=== PATIENT | female | born 1945 | race Caucasian/White ===

== ENCOUNTER 2022-05-01 11:44 | Inpatient (IN) | payer MEDICAID, SELFPAY ==
--- NOTE | 2022-05-01 13:32 | LTC.ADM ---
, HR , RR TC Admission Note: o Admit from:[facility] o Mode of transport: On transportation o Accompanied by: by Daughter o Transferred via: wheelchair o Admitting dx: Chronic Right heart Failure o Mentation: Alert and oriented x3 o Vital Signs: BP 112/55, Temp 97.5, RR 18, HR 73, O2 sat 91 at Room Air. o Lung sounds:/, Clear bilateral through out the field o Overall condition: stable, o Pain:No complain of pain o Mood/Behavior: Pleasant and cooperative o Wound care: None o Assistance level with ADL?s: Requires assist of 1 with transfer, toileting and all ADLs. o Mobility: Res able to walk with wheelchair. o Eating: Set up only.
[2022-05-01 13:57] VITALS: BP 112/55; PULSE 73; RESP 18; TEMP 36.4; O2SAT 91
[2022-05-01 14:36] LABS: SARS PCR* Negative SARS-CoV-2 (Negative)
[2022-05-01] MEDS: INSULIN LISPRO 100 UNIT/ML VIAL 24 UNIT SUBCUT (17:44)
[2022-05-01] MEDS: NYSTATIN CREAM 30 GM 1 APPLIC TOPICAL (17:47)
--- NOTE | 2022-05-01 18:29 | PC.NURSE ---
Admission F/u : Resident is comfortable and resting in her room. She took a short nap till 1730. Family went back home and came back with her belonging and clothes. BS was 159 at 1730 and insulin was given. Vitals as follows: T 97.5, P 79 R 20 B/P 143/70 O2 95. Resident ate 100% of her supper. Resident is able to walk to the bathroom with 1 assist. She is also incontinent at times of urine. Family left for home at 1900 hours and will be back tomorrow.
[2022-05-01 18:41] VITALS: TEMP 36.4; O2SAT 95
--- NOTE | 2022-05-01 18:45 | PC.NURSE ---
Skin Assessment: Resident fitzgerald not have any wound or skin tear, however resident does have yeast infection on her abdomen folder whereby nystatin cream is being applied.
[2022-05-01] MEDS: METOPROLOL TARTRATE 25 MG TABLET PO (20:48)
[2022-05-01] MEDS: risperiDONE 0.5 MG TABLET 1 MG PO (20:49)
[2022-05-01] MEDS: GABAPENTIN 300 MG CAPSULE PO (20:49)
[2022-05-01] MEDS: CETIRIZINE HCL 10 MG TABLET PO (20:57)
[2022-05-01 23:00] VITALS: TEMP 35.6; O2SAT 99
--- NOTE | 2022-05-02 05:38 | PC.NURSE ---
New Admission note Resident night went well, she did not complain about pain or discomfort ; vitals are fine , she got her mantoux.
[2022-05-02] MEDS: ASPIRIN 81 MG TAB.CHEW PO (08:28)
[2022-05-02] MEDS: FAMOTIDINE 10 MG TABLET PO (08:29)
[2022-05-02] MEDS: ISOSORBIDE MONONITRATE ER 30 MG TAB PO (08:32)
[2022-05-02] MEDS: SITAGLIPTIN PHOSPHATE 100 MG TABLET 50 MG PO (08:33)
[2022-05-02] MEDS: METOPROLOL TARTRATE 25 MG TABLET PO ×2 (08:35→17:32)
[2022-05-02] MEDS: NYSTATIN CREAM 30 GM 1 APPLIC TOPICAL ×2 (08:35→17:35)
[2022-05-02] MEDS: LOSARTAN POTASSIUM 50 MG TABLET PO (08:35)
[2022-05-02] MEDS: GABAPENTIN 300 MG CAPSULE PO ×2 (08:35→17:35)
[2022-05-02] MEDS: risperiDONE 0.5 MG TABLET PO (08:40)
[2022-05-02] MEDS: SENNOSIDES/DOCUSATE TABLET 1 TAB PO (08:41)
[2022-05-02] MEDS: INSULIN LISPRO 100 UNIT/ML VIAL 22 UNIT SUBCUT ×2 (08:54→12:22)
[2022-05-02] MEDS: CETIRIZINE HCL 10 MG TABLET PO (08:55)
[2022-05-02] MEDS: SERTRALINE 100 MG TABLET 125 MG PO (08:55)
--- NOTE | 2022-05-02 12:15 | PC.NURSE ---
RESEARCH MANAGEMENT ASSOCIATE Visit: Resident seen by RESEARCH MANAGEMENT ASSOCIATE. Orders/meds reviewed with changes. Order: Change Zyrtec 10mg BID to daily & Risperidone 0.5 mg to 0.25mg daily, D/C Imodium 2mg TID PRN.
--- NOTE | 2022-05-02 12:44 | PC.NURSE ---
Order: Change blood sugar checks to BID by CONTROL PANEL ASSEMBLER.
[2022-05-02 12:53] VITALS: TEMP 36.9; O2SAT 96
--- NOTE | 2022-05-02 15:00 | PC.NURSE ---
Antipsychotic side effects: Increased monitoring set up for dry mouth, blurred vision, tachycardia, urinary retention, constipation, confusion, delirium, hallucinations, flushing, and increased blood pressure. Non-pharmacological interventions put in place Indication of use: hallucinations Dose: Risperidone 0.5mg in AM. 1 mg at bedtime Duration: next 30 days before re-evaluation due to new admit Adequate monitoring for efficacy and adverse consequences has been set up in [facility] and interventions AIMS done upon initiation, discontinuation and quarterly as indicated GDR to be done in two separate quarter unless clinically contraindicated Pharmacy to review monthly ETL DEVELOPER updated on review for decrease at this time.
[2022-05-02] MEDS: INSULIN LISPRO 100 UNIT/ML VIAL 24 UNIT SUBCUT (17:36)
[2022-05-02] MEDS: risperiDONE 0.5 MG TABLET 1 MG PO (19:16)
[2022-05-02 21:04] VITALS: TEMP 37.2; O2SAT 87
[2022-05-02 23:00] VITALS: TEMP 36.6; O2SAT 93
--- NOTE | 2022-05-03 06:35 | PC.NURSE ---
WEEKLY CHARTING - WEEK 3?(Toileting & Skin): Vital signs, summary of admission skin assessment, and Admission/Baseline care plan, reviewed. No changes made to care plans at this time. Resident is incontinent of bowel/bladder. Requires total assist of two to perform toileting task such as bailey-care. Resident wears extra large, heavy absorbency, Quilted Adult Briefs. Skin: Based on findings from admission head-to-toe skin assessment summary, no skin integrity concerns noted. Has order for Nystatin powder.
[2022-05-03] MEDS: TRIAMCINOLONE ACETONIDE CREAM 0.1 % 1 APPLIC TOPICAL (08:10)
[2022-05-03] MEDS: ASPIRIN 81 MG TAB.CHEW PO (08:14)
[2022-05-03] MEDS: LOSARTAN POTASSIUM 50 MG TABLET PO (08:16)
[2022-05-03] MEDS: GABAPENTIN 300 MG CAPSULE PO ×2 (08:17→16:26)
[2022-05-03] MEDS: NYSTATIN CREAM 30 GM 1 APPLIC TOPICAL ×2 (08:17→16:27)
[2022-05-03] MEDS: METOPROLOL TARTRATE 25 MG TABLET PO ×2 (08:17→16:27)
[2022-05-03] MEDS: SENNOSIDES/DOCUSATE TABLET 1 TAB PO (08:18)
[2022-05-03] MEDS: SERTRALINE 100 MG TABLET 125 MG PO (08:18)
[2022-05-03] MEDS: CETIRIZINE HCL 10 MG TABLET PO (08:19)
[2022-05-03] MEDS: SITAGLIPTIN PHOSPHATE 100 MG TABLET 50 MG PO (08:32)
[2022-05-03] MEDS: ISOSORBIDE MONONITRATE ER 30 MG TAB PO (08:32)
[2022-05-03] MEDS: FAMOTIDINE 10 MG TABLET PO (08:34)
[2022-05-03] MEDS: risperiDONE 0.5 MG TABLET 0.25 MG PO (08:39)
[2022-05-03] MEDS: INSULIN LISPRO 100 UNIT/ML VIAL 22 UNIT SUBCUT ×2 (08:50→12:09)
[2022-05-03 09:11] LABS: SARS PCR* Negative SARS-CoV-2 (Negative)
--- NOTE | 2022-05-03 10:22 | PC.NURSE ---
Side rail Assessment/Providers Orders/Informed Consent: Completed side rail utilization assessment, RBVO left bed rails up to always promote independence/positioning. Requested by resident. DX: Obesity per Tyra Dukes NP. Bed rail informed consent form signed and filed. FDA side rail pamphlet given to resident at this time. Intervention in place/Care Plan and Care Sheets updated.
[2022-05-03 11:02] VITALS: TEMP 36.4; O2SAT 95
[2022-05-03 11:24] VITALS: TEMP 36.4; O2SAT 96
--- NOTE | 2022-05-03 12:00 | PC.NURSE ---
IDT: Staff has noted that resident was having weakness during the evening and morning with transfers. Advised to use the EZtstand when noted weakness. Therapy updated at IDT and they will do a recommendation visit.
[2022-05-03 14:37] VITALS: BP 138/60; BP 151/66; PULSE 65
[2022-05-03 15:00] VITALS: TEMP 36.6; O2SAT 97
[2022-05-03] MEDS: INSULIN LISPRO 100 UNIT/ML VIAL 24 UNIT SUBCUT (17:49)
--- NOTE | 2022-05-03 18:14 | PC.NURSE ---
GDR Risperidone done 0.5 mg to 0.25mg in the am pdo.
[2022-05-03] MEDS: ATORVASTATIN CALCIUM 40 MG TABLET PO (20:34)
[2022-05-03] MEDS: risperiDONE 0.5 MG TABLET 1 MG PO (21:04)
[2022-05-03 23:37] VITALS: TEMP 36.4; O2SAT 96
[2022-05-04] MEDS: SITAGLIPTIN PHOSPHATE 100 MG TABLET 50 MG PO (08:14)
[2022-05-04] MEDS: ASPIRIN 81 MG TAB.CHEW PO (08:15)
[2022-05-04] MEDS: LOSARTAN POTASSIUM 50 MG TABLET PO (08:17)
[2022-05-04] MEDS: GABAPENTIN 300 MG CAPSULE PO ×2 (08:17→15:59)
[2022-05-04] MEDS: METOPROLOL TARTRATE 25 MG TABLET PO ×2 (08:17→15:59)
[2022-05-04] MEDS: CETIRIZINE HCL 10 MG TABLET PO (08:18)
[2022-05-04] MEDS: NYSTATIN CREAM 30 GM 1 APPLIC TOPICAL ×2 (08:18→19:22)
[2022-05-04] MEDS: SERTRALINE 100 MG TABLET 125 MG PO (08:18)
[2022-05-04] MEDS: risperiDONE 0.5 MG TABLET 0.25 MG PO (08:18)
[2022-05-04] MEDS: FAMOTIDINE 10 MG TABLET PO (08:18)
[2022-05-04] MEDS: SENNOSIDES/DOCUSATE TABLET 1 TAB PO (08:18)
[2022-05-04] MEDS: INSULIN LISPRO 100 UNIT/ML VIAL 22 UNIT SUBCUT ×2 (08:28→11:50)
[2022-05-04] MEDS: ISOSORBIDE MONONITRATE ER 30 MG TAB PO (08:28)
[2022-05-04 10:26] VITALS: TEMP 36.6; O2SAT 95
[2022-05-04 13:33] VITALS: BP 128/73
[2022-05-04] MEDS: INSULIN LISPRO 100 UNIT/ML VIAL 24 UNIT SUBCUT (17:30)
[2022-05-04] MEDS: risperiDONE 0.5 MG TABLET 1 MG PO (19:21)
[2022-05-04] MEDS: ATORVASTATIN CALCIUM 40 MG TABLET PO (19:22)
[2022-05-04 21:04] VITALS: TEMP 36.6; O2SAT 95
[2022-05-04 23:00] VITALS: TEMP 35.8; O2SAT 99
--- NOTE | 2022-05-05 08:15 | PC.NURSE ---
Admit Covid Day 5 swab test done and sent to lab.
[2022-05-05] MEDS: ASPIRIN 81 MG TAB.CHEW PO (08:18)
[2022-05-05] MEDS: LOSARTAN POTASSIUM 50 MG TABLET PO (08:20)
[2022-05-05] MEDS: ISOSORBIDE MONONITRATE ER 30 MG TAB PO (08:20)
[2022-05-05] MEDS: SITAGLIPTIN PHOSPHATE 100 MG TABLET 50 MG PO (08:20)
[2022-05-05] MEDS: METOPROLOL TARTRATE 25 MG TABLET PO ×2 (08:21→15:58)
[2022-05-05] MEDS: SENNOSIDES/DOCUSATE TABLET 1 TAB PO (08:21)
[2022-05-05] MEDS: FAMOTIDINE 10 MG TABLET PO (08:21)
[2022-05-05] MEDS: GABAPENTIN 300 MG CAPSULE PO ×2 (08:21→15:58)
[2022-05-05] MEDS: risperiDONE 0.5 MG TABLET 0.25 MG PO (08:21)
[2022-05-05] MEDS: SERTRALINE 100 MG TABLET 125 MG PO (08:26)
[2022-05-05] MEDS: CETIRIZINE HCL 10 MG TABLET PO (08:26)
[2022-05-05] MEDS: INSULIN LISPRO 100 UNIT/ML VIAL 22 UNIT SUBCUT ×2 (08:50→12:23)
[2022-05-05 09:12] LABS: SARS PCR* Negative SARS-CoV-2 (Negative)
[2022-05-05 10:08] VITALS: BP 143/70; TEMP 36.5; O2SAT 98
[2022-05-05 10:33] VITALS: BP 143/70; BP 144/81; BP 147/62
[2022-05-05 13:44] VITALS: TEMP 36.5; O2SAT 98
[2022-05-05] MEDS: INSULIN LISPRO 100 UNIT/ML VIAL 24 UNIT SUBCUT (17:15)
[2022-05-05 18:27] VITALS: TEMP 36.7; O2SAT 94
[2022-05-05] MEDS: risperiDONE 0.5 MG TABLET 1 MG PO (20:02)
[2022-05-05] MEDS: NYSTATIN CREAM 30 GM 1 APPLIC TOPICAL (20:03)
[2022-05-05] MEDS: ATORVASTATIN CALCIUM 40 MG TABLET PO (20:03)
[2022-05-06 01:02] VITALS: TEMP 37; O2SAT 96
[2022-05-06 07:00] VITALS: TEMP 36.8; O2SAT 93
[2022-05-06] MEDS: ASPIRIN 81 MG TAB.CHEW PO (08:48)
[2022-05-06] MEDS: NYSTATIN CREAM 30 GM 1 APPLIC TOPICAL ×2 (08:50→20:18)
[2022-05-06] MEDS: METOPROLOL TARTRATE 25 MG TABLET PO ×2 (08:50→16:25)
[2022-05-06] MEDS: SITAGLIPTIN PHOSPHATE 100 MG TABLET 50 MG PO (08:50)
[2022-05-06] MEDS: SERTRALINE 100 MG TABLET 125 MG PO (08:50)
[2022-05-06] MEDS: CETIRIZINE HCL 10 MG TABLET PO (08:50)
[2022-05-06] MEDS: risperiDONE 0.5 MG TABLET 0.25 MG PO (08:50)
[2022-05-06] MEDS: LOSARTAN POTASSIUM 50 MG TABLET PO (08:50)
[2022-05-06] MEDS: ISOSORBIDE MONONITRATE ER 30 MG TAB PO (08:50)
[2022-05-06] MEDS: FAMOTIDINE 10 MG TABLET PO (08:50)
[2022-05-06] MEDS: SENNOSIDES/DOCUSATE TABLET 1 TAB PO (08:50)
[2022-05-06] MEDS: GABAPENTIN 300 MG CAPSULE PO ×2 (08:50→16:25)
[2022-05-06] MEDS: INSULIN LISPRO 100 UNIT/ML VIAL 22 UNIT SUBCUT ×2 (08:59→12:24)
[2022-05-06 10:00] VITALS: BP 125/77; TEMP 36.8; O2SAT 93
[2022-05-06] MEDS: INSULIN LISPRO 100 UNIT/ML VIAL 24 UNIT SUBCUT (17:09)
[2022-05-06 18:20] VITALS: TEMP 37; O2SAT 94
[2022-05-06] MEDS: ATORVASTATIN CALCIUM 40 MG TABLET PO (20:17)
[2022-05-06] MEDS: risperiDONE 0.5 MG TABLET 1 MG PO (20:44)
[2022-05-07 00:08] VITALS: TEMP 36.2; O2SAT 96
[2022-05-07 07:00] VITALS: TEMP 36.7; O2SAT 98
[2022-05-07] MEDS: ASPIRIN 81 MG TAB.CHEW PO (08:45)
[2022-05-07] MEDS: GABAPENTIN 300 MG CAPSULE PO ×2 (08:46→16:23)
[2022-05-07] MEDS: METOPROLOL TARTRATE 25 MG TABLET PO ×2 (08:46→16:23)
[2022-05-07] MEDS: LOSARTAN POTASSIUM 50 MG TABLET PO (08:46)
[2022-05-07] MEDS: ISOSORBIDE MONONITRATE ER 30 MG TAB PO (08:46)
[2022-05-07] MEDS: NYSTATIN CREAM 30 GM 1 APPLIC TOPICAL ×2 (08:46→20:14)
[2022-05-07] MEDS: risperiDONE 0.5 MG TABLET 0.25 MG PO (08:46)
[2022-05-07] MEDS: SITAGLIPTIN PHOSPHATE 100 MG TABLET 50 MG PO (08:46)
[2022-05-07] MEDS: FAMOTIDINE 10 MG TABLET PO (08:46)
[2022-05-07] MEDS: SENNOSIDES/DOCUSATE TABLET 1 TAB PO (08:47)
[2022-05-07] MEDS: SERTRALINE 100 MG TABLET 125 MG PO (08:47)
[2022-05-07] MEDS: CETIRIZINE HCL 10 MG TABLET PO (08:47)
[2022-05-07] MEDS: INSULIN LISPRO 100 UNIT/ML VIAL 22 UNIT SUBCUT ×2 (09:13→12:41)
[2022-05-07] MEDS: INSULIN LISPRO 100 UNIT/ML VIAL 24 UNIT SUBCUT (18:58)
[2022-05-07] MEDS: ATORVASTATIN CALCIUM 40 MG TABLET PO (20:12)
[2022-05-07] MEDS: risperiDONE 0.5 MG TABLET 1 MG PO (20:14)
[2022-05-07 21:19] VITALS: TEMP 36.4; O2SAT 97
[2022-05-07 23:00] VITALS: TEMP 36.4; O2SAT 100
[2022-05-08] MEDS: SITAGLIPTIN PHOSPHATE 100 MG TABLET 50 MG PO (08:24)
[2022-05-08] MEDS: ASPIRIN 81 MG TAB.CHEW PO (08:24)
[2022-05-08] MEDS: ISOSORBIDE MONONITRATE ER 30 MG TAB PO (08:24)
[2022-05-08] MEDS: LOSARTAN POTASSIUM 50 MG TABLET PO (08:24)
[2022-05-08] MEDS: METOPROLOL TARTRATE 25 MG TABLET PO ×2 (08:24→16:34)
[2022-05-08] MEDS: risperiDONE 0.5 MG TABLET 0.25 MG PO (08:25)
[2022-05-08] MEDS: SENNOSIDES/DOCUSATE TABLET 1 TAB PO (08:25)
[2022-05-08] MEDS: GABAPENTIN 300 MG CAPSULE PO ×2 (08:25→16:34)
[2022-05-08] MEDS: FAMOTIDINE 10 MG TABLET PO (08:25)
[2022-05-08] MEDS: CETIRIZINE HCL 10 MG TABLET PO (08:25)
[2022-05-08] MEDS: SERTRALINE 100 MG TABLET 125 MG PO (08:25)
[2022-05-08] MEDS: INSULIN LISPRO 100 UNIT/ML VIAL 22 UNIT SUBCUT ×2 (08:52→12:16)
[2022-05-08] MEDS: NYSTATIN CREAM 30 GM 1 APPLIC TOPICAL ×2 (08:53→20:50)
[2022-05-08 10:43] VITALS: TEMP 36.8; O2SAT 95
[2022-05-08 10:44] VITALS: TEMP 36.8; O2SAT 95
[2022-05-08 11:05] VITALS: BP 135/70
[2022-05-08 11:16] VITALS: BMI 41.8
--- NOTE | 2022-05-08 12:16 | PC.NURSE ---
Covid Outbreak Test: Resident provided consent for Covid Outbreak testing. Resident is currently asymptomatic. Resident/family will be notified if positive.
--- NOTE | 2022-05-08 12:55 | PC.NURSE ---
EZEKIEL assessment: was completed using staff interpreter via iPad.
[2022-05-08 12:58] LABS: SARS PCR* Negative SARS-CoV-2 (Negative)
--- NOTE | 2022-05-08 13:00 | PC.NURSE ---
Addendum entered by Carmen Campos RN 05/08/22 20:43: Resident also utilizes supplemental oxygen at NOC. 2L via NCANN. Original Note: SOB assessment: When asked about shortness of breath during the EZEKIEL assessment, resident states that she experiences SOB when lying flat. This nurse put HOB down, resident was only able to tolerate for less than 1 minute and began to cough. The onset was gradual, resident improved when HOB was elevated. Resident does have KEEGAN, obesity, edema, and unspecified disease of the pharynx per hospital documentation which are likely to contribute to positional SOB and affect residents respiratory status. Resident currently takes lasix and antihistamine which could affect respiratory function. SOB is not accompanied by any other symptoms. Resident states that she wants the head of the bed up at all times.
[2022-05-08 15:00] VITALS: TEMP 36.8; O2SAT 95
[2022-05-08] MEDS: INSULIN LISPRO 100 UNIT/ML VIAL 24 UNIT SUBCUT (17:36)
--- NOTE | 2022-05-08 17:48 | REH.OT ---
OT: Received request to address w/c positioning with patient. Patient jorge was up in w/c for group exercises and noted feet dangling and unable to reach floor during exercises. Obtained footrests for pt to trial. Pt is unable to propel self in current w/c due to her short stature. She would benefit from 20w x 16d chapincito height manual w/c to allow her to use LEs to assist UEs in propelling self. OT trialed 2 w/c with pt and unable to locate recommended size and adjustments made to current 20x18 manual w/c to lower seat height by 1 and add lumbar support. EDDIE indicates that patient had her own w/c at prior SNF and it did not get delivered to the [facility]. Spoke with PRADEEP who is in contact with facility. OT will continue to address w/c positioning needs to aid independence and safety with ADLs and mobility. Pt to have footrests in place on manual w/c to avoid injury to LEs when transporting patient.
[2022-05-08] MEDS: ATORVASTATIN CALCIUM 40 MG TABLET PO (19:49)
--- NOTE | 2022-05-08 22:36 | PC.NURSE ---
Med Status: There was no PM Risperidone available to be administered. It has been re-ordered.
[2022-05-08 23:00] VITALS: TEMP 36.4; O2SAT 98
[2022-05-09 07:00] VITALS: TEMP 36.6; O2SAT 94
[2022-05-09] MEDS: SITAGLIPTIN PHOSPHATE 100 MG TABLET 50 MG PO (08:09)
[2022-05-09] MEDS: GABAPENTIN 300 MG CAPSULE PO ×2 (08:09→16:15)
[2022-05-09] MEDS: METOPROLOL TARTRATE 25 MG TABLET PO ×2 (08:09→16:15)
[2022-05-09] MEDS: ASPIRIN 81 MG TAB.CHEW PO (08:09)
[2022-05-09] MEDS: LOSARTAN POTASSIUM 50 MG TABLET PO (08:09)
[2022-05-09] MEDS: SERTRALINE 100 MG TABLET 125 MG PO (08:10)
[2022-05-09] MEDS: risperiDONE 0.5 MG TABLET 0.25 MG PO (08:10)
[2022-05-09] MEDS: NYSTATIN CREAM 30 GM 1 APPLIC TOPICAL (08:10)
[2022-05-09] MEDS: CETIRIZINE HCL 10 MG TABLET PO (08:10)
[2022-05-09] MEDS: FAMOTIDINE 10 MG TABLET PO (08:10)
[2022-05-09] MEDS: SENNOSIDES/DOCUSATE TABLET 1 TAB PO (08:10)
[2022-05-09] MEDS: ISOSORBIDE MONONITRATE ER 30 MG TAB PO (08:36)
[2022-05-09] MEDS: INSULIN LISPRO 100 UNIT/ML VIAL 22 UNIT SUBCUT ×2 (08:56→11:57)
[2022-05-09 10:13] VITALS: BP 132/71
[2022-05-09 10:14] VITALS: TEMP 36.6; O2SAT 94
--- NOTE | 2022-05-09 11:26 | PC.NURSE ---
Order: Change Nystatin Cream BID to BID PRN, D/C Torsemide daily PRN, Change BP & daily weight monitoring to 3x/week, okay to leave Anjana in room by Ernst WHITMAN.
[2022-05-09] MEDS: INSULIN LISPRO 100 UNIT/ML VIAL 24 UNIT SUBCUT (17:08)
[2022-05-09 18:32] VITALS: TEMP 36.5; O2SAT 94
[2022-05-09] MEDS: ATORVASTATIN CALCIUM 40 MG TABLET PO (20:13)
[2022-05-09] MEDS: risperiDONE 0.5 MG TABLET 1 MG PO (20:17)
[2022-05-09 23:00] VITALS: TEMP 36.4; O2SAT 97
[2022-05-10 07:00] VITALS: BP 151/78; PULSE 61; RESP 16; TEMP 36.4; O2SAT 94; BMI 42.5
--- NOTE | 2022-05-10 07:22 | PC.NURSE ---
Week #4: Baseline care plan reviewed, no changes made. Nothing added to temporary care plan. Resident is Citizen Of [place] speaking and need an freelance interpreter/translator. And has a communication board. Can understand Cymro more than she can talk. Hears normal tones. Wears glasses for visual impairment. Oriented x 3 with some forgetfulness. Vital signs, no concerns. Nurse administers all medications. Mood/Behavior: Nothing documented since admission. Is on Zoloft 125mg daily, Risperidone 0.25mg QAM, 1mg @ HS. No adverse effects noted. Mood stable.
[2022-05-10] MEDS: ASPIRIN 81 MG TAB.CHEW PO (08:02)
[2022-05-10] MEDS: ISOSORBIDE MONONITRATE ER 30 MG TAB PO (08:03)
[2022-05-10] MEDS: SITAGLIPTIN PHOSPHATE 100 MG TABLET 50 MG PO (08:03)
[2022-05-10] MEDS: LOSARTAN POTASSIUM 50 MG TABLET PO (08:03)
[2022-05-10] MEDS: SENNOSIDES/DOCUSATE TABLET 1 TAB PO (08:04)
[2022-05-10] MEDS: FAMOTIDINE 10 MG TABLET PO (08:04)
[2022-05-10] MEDS: CETIRIZINE HCL 10 MG TABLET PO (08:04)
[2022-05-10] MEDS: METOPROLOL TARTRATE 25 MG TABLET PO ×2 (08:04→16:11)
[2022-05-10] MEDS: GABAPENTIN 300 MG CAPSULE PO ×2 (08:04→16:12)
[2022-05-10] MEDS: SERTRALINE 100 MG TABLET 125 MG PO (08:04)
[2022-05-10] MEDS: risperiDONE 0.5 MG TABLET 0.25 MG PO (08:04)
[2022-05-10] MEDS: INSULIN LISPRO 100 UNIT/ML VIAL 22 UNIT SUBCUT ×2 (08:48→12:21)
[2022-05-10 10:10] VITALS: TEMP 36.4; O2SAT 94
[2022-05-10 15:00] VITALS: TEMP 36.5; O2SAT 96
[2022-05-10] MEDS: INSULIN LISPRO 100 UNIT/ML VIAL 24 UNIT SUBCUT (17:41)
[2022-05-10] MEDS: risperiDONE 0.5 MG TABLET 1 MG PO (19:28)
[2022-05-10] MEDS: ATORVASTATIN CALCIUM 40 MG TABLET PO (19:28)
[2022-05-10 23:00] VITALS: TEMP 36.4; O2SAT 97
--- NOTE | 2022-05-11 01:00 | PC.NURSE ---
WEEKLY CHARTING - WEEK 4: Vital signs reviewed - no concerns. Baseline/admission and temporary care plan reviewed - no change. No behavioral concerns. Sleeps well through the night. Receives sertraline 125mg daily and risperidone 0.25mg Q AM and 1mg at HS with no noted adverse effects. Glass Washer needed as resident speaks Iraqi. Is able to understand [place] Ca[place] Islander, but speaks little. No noted hearing impairment. Wears glasses. A&O x4 with some forgetfulness. All medications administered by licensed nurse.
[2022-05-11] MEDS: ASPIRIN 81 MG TAB.CHEW PO (08:15)
[2022-05-11] MEDS: LOSARTAN POTASSIUM 50 MG TABLET PO (08:15)
[2022-05-11] MEDS: ISOSORBIDE MONONITRATE ER 30 MG TAB PO (08:15)
[2022-05-11] MEDS: SITAGLIPTIN PHOSPHATE 100 MG TABLET 50 MG PO (08:15)
[2022-05-11] MEDS: FAMOTIDINE 10 MG TABLET PO (08:16)
[2022-05-11] MEDS: METOPROLOL TARTRATE 25 MG TABLET PO ×2 (08:16→16:00)
[2022-05-11] MEDS: risperiDONE 0.5 MG TABLET 0.25 MG PO (08:16)
[2022-05-11] MEDS: SERTRALINE 100 MG TABLET 125 MG PO (08:16)
[2022-05-11] MEDS: CETIRIZINE HCL 10 MG TABLET PO (08:16)
[2022-05-11] MEDS: GABAPENTIN 300 MG CAPSULE PO ×2 (08:16→16:00)
[2022-05-11] MEDS: SENNOSIDES/DOCUSATE TABLET 1 TAB PO (08:16)
[2022-05-11] MEDS: INSULIN LISPRO 100 UNIT/ML VIAL 22 UNIT SUBCUT ×2 (08:50→12:49)
[2022-05-11 10:21] VITALS: TEMP 36.6; O2SAT 97
[2022-05-11] MEDS: INSULIN LISPRO 100 UNIT/ML VIAL 24 UNIT SUBCUT (17:17)
[2022-05-11] MEDS: ATORVASTATIN CALCIUM 40 MG TABLET PO (19:47)
[2022-05-11] MEDS: risperiDONE 0.5 MG TABLET 1 MG PO (19:47)
[2022-05-11 21:48] VITALS: TEMP 36.8; O2SAT 94
[2022-05-11 23:00] VITALS: TEMP 36.8; O2SAT 99
[2022-05-12 07:00] VITALS: BP 105/60; TEMP 36.5; O2SAT 92
[2022-05-12] MEDS: ASPIRIN 81 MG TAB.CHEW PO (08:26)
[2022-05-12] MEDS: ISOSORBIDE MONONITRATE ER 30 MG TAB PO (08:27)
[2022-05-12] MEDS: SITAGLIPTIN PHOSPHATE 100 MG TABLET 50 MG PO (08:27)
[2022-05-12] MEDS: LOSARTAN POTASSIUM 50 MG TABLET PO (08:28)
[2022-05-12] MEDS: METOPROLOL TARTRATE 25 MG TABLET PO ×2 (08:28→17:12)
[2022-05-12] MEDS: GABAPENTIN 300 MG CAPSULE PO ×2 (08:28→17:12)
[2022-05-12] MEDS: FAMOTIDINE 10 MG TABLET PO (08:29)
[2022-05-12] MEDS: risperiDONE 0.5 MG TABLET 0.25 MG PO (08:29)
[2022-05-12] MEDS: SENNOSIDES/DOCUSATE TABLET 1 TAB PO (08:30)
[2022-05-12] MEDS: CETIRIZINE HCL 10 MG TABLET PO (08:31)
[2022-05-12] MEDS: SERTRALINE 100 MG TABLET 125 MG PO (08:31)
[2022-05-12] MEDS: INSULIN LISPRO 100 UNIT/ML VIAL 22 UNIT SUBCUT ×2 (08:53→12:22)
--- NOTE | 2022-05-12 10:56 | PC.NURSE ---
Status: Resident reported to nephew she is not feeling well tired with sore throat, runny nose cough and phlegmy.
--- NOTE | 2022-05-12 11:40 | PC.NURSE ---
Covid, Inf A&B swab test done and sent to lab.
[2022-05-12 12:03] LABS: PCR FLU A Negative PCR FLU A (Negative); PCR FLU B Negative PCR FLU B (Negative)
[2022-05-12 12:35] LABS: SARS PCR* Negative SARS-CoV-2 (Negative)
--- NOTE | 2022-05-12 12:53 | PC.NURSE ---
Covid, Influenza results negative. Resident notified.
[2022-05-12] MEDS: INSULIN LISPRO 100 UNIT/ML VIAL 24 UNIT SUBCUT (17:24)
[2022-05-12] MEDS: ATORVASTATIN CALCIUM 40 MG TABLET PO (20:12)
[2022-05-12] MEDS: risperiDONE 0.5 MG TABLET 1 MG PO (20:12)
[2022-05-12 21:15] VITALS: TEMP 36.5; O2SAT 92
[2022-05-12 23:00] VITALS: TEMP 36.4; O2SAT 97
[2022-05-13] MEDS: ASPIRIN 81 MG TAB.CHEW PO (08:03)
[2022-05-13] MEDS: LOSARTAN POTASSIUM 50 MG TABLET PO (08:04)
[2022-05-13] MEDS: ISOSORBIDE MONONITRATE ER 30 MG TAB PO (08:04)
[2022-05-13] MEDS: SITAGLIPTIN PHOSPHATE 100 MG TABLET 50 MG PO (08:04)
[2022-05-13] MEDS: FAMOTIDINE 10 MG TABLET PO (08:05)
[2022-05-13] MEDS: GABAPENTIN 300 MG CAPSULE PO ×2 (08:05→17:05)
[2022-05-13] MEDS: risperiDONE 0.5 MG TABLET 0.25 MG PO (08:05)
[2022-05-13] MEDS: METOPROLOL TARTRATE 25 MG TABLET PO ×2 (08:05→17:04)
[2022-05-13] MEDS: SENNOSIDES/DOCUSATE TABLET 1 TAB PO (08:06)
[2022-05-13] MEDS: CETIRIZINE HCL 10 MG TABLET PO (08:07)
[2022-05-13] MEDS: SERTRALINE 100 MG TABLET 125 MG PO (08:07)
[2022-05-13] MEDS: INSULIN LISPRO 100 UNIT/ML VIAL 22 UNIT SUBCUT ×2 (09:21→12:11)
[2022-05-13 11:09] VITALS: TEMP 36.4; O2SAT 95
[2022-05-13] MEDS: ACETAMINOPHEN 500 MG TABLET 1000 MG PO (13:34)
--- NOTE | 2022-05-13 13:35 | PC.NURSE ---
Pain management: Resident c/o pain on her both knees and informed that Voltaren cream is not very effective. She was given PRN Tylenol at 1330. Left a note to N/P for pain management.
[2022-05-13 16:42] VITALS: TEMP 36.7; O2SAT 97
[2022-05-13] MEDS: INSULIN LISPRO 100 UNIT/ML VIAL 24 UNIT SUBCUT (17:21)
[2022-05-13] MEDS: risperiDONE 0.5 MG TABLET 1 MG PO (19:54)
[2022-05-13] MEDS: ATORVASTATIN CALCIUM 40 MG TABLET PO (19:54)
[2022-05-13 23:00] VITALS: TEMP 36.2; O2SAT 98
[2022-05-14] MEDS: ASPIRIN 81 MG TAB.CHEW PO (08:03)
[2022-05-14] MEDS: SITAGLIPTIN PHOSPHATE 100 MG TABLET 50 MG PO (08:05)
[2022-05-14] MEDS: LOSARTAN POTASSIUM 50 MG TABLET PO (08:05)
[2022-05-14] MEDS: ISOSORBIDE MONONITRATE ER 30 MG TAB PO (08:05)
[2022-05-14] MEDS: METOPROLOL TARTRATE 25 MG TABLET PO ×2 (08:06→16:57)
[2022-05-14] MEDS: risperiDONE 0.5 MG TABLET 0.25 MG PO (08:06)
[2022-05-14] MEDS: GABAPENTIN 300 MG CAPSULE PO ×2 (08:06→16:57)
[2022-05-14] MEDS: FAMOTIDINE 10 MG TABLET PO (08:06)
[2022-05-14] MEDS: SERTRALINE 100 MG TABLET 125 MG PO (08:07)
[2022-05-14] MEDS: SENNOSIDES/DOCUSATE TABLET 1 TAB PO (08:07)
[2022-05-14] MEDS: CETIRIZINE HCL 10 MG TABLET PO (08:07)
[2022-05-14] MEDS: INSULIN LISPRO 100 UNIT/ML VIAL 22 UNIT SUBCUT ×2 (08:28→12:38)
[2022-05-14 09:46] VITALS: TEMP 36.4; O2SAT 96
[2022-05-14 16:27] VITALS: TEMP 36.7; O2SAT 96
[2022-05-14] MEDS: INSULIN LISPRO 100 UNIT/ML VIAL 24 UNIT SUBCUT (17:36)
[2022-05-14] MEDS: ATORVASTATIN CALCIUM 40 MG TABLET PO (20:06)
[2022-05-14] MEDS: risperiDONE 0.5 MG TABLET 1 MG PO (20:08)
[2022-05-14 21:32] VITALS: TEMP 36.6; O2SAT 95
[2022-05-15 07:00] VITALS: BP 124/68; TEMP 36.3; O2SAT 100
[2022-05-15] MEDS: ASPIRIN 81 MG TAB.CHEW PO (08:21)
[2022-05-15] MEDS: ISOSORBIDE MONONITRATE ER 30 MG TAB PO (08:22)
[2022-05-15] MEDS: SITAGLIPTIN PHOSPHATE 100 MG TABLET 50 MG PO (08:22)
[2022-05-15] MEDS: GABAPENTIN 300 MG CAPSULE PO ×2 (08:23→16:47)
[2022-05-15] MEDS: LOSARTAN POTASSIUM 50 MG TABLET PO (08:23)
[2022-05-15] MEDS: METOPROLOL TARTRATE 25 MG TABLET PO ×2 (08:23→16:46)
[2022-05-15] MEDS: risperiDONE 0.5 MG TABLET 0.25 MG PO (08:24)
[2022-05-15] MEDS: SENNOSIDES/DOCUSATE TABLET 1 TAB PO (08:24)
[2022-05-15] MEDS: FAMOTIDINE 10 MG TABLET PO (08:24)
[2022-05-15] MEDS: CETIRIZINE HCL 10 MG TABLET PO (08:25)
[2022-05-15] MEDS: SERTRALINE 100 MG TABLET 125 MG PO (08:25)
[2022-05-15] MEDS: INSULIN LISPRO 100 UNIT/ML VIAL 22 UNIT SUBCUT ×2 (08:55→12:06)
[2022-05-15 11:14] LABS: SARS PCR* Negative SARS-CoV-2 (Negative)
[2022-05-15 15:00] VITALS: TEMP 36.3; O2SAT 100
[2022-05-15] MEDS: INSULIN LISPRO 100 UNIT/ML VIAL 24 UNIT SUBCUT ×2 (17:39→17:40)
--- NOTE | 2022-05-15 19:40 | PC.NURSE ---
COVID OUTBREAK TESTING Resident gave verbal consent for outbreak COVID testing. Resident is currently asymptomatic.? Resident/family will be notified only if resident is positive.
[2022-05-15] MEDS: risperiDONE 0.5 MG TABLET 1 MG PO (20:00)
[2022-05-15] MEDS: ATORVASTATIN CALCIUM 40 MG TABLET PO (20:00)
[2022-05-15 23:00] VITALS: TEMP 36.3; O2SAT 95
[2022-05-16 07:00] VITALS: TEMP 36.5; O2SAT 94
[2022-05-16] MEDS: ASPIRIN 81 MG TAB.CHEW PO (08:47)
[2022-05-16] MEDS: ISOSORBIDE MONONITRATE ER 30 MG TAB PO (08:48)
[2022-05-16] MEDS: SITAGLIPTIN PHOSPHATE 100 MG TABLET 50 MG PO (08:49)
[2022-05-16] MEDS: LOSARTAN POTASSIUM 50 MG TABLET PO (08:49)
[2022-05-16] MEDS: METOPROLOL TARTRATE 25 MG TABLET PO ×2 (08:49→16:14)
[2022-05-16] MEDS: GABAPENTIN 300 MG CAPSULE PO ×2 (08:50→16:14)
[2022-05-16] MEDS: risperiDONE 0.5 MG TABLET 0.25 MG PO (08:50)
[2022-05-16] MEDS: SENNOSIDES/DOCUSATE TABLET 1 TAB PO (08:50)
[2022-05-16] MEDS: FAMOTIDINE 10 MG TABLET PO (08:50)
[2022-05-16] MEDS: SERTRALINE 100 MG TABLET 125 MG PO (08:51)
[2022-05-16] MEDS: CETIRIZINE HCL 10 MG TABLET PO (08:51)
[2022-05-16] MEDS: INSULIN LISPRO 100 UNIT/ML VIAL 22 UNIT SUBCUT ×2 (08:55→12:14)
--- NOTE | 2022-05-16 13:00 | PC.NURSE ---
CARE CONFERENCE: All members of the IDT team present, including in person quarter doper. Resident present, both daughters on the phone. Nursing reviewed current care needs; resident is 1 assist with most ADLs. Resident voices that she would like to walk more with nursing staff during the day--will update staff. Resident has updated POLST in place since admission, no changes at this time. Discussed why resident is not using her CPAP machine at [facility], resident prefers to use wall O2 with NCANN because the mask hurts my face. She requests to have an eye and dental exam in the near future, SW is aware and will work on scheduling this as well as transportation. Family states they are working on obtaining her old wheelchair from her previous facility and will update when able. Nursing has no further concerns at this time and family/resident is very happy with the care she is receiving. Activities reviewed current participation in and out of room--resident enjoys going to exercise and doing crosswords in her room. Is getting a perm next week. SW reviewed mood assessment, no concerns. Weight has been stable since admission and resident is eating well, no concerns. Uses no restraints. Daughters are involved in decision making as needed. Is not able to self-administer meds, administered by nurse. No falls since admission. Resident is considered a vulnerable adult due to her need for assistance with ADLs.
--- NOTE | 2022-05-16 15:18 | PC.SOCIAL ---
Resident's initial care conference was held today with a director educational radio, her two niece's Pallavi and Francisca via phone, and all members of the team. Resident has adjusted well to placement here after her move from another SNF. Resident would like to see a dentist and eye Dr. in the future. Staff will work on trying to get resident in with her insurance limits. Family would like a medical transport when this is arranged. Resident is getting a perm next week per her request. Resident's mood remains stable. The [facility] came from lost her wheelchair and family is working on getting a replacement. Family is supportive and calls or visits often.
[2022-05-16] MEDS: ACETAMINOPHEN 500 MG TABLET 1000 MG PO (16:16)
[2022-05-16] MEDS: INSULIN LISPRO 100 UNIT/ML VIAL 24 UNIT SUBCUT (17:00)
--- NOTE | 2022-05-16 18:45 | PC.NURSE ---
Medication: Went to check on MAY for suppertime insulin and it was not available to check out. It shows that the last time it was given was yesterday at 1740 but was guevara and unable to record the insulin given this evening.
[2022-05-16] MEDS: ATORVASTATIN CALCIUM 40 MG TABLET PO (20:41)
[2022-05-16] MEDS: risperiDONE 0.5 MG TABLET 1 MG PO (21:08)
[2022-05-16 21:29] VITALS: TEMP 36.7; O2SAT 95
[2022-05-16 23:00] VITALS: TEMP 36.3; O2SAT 100
--- NOTE | 2022-05-17 00:59 | PC.NURSE ---
Weekly Charting Week 1: Resident vitals within normal, Some BP reading is high, Continues checking BP Mon, Wed, Fri at 7Am as per order. Reviewed temporary and comprehensive care plan. No added or changes made. PAIN: Res sometimes complain of bilateral knee pain during transfer. Pain relieved with scheduled Acetaminophen 1000mg BID and Diclofenac sodium gel 1% BID. ADLs: Resident requires extensive assist of 1 with dressing, transferring, toileting and bathing. Okay to use easy stand PRN. Limited assist of 1 with grooming, oral hygiene. Res is able to feed herself after setting up only.
[2022-05-17 07:00] VITALS: BP 124/73; PULSE 58; RESP 17; TEMP 36.6; O2SAT 94; BMI 42.9
[2022-05-17] MEDS: ASPIRIN 81 MG TAB.CHEW PO (08:33)
[2022-05-17] MEDS: ACETAMINOPHEN 500 MG TABLET 1000 MG PO ×2 (08:33→16:16)
[2022-05-17] MEDS: ISOSORBIDE MONONITRATE ER 30 MG TAB PO (08:34)
[2022-05-17] MEDS: SITAGLIPTIN PHOSPHATE 100 MG TABLET 50 MG PO (08:35)
[2022-05-17] MEDS: LOSARTAN POTASSIUM 50 MG TABLET PO (08:36)
[2022-05-17] MEDS: METOPROLOL TARTRATE 25 MG TABLET PO ×2 (08:37→16:17)
[2022-05-17] MEDS: risperiDONE 0.5 MG TABLET 0.25 MG PO (08:37)
[2022-05-17] MEDS: GABAPENTIN 300 MG CAPSULE PO ×2 (08:37→16:17)
[2022-05-17] MEDS: FAMOTIDINE 10 MG TABLET PO (08:37)
[2022-05-17] MEDS: SENNOSIDES/DOCUSATE TABLET 1 TAB PO (08:38)
[2022-05-17] MEDS: SERTRALINE 100 MG TABLET 125 MG PO (08:38)
[2022-05-17] MEDS: CETIRIZINE HCL 10 MG TABLET PO (08:39)
[2022-05-17] MEDS: INSULIN LISPRO 100 UNIT/ML VIAL 22 UNIT SUBCUT ×2 (08:59→12:20)
--- NOTE | 2022-05-17 10:41 | PC.NURSE ---
Week #1-ADL's: Baseline & temporary care plan reviewed. No changes made and nothing added to temporary care plan. Resident needs one assist with dressing, grooming, and bathing. Is able to participate. Does oral cares after set up. Feed self after set up. Is on diabetic diet, thin liquids. No problems with chewing/swallowing reported. Vital signs reviewed. BP's with some high values. BP's monitored 3x/week and will be evaluated by THERMO PROCESSOR. Pain: Is managed with Tylenol BID, Neurontin 300mg BID, Diclofenac gel to knees BID. Occasionally complain of pain with movement relieved with scheduled Tylenol. Is able to verbalize need for pain.
[2022-05-17 15:00] VITALS: TEMP 36.7; O2SAT 95
[2022-05-17] MEDS: INSULIN LISPRO 100 UNIT/ML VIAL 24 UNIT SUBCUT (17:42)
[2022-05-17] MEDS: ATORVASTATIN CALCIUM 40 MG TABLET PO (21:32)
[2022-05-17] MEDS: risperiDONE 0.5 MG TABLET 1 MG PO (21:35)
[2022-05-17 23:00] VITALS: TEMP 36.7; O2SAT 97
[2022-05-18 07:00] VITALS: TEMP 36.6; O2SAT 95
[2022-05-18] MEDS: ACETAMINOPHEN 500 MG TABLET 1000 MG PO ×2 (07:54→15:46)
[2022-05-18] MEDS: ASPIRIN 81 MG TAB.CHEW PO (07:55)
[2022-05-18] MEDS: SITAGLIPTIN PHOSPHATE 100 MG TABLET 50 MG PO (07:56)
[2022-05-18] MEDS: LOSARTAN POTASSIUM 50 MG TABLET PO (07:56)
[2022-05-18] MEDS: ISOSORBIDE MONONITRATE ER 30 MG TAB PO (07:56)
[2022-05-18] MEDS: METOPROLOL TARTRATE 25 MG TABLET PO ×2 (07:57→15:47)
[2022-05-18] MEDS: risperiDONE 0.5 MG TABLET 0.25 MG PO (07:57)
[2022-05-18] MEDS: FAMOTIDINE 10 MG TABLET PO (07:57)
[2022-05-18] MEDS: GABAPENTIN 300 MG CAPSULE PO ×2 (07:57→15:47)
[2022-05-18] MEDS: SERTRALINE 100 MG TABLET 125 MG PO (07:58)
[2022-05-18] MEDS: SENNOSIDES/DOCUSATE TABLET 1 TAB PO (07:58)
[2022-05-18] MEDS: CETIRIZINE HCL 10 MG TABLET PO (07:59)
[2022-05-18] MEDS: INSULIN LISPRO 100 UNIT/ML VIAL 22 UNIT SUBCUT ×2 (08:07→11:50)
--- NOTE | 2022-05-18 09:27 | PC.NURSE ---
Resident has had no edema noted since admission.
[2022-05-18] MEDS: INSULIN LISPRO 100 UNIT/ML VIAL 24 UNIT SUBCUT (17:45)
[2022-05-18] MEDS: risperiDONE 0.5 MG TABLET 1 MG PO (19:16)
[2022-05-18] MEDS: ATORVASTATIN CALCIUM 40 MG TABLET PO (19:16)
[2022-05-19 07:00] VITALS: BP 98/68
[2022-05-19] MEDS: ASPIRIN 81 MG TAB.CHEW PO (08:17)
[2022-05-19] MEDS: ACETAMINOPHEN 500 MG TABLET 1000 MG PO ×2 (08:17→16:15)
[2022-05-19] MEDS: SITAGLIPTIN PHOSPHATE 100 MG TABLET 50 MG PO (08:18)
[2022-05-19] MEDS: ISOSORBIDE MONONITRATE ER 30 MG TAB PO (08:18)
[2022-05-19] MEDS: METOPROLOL TARTRATE 25 MG TABLET PO ×2 (08:19→16:15)
[2022-05-19] MEDS: LOSARTAN POTASSIUM 50 MG TABLET PO (08:19)
[2022-05-19] MEDS: risperiDONE 0.5 MG TABLET 0.25 MG PO (08:20)
[2022-05-19] MEDS: GABAPENTIN 300 MG CAPSULE PO ×2 (08:20→16:15)
[2022-05-19] MEDS: SENNOSIDES/DOCUSATE TABLET 1 TAB PO (08:20)
[2022-05-19] MEDS: FAMOTIDINE 10 MG TABLET PO (08:20)
[2022-05-19] MEDS: SERTRALINE 100 MG TABLET 125 MG PO (08:21)
[2022-05-19] MEDS: CETIRIZINE HCL 10 MG TABLET PO (08:21)
[2022-05-19] MEDS: INSULIN LISPRO 100 UNIT/ML VIAL 22 UNIT SUBCUT ×2 (08:46→12:10)
[2022-05-19] MEDS: INSULIN LISPRO 100 UNIT/ML VIAL 24 UNIT SUBCUT (17:21)
[2022-05-19] MEDS: risperiDONE 0.5 MG TABLET 1 MG PO (20:32)
[2022-05-19] MEDS: ATORVASTATIN CALCIUM 40 MG TABLET PO (20:32)
[2022-05-20] MEDS: ACETAMINOPHEN 500 MG TABLET 1000 MG PO ×2 (08:14→16:15)
[2022-05-20] MEDS: ISOSORBIDE MONONITRATE ER 30 MG TAB PO (08:15)
[2022-05-20] MEDS: INSULIN LISPRO 100 UNIT/ML VIAL 22 UNIT SUBCUT ×2 (08:15→12:00)
[2022-05-20] MEDS: ASPIRIN 81 MG TAB.CHEW PO (08:15)
[2022-05-20] MEDS: METOPROLOL TARTRATE 25 MG TABLET PO ×2 (08:16→16:16)
[2022-05-20] MEDS: GABAPENTIN 300 MG CAPSULE PO ×2 (08:16→16:16)
[2022-05-20] MEDS: risperiDONE 0.5 MG TABLET 0.25 MG PO (08:16)
[2022-05-20] MEDS: FAMOTIDINE 10 MG TABLET PO (08:16)
[2022-05-20] MEDS: SITAGLIPTIN PHOSPHATE 100 MG TABLET 50 MG PO (08:16)
[2022-05-20] MEDS: LOSARTAN POTASSIUM 50 MG TABLET PO (08:16)
[2022-05-20] MEDS: CETIRIZINE HCL 10 MG TABLET PO (08:17)
[2022-05-20] MEDS: SERTRALINE 100 MG TABLET 125 MG PO (08:17)
[2022-05-20] MEDS: SENNOSIDES/DOCUSATE TABLET 1 TAB PO (08:17)
[2022-05-20 10:25] VITALS: TEMP 36.8; O2SAT 94
[2022-05-20] MEDS: ATORVASTATIN CALCIUM 40 MG TABLET PO (21:13)
[2022-05-20] MEDS: risperiDONE 0.5 MG TABLET 1 MG PO (21:14)
--- NOTE | 2022-05-20 21:50 | PC.NURSE ---
Insulin missed: took Sunil blood sugar at 1630 which was 211. Became busy assisting fellow nurse with a blood sugar issue with another resident and missed the usual time I give her the supper time insulin. Did not realize it was missed until went to do her HS meds. Called the marissa White HYDROELECTRIC PLANT STRUCTURAL ENGINEER and he said to not give the Novolog 24 units and just give the Lantus 80 units. Her blood sugar was 195 after having had supper. No symptoms of missing her insulin.
[2022-05-21 07:00] VITALS: TEMP 36.5; O2SAT 98
[2022-05-21] MEDS: INSULIN LISPRO 100 UNIT/ML VIAL 22 UNIT SUBCUT ×2 (08:00→12:06)
[2022-05-21] MEDS: ACETAMINOPHEN 500 MG TABLET 1000 MG PO ×2 (08:18→16:24)
[2022-05-21] MEDS: ISOSORBIDE MONONITRATE ER 30 MG TAB PO (08:18)
[2022-05-21] MEDS: ASPIRIN 81 MG TAB.CHEW PO (08:18)
[2022-05-21] MEDS: LOSARTAN POTASSIUM 50 MG TABLET PO (08:19)
[2022-05-21] MEDS: SITAGLIPTIN PHOSPHATE 100 MG TABLET 50 MG PO (08:19)
[2022-05-21] MEDS: METOPROLOL TARTRATE 25 MG TABLET PO ×2 (08:19→16:25)
[2022-05-21] MEDS: GABAPENTIN 300 MG CAPSULE PO ×2 (08:20→16:25)
[2022-05-21] MEDS: FAMOTIDINE 10 MG TABLET PO (08:20)
[2022-05-21] MEDS: risperiDONE 0.5 MG TABLET 0.25 MG PO (08:20)
[2022-05-21] MEDS: SENNOSIDES/DOCUSATE TABLET 1 TAB PO (08:21)
[2022-05-21] MEDS: SERTRALINE 100 MG TABLET 125 MG PO (08:21)
[2022-05-21] MEDS: CETIRIZINE HCL 10 MG TABLET PO (08:22)
[2022-05-21] MEDS: INSULIN LISPRO 100 UNIT/ML VIAL 24 UNIT SUBCUT (17:03)
[2022-05-21] MEDS: risperiDONE 0.5 MG TABLET 1 MG PO (20:30)
[2022-05-21] MEDS: ATORVASTATIN CALCIUM 40 MG TABLET PO (20:30)
[2022-05-22 08:00] VITALS: BP 134/83
[2022-05-22] MEDS: ASPIRIN 81 MG TAB.CHEW PO (08:01)
[2022-05-22] MEDS: ISOSORBIDE MONONITRATE ER 30 MG TAB PO (08:01)
[2022-05-22] MEDS: ACETAMINOPHEN 500 MG TABLET 1000 MG PO ×2 (08:01→16:37)
[2022-05-22] MEDS: FAMOTIDINE 10 MG TABLET PO (08:02)
[2022-05-22] MEDS: SITAGLIPTIN PHOSPHATE 100 MG TABLET 50 MG PO (08:02)
[2022-05-22] MEDS: LOSARTAN POTASSIUM 50 MG TABLET PO (08:02)
[2022-05-22] MEDS: SERTRALINE 100 MG TABLET 125 MG PO (08:02)
[2022-05-22] MEDS: risperiDONE 0.5 MG TABLET 0.25 MG PO (08:02)
[2022-05-22] MEDS: GABAPENTIN 300 MG CAPSULE PO ×2 (08:02→16:38)
[2022-05-22] MEDS: SENNOSIDES/DOCUSATE TABLET 1 TAB PO (08:02)
[2022-05-22] MEDS: METOPROLOL TARTRATE 25 MG TABLET PO ×2 (08:02→16:38)
[2022-05-22] MEDS: CETIRIZINE HCL 10 MG TABLET PO (08:03)
[2022-05-22] MEDS: INSULIN LISPRO 100 UNIT/ML VIAL 22 UNIT SUBCUT ×2 (08:48→12:12)
[2022-05-22 08:53] VITALS: TEMP 36.7; O2SAT 96
[2022-05-22] MEDS: INSULIN LISPRO 100 UNIT/ML VIAL 24 UNIT SUBCUT (17:53)
[2022-05-22] MEDS: risperiDONE 0.5 MG TABLET 1 MG PO (20:20)
[2022-05-22] MEDS: ATORVASTATIN CALCIUM 40 MG TABLET PO (20:20)
[2022-05-23] MEDS: ASPIRIN 81 MG TAB.CHEW PO (08:16)
[2022-05-23] MEDS: SITAGLIPTIN PHOSPHATE 100 MG TABLET 50 MG PO (08:16)
[2022-05-23] MEDS: ACETAMINOPHEN 500 MG TABLET 1000 MG PO ×2 (08:16→16:48)
[2022-05-23] MEDS: LOSARTAN POTASSIUM 50 MG TABLET PO (08:16)
[2022-05-23] MEDS: ISOSORBIDE MONONITRATE ER 30 MG TAB PO (08:16)
[2022-05-23] MEDS: risperiDONE 0.5 MG TABLET 0.25 MG PO (08:17)
[2022-05-23] MEDS: CETIRIZINE HCL 10 MG TABLET PO (08:17)
[2022-05-23] MEDS: FAMOTIDINE 10 MG TABLET PO (08:17)
[2022-05-23] MEDS: METOPROLOL TARTRATE 25 MG TABLET PO ×2 (08:17→16:48)
[2022-05-23] MEDS: GABAPENTIN 300 MG CAPSULE PO ×2 (08:17→16:48)
[2022-05-23] MEDS: SERTRALINE 100 MG TABLET 125 MG PO (08:17)
[2022-05-23] MEDS: SENNOSIDES/DOCUSATE TABLET 1 TAB PO (08:17)
[2022-05-23] MEDS: INSULIN LISPRO 100 UNIT/ML VIAL 22 UNIT SUBCUT ×2 (08:57→12:12)
[2022-05-23 09:52] VITALS: TEMP 36.6; O2SAT 96
--- NOTE | 2022-05-23 14:36 | PC.NURSE ---
Email sent to krysten Olivo in regards to w/c and if resolution has been done with [facility] in regards to finding her own wheelchair or reimbursement for the purchase while in their care. Updated therapy department as they are working with her and the ability to self propel in w/c, CC'd to email. DON cc'd in on email as well for reference if facility is to purchase the resident a w/c.
[2022-05-23] MEDS: INSULIN LISPRO 100 UNIT/ML VIAL 24 UNIT SUBCUT (17:29)
[2022-05-23] MEDS: ATORVASTATIN CALCIUM 40 MG TABLET PO (20:56)
[2022-05-23] MEDS: risperiDONE 0.5 MG TABLET 1 MG PO (20:57)
--- NOTE | 2022-05-24 01:42 | PC.NURSE ---
WEEKLY CHARTING - WEEK 2: Vital signs reviewed - no concerns. Admission/baseline care care plan reviewed - no change. Assist of 1 with gait belt for transfers and ambulation with 4WW. Assist of 1-2 for bed mobility. Left 1/[address] as enabler for bed mobility. Staff assist for w/c mobility. High risk for falls, per fall risk assessment. Fall interventions: call light in reach, w/c at bedside, bed in low position with brakes locked.
[2022-05-24 07:00] VITALS: BP 157/83; PULSE 57; RESP 18; TEMP 36.5; O2SAT 98; BMI 42.9
[2022-05-24] MEDS: ACETAMINOPHEN 500 MG TABLET 1000 MG PO ×2 (08:00→16:14)
[2022-05-24] MEDS: ASPIRIN 81 MG TAB.CHEW PO (08:01)
[2022-05-24] MEDS: ISOSORBIDE MONONITRATE ER 30 MG TAB PO (08:02)
[2022-05-24] MEDS: SITAGLIPTIN PHOSPHATE 100 MG TABLET 50 MG PO (08:02)
[2022-05-24] MEDS: LOSARTAN POTASSIUM 50 MG TABLET PO (08:03)
[2022-05-24] MEDS: METOPROLOL TARTRATE 25 MG TABLET PO ×2 (08:03→16:14)
[2022-05-24] MEDS: GABAPENTIN 300 MG CAPSULE PO ×2 (08:03→16:14)
[2022-05-24] MEDS: FAMOTIDINE 10 MG TABLET PO (08:03)
[2022-05-24] MEDS: SENNOSIDES/DOCUSATE TABLET 1 TAB PO ×2 (08:04→12:05)
[2022-05-24] MEDS: risperiDONE 0.5 MG TABLET 0.25 MG PO (08:04)
[2022-05-24] MEDS: SERTRALINE 100 MG TABLET 125 MG PO (08:04)
[2022-05-24] MEDS: CETIRIZINE HCL 10 MG TABLET PO (08:05)
[2022-05-24] MEDS: INSULIN LISPRO 100 UNIT/ML VIAL 22 UNIT SUBCUT ×2 (08:30→11:57)
--- NOTE | 2022-05-24 10:33 | PC.NURSE ---
Weekly Charting- Week 2: Vital signs continue to be stable with highest B/P reading of 157/83 over the last week. Resident continues on medication for HTN. Temporary care plan reviewed with no changes noted. Comprehensive care plan also reviewed with no changes noted. Resident has had no complaints of pain over the last week. She continues on scheduled Tylenol and Voltaren Gel for pain control. No c/o nausea noted over the last week. Resident has had no c/o anxiety or depression. She does prefer to stay in room for meals. Resident requires extensive assist of 1 with bathing, grooming, dressing, oral care, transferring and ambulation. Extensive assist of 1-2 required for bed mobility. Appetite continues to be good as resident takes 75-100% of snacks in between meals most days. No choking difficulty or swallowing issues have been noted or reported. Resident is able to eat independently after setup.
--- NOTE | 2022-05-24 13:50 | PC.PHA1 ---
EXECUTIVE LEGAL SECRETARY PHARMACIST'S MEDICATION REVIEW: MEDICATION MONITORING: Risperidone 1 mg hs, 0.25 mg am for hallucinations sertraline 125 mg po daily IRREGULARITY OR COMMENTS:Patient admitted mid April of 2022, approaching her first month at our facility. Her provider has already started GDR of risperidone and this plan is well outline in the H&P. Patient also taking multiple medications for management of her type 2 DM with diabetic neuropathy. SUGGESTED COURSE OF ACTION TAKEN: In complete agreement with medication changes outlined in patiet's H&P. No recommendations at this time.
--- NOTE | 2022-05-24 15:56 | PC.SPIRITC ---
Karyn talked about her family along with staying connected with her [place] via online pentecostal and reading materials. Karyn is Jehovah Witness, her [place] community in [place] knows she is at the nursing home care center and is a support for her. I provided visit for support and connection.
[2022-05-24] MEDS: INSULIN LISPRO 100 UNIT/ML VIAL 24 UNIT SUBCUT (17:30)
[2022-05-24] MEDS: ATORVASTATIN CALCIUM 40 MG TABLET PO (20:08)
[2022-05-24] MEDS: risperiDONE 0.5 MG TABLET 1 MG PO (20:09)
[2022-05-25 07:00] VITALS: TEMP 36.4; O2SAT 97
[2022-05-25] MEDS: ACETAMINOPHEN 500 MG TABLET 1000 MG PO ×2 (08:26→16:24)
[2022-05-25] MEDS: ASPIRIN 81 MG TAB.CHEW PO (08:27)
[2022-05-25] MEDS: ISOSORBIDE MONONITRATE ER 30 MG TAB PO (08:27)
[2022-05-25] MEDS: FAMOTIDINE 10 MG TABLET PO (08:28)
[2022-05-25] MEDS: METOPROLOL TARTRATE 25 MG TABLET PO ×2 (08:28→16:24)
[2022-05-25] MEDS: GABAPENTIN 300 MG CAPSULE PO ×2 (08:28→16:24)
[2022-05-25] MEDS: SITAGLIPTIN PHOSPHATE 100 MG TABLET 50 MG PO (08:28)
[2022-05-25] MEDS: LOSARTAN POTASSIUM 50 MG TABLET PO (08:28)
[2022-05-25] MEDS: SENNOSIDES/DOCUSATE TABLET 1 TAB PO (08:29)
[2022-05-25] MEDS: risperiDONE 0.5 MG TABLET 0.25 MG PO (08:29)
[2022-05-25] MEDS: CETIRIZINE HCL 10 MG TABLET PO (08:30)
[2022-05-25] MEDS: SERTRALINE 100 MG TABLET 125 MG PO (08:30)
[2022-05-25] MEDS: INSULIN LISPRO 100 UNIT/ML VIAL 22 UNIT SUBCUT ×2 (08:52→11:50)
--- NOTE | 2022-05-25 14:42 | PC.NURSE ---
New Order: Resident reviewed by RADIO JOURNALIST and she discontinued her AM Risperidone 0.25mg and continue HS Risperidone.
--- NOTE | 2022-05-25 16:31 | PC.NURSE ---
Antipsychotropic medication review done with COOK RESTAURANT Tyra zee discontinuation of Risperidone done at this time. Monitor for adverse effects. Will review again in August 2022 or sooner if needed.
[2022-05-25] MEDS: INSULIN LISPRO 100 UNIT/ML VIAL 24 UNIT SUBCUT (19:10)
[2022-05-25] MEDS: risperiDONE 0.5 MG TABLET 1 MG PO (20:50)
[2022-05-25] MEDS: ATORVASTATIN CALCIUM 40 MG TABLET PO (20:50)
[2022-05-25 21:40] VITALS: TEMP 36.2; O2SAT 92
[2022-05-25 23:43] VITALS: TEMP 36.3; O2SAT 99
[2022-05-26 07:00] VITALS: BP 133/74; TEMP 36.2; O2SAT 100
--- NOTE | 2022-05-26 07:52 | PC.NURSE ---
Status: Weights and BP's reviewed by INSPECTOR GENERAL. Continue as ordered 3x/week, weight slowly trending up.
[2022-05-26] MEDS: ACETAMINOPHEN 500 MG TABLET 1000 MG PO ×2 (08:13→16:38)
[2022-05-26] MEDS: ASPIRIN 81 MG TAB.CHEW PO (08:14)
[2022-05-26] MEDS: METOPROLOL TARTRATE 25 MG TABLET PO ×2 (08:15→16:38)
[2022-05-26] MEDS: SITAGLIPTIN PHOSPHATE 100 MG TABLET 50 MG PO (08:15)
[2022-05-26] MEDS: ISOSORBIDE MONONITRATE ER 30 MG TAB PO (08:15)
[2022-05-26] MEDS: LOSARTAN POTASSIUM 50 MG TABLET PO (08:15)
[2022-05-26] MEDS: GABAPENTIN 300 MG CAPSULE PO ×2 (08:16→16:38)
[2022-05-26] MEDS: SENNOSIDES/DOCUSATE TABLET 1 TAB PO (08:16)
[2022-05-26] MEDS: FAMOTIDINE 10 MG TABLET PO (08:16)
[2022-05-26] MEDS: SERTRALINE 100 MG TABLET 125 MG PO (08:17)
[2022-05-26] MEDS: CETIRIZINE HCL 10 MG TABLET PO (08:17)
[2022-05-26] MEDS: INSULIN LISPRO 100 UNIT/ML VIAL 22 UNIT SUBCUT ×2 (08:24→11:59)
--- NOTE | 2022-05-26 12:48 | PC.NURSE ---
Recert Visit: Resident seen by Dr. Akins. Orders reviewed and renewed for 45 days with changes. Order: 06/02/22 check A1C, BMP, Vit B12, Folate, Hgb, arrange diabetic eye exam, D/C HS accu checks, OT eval for possible cognitive impairment, obtain provider visit notes from her stay at [facility], DD/C Wilmer.
[2022-05-26 15:00] VITALS: TEMP 36.5; O2SAT 95
[2022-05-26] MEDS: INSULIN LISPRO 100 UNIT/ML VIAL 24 UNIT SUBCUT (17:38)
[2022-05-26] MEDS: ATORVASTATIN CALCIUM 40 MG TABLET PO (19:50)
[2022-05-26] MEDS: risperiDONE 0.5 MG TABLET 1 MG PO (19:50)
[2022-05-27 00:16] VITALS: TEMP 36.4; O2SAT 94
[2022-05-27] MEDS: ACETAMINOPHEN 500 MG TABLET 1000 MG PO ×2 (08:10→15:38)
[2022-05-27] MEDS: ASPIRIN 81 MG TAB.CHEW PO (08:10)
[2022-05-27] MEDS: ISOSORBIDE MONONITRATE ER 30 MG TAB PO (08:11)
[2022-05-27] MEDS: SITAGLIPTIN PHOSPHATE 100 MG TABLET 50 MG PO (08:11)
[2022-05-27] MEDS: LOSARTAN POTASSIUM 50 MG TABLET PO (08:11)
[2022-05-27] MEDS: SENNOSIDES/DOCUSATE TABLET 1 TAB PO (08:12)
[2022-05-27] MEDS: GABAPENTIN 300 MG CAPSULE PO ×2 (08:12→15:38)
[2022-05-27] MEDS: FAMOTIDINE 10 MG TABLET PO (08:12)
[2022-05-27] MEDS: METOPROLOL TARTRATE 25 MG TABLET PO ×2 (08:12→15:38)
[2022-05-27] MEDS: CETIRIZINE HCL 10 MG TABLET PO (08:14)
[2022-05-27] MEDS: SERTRALINE 100 MG TABLET 125 MG PO (08:14)
[2022-05-27] MEDS: INSULIN LISPRO 100 UNIT/ML VIAL 22 UNIT SUBCUT ×2 (08:47→12:09)
[2022-05-27 09:55] VITALS: TEMP 36.4; O2SAT 97
[2022-05-27 15:00] VITALS: TEMP 36.6; O2SAT 94
[2022-05-27] MEDS: INSULIN LISPRO 100 UNIT/ML VIAL 24 UNIT SUBCUT (17:42)
[2022-05-27] MEDS: ATORVASTATIN CALCIUM 40 MG TABLET PO (20:03)
[2022-05-27] MEDS: risperiDONE 0.5 MG TABLET 1 MG PO (20:17)
[2022-05-27 23:57] VITALS: TEMP 36.4; O2SAT 97
[2022-05-28] MEDS: ACETAMINOPHEN 500 MG TABLET 1000 MG PO ×2 (08:09→15:53)
[2022-05-28] MEDS: ASPIRIN 81 MG TAB.CHEW PO (08:10)
[2022-05-28] MEDS: LOSARTAN POTASSIUM 50 MG TABLET PO (08:11)
[2022-05-28] MEDS: SITAGLIPTIN PHOSPHATE 100 MG TABLET 50 MG PO (08:11)
[2022-05-28] MEDS: ISOSORBIDE MONONITRATE ER 30 MG TAB PO (08:11)
[2022-05-28] MEDS: GABAPENTIN 300 MG CAPSULE PO ×2 (08:12→15:53)
[2022-05-28] MEDS: SENNOSIDES/DOCUSATE TABLET 1 TAB PO (08:12)
[2022-05-28] MEDS: METOPROLOL TARTRATE 25 MG TABLET PO ×2 (08:12→15:53)
[2022-05-28] MEDS: FAMOTIDINE 10 MG TABLET PO (08:12)
[2022-05-28] MEDS: CETIRIZINE HCL 10 MG TABLET PO (08:14)
[2022-05-28] MEDS: SERTRALINE 100 MG TABLET 125 MG PO (08:14)
[2022-05-28] MEDS: INSULIN LISPRO 100 UNIT/ML VIAL 22 UNIT SUBCUT ×2 (08:34→12:04)
[2022-05-28 10:02] VITALS: TEMP 36.2; O2SAT 97
[2022-05-28 15:00] VITALS: TEMP 36.6; O2SAT 96
[2022-05-28] MEDS: ATORVASTATIN CALCIUM 40 MG TABLET PO (19:41)
[2022-05-28] MEDS: INSULIN LISPRO 100 UNIT/ML VIAL 24 UNIT SUBCUT (19:41)
[2022-05-28] MEDS: risperiDONE 0.5 MG TABLET 1 MG PO (19:42)
[2022-05-28 23:46] VITALS: TEMP 36.4; O2SAT 95
[2022-05-29 07:00] VITALS: BP 173/84; TEMP 36.1; O2SAT 97
[2022-05-29] MEDS: ACETAMINOPHEN 500 MG TABLET 1000 MG PO ×2 (08:19→16:37)
[2022-05-29] MEDS: ASPIRIN 81 MG TAB.CHEW PO (08:19)
[2022-05-29] MEDS: ISOSORBIDE MONONITRATE ER 30 MG TAB PO (08:20)
[2022-05-29] MEDS: LOSARTAN POTASSIUM 50 MG TABLET PO (08:20)
[2022-05-29] MEDS: SITAGLIPTIN PHOSPHATE 100 MG TABLET 50 MG PO (08:20)
[2022-05-29] MEDS: METOPROLOL TARTRATE 25 MG TABLET PO ×2 (08:21→16:37)
[2022-05-29] MEDS: SENNOSIDES/DOCUSATE TABLET 1 TAB PO (08:21)
[2022-05-29] MEDS: FAMOTIDINE 10 MG TABLET PO (08:21)
[2022-05-29] MEDS: GABAPENTIN 300 MG CAPSULE PO ×2 (08:21→16:37)
[2022-05-29] MEDS: SERTRALINE 100 MG TABLET 125 MG PO (08:22)
[2022-05-29] MEDS: CETIRIZINE HCL 10 MG TABLET PO (08:22)
[2022-05-29] MEDS: INSULIN LISPRO 100 UNIT/ML VIAL 22 UNIT SUBCUT ×2 (08:31→11:51)
--- NOTE | 2022-05-29 10:00 | PC.NURSE ---
COVID OUTBREAK TESTING Resident gave verbal consent for outbreak COVID testing. Resident is currently asymptomatic.? Resident/family will be notified only if resident is positive.
[2022-05-29 11:17] VITALS: BP 117/72
[2022-05-29 12:31] LABS: SARS PCR* Negative SARS-CoV-2 (Negative)
[2022-05-29 15:00] VITALS: TEMP 36.6; O2SAT 92
[2022-05-29] MEDS: INSULIN LISPRO 100 UNIT/ML VIAL 24 UNIT SUBCUT (17:50)
[2022-05-29] MEDS: ATORVASTATIN CALCIUM 40 MG TABLET PO (19:51)
[2022-05-29] MEDS: risperiDONE 0.5 MG TABLET 1 MG PO (19:51)
[2022-05-29 23:52] VITALS: TEMP 36.6; O2SAT 98
[2022-05-30 07:00] VITALS: TEMP 36.8; O2SAT 97
[2022-05-30] MEDS: ACETAMINOPHEN 500 MG TABLET 1000 MG PO ×2 (08:16→16:42)
[2022-05-30] MEDS: ASPIRIN 81 MG TAB.CHEW PO (08:16)
[2022-05-30] MEDS: LOSARTAN POTASSIUM 50 MG TABLET PO (08:17)
[2022-05-30] MEDS: ISOSORBIDE MONONITRATE ER 30 MG TAB PO (08:17)
[2022-05-30] MEDS: SITAGLIPTIN PHOSPHATE 100 MG TABLET 50 MG PO (08:17)
[2022-05-30] MEDS: METOPROLOL TARTRATE 25 MG TABLET PO ×2 (08:17→16:42)
[2022-05-30] MEDS: SENNOSIDES/DOCUSATE TABLET 1 TAB PO (08:18)
[2022-05-30] MEDS: FAMOTIDINE 10 MG TABLET PO (08:18)
[2022-05-30] MEDS: SERTRALINE 100 MG TABLET 125 MG PO (08:18)
[2022-05-30] MEDS: GABAPENTIN 300 MG CAPSULE PO ×2 (08:18→16:42)
[2022-05-30] MEDS: CETIRIZINE HCL 10 MG TABLET PO (08:19)
[2022-05-30] MEDS: INSULIN LISPRO 100 UNIT/ML VIAL 22 UNIT SUBCUT ×2 (08:30→12:01)
--- NOTE | 2022-05-30 10:28 | PC.NURSE ---
Spoke to [facility] information steam room attendant and she is going to fax over provider visit notes from her stay at [facility]. Fax number given. Will continue to monitor for received fax.
[2022-05-30] MEDS: INSULIN LISPRO 100 UNIT/ML VIAL 24 UNIT SUBCUT (17:36)
[2022-05-30] MEDS: ATORVASTATIN CALCIUM 40 MG TABLET PO (20:16)
[2022-05-30] MEDS: risperiDONE 0.5 MG TABLET 1 MG PO (20:17)
[2022-05-30 22:44] VITALS: TEMP 36.7; O2SAT 95
[2022-05-30 23:00] VITALS: TEMP 36.7; O2SAT 99
--- NOTE | 2022-05-31 01:57 | PC.NURSE ---
WEEKLY CHARTING - WEEK 3: Vital signs reviewed - BP values variable. Monitoring 3x/week per order. Admission care plan reviewed - no change. No documented skin integrity concerns at this time. Barrier cream applied to perineum and coccyx Q shift. Assist of 1 with toileting needs including bailey-cares, pad management, and clothing adjustment. Is continent of bowel and incontinent of bladder. Declined to use toilet during the night. Is checked and changed per resident request.
[2022-05-31 07:00] VITALS: BP 150/77; PULSE 62; RESP 18; TEMP 36.7; O2SAT 94; BMI 43.1
--- NOTE | 2022-05-31 07:37 | PC.NURSE ---
Week #3 - Toileting: Baseline & temporary care plan reviewed. No changes made & nothing added to temporary care plan.Resident is continent of bowel, mostly incontinent of bladder. Needs one assist with toileting. Transfers/ambulates to the toilet wiyh one assist, gait belt, and walker. Is checked by staff and toilet per her request. Pads, bailey cares, clothing managed by staff. Vital signs reviewed, BP varies & is monitored 3x/week. Skin: Is intact. Continues with barrier cream to perineum and coccyx. Skin is checked during cares and on bath day.
[2022-05-31] MEDS: ASPIRIN 81 MG TAB.CHEW PO (08:09)
[2022-05-31] MEDS: ACETAMINOPHEN 500 MG TABLET 1000 MG PO ×2 (08:09→16:36)
[2022-05-31] MEDS: SITAGLIPTIN PHOSPHATE 100 MG TABLET 50 MG PO (08:10)
[2022-05-31] MEDS: LOSARTAN POTASSIUM 50 MG TABLET PO (08:10)
[2022-05-31] MEDS: ISOSORBIDE MONONITRATE ER 30 MG TAB PO (08:10)
[2022-05-31] MEDS: METOPROLOL TARTRATE 25 MG TABLET PO ×3 (08:10→16:49)
[2022-05-31] MEDS: SERTRALINE 100 MG TABLET 125 MG PO (08:11)
[2022-05-31] MEDS: FAMOTIDINE 10 MG TABLET PO (08:11)
[2022-05-31] MEDS: SENNOSIDES/DOCUSATE TABLET 1 TAB PO (08:11)
[2022-05-31] MEDS: GABAPENTIN 300 MG CAPSULE PO ×3 (08:11→16:50)
[2022-05-31] MEDS: CETIRIZINE HCL 10 MG TABLET PO (08:12)
[2022-05-31] MEDS: INSULIN LISPRO 100 UNIT/ML VIAL 22 UNIT SUBCUT ×2 (08:32→11:50)
[2022-05-31 15:00] VITALS: TEMP 36.3; O2SAT 94
[2022-05-31] MEDS: INSULIN LISPRO 100 UNIT/ML VIAL 24 UNIT SUBCUT (17:41)
[2022-05-31] MEDS: ATORVASTATIN CALCIUM 40 MG TABLET PO (19:51)
[2022-05-31] MEDS: risperiDONE 0.5 MG TABLET 1 MG PO (19:51)
[2022-05-31 23:00] VITALS: TEMP 36.8; O2SAT 97
[2022-06-01] MEDS: ASPIRIN 81 MG TAB.CHEW PO (08:48)
[2022-06-01] MEDS: ACETAMINOPHEN 500 MG TABLET 1000 MG PO ×2 (08:48→15:51)
[2022-06-01] MEDS: SITAGLIPTIN PHOSPHATE 100 MG TABLET 50 MG PO (08:51)
[2022-06-01] MEDS: ISOSORBIDE MONONITRATE ER 30 MG TAB PO (08:51)
[2022-06-01] MEDS: METOPROLOL TARTRATE 25 MG TABLET PO ×2 (08:52→15:51)
[2022-06-01] MEDS: GABAPENTIN 300 MG CAPSULE PO ×2 (08:52→15:51)
[2022-06-01] MEDS: LOSARTAN POTASSIUM 50 MG TABLET PO (08:52)
[2022-06-01] MEDS: SENNOSIDES/DOCUSATE TABLET 1 TAB PO (08:52)
[2022-06-01] MEDS: FAMOTIDINE 10 MG TABLET PO (08:52)
[2022-06-01] MEDS: CETIRIZINE HCL 10 MG TABLET PO (08:52)
[2022-06-01] MEDS: SERTRALINE 100 MG TABLET 125 MG PO (08:52)
[2022-06-01] MEDS: INSULIN LISPRO 100 UNIT/ML VIAL 22 UNIT SUBCUT ×2 (08:59→11:00)
[2022-06-01 09:59] VITALS: TEMP 36.4; O2SAT 94
[2022-06-01 15:08] VITALS: TEMP 36.6; O2SAT 96
[2022-06-01] MEDS: INSULIN LISPRO 100 UNIT/ML VIAL 24 UNIT SUBCUT (17:18)
[2022-06-01] MEDS: ATORVASTATIN CALCIUM 40 MG TABLET PO (19:32)
[2022-06-01] MEDS: risperiDONE 0.5 MG TABLET 1 MG PO (19:33)
[2022-06-01 23:00] VITALS: TEMP 36.7; O2SAT 97
[2022-06-02 07:00] VITALS: BP 107/64; TEMP 37; O2SAT 96
[2022-06-02 07:30] LABS: Hemoglobin* 10.9 gm/dL (12.0-16.0)
[2022-06-02 07:43] LABS: Chloride* 107 mmol/L (96-114)
[2022-06-02 07:44] LABS: Potassium* 4.4 mmol/L (3.6-5.1); Sodium* 141 mmol/L (135-149)
[2022-06-02 07:46] LABS: Carbon Dioxide* 31 mmol/L (20-32); Est. Creatinine Clearance* 73.14; Estimated Glomerular Filt Rate 58 ml/min
[2022-06-02 07:47] LABS: Blood Urea Nitrogen* 30 mg/dL (7-30); Calcium* 8.7 mg/dL (8.4-10.6); Glucose* 133 mg/dL (60-115)
[2022-06-02 08:10] LABS: Hemoglobin A1C* 7.08 % (0-5.6)
[2022-06-02 08:36] LABS: Vitamin B12* 455 pg/mL (243-894)
[2022-06-02] MEDS: ASPIRIN 81 MG TAB.CHEW PO (08:48)
[2022-06-02] MEDS: ACETAMINOPHEN 500 MG TABLET 1000 MG PO ×2 (08:48→16:08)
[2022-06-02] MEDS: INSULIN LISPRO 100 UNIT/ML VIAL 22 UNIT SUBCUT ×2 (08:50→12:14)
[2022-06-02] MEDS: ISOSORBIDE MONONITRATE ER 30 MG TAB PO (08:51)
[2022-06-02] MEDS: GABAPENTIN 300 MG CAPSULE PO ×2 (08:51→16:09)
[2022-06-02] MEDS: SENNOSIDES/DOCUSATE TABLET 1 TAB PO (08:51)
[2022-06-02] MEDS: SITAGLIPTIN PHOSPHATE 100 MG TABLET 50 MG PO (08:51)
[2022-06-02] MEDS: LOSARTAN POTASSIUM 50 MG TABLET PO (08:51)
[2022-06-02] MEDS: SERTRALINE 100 MG TABLET 125 MG PO (08:51)
[2022-06-02] MEDS: METOPROLOL TARTRATE 25 MG TABLET PO ×2 (08:51→16:08)
[2022-06-02] MEDS: CETIRIZINE HCL 10 MG TABLET PO (08:52)
[2022-06-02] MEDS: FAMOTIDINE 10 MG TABLET PO (08:52)
--- NOTE | 2022-06-02 12:07 | PC.NURSE ---
Labs: Reviewed by Dr. Akins. Folate, Hemoglobin pending. No new order.
[2022-06-02 17:08] VITALS: TEMP 36.7; O2SAT 99
[2022-06-02] MEDS: INSULIN LISPRO 100 UNIT/ML VIAL 24 UNIT SUBCUT (18:29)
[2022-06-02] MEDS: ATORVASTATIN CALCIUM 40 MG TABLET PO (21:04)
[2022-06-02] MEDS: risperiDONE 0.5 MG TABLET 1 MG PO (21:05)
[2022-06-02 23:00] VITALS: TEMP 36.7; O2SAT 99
[2022-06-03 07:00] VITALS: TEMP 36.6; O2SAT 98
[2022-06-03] MEDS: ISOSORBIDE MONONITRATE ER 30 MG TAB PO (07:57)
[2022-06-03] MEDS: LOSARTAN POTASSIUM 50 MG TABLET PO (07:57)
[2022-06-03] MEDS: ASPIRIN 81 MG TAB.CHEW PO (07:57)
[2022-06-03] MEDS: ACETAMINOPHEN 500 MG TABLET 1000 MG PO ×2 (07:57→15:45)
[2022-06-03] MEDS: SITAGLIPTIN PHOSPHATE 100 MG TABLET 50 MG PO (07:57)
[2022-06-03] MEDS: METOPROLOL TARTRATE 25 MG TABLET PO ×2 (07:58→15:50)
[2022-06-03] MEDS: FAMOTIDINE 10 MG TABLET PO (07:58)
[2022-06-03] MEDS: GABAPENTIN 300 MG CAPSULE PO ×2 (07:58→15:50)
[2022-06-03] MEDS: SERTRALINE 100 MG TABLET 125 MG PO (07:59)
[2022-06-03] MEDS: CETIRIZINE HCL 10 MG TABLET PO (07:59)
[2022-06-03] MEDS: SENNOSIDES/DOCUSATE TABLET 1 TAB PO (07:59)
[2022-06-03] MEDS: INSULIN LISPRO 100 UNIT/ML VIAL 22 UNIT SUBCUT ×2 (08:48→12:15)
[2022-06-03 16:54] VITALS: TEMP 36.6; O2SAT 94
[2022-06-03] MEDS: INSULIN LISPRO 100 UNIT/ML VIAL 24 UNIT SUBCUT (17:14)
[2022-06-03] MEDS: risperiDONE 0.5 MG TABLET 1 MG PO (20:37)
[2022-06-03] MEDS: ATORVASTATIN CALCIUM 40 MG TABLET PO (20:37)
[2022-06-03 23:00] VITALS: TEMP 36.5; O2SAT 97
[2022-06-04 03:03] LABS: Folate, RBC 1011 ng/mL (>=366); Hematocrit (client supplied) 35.2 %
[2022-06-04 07:00] VITALS: TEMP 36.3; O2SAT 95
[2022-06-04] MEDS: SENNOSIDES/DOCUSATE TABLET 1 TAB PO (08:26)
[2022-06-04] MEDS: ISOSORBIDE MONONITRATE ER 30 MG TAB PO (08:26)
[2022-06-04] MEDS: ACETAMINOPHEN 500 MG TABLET 1000 MG PO ×2 (08:26→16:15)
[2022-06-04] MEDS: METOPROLOL TARTRATE 25 MG TABLET PO ×2 (08:26→16:15)
[2022-06-04] MEDS: LOSARTAN POTASSIUM 50 MG TABLET PO (08:26)
[2022-06-04] MEDS: FAMOTIDINE 10 MG TABLET PO (08:26)
[2022-06-04] MEDS: SERTRALINE 100 MG TABLET 125 MG PO (08:26)
[2022-06-04] MEDS: GABAPENTIN 300 MG CAPSULE PO ×2 (08:26→16:15)
[2022-06-04] MEDS: ASPIRIN 81 MG TAB.CHEW PO (08:26)
[2022-06-04] MEDS: SITAGLIPTIN PHOSPHATE 100 MG TABLET 50 MG PO (08:26)
[2022-06-04] MEDS: CETIRIZINE HCL 10 MG TABLET PO (08:27)
[2022-06-04] MEDS: INSULIN LISPRO 100 UNIT/ML VIAL 22 UNIT SUBCUT ×2 (08:53→11:15)
[2022-06-04 10:00] VITALS: BP 111/69; BP 120/70; BP 137/65
[2022-06-04 16:45] VITALS: TEMP 36.6; O2SAT 96
[2022-06-04] MEDS: INSULIN LISPRO 100 UNIT/ML VIAL 24 UNIT SUBCUT (17:27)
[2022-06-04] MEDS: ATORVASTATIN CALCIUM 40 MG TABLET PO (20:02)
[2022-06-04] MEDS: risperiDONE 0.5 MG TABLET 1 MG PO (20:02)
[2022-06-04 23:00] VITALS: TEMP 36.4; O2SAT 98
[2022-06-05 07:00] VITALS: BP 176/80; TEMP 36.6; O2SAT 95
[2022-06-05] MEDS: ACETAMINOPHEN 500 MG TABLET 1000 MG PO ×2 (08:15→16:26)
[2022-06-05] MEDS: ASPIRIN 81 MG TAB.CHEW PO (08:16)
[2022-06-05] MEDS: ISOSORBIDE MONONITRATE ER 30 MG TAB PO (08:16)
[2022-06-05] MEDS: SITAGLIPTIN PHOSPHATE 100 MG TABLET 50 MG PO (08:16)
[2022-06-05] MEDS: LOSARTAN POTASSIUM 50 MG TABLET PO (08:17)
[2022-06-05] MEDS: GABAPENTIN 300 MG CAPSULE PO ×2 (08:17→16:26)
[2022-06-05] MEDS: FAMOTIDINE 10 MG TABLET PO (08:17)
[2022-06-05] MEDS: METOPROLOL TARTRATE 25 MG TABLET PO ×2 (08:17→16:26)
[2022-06-05] MEDS: SENNOSIDES/DOCUSATE TABLET 1 TAB PO (08:18)
[2022-06-05] MEDS: SERTRALINE 100 MG TABLET 125 MG PO (08:18)
[2022-06-05] MEDS: CETIRIZINE HCL 10 MG TABLET PO (08:18)
[2022-06-05] MEDS: INSULIN LISPRO 100 UNIT/ML VIAL 22 UNIT SUBCUT ×2 (08:27→11:51)
--- NOTE | 2022-06-05 11:03 | PC.SOCIAL ---
Resident has an eye appt. at [facility] on Sunday, 06/19 @ 2pm. Called resident's insurance for transportation authorization and they could not find a local provider to transport. Contacted family and resident's nephew will trasport.
[2022-06-05 11:08] VITALS: BP 108/56
--- NOTE | 2022-06-05 11:15 | PC.NURSE ---
Hand Spray Operator left message for JUNIOR SYSTEMS ENGINEER Tyra Dukes regarding resident's weights trending up over the last week. Weight on 05/29/22 noted to be 211 pounds. Today's weight (06/05/22) after breakfast noted to be 217.6 pounds. Resident denies shortness of breath when asked and lung sounds are noted to be clear to all lobes bilaterally upon auscultation with no edema noted. B/P noted to be 176/80 before breakfast though decreased to 108/56 when reassessed after resident took AM medications. P 65, R 18, T 97.8, O2 sat 95% on RA. mental health director updated.
--- NOTE | 2022-06-05 11:52 | PC.NURSE ---
COVID OUTBREAK TESTING Resident gave verbal consent for outbreak COVID testing. Resident is currently asymptomatic.? Resident/family will be notified only if resident is positive.
[2022-06-05 13:36] LABS: SARS PCR* Negative SARS-CoV-2 (Negative)
[2022-06-05 15:00] VITALS: TEMP 36.4; O2SAT 90
[2022-06-05] MEDS: INSULIN LISPRO 100 UNIT/ML VIAL 24 UNIT SUBCUT (17:53)
[2022-06-05] MEDS: risperiDONE 0.5 MG TABLET 1 MG PO (19:23)
[2022-06-05] MEDS: ATORVASTATIN CALCIUM 40 MG TABLET PO (19:23)
[2022-06-05 23:00] VITALS: TEMP 36.4; O2SAT 99
[2022-06-06] MEDS: ISOSORBIDE MONONITRATE ER 30 MG TAB PO (08:12)
[2022-06-06] MEDS: ASPIRIN 81 MG TAB.CHEW PO (08:12)
[2022-06-06] MEDS: SITAGLIPTIN PHOSPHATE 100 MG TABLET 50 MG PO (08:12)
[2022-06-06] MEDS: ACETAMINOPHEN 500 MG TABLET 1000 MG PO ×2 (08:12→16:20)
[2022-06-06] MEDS: INSULIN LISPRO 100 UNIT/ML VIAL 22 UNIT SUBCUT ×2 (08:40→11:51)
[2022-06-06] MEDS: CETIRIZINE HCL 10 MG TABLET PO (08:41)
[2022-06-06] MEDS: GABAPENTIN 300 MG CAPSULE PO ×2 (08:41→16:21)
[2022-06-06] MEDS: FAMOTIDINE 10 MG TABLET PO (08:41)
[2022-06-06] MEDS: LOSARTAN POTASSIUM 50 MG TABLET PO (08:41)
[2022-06-06] MEDS: SENNOSIDES/DOCUSATE TABLET 1 TAB PO (08:41)
[2022-06-06] MEDS: METOPROLOL TARTRATE 25 MG TABLET PO ×2 (08:41→16:21)
[2022-06-06] MEDS: SERTRALINE 100 MG TABLET 125 MG PO (08:41)
[2022-06-06 10:10] VITALS: TEMP 36.6; O2SAT 95
--- NOTE | 2022-06-06 12:48 | PC.NURSE ---
Weights: Reviewed by Ernst WHITMAN. Reweigh before breakfast for accurate weight.
--- NOTE | 2022-06-06 13:37 | PC.NURSE ---
[facility] provider notes were faxed over to facility but only 2 out of 74 pages were received. Left message with health information unit at the [facility] [phone] to be refaxed.
[2022-06-06] MEDS: INSULIN LISPRO 100 UNIT/ML VIAL 24 UNIT SUBCUT (19:13)
[2022-06-06] MEDS: risperiDONE 0.5 MG TABLET 1 MG PO (20:09)
[2022-06-06] MEDS: ATORVASTATIN CALCIUM 40 MG TABLET PO (20:09)
[2022-06-06 21:30] VITALS: TEMP 36.4; O2SAT 94
[2022-06-06 23:00] VITALS: TEMP 36.6; O2SAT 98
--- NOTE | 2022-06-07 01:50 | PC.NURSE ---
WEEKLY CHARTING - WEEK 4: Vital signs reviewed - BP values variable. Continue to monitor 3x/week per order. Admission and temporary care plan reviewed - no change. No documented behaviors since admission. Receives sertraline 125mg daily and risperidone 1mg at HS with no noted adverse effects. AM dose of risperidone 0.25mg was discontinued on 05/25 with no noted behavioral changes. Sales Department Clerk needed as resident speaks Maltese. Understands some Bulgarian, but speaks very little. Hears adequately. Wears glasses. A&O with some forgetfulness. All medications administered by licensed nurse. Health condition stable at this time.
[2022-06-07 07:00] VITALS: BP 128/71; PULSE 63; RESP 17; TEMP 36.4; O2SAT 93; BMI 43.2
--- NOTE | 2022-06-07 07:51 | PC.NURSE ---
Week #4: Baseline and temporary care plan reviewed. No changes made & nothing added to temporary care plan. No changes noted in communication,hearing, vision, or orientation. Resident is English speaking. Needs an personnel technician and has a white board in room for communication. Can understand Malawian more than she talks. Hearing is fine. Wears glasses to correct vision. Alert, oriented x 3 with some forgetfulness. Cognition intact. Health condition stable. BP's is variable noted by RETAIL RECEIVING CLERK. Continues on BP & weight monitoring 3x/week. All medications administered by Nurse. Mood/Behavior: No issues noted. Receives Zoloft 125mg daily, & Risperidone 1mg @ HS with no adverse effects. 3/16 AM Risperidone discontinued with no behavioral changes noted. Staff to continue to monitor for changes and refer to provider as needed.
[2022-06-07] MEDS: ASPIRIN 81 MG TAB.CHEW PO (08:33)
[2022-06-07] MEDS: SITAGLIPTIN PHOSPHATE 100 MG TABLET 50 MG PO (08:33)
[2022-06-07] MEDS: ISOSORBIDE MONONITRATE ER 30 MG TAB PO (08:33)
[2022-06-07] MEDS: ACETAMINOPHEN 500 MG TABLET 1000 MG PO ×2 (08:33→16:23)
[2022-06-07] MEDS: METOPROLOL TARTRATE 25 MG TABLET PO ×2 (08:34→16:23)
[2022-06-07] MEDS: GABAPENTIN 300 MG CAPSULE PO ×2 (08:34→16:23)
[2022-06-07] MEDS: LOSARTAN POTASSIUM 50 MG TABLET PO (08:34)
[2022-06-07] MEDS: FAMOTIDINE 10 MG TABLET PO (08:34)
[2022-06-07] MEDS: CETIRIZINE HCL 10 MG TABLET PO (08:35)
[2022-06-07] MEDS: SENNOSIDES/DOCUSATE TABLET 1 TAB PO (08:35)
[2022-06-07] MEDS: SERTRALINE 100 MG TABLET 125 MG PO (08:42)
[2022-06-07] MEDS: INSULIN LISPRO 100 UNIT/ML VIAL 22 UNIT SUBCUT ×2 (08:45→12:19)
--- NOTE | 2022-06-07 10:14 | PC.NURSE ---
Obtained provider notes from [facility] per Dr. Akins request. Sent to be scanned into chart.
[2022-06-07 15:00] VITALS: TEMP 36.6; O2SAT 96
[2022-06-07] MEDS: INSULIN LISPRO 100 UNIT/ML VIAL 24 UNIT SUBCUT (16:34)
[2022-06-07] MEDS: ATORVASTATIN CALCIUM 40 MG TABLET PO (20:09)
[2022-06-07] MEDS: risperiDONE 0.5 MG TABLET 1 MG PO (20:09)
[2022-06-07 23:00] VITALS: TEMP 36.4; O2SAT 97
[2022-06-08 07:00] VITALS: TEMP 36.6; O2SAT 96
--- NOTE | 2022-06-08 08:39 | PC.SPIRITC ---
Late entry from 06/07/22: I offered a palm branch for Karyn in light of Palm Sunday is coming up. She accepted and expressed gratitude; visit provided for [place] resources and connection.
[2022-06-08] MEDS: ACETAMINOPHEN 500 MG TABLET 1000 MG PO ×2 (08:46→16:12)
[2022-06-08] MEDS: INSULIN LISPRO 100 UNIT/ML VIAL 22 UNIT SUBCUT ×2 (08:46→12:22)
[2022-06-08] MEDS: ASPIRIN 81 MG TAB.CHEW PO (08:46)
[2022-06-08] MEDS: GABAPENTIN 300 MG CAPSULE PO ×2 (08:47→16:12)
[2022-06-08] MEDS: SITAGLIPTIN PHOSPHATE 100 MG TABLET 50 MG PO (08:47)
[2022-06-08] MEDS: LOSARTAN POTASSIUM 50 MG TABLET PO (08:47)
[2022-06-08] MEDS: ISOSORBIDE MONONITRATE ER 30 MG TAB PO (08:47)
[2022-06-08] MEDS: METOPROLOL TARTRATE 25 MG TABLET PO ×2 (08:47→16:12)
[2022-06-08] MEDS: FAMOTIDINE 10 MG TABLET PO (08:48)
[2022-06-08] MEDS: SERTRALINE 100 MG TABLET 125 MG PO (08:48)
[2022-06-08] MEDS: CETIRIZINE HCL 10 MG TABLET PO (08:48)
[2022-06-08] MEDS: SENNOSIDES/DOCUSATE TABLET 1 TAB PO (08:48)
[2022-06-08 16:50] VITALS: TEMP 36.7; O2SAT 91
[2022-06-08] MEDS: INSULIN LISPRO 100 UNIT/ML VIAL 24 UNIT SUBCUT (19:14)
[2022-06-08] MEDS: risperiDONE 0.5 MG TABLET 1 MG PO (20:22)
[2022-06-08] MEDS: ATORVASTATIN CALCIUM 40 MG TABLET PO (20:22)
[2022-06-08 23:00] VITALS: TEMP 36.4; O2SAT 98
[2022-06-09] MEDS: ACETAMINOPHEN 500 MG TABLET 1000 MG PO ×2 (07:52→16:31)
[2022-06-09] MEDS: ASPIRIN 81 MG TAB.CHEW PO (07:52)
[2022-06-09] MEDS: ISOSORBIDE MONONITRATE ER 30 MG TAB PO (07:53)
[2022-06-09] MEDS: SITAGLIPTIN PHOSPHATE 100 MG TABLET 50 MG PO (07:54)
[2022-06-09] MEDS: LOSARTAN POTASSIUM 50 MG TABLET PO (07:54)
[2022-06-09] MEDS: METOPROLOL TARTRATE 25 MG TABLET PO ×2 (07:55→16:31)
[2022-06-09] MEDS: FAMOTIDINE 10 MG TABLET PO (07:55)
[2022-06-09] MEDS: GABAPENTIN 300 MG CAPSULE PO ×2 (07:55→16:32)
[2022-06-09] MEDS: SENNOSIDES/DOCUSATE TABLET 1 TAB PO (07:55)
[2022-06-09] MEDS: SERTRALINE 100 MG TABLET 125 MG PO (08:01)
[2022-06-09] MEDS: CETIRIZINE HCL 10 MG TABLET PO (08:01)
[2022-06-09] MEDS: INSULIN LISPRO 100 UNIT/ML VIAL 22 UNIT SUBCUT ×2 (08:16→11:51)
[2022-06-09 09:50] VITALS: TEMP 36.4; O2SAT 96
[2022-06-09 10:32] VITALS: BP 117/69
[2022-06-09 15:00] VITALS: TEMP 36.9; O2SAT 95
[2022-06-09] MEDS: INSULIN LISPRO 100 UNIT/ML VIAL 24 UNIT SUBCUT (17:25)
[2022-06-09] MEDS: ATORVASTATIN CALCIUM 40 MG TABLET PO (19:16)
[2022-06-09] MEDS: risperiDONE 0.5 MG TABLET 1 MG PO (19:17)
[2022-06-09 23:38] VITALS: TEMP 36.4; O2SAT 99
[2022-06-10] MEDS: ACETAMINOPHEN 500 MG TABLET 1000 MG PO ×2 (08:13→16:03)
[2022-06-10] MEDS: ASPIRIN 81 MG TAB.CHEW PO (08:13)
[2022-06-10] MEDS: ISOSORBIDE MONONITRATE ER 30 MG TAB PO (08:13)
[2022-06-10] MEDS: SITAGLIPTIN PHOSPHATE 100 MG TABLET 50 MG PO (08:14)
[2022-06-10] MEDS: GABAPENTIN 300 MG CAPSULE PO ×2 (08:15→16:03)
[2022-06-10] MEDS: SERTRALINE 100 MG TABLET 125 MG PO (08:15)
[2022-06-10] MEDS: LOSARTAN POTASSIUM 50 MG TABLET PO (08:15)
[2022-06-10] MEDS: FAMOTIDINE 10 MG TABLET PO (08:15)
[2022-06-10] MEDS: SENNOSIDES/DOCUSATE TABLET 1 TAB PO (08:15)
[2022-06-10] MEDS: METOPROLOL TARTRATE 25 MG TABLET PO ×2 (08:15→16:03)
[2022-06-10] MEDS: CETIRIZINE HCL 10 MG TABLET PO (08:16)
[2022-06-10] MEDS: INSULIN LISPRO 100 UNIT/ML VIAL 22 UNIT SUBCUT ×2 (08:22→11:56)
[2022-06-10 10:15] VITALS: TEMP 36.6; O2SAT 94
[2022-06-10 15:00] VITALS: TEMP 36.5; O2SAT 92
[2022-06-10] MEDS: INSULIN LISPRO 100 UNIT/ML VIAL 24 UNIT SUBCUT (17:39)
[2022-06-10] MEDS: ATORVASTATIN CALCIUM 40 MG TABLET PO (20:13)
[2022-06-10] MEDS: risperiDONE 0.5 MG TABLET 1 MG PO (20:14)
[2022-06-10 23:56] VITALS: TEMP 36.4; O2SAT 98
[2022-06-11] MEDS: ASPIRIN 81 MG TAB.CHEW PO (08:14)
[2022-06-11] MEDS: ACETAMINOPHEN 500 MG TABLET 1000 MG PO ×2 (08:14→15:54)
[2022-06-11] MEDS: SITAGLIPTIN PHOSPHATE 100 MG TABLET 50 MG PO (08:15)
[2022-06-11] MEDS: ISOSORBIDE MONONITRATE ER 30 MG TAB PO (08:15)
[2022-06-11] MEDS: INSULIN LISPRO 100 UNIT/ML VIAL 22 UNIT SUBCUT ×2 (08:15→13:41)
[2022-06-11] MEDS: LOSARTAN POTASSIUM 50 MG TABLET PO (08:15)
[2022-06-11] MEDS: GABAPENTIN 300 MG CAPSULE PO ×2 (08:16→15:54)
[2022-06-11] MEDS: METOPROLOL TARTRATE 25 MG TABLET PO ×2 (08:16→15:54)
[2022-06-11] MEDS: FAMOTIDINE 10 MG TABLET PO (08:17)
[2022-06-11] MEDS: SERTRALINE 100 MG TABLET 125 MG PO (08:17)
[2022-06-11] MEDS: CETIRIZINE HCL 10 MG TABLET PO (08:17)
[2022-06-11] MEDS: SENNOSIDES/DOCUSATE TABLET 1 TAB PO (08:17)
[2022-06-11 09:47] VITALS: TEMP 36.6; O2SAT 95
[2022-06-11] MEDS: ACETAMINOPHEN 325 MG TABLET 650 MG PO (11:30)
--- NOTE | 2022-06-11 12:46 | PC.NURSE ---
Resident c/o itchiness on her vagina. It was cleaned and applied some nystatin cream. It was difficult to examine resident in sitting position to see the condition of her vagina.Left message to PM staff to check when the resident in lying on her bed. Noted in the N/P book.
[2022-06-11 15:00] VITALS: TEMP 36.1; O2SAT 96
[2022-06-11] MEDS: INSULIN LISPRO 100 UNIT/ML VIAL 24 UNIT SUBCUT (17:18)
--- NOTE | 2022-06-11 18:40 | PC.NURSE ---
report from am shift states Karyn c/o itching growing . after using bathroom. no reddness, rash, yeast smell or visually seen drainage. pt unable to state if itching nore did i notice her itching on my shift. will pass on to next shift RN
[2022-06-11] MEDS: ATORVASTATIN CALCIUM 40 MG TABLET PO (20:19)
[2022-06-11] MEDS: NYSTATIN CREAM 30 GM 1 APPLIC TOPICAL (20:21)
[2022-06-11] MEDS: risperiDONE 0.5 MG TABLET 1 MG PO (21:23)
--- NOTE | 2022-06-11 21:41 | PC.NURSE ---
family here and very helpful and supportive with communication and cares.
[2022-06-11 23:38] VITALS: TEMP 36.4; O2SAT 97
[2022-06-12 07:00] VITALS: BP 149/65; TEMP 36.2; O2SAT 91
[2022-06-12] MEDS: NYSTATIN CREAM 30 GM 1 APPLIC TOPICAL (07:27)
[2022-06-12] MEDS: ASPIRIN 81 MG TAB.CHEW PO (07:51)
[2022-06-12] MEDS: ACETAMINOPHEN 500 MG TABLET 1000 MG PO ×2 (07:51→15:54)
[2022-06-12] MEDS: ISOSORBIDE MONONITRATE ER 30 MG TAB PO (07:52)
[2022-06-12] MEDS: METOPROLOL TARTRATE 25 MG TABLET PO ×2 (07:53→15:54)
[2022-06-12] MEDS: SITAGLIPTIN PHOSPHATE 100 MG TABLET 50 MG PO (07:53)
[2022-06-12] MEDS: GABAPENTIN 300 MG CAPSULE PO ×2 (07:53→15:54)
[2022-06-12] MEDS: LOSARTAN POTASSIUM 50 MG TABLET PO (07:53)
[2022-06-12] MEDS: CETIRIZINE HCL 10 MG TABLET PO (07:54)
[2022-06-12] MEDS: SERTRALINE 100 MG TABLET 125 MG PO (07:54)
[2022-06-12] MEDS: FAMOTIDINE 10 MG TABLET PO (07:54)
[2022-06-12] MEDS: SENNOSIDES/DOCUSATE TABLET 1 TAB PO (07:54)
[2022-06-12] MEDS: INSULIN LISPRO 100 UNIT/ML VIAL 22 UNIT SUBCUT ×2 (08:49→12:30)
--- NOTE | 2022-06-12 11:05 | PC.NURSE ---
COVID OUTBREAK TESTING Resident and residents family gave verbal consent for outbreak COVID testing. Resident is currently asymptomatic.? Resident/family will be notified only if resident is positive.
[2022-06-12 13:33] LABS: SARS PCR* Negative SARS-CoV-2 (Negative)
--- NOTE | 2022-06-12 14:06 | PC.NURSE ---
Health Status: Resident's weight 's up 6 Lbs this week. Updated MASONRY INSPECTOR and left note for FOAM RUBBER CURER to eveal.
[2022-06-12 15:00] VITALS: TEMP 36.4; O2SAT 92
[2022-06-12] MEDS: INSULIN LISPRO 100 UNIT/ML VIAL 24 UNIT SUBCUT (17:49)
[2022-06-12] MEDS: ATORVASTATIN CALCIUM 40 MG TABLET PO (21:04)
[2022-06-12] MEDS: risperiDONE 0.5 MG TABLET 1 MG PO (21:08)
[2022-06-13 01:15] VITALS: TEMP 36.4; O2SAT 99
[2022-06-13 07:00] VITALS: TEMP 35.9; O2SAT 91
[2022-06-13] MEDS: ACETAMINOPHEN 500 MG TABLET 1000 MG PO ×3 (07:41→20:42)
[2022-06-13] MEDS: ASPIRIN 81 MG TAB.CHEW PO (08:15)
[2022-06-13] MEDS: GABAPENTIN 300 MG CAPSULE PO ×2 (08:16→16:42)
[2022-06-13] MEDS: METOPROLOL TARTRATE 25 MG TABLET PO ×2 (08:16→16:42)
[2022-06-13] MEDS: LOSARTAN POTASSIUM 50 MG TABLET PO (08:16)
[2022-06-13] MEDS: ISOSORBIDE MONONITRATE ER 30 MG TAB PO (08:16)
[2022-06-13] MEDS: SITAGLIPTIN PHOSPHATE 100 MG TABLET 50 MG PO (08:16)
[2022-06-13] MEDS: SENNOSIDES/DOCUSATE TABLET 1 TAB PO (08:17)
[2022-06-13] MEDS: FAMOTIDINE 10 MG TABLET PO (08:17)
[2022-06-13] MEDS: SERTRALINE 100 MG TABLET 125 MG PO (08:17)
[2022-06-13] MEDS: CETIRIZINE HCL 10 MG TABLET PO (08:17)
[2022-06-13] MEDS: INSULIN LISPRO 100 UNIT/ML VIAL 22 UNIT SUBCUT ×2 (08:27→11:53)
--- NOTE | 2022-06-13 10:41 | PC.NURSE ---
Status/Order: Increase knee pain and weight gain noted by MANAGER FILEErnst. Order: Increase Tylenol 1000mg BID to TID, Torsemide 10mg daily.
--- NOTE | 2022-06-13 12:04 | PC.SPIRITC ---
I provided visit with computer specialist to see if Karyn would like to join in on an Easter project today. She did not want to participate in the project, but did want one made if possible. Per Karyn, she is doing well with connecting with her [place] practices, which includes watching meetings online and getting materials to celebrate communion.
--- NOTE | 2022-06-13 13:07 | PC.NURSE ---
EDDIE reports resident ambulated approximately 20 feet in hallway this afternoon with staff assistance. Resident expresses desire to ambulate though is currently limited by bilateral knee pain when walking. PROFESSOR OF BIOSTATISTICS Tyra Dukes was updated regarding resident's c/o bilateral knee pain. Scheduled Tylenol has been increased from 1000 mg BID to TID to provide better pain control. Staff to also to continue with Voltaren Gel to help reduce pain as well.
--- NOTE | 2022-06-13 14:45 | PC.SOCIAL ---
Res. was wanting to see a dentist. There was no opening local that could see resident. [facility] at [phone] had an opening to see res. on 07/18/2022 but when they looked up pt.'s MNET information it said she was just seen by a dentist. Called Ross at the [facility] who looked up resident and she was just seen by [facility] at their facility on 03/14/2022 for her check-up and cleaning. No further needs. Pt. is only eligible 2x a year for a cleaning with her insurance so it is too soon for resident to be seen. Res. would be eligible again in August if she wants to be seen then.
[2022-06-13 17:09] VITALS: TEMP 36.8; O2SAT 91
[2022-06-13] MEDS: INSULIN LISPRO 100 UNIT/ML VIAL 24 UNIT SUBCUT (17:17)
[2022-06-13] MEDS: ATORVASTATIN CALCIUM 40 MG TABLET PO (20:42)
[2022-06-13] MEDS: risperiDONE 0.5 MG TABLET 1 MG PO (20:42)
[2022-06-13 23:00] VITALS: TEMP 36.5; O2SAT 98
--- NOTE | 2022-06-14 02:19 | PC.NURSE ---
WEEKLY CHARTING ? WEEK 1: Vital signs reviewed ? BP values variable. Temporary and baseline care plan reviewed ? no change. Hx of bilateral knee pain. Receives acetaminophen 1000mg TID, gabapentin 300mg BID, and application of diclofenac gel to bilateral knees BID for pain management. Requires assist of 1 with dressing, grooming, and bathing. Completes oral cares independently after set-up. Receives diabetic diet. No documented chewing/swallowing problems. Eats independently after set-up.
[2022-06-14 07:00] VITALS: BP 164/84; PULSE 65; RESP 18; TEMP 36.6; O2SAT 92; BMI 44.6
--- NOTE | 2022-06-14 07:52 | PC.NURSE ---
Week #1-ADL's: Baseline & temporary care plan reviewed. No changes made and nothing added to temporary care plan. Resident needs one assist with dressing, grooming, and bathing. Is able to participate. Does oral cares after set up. Feed self after set up. Is on diabetic diet, thin liquids. No problems with chewing/swallowing reported. Vital signs reviewed. BP's with some high values. BP's monitored 3x/week and will be evaluated by CLOTH WIRE WEAVER. Has weight gain noted by CLOTH WIRE WEAVER. / Torsemide 10 mg daily ordered. Pain: Has chronic knee pain managed with Tylenol 1000mg 4/4 changed from BID to TID, Neurontin 300mg BID, Diclofenac gel to knees BID. Occasionally complain of pain with movement relieved Tylenol PRN.Is able to verbalize need for pain.
[2022-06-14] MEDS: ASPIRIN 81 MG TAB.CHEW PO (08:08)
[2022-06-14] MEDS: ACETAMINOPHEN 500 MG TABLET 1000 MG PO ×3 (08:08→19:32)
[2022-06-14] MEDS: ISOSORBIDE MONONITRATE ER 30 MG TAB PO (08:08)
[2022-06-14] MEDS: SITAGLIPTIN PHOSPHATE 100 MG TABLET 50 MG PO (08:09)
[2022-06-14] MEDS: FAMOTIDINE 10 MG TABLET PO (08:09)
[2022-06-14] MEDS: LOSARTAN POTASSIUM 50 MG TABLET PO (08:09)
[2022-06-14] MEDS: METOPROLOL TARTRATE 25 MG TABLET PO ×2 (08:09→16:24)
[2022-06-14] MEDS: GABAPENTIN 300 MG CAPSULE PO ×2 (08:09→16:24)
[2022-06-14] MEDS: TORSEMIDE 20 MG TABLET 10 MG PO (08:10)
[2022-06-14] MEDS: CETIRIZINE HCL 10 MG TABLET PO (08:10)
[2022-06-14] MEDS: SERTRALINE 100 MG TABLET 125 MG PO (08:10)
[2022-06-14] MEDS: SENNOSIDES/DOCUSATE TABLET 1 TAB PO (08:10)
[2022-06-14] MEDS: INSULIN LISPRO 100 UNIT/ML VIAL 22 UNIT SUBCUT ×2 (08:23→11:53)
[2022-06-14 15:00] VITALS: TEMP 36.7; O2SAT 97
--- NOTE | 2022-06-14 16:07 | PC.SPIRITC ---
I delivered the cross project Karyn voiced an interest in earlier.
[2022-06-14] MEDS: INSULIN LISPRO 100 UNIT/ML VIAL 24 UNIT SUBCUT (17:41)
[2022-06-14] MEDS: ATORVASTATIN CALCIUM 40 MG TABLET PO (19:32)
[2022-06-14] MEDS: risperiDONE 0.5 MG TABLET 1 MG PO (19:35)
[2022-06-14 23:00] VITALS: TEMP 36.4; O2SAT 98
[2022-06-15] MEDS: ACETAMINOPHEN 500 MG TABLET 1000 MG PO ×3 (08:00→20:20)
[2022-06-15] MEDS: ASPIRIN 81 MG TAB.CHEW PO (08:00)
[2022-06-15] MEDS: SITAGLIPTIN PHOSPHATE 100 MG TABLET 50 MG PO (08:02)
[2022-06-15] MEDS: ISOSORBIDE MONONITRATE ER 30 MG TAB PO (08:02)
[2022-06-15] MEDS: LOSARTAN POTASSIUM 50 MG TABLET PO (08:02)
[2022-06-15] MEDS: TORSEMIDE 20 MG TABLET 10 MG PO (08:05)
[2022-06-15] MEDS: GABAPENTIN 300 MG CAPSULE PO ×2 (08:05→16:02)
[2022-06-15] MEDS: FAMOTIDINE 10 MG TABLET PO (08:05)
[2022-06-15] MEDS: CETIRIZINE HCL 10 MG TABLET PO (08:05)
[2022-06-15] MEDS: SENNOSIDES/DOCUSATE TABLET 1 TAB PO (08:05)
[2022-06-15] MEDS: SERTRALINE 100 MG TABLET 125 MG PO (08:05)
[2022-06-15] MEDS: METOPROLOL TARTRATE 25 MG TABLET PO ×2 (08:05→15:57)
[2022-06-15] MEDS: INSULIN LISPRO 100 UNIT/ML VIAL 22 UNIT SUBCUT ×2 (08:21→12:32)
[2022-06-15 09:40] VITALS: TEMP 36.4; O2SAT 95
[2022-06-15 15:10] VITALS: TEMP 36.6; O2SAT 99
[2022-06-15] MEDS: INSULIN LISPRO 100 UNIT/ML VIAL 24 UNIT SUBCUT (17:31)
[2022-06-15] MEDS: ATORVASTATIN CALCIUM 40 MG TABLET PO (20:20)
[2022-06-15] MEDS: risperiDONE 0.5 MG TABLET 1 MG PO (20:20)
[2022-06-15 23:00] VITALS: TEMP 36.5; O2SAT 98
[2022-06-16 07:00] VITALS: BP 120/69; TEMP 36.7; O2SAT 92
[2022-06-16] MEDS: ASPIRIN 81 MG TAB.CHEW PO (08:15)
[2022-06-16] MEDS: ACETAMINOPHEN 500 MG TABLET 1000 MG PO ×3 (08:15→19:04)
[2022-06-16] MEDS: METOPROLOL TARTRATE 25 MG TABLET PO ×2 (08:16→17:04)
[2022-06-16] MEDS: LOSARTAN POTASSIUM 50 MG TABLET PO (08:16)
[2022-06-16] MEDS: ISOSORBIDE MONONITRATE ER 30 MG TAB PO (08:16)
[2022-06-16] MEDS: SITAGLIPTIN PHOSPHATE 100 MG TABLET 50 MG PO (08:16)
[2022-06-16] MEDS: SENNOSIDES/DOCUSATE TABLET 1 TAB PO (08:17)
[2022-06-16] MEDS: FAMOTIDINE 10 MG TABLET PO (08:17)
[2022-06-16] MEDS: SERTRALINE 100 MG TABLET 125 MG PO (08:19)
[2022-06-16] MEDS: CETIRIZINE HCL 10 MG TABLET PO (08:19)
[2022-06-16] MEDS: TORSEMIDE 20 MG TABLET 10 MG PO (08:19)
[2022-06-16] MEDS: INSULIN LISPRO 100 UNIT/ML VIAL 22 UNIT SUBCUT ×2 (08:20→12:20)
[2022-06-16] MEDS: GABAPENTIN 300 MG CAPSULE PO ×2 (08:20→17:04)
[2022-06-16 15:00] VITALS: TEMP 36.2; O2SAT 91
[2022-06-16] MEDS: INSULIN LISPRO 100 UNIT/ML VIAL 24 UNIT SUBCUT (18:00)
[2022-06-16] MEDS: ATORVASTATIN CALCIUM 40 MG TABLET PO (19:05)
[2022-06-16] MEDS: risperiDONE 0.5 MG TABLET 1 MG PO (19:06)
[2022-06-16 23:00] VITALS: TEMP 36.4; O2SAT 98
[2022-06-17 07:00] VITALS: TEMP 36.4; O2SAT 94
[2022-06-17] MEDS: SENNOSIDES/DOCUSATE TABLET 1 TAB PO (07:55)
[2022-06-17] MEDS: ISOSORBIDE MONONITRATE ER 30 MG TAB PO (07:55)
[2022-06-17] MEDS: LOSARTAN POTASSIUM 50 MG TABLET PO (07:55)
[2022-06-17] MEDS: ACETAMINOPHEN 500 MG TABLET 1000 MG PO ×3 (07:55→20:08)
[2022-06-17] MEDS: ASPIRIN 81 MG TAB.CHEW PO (07:55)
[2022-06-17] MEDS: FAMOTIDINE 10 MG TABLET PO (07:55)
[2022-06-17] MEDS: GABAPENTIN 300 MG CAPSULE PO ×2 (07:55→15:37)
[2022-06-17] MEDS: METOPROLOL TARTRATE 25 MG TABLET PO ×2 (07:55→15:36)
[2022-06-17] MEDS: SITAGLIPTIN PHOSPHATE 100 MG TABLET 50 MG PO (07:55)
[2022-06-17] MEDS: SERTRALINE 100 MG TABLET 125 MG PO (07:56)
[2022-06-17] MEDS: TORSEMIDE 20 MG TABLET 10 MG PO (07:56)
[2022-06-17] MEDS: CETIRIZINE HCL 10 MG TABLET PO (07:56)
[2022-06-17] MEDS: INSULIN LISPRO 100 UNIT/ML VIAL 22 UNIT SUBCUT ×2 (08:09→12:11)
[2022-06-17 17:00] VITALS: TEMP 36.7; O2SAT 95
[2022-06-17] MEDS: INSULIN LISPRO 100 UNIT/ML VIAL 24 UNIT SUBCUT (18:07)
[2022-06-17] MEDS: ATORVASTATIN CALCIUM 40 MG TABLET PO (20:08)
[2022-06-17] MEDS: risperiDONE 0.5 MG TABLET 1 MG PO (20:09)
[2022-06-17 23:00] VITALS: TEMP 36.5; O2SAT 93
[2022-06-18 07:00] VITALS: TEMP 36.6; O2SAT 91
[2022-06-18] MEDS: ACETAMINOPHEN 500 MG TABLET 1000 MG PO ×3 (08:14→19:51)
[2022-06-18] MEDS: ASPIRIN 81 MG TAB.CHEW PO (08:14)
[2022-06-18] MEDS: SITAGLIPTIN PHOSPHATE 100 MG TABLET 50 MG PO (08:15)
[2022-06-18] MEDS: ISOSORBIDE MONONITRATE ER 30 MG TAB PO (08:15)
[2022-06-18] MEDS: LOSARTAN POTASSIUM 50 MG TABLET PO (08:15)
[2022-06-18] MEDS: SENNOSIDES/DOCUSATE TABLET 1 TAB PO (08:16)
[2022-06-18] MEDS: TORSEMIDE 20 MG TABLET 10 MG PO (08:16)
[2022-06-18] MEDS: GABAPENTIN 300 MG CAPSULE PO ×2 (08:16→15:35)
[2022-06-18] MEDS: FAMOTIDINE 10 MG TABLET PO (08:16)
[2022-06-18] MEDS: METOPROLOL TARTRATE 25 MG TABLET PO ×2 (08:16→15:35)
[2022-06-18] MEDS: CETIRIZINE HCL 10 MG TABLET PO (08:18)
[2022-06-18] MEDS: SERTRALINE 100 MG TABLET 125 MG PO (08:18)
[2022-06-18] MEDS: INSULIN LISPRO 100 UNIT/ML VIAL 22 UNIT SUBCUT ×2 (08:42→11:50)
[2022-06-18 15:00] VITALS: TEMP 36.7; O2SAT 94
[2022-06-18] MEDS: INSULIN LISPRO 100 UNIT/ML VIAL 24 UNIT SUBCUT (17:25)
[2022-06-18] MEDS: risperiDONE 0.5 MG TABLET 1 MG PO (19:51)
[2022-06-18] MEDS: ATORVASTATIN CALCIUM 40 MG TABLET PO (19:51)
[2022-06-18 23:00] VITALS: TEMP 36.5; O2SAT 97
[2022-06-19 07:00] VITALS: BP 138/69; TEMP 36.3; O2SAT 95
[2022-06-19 08:04] LABS: Chloride* 103 mmol/L (96-114); Potassium* 4.1 mmol/L (3.6-5.1); Sodium* 142 mmol/L (135-149)
[2022-06-19 08:07] LABS: Blood Urea Nitrogen* 33 mg/dL (7-30); Carbon Dioxide* 32 mmol/L (20-32); Creatinine* 1.2 mg/dL (0.5-1.5); Est. Creatinine Clearance* 63.57; Estimated Glomerular Filt Rate 47 ml/min
[2022-06-19 08:08] LABS: Calcium* 9.2 mg/dL (8.4-10.6); Glucose* 199 mg/dL (60-115)
[2022-06-19] MEDS: ASPIRIN 81 MG TAB.CHEW PO (08:18)
[2022-06-19] MEDS: ACETAMINOPHEN 500 MG TABLET 1000 MG PO ×3 (08:18→19:53)
[2022-06-19] MEDS: METOPROLOL TARTRATE 25 MG TABLET PO ×2 (08:19→16:37)
[2022-06-19] MEDS: ISOSORBIDE MONONITRATE ER 30 MG TAB PO (08:19)
[2022-06-19] MEDS: LOSARTAN POTASSIUM 50 MG TABLET PO (08:19)
[2022-06-19] MEDS: SITAGLIPTIN PHOSPHATE 100 MG TABLET 50 MG PO (08:19)
[2022-06-19] MEDS: GABAPENTIN 300 MG CAPSULE PO ×2 (08:20→16:37)
[2022-06-19] MEDS: FAMOTIDINE 10 MG TABLET PO (08:20)
[2022-06-19] MEDS: SENNOSIDES/DOCUSATE TABLET 1 TAB PO (08:20)
[2022-06-19] MEDS: CETIRIZINE HCL 10 MG TABLET PO (08:21)
[2022-06-19] MEDS: SERTRALINE 100 MG TABLET 125 MG PO (08:21)
[2022-06-19] MEDS: TORSEMIDE 20 MG TABLET 10 MG PO (08:21)
[2022-06-19] MEDS: INSULIN LISPRO 100 UNIT/ML VIAL 22 UNIT SUBCUT ×2 (08:46→12:13)
--- NOTE | 2022-06-19 12:27 | PC.NURSE ---
COVID OUTBREAK TESTING Resident gave verbal consent for outbreak COVID testing. Resident is currently asymptomatic.? Resident/family will be notified only if resident is positive.
--- NOTE | 2022-06-19 13:27 | PC.NURSE ---
Resident out with family member at 1320 fo her eye Appt.
[2022-06-19 13:33] LABS: SARS PCR* Negative SARS-CoV-2 (Negative)
[2022-06-19 15:00] VITALS: TEMP 36.4; O2SAT 96
[2022-06-19] MEDS: INSULIN LISPRO 100 UNIT/ML VIAL 24 UNIT SUBCUT (17:34)
--- NOTE | 2022-06-19 18:16 | PC.NURSE ---
Out of Facility: Resident returned from Diabetic Eye Examination at approximately, 1630.
[2022-06-19] MEDS: risperiDONE 0.5 MG TABLET 1 MG PO (19:52)
[2022-06-19] MEDS: ATORVASTATIN CALCIUM 40 MG TABLET PO (19:52)
--- NOTE | 2022-06-19 20:43 | PC.NURSE ---
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
[2022-06-19 23:00] VITALS: TEMP 36.4; O2SAT 97
[2022-06-20 07:00] VITALS: TEMP 36.7; O2SAT 93
[2022-06-20] MEDS: ACETAMINOPHEN 500 MG TABLET 1000 MG PO ×3 (08:01→19:21)
[2022-06-20] MEDS: ASPIRIN 81 MG TAB.CHEW PO (08:01)
[2022-06-20] MEDS: ISOSORBIDE MONONITRATE ER 30 MG TAB PO (08:01)
[2022-06-20] MEDS: FAMOTIDINE 10 MG TABLET PO (08:02)
[2022-06-20] MEDS: METOPROLOL TARTRATE 25 MG TABLET PO ×2 (08:02→15:38)
[2022-06-20] MEDS: LOSARTAN POTASSIUM 50 MG TABLET PO (08:02)
[2022-06-20] MEDS: SITAGLIPTIN PHOSPHATE 100 MG TABLET 50 MG PO (08:02)
[2022-06-20] MEDS: GABAPENTIN 300 MG CAPSULE PO ×2 (08:02→15:39)
[2022-06-20] MEDS: SENNOSIDES/DOCUSATE TABLET 1 TAB PO (08:03)
[2022-06-20] MEDS: TORSEMIDE 20 MG TABLET 10 MG PO (08:03)
[2022-06-20] MEDS: SERTRALINE 100 MG TABLET 125 MG PO (08:03)
[2022-06-20] MEDS: CETIRIZINE HCL 10 MG TABLET PO (08:04)
[2022-06-20] MEDS: INSULIN LISPRO 100 UNIT/ML VIAL 22 UNIT SUBCUT (08:31)
--- NOTE | 2022-06-20 11:06 | PC.NURSE ---
Addendum entered by Radha Tubbs RN 06/20/22 11:27: CORRECTIVE THERAPIST reviewed weights and BP's. Order: Change BP monitoring from 3x/week to weekly (BP's stable), Continue 3x/week weight monitoring. BMP on 07/03. Original Note: Status/Order: CORRECTIVE THERAPIST, Ernst here. BMP results, accu checks reviewed. Increase noon Humalog to 24 units, A1C on 09/04/22.
[2022-06-20] MEDS: INSULIN LISPRO 100 UNIT/ML VIAL 24 UNIT SUBCUT ×2 (11:55→17:19)
[2022-06-20 15:00] VITALS: TEMP 36.6; O2SAT 91
[2022-06-20] MEDS: risperiDONE 0.5 MG TABLET 1 MG PO (19:21)
[2022-06-20] MEDS: ATORVASTATIN CALCIUM 40 MG TABLET PO (19:21)
[2022-06-20 23:00] VITALS: TEMP 36.4; O2SAT 98
--- NOTE | 2022-06-21 03:13 | PC.NURSE ---
WEEKLY CHARTING - WEEK 2: Vital signs reviewed - BP values reviewed by MEDICAL RECORD ASSISTANT today. Return to weekly BP monitoring. Temporary and comprehensive care plan reviewed - no change. Requires assist of 1 with gait belt and 4WW for transfers and ambulation. Extensive 1-2 assist for bed mobility. Left 1/4 side rail per resident request as enabler for bed mobility. Requires extensive assist for w/c mobility. Remains at high risk for falls. Fall interventions: call light in reach, bed in low position with brakes locked, non-slip footwear/gripper socks, keep area free of clutter.
[2022-06-21 07:00] VITALS: TEMP 36.6; O2SAT 93
--- NOTE | 2022-06-21 07:07 | PC.NURSE ---
Weekly Charting, Week 2: Mobility: Comprehensive and temporary care plan reviewed. No changes made, and nothing added to temporary care plan. Resident needs one assist, gait belt and 4ww with transfers and ambulation. Extensive assist of one with wheelchair propulsion. 1-2 assist with bed mobility. (L) 1/4 side rail up to aid with bed positioning. No alarms. Vitals signs BP's reviewed by INVISIBLE BRACES ORTHODONTIST on 06/20 and is back to weekly monitoring. Weights reviewed as well. Continue 3x/week monitoring. Fall: No falls since admission. Is a high fall risk according to assessment done on 05/08. Fall interventions: call light within reach, bed in low position with brakes locked, gripper socks, falling star magnet, keep area free of clutters.
[2022-06-21] MEDS: ACETAMINOPHEN 500 MG TABLET 1000 MG PO ×3 (08:28→20:01)
[2022-06-21] MEDS: ASPIRIN 81 MG TAB.CHEW PO (08:29)
[2022-06-21] MEDS: SITAGLIPTIN PHOSPHATE 100 MG TABLET 50 MG PO (08:29)
[2022-06-21] MEDS: ISOSORBIDE MONONITRATE ER 30 MG TAB PO (08:29)
[2022-06-21] MEDS: LOSARTAN POTASSIUM 50 MG TABLET PO (08:29)
[2022-06-21] MEDS: FAMOTIDINE 10 MG TABLET PO (08:30)
[2022-06-21] MEDS: METOPROLOL TARTRATE 25 MG TABLET PO ×2 (08:30→15:49)
[2022-06-21] MEDS: GABAPENTIN 300 MG CAPSULE PO ×2 (08:30→15:49)
[2022-06-21] MEDS: TORSEMIDE 20 MG TABLET 10 MG PO (08:31)
[2022-06-21] MEDS: SERTRALINE 100 MG TABLET 125 MG PO (08:31)
[2022-06-21] MEDS: SENNOSIDES/DOCUSATE TABLET 1 TAB PO (08:31)
[2022-06-21] MEDS: CETIRIZINE HCL 10 MG TABLET PO (08:32)
[2022-06-21] MEDS: INSULIN LISPRO 100 UNIT/ML VIAL 22 UNIT SUBCUT (08:55)
--- NOTE | 2022-06-21 10:25 | PC.PHA1 ---
SHOPPER MARKETING MANAGER PHARMACIST'S MEDICATION REVIEW: MEDICATION MONITORING:?Risperidone 1 mg hs, for hallucinations sertraline 125 mg po daily IRREGULARITY OR COMMENTS:Patient continues to do well with GDR of risperidone, down to just the hs dose. Insulins continue to be adjusted. Occasional high blood pressures noticed. Renal function labs compared to 06/02/22 and 06/19/22, later showing increase in Creatine, all medications dosed appropriately for current renal function. SUGGESTED COURSE OF ACTION TAKEN:Continue GDR of risperidone.
[2022-06-21] MEDS: INSULIN LISPRO 100 UNIT/ML VIAL 24 UNIT SUBCUT ×2 (12:12→17:12)
[2022-06-21 15:00] VITALS: TEMP 36.6; O2SAT 94
[2022-06-21] MEDS: ATORVASTATIN CALCIUM 40 MG TABLET PO (20:01)
[2022-06-21] MEDS: risperiDONE 0.5 MG TABLET 1 MG PO (20:01)
[2022-06-21 23:00] VITALS: TEMP 36.4; O2SAT 98
[2022-06-22] MEDS: ACETAMINOPHEN 500 MG TABLET 1000 MG PO ×3 (08:18→19:55)
[2022-06-22] MEDS: ASPIRIN 81 MG TAB.CHEW PO (08:18)
[2022-06-22] MEDS: ISOSORBIDE MONONITRATE ER 30 MG TAB PO (08:18)
[2022-06-22] MEDS: GABAPENTIN 300 MG CAPSULE PO ×2 (08:19→15:34)
[2022-06-22] MEDS: FAMOTIDINE 10 MG TABLET PO (08:19)
[2022-06-22] MEDS: TORSEMIDE 20 MG TABLET 10 MG PO (08:19)
[2022-06-22] MEDS: METOPROLOL TARTRATE 25 MG TABLET PO ×2 (08:19→15:34)
[2022-06-22] MEDS: SENNOSIDES/DOCUSATE TABLET 1 TAB PO (08:19)
[2022-06-22] MEDS: SITAGLIPTIN PHOSPHATE 100 MG TABLET 50 MG PO (08:19)
[2022-06-22] MEDS: LOSARTAN POTASSIUM 50 MG TABLET PO (08:19)
[2022-06-22] MEDS: SERTRALINE 100 MG TABLET 125 MG PO (08:20)
[2022-06-22] MEDS: CETIRIZINE HCL 10 MG TABLET PO (08:20)
[2022-06-22] MEDS: INSULIN LISPRO 100 UNIT/ML VIAL 22 UNIT SUBCUT (08:47)
[2022-06-22 10:17] VITALS: TEMP 36.3; O2SAT 95
[2022-06-22] MEDS: INSULIN LISPRO 100 UNIT/ML VIAL 24 UNIT SUBCUT ×2 (11:53→17:23)
[2022-06-22 15:00] VITALS: TEMP 36.6; O2SAT 90
[2022-06-22] MEDS: ATORVASTATIN CALCIUM 40 MG TABLET PO (19:55)
[2022-06-22] MEDS: risperiDONE 0.5 MG TABLET 1 MG PO (19:55)
[2022-06-22 23:00] VITALS: TEMP 36.4; O2SAT 96
[2022-06-23 07:00] VITALS: TEMP 36.6; O2SAT 93
[2022-06-23] MEDS: ACETAMINOPHEN 500 MG TABLET 1000 MG PO ×3 (08:17→20:24)
[2022-06-23] MEDS: ASPIRIN 81 MG TAB.CHEW PO (08:17)
[2022-06-23] MEDS: SITAGLIPTIN PHOSPHATE 100 MG TABLET 50 MG PO (08:19)
[2022-06-23] MEDS: LOSARTAN POTASSIUM 50 MG TABLET PO (08:19)
[2022-06-23] MEDS: ISOSORBIDE MONONITRATE ER 30 MG TAB PO (08:19)
[2022-06-23] MEDS: GABAPENTIN 300 MG CAPSULE PO ×2 (08:20→16:05)
[2022-06-23] MEDS: SENNOSIDES/DOCUSATE TABLET 1 TAB PO (08:20)
[2022-06-23] MEDS: METOPROLOL TARTRATE 25 MG TABLET PO ×2 (08:20→16:05)
[2022-06-23] MEDS: FAMOTIDINE 10 MG TABLET PO (08:20)
[2022-06-23] MEDS: TORSEMIDE 20 MG TABLET 10 MG PO (08:21)
[2022-06-23] MEDS: SERTRALINE 100 MG TABLET 125 MG PO (08:22)
[2022-06-23] MEDS: CETIRIZINE HCL 10 MG TABLET PO (08:22)
[2022-06-23] MEDS: INSULIN LISPRO 100 UNIT/ML VIAL 22 UNIT SUBCUT (08:47)
[2022-06-23] MEDS: INSULIN LISPRO 100 UNIT/ML VIAL 24 UNIT SUBCUT ×2 (12:00→17:15)
[2022-06-23 17:00] VITALS: TEMP 36.6; O2SAT 89
[2022-06-23] MEDS: ATORVASTATIN CALCIUM 40 MG TABLET PO (20:24)
[2022-06-23] MEDS: risperiDONE 0.5 MG TABLET 1 MG PO (20:25)
[2022-06-23 23:57] VITALS: TEMP 36.3; O2SAT 96
[2022-06-24] MEDS: ASPIRIN 81 MG TAB.CHEW PO (08:05)
[2022-06-24] MEDS: ACETAMINOPHEN 500 MG TABLET 1000 MG PO ×3 (08:05→19:31)
[2022-06-24] MEDS: SITAGLIPTIN PHOSPHATE 100 MG TABLET 50 MG PO (08:06)
[2022-06-24] MEDS: ISOSORBIDE MONONITRATE ER 30 MG TAB PO (08:06)
[2022-06-24] MEDS: GABAPENTIN 300 MG CAPSULE PO ×2 (08:07→15:24)
[2022-06-24] MEDS: FAMOTIDINE 10 MG TABLET PO (08:07)
[2022-06-24] MEDS: METOPROLOL TARTRATE 25 MG TABLET PO ×2 (08:07→15:24)
[2022-06-24] MEDS: LOSARTAN POTASSIUM 50 MG TABLET PO (08:07)
[2022-06-24] MEDS: TORSEMIDE 20 MG TABLET 10 MG PO (08:08)
[2022-06-24] MEDS: SERTRALINE 100 MG TABLET 125 MG PO (08:08)
[2022-06-24] MEDS: SENNOSIDES/DOCUSATE TABLET 1 TAB PO (08:08)
[2022-06-24] MEDS: CETIRIZINE HCL 10 MG TABLET PO (08:11)
[2022-06-24] MEDS: INSULIN LISPRO 100 UNIT/ML VIAL 22 UNIT SUBCUT (08:33)
[2022-06-24 11:13] VITALS: TEMP 36.4; O2SAT 93
[2022-06-24] MEDS: INSULIN LISPRO 100 UNIT/ML VIAL 24 UNIT SUBCUT ×2 (12:03→17:12)
[2022-06-24] MEDS: ATORVASTATIN CALCIUM 40 MG TABLET PO (19:31)
[2022-06-24] MEDS: risperiDONE 0.5 MG TABLET 1 MG PO (19:32)
[2022-06-24 23:47] VITALS: TEMP 36.1; O2SAT 99
[2022-06-25] MEDS: ACETAMINOPHEN 500 MG TABLET 1000 MG PO ×3 (08:04→19:22)
[2022-06-25] MEDS: ASPIRIN 81 MG TAB.CHEW PO (08:04)
[2022-06-25] MEDS: FAMOTIDINE 10 MG TABLET PO (08:06)
[2022-06-25] MEDS: GABAPENTIN 300 MG CAPSULE PO ×2 (08:06→15:57)
[2022-06-25] MEDS: ISOSORBIDE MONONITRATE ER 30 MG TAB PO (08:06)
[2022-06-25] MEDS: SITAGLIPTIN PHOSPHATE 100 MG TABLET 50 MG PO (08:06)
[2022-06-25] MEDS: LOSARTAN POTASSIUM 50 MG TABLET PO (08:06)
[2022-06-25] MEDS: METOPROLOL TARTRATE 25 MG TABLET PO ×2 (08:06→15:57)
[2022-06-25] MEDS: SENNOSIDES/DOCUSATE TABLET 1 TAB PO (08:07)
[2022-06-25] MEDS: CETIRIZINE HCL 10 MG TABLET PO (08:07)
[2022-06-25] MEDS: SERTRALINE 100 MG TABLET 125 MG PO (08:07)
[2022-06-25] MEDS: TORSEMIDE 20 MG TABLET 10 MG PO (08:07)
[2022-06-25] MEDS: INSULIN LISPRO 100 UNIT/ML VIAL 22 UNIT SUBCUT (08:32)
[2022-06-25 10:10] VITALS: BP 147/74; PULSE 70; RESP 18; TEMP 36.4; O2SAT 94; BMI 43.7
[2022-06-25] MEDS: INSULIN LISPRO 100 UNIT/ML VIAL 24 UNIT SUBCUT ×2 (11:40→18:01)
[2022-06-25 16:51] VITALS: TEMP 36.6; O2SAT 92
[2022-06-25] MEDS: risperiDONE 0.5 MG TABLET 1 MG PO (19:22)
[2022-06-25] MEDS: ATORVASTATIN CALCIUM 40 MG TABLET PO (19:22)
[2022-06-25 23:45] VITALS: TEMP 36.4; O2SAT 97
[2022-06-26 07:00] VITALS: TEMP 36.4; O2SAT 93
[2022-06-26] MEDS: ASPIRIN 81 MG TAB.CHEW PO (07:54)
[2022-06-26] MEDS: ACETAMINOPHEN 500 MG TABLET 1000 MG PO ×3 (07:54→19:40)
[2022-06-26] MEDS: METOPROLOL TARTRATE 25 MG TABLET PO ×2 (07:55→15:45)
[2022-06-26] MEDS: ISOSORBIDE MONONITRATE ER 30 MG TAB PO (07:55)
[2022-06-26] MEDS: SITAGLIPTIN PHOSPHATE 100 MG TABLET 50 MG PO (07:55)
[2022-06-26] MEDS: LOSARTAN POTASSIUM 50 MG TABLET PO (07:55)
[2022-06-26] MEDS: FAMOTIDINE 10 MG TABLET PO (07:56)
[2022-06-26] MEDS: TORSEMIDE 20 MG TABLET 10 MG PO (07:56)
[2022-06-26] MEDS: GABAPENTIN 300 MG CAPSULE PO ×2 (07:56→15:45)
[2022-06-26] MEDS: SENNOSIDES/DOCUSATE TABLET 1 TAB PO (07:56)
[2022-06-26] MEDS: SERTRALINE 100 MG TABLET 125 MG PO (07:57)
[2022-06-26] MEDS: CETIRIZINE HCL 10 MG TABLET PO (07:57)
[2022-06-26] MEDS: INSULIN LISPRO 100 UNIT/ML VIAL 22 UNIT SUBCUT (08:34)
[2022-06-26] MEDS: INSULIN LISPRO 100 UNIT/ML VIAL 24 UNIT SUBCUT ×2 (12:03→18:32)
[2022-06-26 13:59] LABS: SARS PCR* Negative SARS-CoV-2 (Negative)
[2022-06-26 15:00] VITALS: TEMP 36.6; O2SAT 94
[2022-06-26] MEDS: ATORVASTATIN CALCIUM 40 MG TABLET PO (19:40)
[2022-06-26] MEDS: risperiDONE 0.5 MG TABLET 1 MG PO (19:41)
[2022-06-26 23:00] VITALS: TEMP 36.2; O2SAT 98
--- NOTE | 2022-06-27 04:46 | PC.NURSE ---
WEEKLY CHARTING WEEK 3 : TOILETING AND SKIN Vital signs reviewed, BP varies and is monitored 3x/week, blood glucose is twice a day. Toileting: temporary care plan reviewed, no changes made and nothing added to temporary care plan. Resident is continent of bowel, mostly incontinent of bladder. Assist one for toileting ; gait belt and walker use to transfer and ambulate to the toilet with one assist. Is checked by staff and toilet per her request. Pads, bailey cares, clothing managed by staff. Skin: Is intact,continues with barrier cream to perineum and coccyx. Skin is checked during cares and on bath day.
[2022-06-27 07:00] VITALS: TEMP 36.6; O2SAT 94
[2022-06-27] MEDS: ASPIRIN 81 MG TAB.CHEW PO (08:30)
[2022-06-27] MEDS: ACETAMINOPHEN 500 MG TABLET 1000 MG PO ×3 (08:30→20:11)
[2022-06-27] MEDS: ISOSORBIDE MONONITRATE ER 30 MG TAB PO (08:31)
[2022-06-27] MEDS: LOSARTAN POTASSIUM 50 MG TABLET PO (08:31)
[2022-06-27] MEDS: SITAGLIPTIN PHOSPHATE 100 MG TABLET 50 MG PO (08:31)
[2022-06-27] MEDS: METOPROLOL TARTRATE 25 MG TABLET PO ×2 (08:31→16:07)
[2022-06-27] MEDS: FAMOTIDINE 10 MG TABLET PO (08:32)
[2022-06-27] MEDS: GABAPENTIN 300 MG CAPSULE PO ×2 (08:32→16:07)
[2022-06-27] MEDS: SENNOSIDES/DOCUSATE TABLET 1 TAB PO (08:33)
[2022-06-27] MEDS: TORSEMIDE 20 MG TABLET 10 MG PO (08:33)
[2022-06-27] MEDS: SERTRALINE 100 MG TABLET 125 MG PO (08:34)
[2022-06-27] MEDS: CETIRIZINE HCL 10 MG TABLET PO (08:34)
[2022-06-27] MEDS: INSULIN LISPRO 100 UNIT/ML VIAL 22 UNIT SUBCUT (08:54)
[2022-06-27] MEDS: INSULIN LISPRO 100 UNIT/ML VIAL 24 UNIT SUBCUT ×2 (12:17→17:26)
[2022-06-27 16:58] VITALS: TEMP 37.1; O2SAT 83
[2022-06-27] MEDS: risperiDONE 0.5 MG TABLET 1 MG PO (20:12)
[2022-06-27] MEDS: ATORVASTATIN CALCIUM 40 MG TABLET PO (20:12)
[2022-06-27 23:00] VITALS: TEMP 36.5; O2SAT 100
--- NOTE | 2022-06-28 01:32 | PC.NURSE ---
WEEKLY CHARTING WEEK 3 Vital signs reviewed. BP elevated, CHOIR DIRECTOR aware, continue to check BP daily Temporary care plan and comprehensive care plan reviewed, no changes made, nothing added to temporary care plan Skin: Has intermittent redness on abdominal fold. Applied nystatin cream PRN. Skin check done at bath days and during cares. Toileting: Res is incontinent of bowel and bladder at [facility]. Staff check and changed during 1st round and 3rd round. Evi cares, incontinent pad, clothing is managed by staff.
[2022-06-28 07:00] VITALS: TEMP 36.7; O2SAT 92
[2022-06-28] MEDS: ACETAMINOPHEN 500 MG TABLET 1000 MG PO ×3 (08:12→19:25)
[2022-06-28] MEDS: ASPIRIN 81 MG TAB.CHEW PO (08:12)
[2022-06-28] MEDS: ISOSORBIDE MONONITRATE ER 30 MG TAB PO (08:13)
[2022-06-28] MEDS: LOSARTAN POTASSIUM 50 MG TABLET PO (08:13)
[2022-06-28] MEDS: SITAGLIPTIN PHOSPHATE 100 MG TABLET 50 MG PO (08:13)
[2022-06-28] MEDS: GABAPENTIN 300 MG CAPSULE PO ×2 (08:14→15:09)
[2022-06-28] MEDS: SENNOSIDES/DOCUSATE TABLET 1 TAB PO (08:14)
[2022-06-28] MEDS: FAMOTIDINE 10 MG TABLET PO (08:14)
[2022-06-28] MEDS: METOPROLOL TARTRATE 25 MG TABLET PO ×2 (08:14→15:09)
[2022-06-28] MEDS: TORSEMIDE 20 MG TABLET 10 MG PO (08:14)
[2022-06-28] MEDS: CETIRIZINE HCL 10 MG TABLET PO (08:15)
[2022-06-28] MEDS: SERTRALINE 100 MG TABLET 125 MG PO (08:15)
[2022-06-28] MEDS: INSULIN LISPRO 100 UNIT/ML VIAL 22 UNIT SUBCUT (08:40)
[2022-06-28] MEDS: INSULIN LISPRO 100 UNIT/ML VIAL 24 UNIT SUBCUT ×2 (11:58→17:25)
[2022-06-28] MEDS: risperiDONE 0.5 MG TABLET 1 MG PO (19:26)
[2022-06-28] MEDS: ATORVASTATIN CALCIUM 40 MG TABLET PO (19:26)
[2022-06-29] MEDS: ACETAMINOPHEN 500 MG TABLET 1000 MG PO ×3 (08:13→20:22)
[2022-06-29] MEDS: ISOSORBIDE MONONITRATE ER 30 MG TAB PO (08:13)
[2022-06-29] MEDS: SITAGLIPTIN PHOSPHATE 100 MG TABLET 50 MG PO (08:13)
[2022-06-29] MEDS: ASPIRIN 81 MG TAB.CHEW PO (08:13)
[2022-06-29] MEDS: METOPROLOL TARTRATE 25 MG TABLET PO ×2 (08:14→16:13)
[2022-06-29] MEDS: LOSARTAN POTASSIUM 50 MG TABLET PO (08:14)
[2022-06-29] MEDS: GABAPENTIN 300 MG CAPSULE PO ×2 (08:14→16:13)
[2022-06-29] MEDS: FAMOTIDINE 10 MG TABLET PO (08:15)
[2022-06-29] MEDS: TORSEMIDE 20 MG TABLET 10 MG PO (08:15)
[2022-06-29] MEDS: SENNOSIDES/DOCUSATE TABLET 1 TAB PO (08:15)
[2022-06-29] MEDS: SERTRALINE 100 MG TABLET 125 MG PO (08:16)
[2022-06-29] MEDS: CETIRIZINE HCL 10 MG TABLET PO (08:16)
[2022-06-29] MEDS: INSULIN LISPRO 100 UNIT/ML VIAL 22 UNIT SUBCUT (08:38)
[2022-06-29] MEDS: INSULIN LISPRO 100 UNIT/ML VIAL 24 UNIT SUBCUT ×2 (12:11→17:18)
[2022-06-29] MEDS: ATORVASTATIN CALCIUM 40 MG TABLET PO (20:23)
[2022-06-29] MEDS: risperiDONE 0.5 MG TABLET 1 MG PO (20:23)
[2022-06-30] MEDS: ASPIRIN 81 MG TAB.CHEW PO (08:29)
[2022-06-30] MEDS: ACETAMINOPHEN 500 MG TABLET 1000 MG PO ×3 (08:29→20:16)
[2022-06-30] MEDS: ISOSORBIDE MONONITRATE ER 30 MG TAB PO (08:29)
[2022-06-30] MEDS: FAMOTIDINE 10 MG TABLET PO (08:30)
[2022-06-30] MEDS: SENNOSIDES/DOCUSATE TABLET 1 TAB PO (08:30)
[2022-06-30] MEDS: SERTRALINE 100 MG TABLET 125 MG PO (08:30)
[2022-06-30] MEDS: TORSEMIDE 20 MG TABLET 10 MG PO (08:30)
[2022-06-30] MEDS: SITAGLIPTIN PHOSPHATE 100 MG TABLET 50 MG PO (08:30)
[2022-06-30] MEDS: LOSARTAN POTASSIUM 50 MG TABLET PO (08:30)
[2022-06-30] MEDS: METOPROLOL TARTRATE 25 MG TABLET PO ×2 (08:30→16:31)
[2022-06-30] MEDS: CETIRIZINE HCL 10 MG TABLET PO (08:30)
[2022-06-30] MEDS: GABAPENTIN 300 MG CAPSULE PO ×2 (08:30→16:31)
[2022-06-30] MEDS: INSULIN LISPRO 100 UNIT/ML VIAL 22 UNIT SUBCUT (08:56)
[2022-06-30] MEDS: INSULIN LISPRO 100 UNIT/ML VIAL 24 UNIT SUBCUT ×2 (12:22→17:22)
[2022-06-30] MEDS: ATORVASTATIN CALCIUM 40 MG TABLET PO (20:16)
[2022-06-30] MEDS: risperiDONE 0.5 MG TABLET 1 MG PO (20:17)
[2022-07-01] MEDS: ASPIRIN 81 MG TAB.CHEW PO (08:23)
[2022-07-01] MEDS: ACETAMINOPHEN 500 MG TABLET 1000 MG PO ×3 (08:23→19:32)
[2022-07-01] MEDS: SITAGLIPTIN PHOSPHATE 100 MG TABLET 50 MG PO (08:24)
[2022-07-01] MEDS: METOPROLOL TARTRATE 25 MG TABLET PO ×2 (08:24→15:07)
[2022-07-01] MEDS: LOSARTAN POTASSIUM 50 MG TABLET PO (08:24)
[2022-07-01] MEDS: ISOSORBIDE MONONITRATE ER 30 MG TAB PO (08:24)
[2022-07-01] MEDS: GABAPENTIN 300 MG CAPSULE PO ×2 (08:25→15:08)
[2022-07-01] MEDS: FAMOTIDINE 10 MG TABLET PO (08:25)
[2022-07-01] MEDS: CETIRIZINE HCL 10 MG TABLET PO (08:27)
[2022-07-01] MEDS: SERTRALINE 100 MG TABLET 125 MG PO (08:27)
[2022-07-01] MEDS: SENNOSIDES/DOCUSATE TABLET 1 TAB PO (08:27)
[2022-07-01] MEDS: TORSEMIDE 20 MG TABLET 10 MG PO (08:27)
[2022-07-01] MEDS: INSULIN LISPRO 100 UNIT/ML VIAL 22 UNIT SUBCUT (08:59)
[2022-07-01] MEDS: INSULIN LISPRO 100 UNIT/ML VIAL 24 UNIT SUBCUT ×2 (12:26→17:16)
[2022-07-01] MEDS: risperiDONE 0.5 MG TABLET 1 MG PO (19:31)
[2022-07-01] MEDS: ATORVASTATIN CALCIUM 40 MG TABLET PO (19:32)
[2022-07-02 07:00] VITALS: BP 105/65; PULSE 64; TEMP 36.5; O2SAT 94
[2022-07-02] MEDS: ACETAMINOPHEN 500 MG TABLET 1000 MG PO ×3 (08:44→20:19)
[2022-07-02] MEDS: ASPIRIN 81 MG TAB.CHEW PO (08:45)
[2022-07-02] MEDS: SITAGLIPTIN PHOSPHATE 100 MG TABLET 50 MG PO (08:45)
[2022-07-02] MEDS: ISOSORBIDE MONONITRATE ER 30 MG TAB PO (08:45)
[2022-07-02] MEDS: METOPROLOL TARTRATE 25 MG TABLET PO ×2 (08:46→16:26)
[2022-07-02] MEDS: GABAPENTIN 300 MG CAPSULE PO ×2 (08:46→16:26)
[2022-07-02] MEDS: LOSARTAN POTASSIUM 50 MG TABLET PO (08:46)
[2022-07-02] MEDS: SENNOSIDES/DOCUSATE TABLET 1 TAB PO (08:47)
[2022-07-02] MEDS: TORSEMIDE 20 MG TABLET 10 MG PO (08:47)
[2022-07-02] MEDS: FAMOTIDINE 10 MG TABLET PO (08:47)
[2022-07-02] MEDS: CETIRIZINE HCL 10 MG TABLET PO (08:48)
[2022-07-02] MEDS: SERTRALINE 100 MG TABLET 125 MG PO (08:48)
[2022-07-02] MEDS: INSULIN LISPRO 100 UNIT/ML VIAL 22 UNIT SUBCUT (08:56)
[2022-07-02] MEDS: INSULIN LISPRO 100 UNIT/ML VIAL 24 UNIT SUBCUT ×2 (12:05→17:17)
[2022-07-02] MEDS: ATORVASTATIN CALCIUM 40 MG TABLET PO (20:19)
[2022-07-02] MEDS: risperiDONE 0.5 MG TABLET 1 MG PO (20:20)
[2022-07-03] MEDS: ASPIRIN 81 MG TAB.CHEW PO (07:51)
[2022-07-03] MEDS: ACETAMINOPHEN 500 MG TABLET 1000 MG PO ×3 (07:51→19:26)
[2022-07-03] MEDS: ISOSORBIDE MONONITRATE ER 30 MG TAB PO (07:52)
[2022-07-03] MEDS: GABAPENTIN 300 MG CAPSULE PO ×2 (07:52→15:54)
[2022-07-03] MEDS: FAMOTIDINE 10 MG TABLET PO (07:52)
[2022-07-03] MEDS: METOPROLOL TARTRATE 25 MG TABLET PO ×2 (07:52→15:54)
[2022-07-03] MEDS: SITAGLIPTIN PHOSPHATE 100 MG TABLET 50 MG PO (07:52)
[2022-07-03] MEDS: LOSARTAN POTASSIUM 50 MG TABLET PO (07:52)
[2022-07-03 07:53] LABS: Chloride* 105 mmol/L (96-114); Potassium* 3.9 mmol/L (3.6-5.1); Sodium* 143 mmol/L (135-149)
[2022-07-03] MEDS: SERTRALINE 100 MG TABLET 125 MG PO (07:53)
[2022-07-03] MEDS: SENNOSIDES/DOCUSATE TABLET 1 TAB PO (07:53)
[2022-07-03] MEDS: TORSEMIDE 20 MG TABLET 10 MG PO (07:53)
[2022-07-03] MEDS: CETIRIZINE HCL 10 MG TABLET PO (07:54)
[2022-07-03 07:55] LABS: Creatinine* 1.1 mg/dL (0.5-1.5); Est. Creatinine Clearance* 67.48; Estimated Glomerular Filt Rate 52 ml/min
[2022-07-03 07:56] LABS: Blood Urea Nitrogen* 27 mg/dL (7-30); Calcium* 8.4 mg/dL (8.4-10.6); Carbon Dioxide* 33 mmol/L (20-32); Glucose* 143 mg/dL (60-115)
[2022-07-03] MEDS: INSULIN LISPRO 100 UNIT/ML VIAL 22 UNIT SUBCUT (08:38)
--- NOTE | 2022-07-03 09:32 | PC.NURSE ---
Pain note: Resident reported what she says was 10/10 bilateral knee pain to EDDIE with morning cares this morning. She also reported to EDDIE that Voltaren gel being applied to bilateral knees isn't helping her pain. No nonverbal signs of pain noted upon assessment. Bus Trolley And Taxi Instructor then administered AM medications including scheduled Tylenol and Voltaren gel. Resident also c/o headache right before breakfast. Blood glucose noted to be 148. Vital signs were assessed: B/P 122/71, P 68, R 18, T 97.5, O2 sat 94% on RA. Resident was given short-acting insulin just with breakfast and was served tray in room per her request. Resident reported feeling better after breakfast when poem writer followed up with her. Bus Trolley And Taxi Instructor did place note in ATHLETE MARKETING AGENT binder providing update that resident continues to c/o bilateral knee pain and that she has reported Voltaren gel isn't helping to control pain.
[2022-07-03] MEDS: INSULIN LISPRO 100 UNIT/ML VIAL 24 UNIT SUBCUT ×2 (12:01→17:38)
[2022-07-03] MEDS: ATORVASTATIN CALCIUM 40 MG TABLET PO (19:26)
[2022-07-03] MEDS: risperiDONE 0.5 MG TABLET 1 MG PO (19:36)
[2022-07-04] MEDS: ACETAMINOPHEN 500 MG TABLET 1000 MG PO ×3 (07:51→20:01)
[2022-07-04] MEDS: ASPIRIN 81 MG TAB.CHEW PO (07:51)
[2022-07-04] MEDS: ISOSORBIDE MONONITRATE ER 30 MG TAB PO (07:52)
[2022-07-04] MEDS: LOSARTAN POTASSIUM 50 MG TABLET PO (07:52)
[2022-07-04] MEDS: SITAGLIPTIN PHOSPHATE 100 MG TABLET 50 MG PO (07:52)
[2022-07-04] MEDS: METOPROLOL TARTRATE 25 MG TABLET PO ×2 (07:52→16:02)
[2022-07-04] MEDS: SENNOSIDES/DOCUSATE TABLET 1 TAB PO (07:53)
[2022-07-04] MEDS: TORSEMIDE 20 MG TABLET 10 MG PO (07:53)
[2022-07-04] MEDS: GABAPENTIN 300 MG CAPSULE PO ×2 (07:53→16:02)
[2022-07-04] MEDS: FAMOTIDINE 10 MG TABLET PO (07:53)
[2022-07-04] MEDS: SERTRALINE 100 MG TABLET 125 MG PO (07:54)
[2022-07-04] MEDS: CETIRIZINE HCL 10 MG TABLET PO (07:54)
[2022-07-04] MEDS: INSULIN LISPRO 100 UNIT/ML VIAL 22 UNIT SUBCUT (08:28)
[2022-07-04 10:00] VITALS: BP 115/66; BP 118/67; PULSE 82
--- NOTE | 2022-07-04 11:42 | PC.NURSE ---
Addendum entered by Radha Tubbs RN 07/04/22 12:43: Order: Oxycodone 5mg BID PRN. Original Note: Recert Visit: Resident seen by Ernst WHITMAN. Orders reviewed and renewed for 45 days with changes. Order: Discontinue Bisacodyl daily PRN, Triamcinolone Cream BID PRN, Increase AM Humalog Insulin to 24 units.
[2022-07-04] MEDS: INSULIN LISPRO 100 UNIT/ML VIAL 24 UNIT SUBCUT ×2 (12:02→17:22)
--- NOTE | 2022-07-04 12:44 | PC.NURSE ---
CBC result reviewed by Ernst WHITMAN. No new order.
[2022-07-04] MEDS: ATORVASTATIN CALCIUM 40 MG TABLET PO (20:02)
[2022-07-04] MEDS: risperiDONE 0.5 MG TABLET 1 MG PO (20:02)
--- NOTE | 2022-07-05 02:15 | PC.NURSE ---
WEEKLY CHARTING - WEEK 4: Vital signs reviewed - no noted concerns. Temporary and comprehensive care plan reviewed - no change. No behaviors documented in the last 30 days. Currently on sertraline 125mg daily and risperidone 1mg at HS with no noted adverse drug effects. Requires leveler as primary language is German. Understands some Korean, but speaks very little. Hearing intact. Visual deficit corrected with glasses. Orientated with some forgetfulness. All medications administered by licensed nurse. Health condition currently stable.
[2022-07-05] MEDS: ASPIRIN 81 MG TAB.CHEW PO (08:15)
[2022-07-05] MEDS: ACETAMINOPHEN 500 MG TABLET 1000 MG PO ×3 (08:15→19:03)
[2022-07-05] MEDS: LOSARTAN POTASSIUM 50 MG TABLET PO (08:16)
[2022-07-05] MEDS: SITAGLIPTIN PHOSPHATE 100 MG TABLET 50 MG PO (08:16)
[2022-07-05] MEDS: METOPROLOL TARTRATE 25 MG TABLET PO ×2 (08:16→15:25)
[2022-07-05] MEDS: ISOSORBIDE MONONITRATE ER 30 MG TAB PO (08:16)
[2022-07-05] MEDS: GABAPENTIN 300 MG CAPSULE PO ×2 (08:16→15:25)
[2022-07-05] MEDS: FAMOTIDINE 10 MG TABLET PO (08:17)
[2022-07-05] MEDS: SENNOSIDES/DOCUSATE TABLET 1 TAB PO (08:18)
[2022-07-05] MEDS: TORSEMIDE 20 MG TABLET 10 MG PO (08:18)
[2022-07-05] MEDS: CETIRIZINE HCL 10 MG TABLET PO (08:19)
[2022-07-05] MEDS: SERTRALINE 100 MG TABLET 125 MG PO (08:19)
[2022-07-05] MEDS: INSULIN LISPRO 100 UNIT/ML VIAL 24 UNIT SUBCUT ×3 (08:38→17:26)
--- NOTE | 2022-07-05 08:58 | PC.NURSE ---
Weekly Charting-Week 4: Comprehensive and temporary care plan reviewed. No changes made & nothing added to temporary care plan. No changes noted in communication,hearing, vision, or orientation. Resident is Persian speaking. Needs an sausage maker and has a white board in room for communication. Can understand Persian more than she talks. Hearing is fine. Wears glasses to correct vision. Alert, oriented x 3 with some forgetfulness. Cognition intact. Health condition stable. BP's & weights reviewed by by E COMMERCE SOLUTION ARCHITECT. Continue weight monitoring 3x/week, change blood pressure monitoring to weekly. All medications administered by Nurse. Mood/Behavior: No issues noted. Receives Zoloft 125mg daily, & Risperidone 1mg @ HS with no adverse effects. 3/16 AM Risperidone discontinued with no behavioral changes noted. Staff to continue to monitor for changes and refer to provider as needed.
[2022-07-05] MEDS: ATORVASTATIN CALCIUM 40 MG TABLET PO (19:03)
[2022-07-05] MEDS: risperiDONE 0.5 MG TABLET 1 MG PO (19:03)
[2022-07-05] MEDS: OXYCODONE 5 MG TABLET PO (22:58)
[2022-07-06] MEDS: ACETAMINOPHEN 500 MG TABLET 1000 MG PO ×3 (08:16→20:10)
[2022-07-06] MEDS: LOSARTAN POTASSIUM 50 MG TABLET PO (08:17)
[2022-07-06] MEDS: ISOSORBIDE MONONITRATE ER 30 MG TAB PO (08:17)
[2022-07-06] MEDS: ASPIRIN 81 MG TAB.CHEW PO (08:17)
[2022-07-06] MEDS: SITAGLIPTIN PHOSPHATE 100 MG TABLET 50 MG PO (08:17)
[2022-07-06] MEDS: GABAPENTIN 300 MG CAPSULE PO ×2 (08:18→16:01)
[2022-07-06] MEDS: METOPROLOL TARTRATE 25 MG TABLET PO ×2 (08:18→16:01)
[2022-07-06] MEDS: FAMOTIDINE 10 MG TABLET PO (08:18)
[2022-07-06] MEDS: CETIRIZINE HCL 10 MG TABLET PO (08:19)
[2022-07-06] MEDS: SERTRALINE 100 MG TABLET 125 MG PO (08:19)
[2022-07-06] MEDS: SENNOSIDES/DOCUSATE TABLET 1 TAB PO (08:19)
[2022-07-06] MEDS: TORSEMIDE 20 MG TABLET 10 MG PO (08:19)
[2022-07-06] MEDS: INSULIN LISPRO 100 UNIT/ML VIAL 24 UNIT SUBCUT ×3 (08:36→17:18)
--- NOTE | 2022-07-06 15:09 | REH.OT ---
OT: Patient is trialing new w/c 20w x 16d x 15h with brake extensions and desk length arms. Patient and family members report chair is more comfortable with pt being able to reach floor with feet for ex group and to propel with feet. Pt is able to get brakes off/on without assist. Pt would benefit from modifications with footrests and anti-tippers. OT informed [facility] staff and will follow up on this.
[2022-07-06] MEDS: risperiDONE 0.5 MG TABLET 1 MG PO (20:11)
[2022-07-06] MEDS: ATORVASTATIN CALCIUM 40 MG TABLET PO (20:11)
[2022-07-07] MEDS: ACETAMINOPHEN 500 MG TABLET 1000 MG PO ×3 (08:16→19:48)
[2022-07-07] MEDS: ASPIRIN 81 MG TAB.CHEW PO (08:16)
[2022-07-07] MEDS: LOSARTAN POTASSIUM 50 MG TABLET PO (08:17)
[2022-07-07] MEDS: ISOSORBIDE MONONITRATE ER 30 MG TAB PO (08:17)
[2022-07-07] MEDS: SITAGLIPTIN PHOSPHATE 100 MG TABLET 50 MG PO (08:17)
[2022-07-07] MEDS: SENNOSIDES/DOCUSATE TABLET 1 TAB PO (08:18)
[2022-07-07] MEDS: METOPROLOL TARTRATE 25 MG TABLET PO ×2 (08:18→15:16)
[2022-07-07] MEDS: FAMOTIDINE 10 MG TABLET PO (08:18)
[2022-07-07] MEDS: GABAPENTIN 300 MG CAPSULE PO ×2 (08:18→15:16)
[2022-07-07] MEDS: TORSEMIDE 20 MG TABLET 10 MG PO (08:19)
[2022-07-07] MEDS: SERTRALINE 100 MG TABLET 125 MG PO (08:19)
[2022-07-07] MEDS: CETIRIZINE HCL 10 MG TABLET PO (08:19)
[2022-07-07] MEDS: INSULIN LISPRO 100 UNIT/ML VIAL 24 UNIT SUBCUT ×3 (08:26→17:29)
[2022-07-07] MEDS: ATORVASTATIN CALCIUM 40 MG TABLET PO (19:49)
[2022-07-07] MEDS: risperiDONE 0.5 MG TABLET 1 MG PO (19:49)
[2022-07-08] MEDS: ACETAMINOPHEN 500 MG TABLET 1000 MG PO ×3 (08:01→19:49)
[2022-07-08] MEDS: ISOSORBIDE MONONITRATE ER 30 MG TAB PO (08:01)
[2022-07-08] MEDS: SITAGLIPTIN PHOSPHATE 100 MG TABLET 50 MG PO (08:01)
[2022-07-08] MEDS: ASPIRIN 81 MG TAB.CHEW PO (08:01)
[2022-07-08] MEDS: GABAPENTIN 300 MG CAPSULE PO ×2 (08:02→15:17)
[2022-07-08] MEDS: METOPROLOL TARTRATE 25 MG TABLET PO ×2 (08:02→15:17)
[2022-07-08] MEDS: LOSARTAN POTASSIUM 50 MG TABLET PO (08:02)
[2022-07-08] MEDS: SENNOSIDES/DOCUSATE TABLET 1 TAB PO (08:03)
[2022-07-08] MEDS: TORSEMIDE 20 MG TABLET 10 MG PO (08:03)
[2022-07-08] MEDS: FAMOTIDINE 10 MG TABLET PO (08:03)
[2022-07-08] MEDS: CETIRIZINE HCL 10 MG TABLET PO (08:04)
[2022-07-08] MEDS: SERTRALINE 100 MG TABLET 125 MG PO (08:04)
[2022-07-08] MEDS: INSULIN LISPRO 100 UNIT/ML VIAL 24 UNIT SUBCUT ×3 (08:32→17:22)
[2022-07-08] MEDS: ATORVASTATIN CALCIUM 40 MG TABLET PO (19:49)
[2022-07-08] MEDS: risperiDONE 0.5 MG TABLET 1 MG PO (19:49)
[2022-07-09] MEDS: ACETAMINOPHEN 500 MG TABLET 1000 MG PO ×3 (08:07→19:56)
[2022-07-09] MEDS: ISOSORBIDE MONONITRATE ER 30 MG TAB PO (08:07)
[2022-07-09] MEDS: ASPIRIN 81 MG TAB.CHEW PO (08:07)
[2022-07-09] MEDS: LOSARTAN POTASSIUM 50 MG TABLET PO (08:08)
[2022-07-09] MEDS: SITAGLIPTIN PHOSPHATE 100 MG TABLET 50 MG PO (08:08)
[2022-07-09] MEDS: GABAPENTIN 300 MG CAPSULE PO ×2 (08:08→15:32)
[2022-07-09] MEDS: FAMOTIDINE 10 MG TABLET PO (08:08)
[2022-07-09] MEDS: METOPROLOL TARTRATE 25 MG TABLET PO ×2 (08:08→15:32)
[2022-07-09] MEDS: SENNOSIDES/DOCUSATE TABLET 1 TAB PO (08:09)
[2022-07-09] MEDS: CETIRIZINE HCL 10 MG TABLET PO (08:09)
[2022-07-09] MEDS: TORSEMIDE 20 MG TABLET 10 MG PO (08:09)
[2022-07-09] MEDS: SERTRALINE 100 MG TABLET 125 MG PO (08:09)
[2022-07-09] MEDS: NYSTATIN CREAM 30 GM 1 APPLIC TOPICAL (08:10)
[2022-07-09] MEDS: INSULIN LISPRO 100 UNIT/ML VIAL 24 UNIT SUBCUT ×3 (08:16→17:31)
[2022-07-09 09:06] VITALS: BMI 43.4
[2022-07-09 13:08] VITALS: BP 150/70; PULSE 68; RESP 18; TEMP 36.6; O2SAT 94
[2022-07-09] MEDS: ATORVASTATIN CALCIUM 40 MG TABLET PO (19:56)
[2022-07-09] MEDS: risperiDONE 0.5 MG TABLET 1 MG PO (19:57)
[2022-07-10] MEDS: ACETAMINOPHEN 500 MG TABLET 1000 MG PO ×3 (07:34→19:22)
[2022-07-10] MEDS: ISOSORBIDE MONONITRATE ER 30 MG TAB PO (07:35)
[2022-07-10] MEDS: ASPIRIN 81 MG TAB.CHEW PO (07:35)
[2022-07-10] MEDS: GABAPENTIN 300 MG CAPSULE PO ×2 (07:36→15:51)
[2022-07-10] MEDS: FAMOTIDINE 10 MG TABLET PO (07:36)
[2022-07-10] MEDS: METOPROLOL TARTRATE 25 MG TABLET PO ×2 (07:36→15:51)
[2022-07-10] MEDS: LOSARTAN POTASSIUM 50 MG TABLET PO (07:36)
[2022-07-10] MEDS: SITAGLIPTIN PHOSPHATE 100 MG TABLET 50 MG PO (07:36)
[2022-07-10] MEDS: SENNOSIDES/DOCUSATE TABLET 1 TAB PO (07:37)
[2022-07-10] MEDS: SERTRALINE 100 MG TABLET 125 MG PO (07:37)
[2022-07-10] MEDS: CETIRIZINE HCL 10 MG TABLET PO (07:37)
[2022-07-10] MEDS: TORSEMIDE 20 MG TABLET 10 MG PO (07:37)
[2022-07-10] MEDS: INSULIN LISPRO 100 UNIT/ML VIAL 24 UNIT SUBCUT ×3 (08:29→17:44)
[2022-07-10] MEDS: NYSTATIN CREAM 30 GM 1 APPLIC TOPICAL (10:38)
[2022-07-10] MEDS: ATORVASTATIN CALCIUM 40 MG TABLET PO (19:22)
[2022-07-10] MEDS: risperiDONE 0.5 MG TABLET 1 MG PO (19:22)
[2022-07-11] MEDS: SITAGLIPTIN PHOSPHATE 100 MG TABLET 50 MG PO (08:22)
[2022-07-11] MEDS: ISOSORBIDE MONONITRATE ER 30 MG TAB PO (08:22)
[2022-07-11] MEDS: ACETAMINOPHEN 500 MG TABLET 1000 MG PO ×3 (08:22→19:13)
[2022-07-11] MEDS: ASPIRIN 81 MG TAB.CHEW PO (08:22)
[2022-07-11] MEDS: FAMOTIDINE 10 MG TABLET PO (08:24)
[2022-07-11] MEDS: LOSARTAN POTASSIUM 50 MG TABLET PO (08:24)
[2022-07-11] MEDS: GABAPENTIN 300 MG CAPSULE PO ×2 (08:24→15:43)
[2022-07-11] MEDS: METOPROLOL TARTRATE 25 MG TABLET PO ×2 (08:24→15:43)
[2022-07-11] MEDS: CETIRIZINE HCL 10 MG TABLET PO (08:25)
[2022-07-11] MEDS: TORSEMIDE 20 MG TABLET 10 MG PO (08:25)
[2022-07-11] MEDS: SERTRALINE 100 MG TABLET 125 MG PO (08:25)
[2022-07-11] MEDS: SENNOSIDES/DOCUSATE TABLET 1 TAB PO (08:25)
[2022-07-11] MEDS: INSULIN LISPRO 100 UNIT/ML VIAL 24 UNIT SUBCUT ×3 (08:48→17:15)
--- NOTE | 2022-07-11 12:20 | PC.NURSE ---
Order: Change Senna-S 1 tab daily to BID per SHINGLE CUTTERErnst.
--- NOTE | 2022-07-11 12:22 | PC.NURSE ---
Order: Change Senna-S 1 tablet daily to BID per BURLING AND JOINING SUPERVISORErnst.
[2022-07-11] MEDS: OXYCODONE 5 MG TABLET PO (15:50)
[2022-07-11] MEDS: risperiDONE 0.5 MG TABLET 1 MG PO (19:13)
[2022-07-11] MEDS: ATORVASTATIN CALCIUM 40 MG TABLET PO (19:13)
--- NOTE | 2022-07-12 02:36 | PC.NURSE ---
WEEKLY CHARTING ? WEEK 1: Vital signs reviewed ? BP values variable. Reviewed by NATIONAL GUARD MEMBER. Continue to monitor weekly. Temporary and comprehensive care plan reviewed ? no change. Hx of chronic bilateral knee pain. Receives acetaminophen 1000mg TID and gabapentin 300mg BID. Diclofenac gel to is applied to bilateral knees BID for pain management. Recent order for oxycodone 5mg BID PRN. Has been utilized x2. Assist of 1 with dressing, grooming, and bathing. Able to complete oral cares independently after set-up. Receives diabetic diet with regular textures and thin liquids. No documented chewing/swallowing problems. Eats independently after set-up.
--- NOTE | 2022-07-12 07:16 | PC.NURSE ---
Weekly Charting, Week 1-ADL's: Comprehensive & temporary care plan reviewed. No changes made and nothing added to temporary care plan. Resident needs one assist with dressing, grooming, and bathing. Is able to participate. Does oral cares after set up. Feed self after set up. Is on diabetic diet, thin liquids. No problems with chewing/swallowing reported. Vital signs reviewed. BP's is variable, reviewed by ACCORDION REPAIRER. Continue weekly monitoring. Weights monitored 3x/week. ACCORDION REPAIRER to evaluate. Currently weights stable @ 215-217 lbs. Pain: Has chronic bilateral knee pain. Is managed with Tylenol BID, Neurontin 300mg BID, Diclofenac gel to knees BID. 4/25 Oxycodone 5 mg BID PRN ordered. And has used 2x since ordered with relief. Is able to verbalize need for pain.
[2022-07-12] MEDS: ACETAMINOPHEN 500 MG TABLET 1000 MG PO ×3 (07:57→19:37)
[2022-07-12] MEDS: ASPIRIN 81 MG TAB.CHEW PO (07:57)
[2022-07-12] MEDS: ISOSORBIDE MONONITRATE ER 30 MG TAB PO (07:58)
[2022-07-12] MEDS: LOSARTAN POTASSIUM 50 MG TABLET PO (07:58)
[2022-07-12] MEDS: SITAGLIPTIN PHOSPHATE 100 MG TABLET 50 MG PO (07:58)
[2022-07-12] MEDS: GABAPENTIN 300 MG CAPSULE PO ×2 (07:59→15:53)
[2022-07-12] MEDS: FAMOTIDINE 10 MG TABLET PO (07:59)
[2022-07-12] MEDS: SENNOSIDES/DOCUSATE TABLET 1 TAB PO ×2 (07:59→15:53)
[2022-07-12] MEDS: METOPROLOL TARTRATE 25 MG TABLET PO ×2 (07:59→15:52)
[2022-07-12] MEDS: TORSEMIDE 20 MG TABLET 10 MG PO (08:00)
[2022-07-12] MEDS: CETIRIZINE HCL 10 MG TABLET PO (08:00)
[2022-07-12] MEDS: SERTRALINE 100 MG TABLET 125 MG PO (08:00)
[2022-07-12] MEDS: INSULIN LISPRO 100 UNIT/ML VIAL 24 UNIT SUBCUT ×3 (08:34→17:17)
[2022-07-12] MEDS: ATORVASTATIN CALCIUM 40 MG TABLET PO (19:37)
[2022-07-12] MEDS: risperiDONE 0.5 MG TABLET 1 MG PO (19:38)
[2022-07-13] MEDS: ASPIRIN 81 MG TAB.CHEW PO (08:17)
[2022-07-13] MEDS: ISOSORBIDE MONONITRATE ER 30 MG TAB PO (08:17)
[2022-07-13] MEDS: SITAGLIPTIN PHOSPHATE 100 MG TABLET 50 MG PO (08:17)
[2022-07-13] MEDS: ACETAMINOPHEN 500 MG TABLET 1000 MG PO ×3 (08:17→20:07)
[2022-07-13] MEDS: FAMOTIDINE 10 MG TABLET PO (08:18)
[2022-07-13] MEDS: METOPROLOL TARTRATE 25 MG TABLET PO ×2 (08:18→16:33)
[2022-07-13] MEDS: GABAPENTIN 300 MG CAPSULE PO ×2 (08:18→16:34)
[2022-07-13] MEDS: LOSARTAN POTASSIUM 50 MG TABLET PO (08:18)
[2022-07-13] MEDS: SENNOSIDES/DOCUSATE TABLET 1 TAB PO ×2 (08:19→16:34)
[2022-07-13] MEDS: CETIRIZINE HCL 10 MG TABLET PO (08:20)
[2022-07-13] MEDS: TORSEMIDE 20 MG TABLET 10 MG PO (08:20)
[2022-07-13] MEDS: SERTRALINE 100 MG TABLET 125 MG PO (08:20)
[2022-07-13] MEDS: INSULIN LISPRO 100 UNIT/ML VIAL 24 UNIT SUBCUT ×3 (09:31→17:21)
--- NOTE | 2022-07-13 11:48 | PC.NURSE ---
Status/Order: HYDRAULICS TEACHER, Ernst here. Weights, LE's edema assessed. Increase Torsemide 10 mg to 20 mg daily. Continue 3x/week weights d/t Torsemide increase.
[2022-07-13] MEDS: OXYCODONE 5 MG TABLET PO (13:38)
--- NOTE | 2022-07-13 13:39 | PC.NURSE ---
Pain Management: Resident c/o knee pain at ratio 7/10 , at first she was reluctant to take Oxy, informing that she is taking too many medication and it is bad for her kidneys, reassurance given and she was given Oxy at 1340 hours.
--- NOTE | 2022-07-13 14:55 | PC.NURSE ---
Discussed Risperidone and Sertraline dosing with Tyra Dukes REGIONAL BUSINESS DEVELOPMENT MANAGER today. At this time since changes were made for GDR in April and May and resident will have an MD visit in August. Next review can be November 2022.
[2022-07-13] MEDS: ATORVASTATIN CALCIUM 40 MG TABLET PO (20:07)
[2022-07-13] MEDS: risperiDONE 0.5 MG TABLET 1 MG PO (20:08)
[2022-07-14] MEDS: ASPIRIN 81 MG TAB.CHEW PO (07:57)
[2022-07-14] MEDS: ISOSORBIDE MONONITRATE ER 30 MG TAB PO (07:57)
[2022-07-14] MEDS: SITAGLIPTIN PHOSPHATE 100 MG TABLET 50 MG PO (07:57)
[2022-07-14] MEDS: ACETAMINOPHEN 500 MG TABLET 1000 MG PO ×3 (07:57→20:42)
[2022-07-14] MEDS: LOSARTAN POTASSIUM 50 MG TABLET PO (07:58)
[2022-07-14] MEDS: GABAPENTIN 300 MG CAPSULE PO ×2 (07:58→16:23)
[2022-07-14] MEDS: METOPROLOL TARTRATE 25 MG TABLET PO ×2 (07:58→16:23)
[2022-07-14] MEDS: FAMOTIDINE 10 MG TABLET PO (07:59)
[2022-07-14] MEDS: TORSEMIDE 20 MG TABLET PO (08:00)
[2022-07-14] MEDS: SENNOSIDES/DOCUSATE TABLET 1 TAB PO ×2 (08:00→16:23)
[2022-07-14] MEDS: CETIRIZINE HCL 10 MG TABLET PO (08:01)
[2022-07-14] MEDS: SERTRALINE 100 MG TABLET 125 MG PO (08:01)
[2022-07-14] MEDS: INSULIN LISPRO 100 UNIT/ML VIAL 24 UNIT SUBCUT ×3 (08:46→17:23)
[2022-07-14] MEDS: ATORVASTATIN CALCIUM 40 MG TABLET PO (20:42)
[2022-07-14] MEDS: risperiDONE 0.5 MG TABLET 1 MG PO (20:43)
[2022-07-15] MEDS: ISOSORBIDE MONONITRATE ER 30 MG TAB PO (08:16)
[2022-07-15] MEDS: ASPIRIN 81 MG TAB.CHEW PO (08:16)
[2022-07-15] MEDS: ACETAMINOPHEN 500 MG TABLET 1000 MG PO ×3 (08:16→20:15)
[2022-07-15] MEDS: LOSARTAN POTASSIUM 50 MG TABLET PO (08:17)
[2022-07-15] MEDS: SITAGLIPTIN PHOSPHATE 100 MG TABLET 50 MG PO (08:17)
[2022-07-15] MEDS: FAMOTIDINE 10 MG TABLET PO (08:18)
[2022-07-15] MEDS: GABAPENTIN 300 MG CAPSULE PO ×2 (08:18→16:16)
[2022-07-15] MEDS: METOPROLOL TARTRATE 25 MG TABLET PO ×2 (08:18→16:16)
[2022-07-15] MEDS: TORSEMIDE 20 MG TABLET PO (08:19)
[2022-07-15] MEDS: SERTRALINE 100 MG TABLET 125 MG PO (08:19)
[2022-07-15] MEDS: CETIRIZINE HCL 10 MG TABLET PO (08:19)
[2022-07-15] MEDS: SENNOSIDES/DOCUSATE TABLET 1 TAB PO ×2 (08:19→16:16)
[2022-07-15] MEDS: INSULIN LISPRO 100 UNIT/ML VIAL 24 UNIT SUBCUT ×3 (08:47→17:21)
[2022-07-15] MEDS: ATORVASTATIN CALCIUM 40 MG TABLET PO (20:15)
[2022-07-15] MEDS: risperiDONE 0.5 MG TABLET 1 MG PO (20:15)
[2022-07-16 07:00] VITALS: BP 123/67; PULSE 66; RESP 16; TEMP 36.5; O2SAT 93; BMI 43.7
[2022-07-16] MEDS: ASPIRIN 81 MG TAB.CHEW PO (07:38)
[2022-07-16] MEDS: ACETAMINOPHEN 500 MG TABLET 1000 MG PO ×3 (08:03→19:36)
[2022-07-16] MEDS: SITAGLIPTIN PHOSPHATE 100 MG TABLET 50 MG PO (08:04)
[2022-07-16] MEDS: LOSARTAN POTASSIUM 50 MG TABLET PO (08:04)
[2022-07-16] MEDS: ISOSORBIDE MONONITRATE ER 30 MG TAB PO (08:04)
[2022-07-16] MEDS: METOPROLOL TARTRATE 25 MG TABLET PO ×2 (08:05→15:17)
[2022-07-16] MEDS: FAMOTIDINE 10 MG TABLET PO (08:05)
[2022-07-16] MEDS: GABAPENTIN 300 MG CAPSULE PO ×2 (08:05→15:17)
[2022-07-16] MEDS: TORSEMIDE 20 MG TABLET PO (08:06)
[2022-07-16] MEDS: SENNOSIDES/DOCUSATE TABLET 1 TAB PO ×2 (08:06→15:17)
[2022-07-16] MEDS: SERTRALINE 100 MG TABLET 125 MG PO (08:06)
[2022-07-16] MEDS: CETIRIZINE HCL 10 MG TABLET PO (08:06)
[2022-07-16] MEDS: INSULIN LISPRO 100 UNIT/ML VIAL 24 UNIT SUBCUT ×3 (08:55→17:32)
[2022-07-16] MEDS: risperiDONE 0.5 MG TABLET 1 MG PO (19:36)
[2022-07-16] MEDS: ATORVASTATIN CALCIUM 40 MG TABLET PO (19:36)
[2022-07-17] MEDS: ACETAMINOPHEN 500 MG TABLET 1000 MG PO ×3 (07:38→19:06)
[2022-07-17] MEDS: ASPIRIN 81 MG TAB.CHEW PO (07:38)
[2022-07-17] MEDS: METOPROLOL TARTRATE 25 MG TABLET PO ×2 (07:39→15:36)
[2022-07-17] MEDS: LOSARTAN POTASSIUM 50 MG TABLET PO (07:39)
[2022-07-17] MEDS: ISOSORBIDE MONONITRATE ER 30 MG TAB PO (07:39)
[2022-07-17] MEDS: SITAGLIPTIN PHOSPHATE 100 MG TABLET 50 MG PO (07:39)
[2022-07-17] MEDS: FAMOTIDINE 10 MG TABLET PO (07:40)
[2022-07-17] MEDS: TORSEMIDE 20 MG TABLET PO (07:40)
[2022-07-17] MEDS: SENNOSIDES/DOCUSATE TABLET 1 TAB PO ×2 (07:40→15:36)
[2022-07-17] MEDS: GABAPENTIN 300 MG CAPSULE PO ×2 (07:40→15:36)
[2022-07-17] MEDS: SERTRALINE 100 MG TABLET 125 MG PO (07:41)
[2022-07-17] MEDS: CETIRIZINE HCL 10 MG TABLET PO (07:42)
[2022-07-17] MEDS: INSULIN LISPRO 100 UNIT/ML VIAL 24 UNIT SUBCUT ×3 (08:37→17:23)
[2022-07-17] MEDS: risperiDONE 0.5 MG TABLET 1 MG PO (19:06)
[2022-07-17] MEDS: ATORVASTATIN CALCIUM 40 MG TABLET PO (19:06)
[2022-07-18] MEDS: ASPIRIN 81 MG TAB.CHEW PO (07:56)
[2022-07-18] MEDS: ACETAMINOPHEN 500 MG TABLET 1000 MG PO ×3 (07:56→19:57)
[2022-07-18] MEDS: ISOSORBIDE MONONITRATE ER 30 MG TAB PO (07:57)
[2022-07-18] MEDS: LOSARTAN POTASSIUM 50 MG TABLET PO (07:57)
[2022-07-18] MEDS: SITAGLIPTIN PHOSPHATE 100 MG TABLET 50 MG PO (07:57)
[2022-07-18] MEDS: METOPROLOL TARTRATE 25 MG TABLET PO ×2 (07:58→15:01)
[2022-07-18] MEDS: GABAPENTIN 300 MG CAPSULE PO ×2 (07:58→15:01)
[2022-07-18] MEDS: SENNOSIDES/DOCUSATE TABLET 1 TAB PO ×2 (07:58→15:01)
[2022-07-18] MEDS: FAMOTIDINE 10 MG TABLET PO (07:58)
[2022-07-18] MEDS: SERTRALINE 100 MG TABLET 125 MG PO (07:59)
[2022-07-18] MEDS: TORSEMIDE 20 MG TABLET PO (07:59)
[2022-07-18] MEDS: CETIRIZINE HCL 10 MG TABLET PO (07:59)
[2022-07-18] MEDS: INSULIN LISPRO 100 UNIT/ML VIAL 24 UNIT SUBCUT ×3 (08:46→16:33)
[2022-07-18] MEDS: ATORVASTATIN CALCIUM 40 MG TABLET PO (19:57)
[2022-07-18] MEDS: risperiDONE 0.5 MG TABLET 1 MG PO (19:58)
--- NOTE | 2022-07-19 00:19 | PC.NURSE ---
WEEKLY CHARTING WEEK 2 Vital signs reviewed, noted BP elevated, INSTRUCTOR PROGRAMMABLE CONTROLLERS aware, Continue to monitor BP weekly, Update INSTRUCTOR PROGRAMMABLE CONTROLLERS as needed. Comprehensive and temporary care plan reviewed with no changes made. Resident requires extensive 1-2 staff with bed mobility. 1/4 top side rail up all the time to enable for independent bed mobility. 1 staff assist of ambulation wit the use of gait belt and walker. Ambulate in the room and in the hallway once per shift as tolerated. assist Able to propel own wheelchair. Res is a low fall risk. extensive 1 staff assist with transfer. Fall intervention: Call light within reach, bed low position with breaks lock, use non slip socks for all transfer, Falling star in the door.
--- NOTE | 2022-07-19 07:30 | PC.NURSE ---
Weekly Charting, Week 2: Mobility: Comprehensive and temporary care plan reviewed. No changes made, and nothing added to temporary care plan. Resident needs one assist, gait belt and 4ww with transfers and ambulation. Extensive assist of one with wheelchair propulsion. 1-2 assist with bed mobility. (L) 1/4 side rail up to aid with bed positioning. No alarms. Vitals signs, no concerns. 5/4 Weights reviewed by GRAVEL SCREENER. Continue 3x/week monitoring d/t Torsemide increase. Fall: No falls since admission. Is a high fall risk according to assessment done on 05/08. Fall interventions: call light within reach, bed in low position with brakes locked, gripper socks, falling star magnet, keep area free of clutters.
[2022-07-19] MEDS: ACETAMINOPHEN 500 MG TABLET 1000 MG PO ×3 (08:03→19:40)
[2022-07-19] MEDS: ASPIRIN 81 MG TAB.CHEW PO (08:03)
[2022-07-19] MEDS: METOPROLOL TARTRATE 25 MG TABLET PO ×2 (08:04→15:26)
[2022-07-19] MEDS: ISOSORBIDE MONONITRATE ER 30 MG TAB PO (08:04)
[2022-07-19] MEDS: LOSARTAN POTASSIUM 50 MG TABLET PO (08:04)
[2022-07-19] MEDS: SITAGLIPTIN PHOSPHATE 100 MG TABLET 50 MG PO (08:04)
[2022-07-19] MEDS: GABAPENTIN 300 MG CAPSULE PO ×2 (08:05→15:26)
[2022-07-19] MEDS: FAMOTIDINE 10 MG TABLET PO (08:05)
[2022-07-19] MEDS: SENNOSIDES/DOCUSATE TABLET 1 TAB PO ×2 (08:06→15:27)
[2022-07-19] MEDS: TORSEMIDE 20 MG TABLET PO (08:06)
[2022-07-19] MEDS: SERTRALINE 100 MG TABLET 125 MG PO (08:07)
[2022-07-19] MEDS: CETIRIZINE HCL 10 MG TABLET PO (08:07)
[2022-07-19] MEDS: INSULIN LISPRO 100 UNIT/ML VIAL 24 UNIT SUBCUT ×3 (08:37→17:35)
[2022-07-19] MEDS: OXYCODONE 5 MG TABLET PO (13:22)
[2022-07-19] MEDS: ATORVASTATIN CALCIUM 40 MG TABLET PO (19:41)
[2022-07-19] MEDS: risperiDONE 0.5 MG TABLET 1 MG PO (19:41)
[2022-07-20] MEDS: ISOSORBIDE MONONITRATE ER 30 MG TAB PO (08:24)
[2022-07-20] MEDS: ASPIRIN 81 MG TAB.CHEW PO (08:24)
[2022-07-20] MEDS: ACETAMINOPHEN 500 MG TABLET 1000 MG PO ×3 (08:24→19:35)
[2022-07-20] MEDS: SITAGLIPTIN PHOSPHATE 100 MG TABLET 50 MG PO (08:24)
[2022-07-20] MEDS: METOPROLOL TARTRATE 25 MG TABLET PO ×2 (08:24→16:00)
[2022-07-20] MEDS: LOSARTAN POTASSIUM 50 MG TABLET PO (08:24)
[2022-07-20] MEDS: TORSEMIDE 20 MG TABLET PO (08:25)
[2022-07-20] MEDS: SENNOSIDES/DOCUSATE TABLET 1 TAB PO ×2 (08:25→16:03)
[2022-07-20] MEDS: SERTRALINE 100 MG TABLET 125 MG PO (08:25)
[2022-07-20] MEDS: GABAPENTIN 300 MG CAPSULE PO ×2 (08:25→16:00)
[2022-07-20] MEDS: CETIRIZINE HCL 10 MG TABLET PO (08:25)
[2022-07-20] MEDS: FAMOTIDINE 10 MG TABLET PO (08:25)
[2022-07-20] MEDS: INSULIN LISPRO 100 UNIT/ML VIAL 24 UNIT SUBCUT ×3 (08:52→17:09)
--- NOTE | 2022-07-20 09:52 | PC.SPIRITC ---
I provided visit for support and connection.
[2022-07-20] MEDS: OXYCODONE 5 MG TABLET PO (13:38)
[2022-07-20] MEDS: ATORVASTATIN CALCIUM 40 MG TABLET PO (19:35)
[2022-07-20] MEDS: risperiDONE 0.5 MG TABLET 1 MG PO (19:59)
[2022-07-21] MEDS: ASPIRIN 81 MG TAB.CHEW PO (08:19)
[2022-07-21] MEDS: ACETAMINOPHEN 500 MG TABLET 1000 MG PO ×3 (08:19→19:40)
[2022-07-21] MEDS: SITAGLIPTIN PHOSPHATE 100 MG TABLET 50 MG PO (08:20)
[2022-07-21] MEDS: ISOSORBIDE MONONITRATE ER 30 MG TAB PO (08:20)
[2022-07-21] MEDS: FAMOTIDINE 10 MG TABLET PO (08:21)
[2022-07-21] MEDS: LOSARTAN POTASSIUM 50 MG TABLET PO (08:21)
[2022-07-21] MEDS: GABAPENTIN 300 MG CAPSULE PO ×2 (08:21→15:09)
[2022-07-21] MEDS: METOPROLOL TARTRATE 25 MG TABLET PO ×2 (08:21→15:09)
[2022-07-21] MEDS: SENNOSIDES/DOCUSATE TABLET 1 TAB PO ×2 (08:25→15:09)
[2022-07-21] MEDS: TORSEMIDE 20 MG TABLET PO (08:25)
[2022-07-21] MEDS: SERTRALINE 100 MG TABLET 125 MG PO (08:25)
[2022-07-21] MEDS: CETIRIZINE HCL 10 MG TABLET PO (08:25)
[2022-07-21] MEDS: INSULIN LISPRO 100 UNIT/ML VIAL 24 UNIT SUBCUT ×3 (08:34→16:58)
[2022-07-21] MEDS: ATORVASTATIN CALCIUM 40 MG TABLET PO (19:40)
[2022-07-21] MEDS: risperiDONE 0.5 MG TABLET 1 MG PO (19:41)
[2022-07-22] MEDS: ACETAMINOPHEN 500 MG TABLET 1000 MG PO ×3 (07:57→19:31)
[2022-07-22] MEDS: ASPIRIN 81 MG TAB.CHEW PO (07:57)
[2022-07-22] MEDS: CETIRIZINE HCL 10 MG TABLET PO (07:58)
[2022-07-22] MEDS: LOSARTAN POTASSIUM 50 MG TABLET PO (07:58)
[2022-07-22] MEDS: SENNOSIDES/DOCUSATE TABLET 1 TAB PO ×2 (07:58→15:08)
[2022-07-22] MEDS: GABAPENTIN 300 MG CAPSULE PO ×2 (07:58→15:08)
[2022-07-22] MEDS: METOPROLOL TARTRATE 25 MG TABLET PO ×2 (07:58→15:08)
[2022-07-22] MEDS: FAMOTIDINE 10 MG TABLET PO (07:58)
[2022-07-22] MEDS: SERTRALINE 100 MG TABLET 125 MG PO (07:58)
[2022-07-22] MEDS: SITAGLIPTIN PHOSPHATE 100 MG TABLET 50 MG PO (07:58)
[2022-07-22] MEDS: ISOSORBIDE MONONITRATE ER 30 MG TAB PO (07:58)
[2022-07-22] MEDS: TORSEMIDE 20 MG TABLET PO (07:58)
[2022-07-22] MEDS: INSULIN LISPRO 100 UNIT/ML VIAL 24 UNIT SUBCUT ×3 (08:52→16:23)
[2022-07-22] MEDS: ATORVASTATIN CALCIUM 40 MG TABLET PO (19:32)
[2022-07-22] MEDS: risperiDONE 0.5 MG TABLET 1 MG PO (19:32)
[2022-07-23] MEDS: ACETAMINOPHEN 500 MG TABLET 1000 MG PO ×3 (08:03→19:42)
[2022-07-23] MEDS: ISOSORBIDE MONONITRATE ER 30 MG TAB PO (08:04)
[2022-07-23] MEDS: LOSARTAN POTASSIUM 50 MG TABLET PO (08:04)
[2022-07-23] MEDS: SITAGLIPTIN PHOSPHATE 100 MG TABLET 50 MG PO (08:04)
[2022-07-23] MEDS: ASPIRIN 81 MG TAB.CHEW PO (08:04)
[2022-07-23] MEDS: GABAPENTIN 300 MG CAPSULE PO ×2 (08:04→15:03)
[2022-07-23] MEDS: METOPROLOL TARTRATE 25 MG TABLET PO ×2 (08:04→15:03)
[2022-07-23] MEDS: SENNOSIDES/DOCUSATE TABLET 1 TAB PO ×2 (08:05→15:03)
[2022-07-23] MEDS: FAMOTIDINE 10 MG TABLET PO (08:05)
[2022-07-23] MEDS: TORSEMIDE 20 MG TABLET PO (08:05)
[2022-07-23] MEDS: SERTRALINE 100 MG TABLET 125 MG PO (08:05)
[2022-07-23] MEDS: CETIRIZINE HCL 10 MG TABLET PO (08:05)
[2022-07-23] MEDS: INSULIN LISPRO 100 UNIT/ML VIAL 24 UNIT SUBCUT ×3 (09:12→16:22)
[2022-07-23 10:58] VITALS: BMI 44.1
[2022-07-23 12:28] VITALS: BP 160/80; PULSE 68; RESP 18; TEMP 36.4; O2SAT 93
[2022-07-23] MEDS: ATORVASTATIN CALCIUM 40 MG TABLET PO (19:42)
[2022-07-23] MEDS: risperiDONE 0.5 MG TABLET 1 MG PO (19:43)
[2022-07-24] MEDS: ASPIRIN 81 MG TAB.CHEW PO (07:46)
[2022-07-24] MEDS: ACETAMINOPHEN 500 MG TABLET 1000 MG PO ×3 (07:46→19:26)
[2022-07-24] MEDS: GABAPENTIN 300 MG CAPSULE PO ×2 (07:47→16:17)
[2022-07-24] MEDS: ISOSORBIDE MONONITRATE ER 30 MG TAB PO (07:47)
[2022-07-24] MEDS: METOPROLOL TARTRATE 25 MG TABLET PO ×2 (07:47→16:17)
[2022-07-24] MEDS: SITAGLIPTIN PHOSPHATE 100 MG TABLET 50 MG PO (07:47)
[2022-07-24] MEDS: LOSARTAN POTASSIUM 50 MG TABLET PO (07:47)
[2022-07-24] MEDS: SENNOSIDES/DOCUSATE TABLET 1 TAB PO ×2 (07:48→16:17)
[2022-07-24] MEDS: FAMOTIDINE 10 MG TABLET PO (07:48)
[2022-07-24] MEDS: SERTRALINE 100 MG TABLET 125 MG PO (07:48)
[2022-07-24] MEDS: TORSEMIDE 20 MG TABLET PO (07:48)
[2022-07-24] MEDS: CETIRIZINE HCL 10 MG TABLET PO (07:49)
[2022-07-24] MEDS: INSULIN LISPRO 100 UNIT/ML VIAL 24 UNIT SUBCUT ×3 (08:36→17:46)
[2022-07-24] MEDS: ATORVASTATIN CALCIUM 40 MG TABLET PO (19:26)
[2022-07-24] MEDS: risperiDONE 0.5 MG TABLET 1 MG PO (19:26)
[2022-07-25] MEDS: ACETAMINOPHEN 500 MG TABLET 1000 MG PO ×3 (08:23→19:40)
[2022-07-25] MEDS: ASPIRIN 81 MG TAB.CHEW PO (08:24)
[2022-07-25] MEDS: LOSARTAN POTASSIUM 50 MG TABLET PO (08:24)
[2022-07-25] MEDS: SITAGLIPTIN PHOSPHATE 100 MG TABLET 50 MG PO (08:24)
[2022-07-25] MEDS: ISOSORBIDE MONONITRATE ER 30 MG TAB PO (08:24)
[2022-07-25] MEDS: METOPROLOL TARTRATE 25 MG TABLET PO ×2 (08:24→16:23)
[2022-07-25] MEDS: FAMOTIDINE 10 MG TABLET PO (08:24)
[2022-07-25] MEDS: GABAPENTIN 300 MG CAPSULE PO ×2 (08:24→16:23)
[2022-07-25] MEDS: SENNOSIDES/DOCUSATE TABLET 1 TAB PO ×2 (08:25→16:23)
[2022-07-25] MEDS: TORSEMIDE 20 MG TABLET PO (08:25)
[2022-07-25] MEDS: SERTRALINE 100 MG TABLET 125 MG PO (08:25)
[2022-07-25] MEDS: CETIRIZINE HCL 10 MG TABLET PO (08:25)
[2022-07-25] MEDS: INSULIN LISPRO 100 UNIT/ML VIAL 24 UNIT SUBCUT ×3 (08:30→17:40)
--- NOTE | 2022-07-25 10:04 | PC.SOCIAL ---
Resident moved here from the [facility] in [facility]. 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 and does not want to be asked about returning to the community.
--- NOTE | 2022-07-25 12:38 | PC.NURSE ---
Order: Sarna lotion changed to BID PRN by MIXER CRANE OPERATORErnst. Resident refused to use, not itching anymore.
[2022-07-25] MEDS: ATORVASTATIN CALCIUM 40 MG TABLET PO (19:40)
[2022-07-25] MEDS: risperiDONE 0.5 MG TABLET 1 MG PO (19:41)
--- NOTE | 2022-07-26 06:55 | PC.NURSE ---
WEEKLY CHARTING WEEK 3 TOILETING AND SKIN Vital signs reviewed, resident BP elevated, EMBROIDERY CUTTER aware, continue to check BP daily. Temporary care plan and comprehensive care plan reviewed, no changes made, nothing added to temporary care plan Toileting: Resident is incontinent of bowel and bladder overnight ; she is checked and changed during 1st round and 3rd round. Evi cares, incontinent pad, clothing is managed by staff. Skin: Has intermittent redness on abdominal fold, Nystatin cream applied PRN. Skin checks done at bath days and during cares.
[2022-07-26] MEDS: ACETAMINOPHEN 500 MG TABLET 1000 MG PO ×3 (08:26→20:30)
[2022-07-26] MEDS: ASPIRIN 81 MG TAB.CHEW PO (08:26)
[2022-07-26] MEDS: SITAGLIPTIN PHOSPHATE 100 MG TABLET 50 MG PO (08:27)
[2022-07-26] MEDS: ISOSORBIDE MONONITRATE ER 30 MG TAB PO (08:27)
[2022-07-26] MEDS: SENNOSIDES/DOCUSATE TABLET 1 TAB PO ×2 (08:28→16:58)
[2022-07-26] MEDS: FAMOTIDINE 10 MG TABLET PO (08:28)
[2022-07-26] MEDS: LOSARTAN POTASSIUM 50 MG TABLET PO (08:28)
[2022-07-26] MEDS: GABAPENTIN 300 MG CAPSULE PO ×2 (08:28→16:58)
[2022-07-26] MEDS: METOPROLOL TARTRATE 25 MG TABLET PO ×2 (08:28→16:58)
[2022-07-26] MEDS: SERTRALINE 100 MG TABLET 125 MG PO (08:34)
[2022-07-26] MEDS: CETIRIZINE HCL 10 MG TABLET PO (08:34)
[2022-07-26] MEDS: TORSEMIDE 20 MG TABLET PO (08:34)
[2022-07-26] MEDS: INSULIN LISPRO 100 UNIT/ML VIAL 24 UNIT SUBCUT ×3 (08:43→17:27)
--- NOTE | 2022-07-26 14:19 | PC.NURSE ---
Weekly Charting, Week 3 - Toileting: Comprehensive and temporary care plan reviewed. No changes made, nothing added to temporary care plan. Resident is mostly incontinent of bladder with some control, has occasional bowel incontinence. Needs one assist with toileting. Transfers/ambulates to the toilet with one assist, gait belt and 4ww. Wears briefs. Pads, pericares, clothing managed by staff. Vital signs reviewed. BP's is variable. Receives Metoprolol and Losartan daily. Weights checked 3x/week, is stable. FENCE POST DRIVER to evaluate. Skin: No issues at this time. Skin is checked routinely and on bath day.
[2022-07-26] MEDS: ATORVASTATIN CALCIUM 40 MG TABLET PO (20:30)
[2022-07-26] MEDS: risperiDONE 0.5 MG TABLET 1 MG PO (20:31)
[2022-07-27] MEDS: ACETAMINOPHEN 500 MG TABLET 1000 MG PO ×3 (08:29→19:49)
[2022-07-27] MEDS: ASPIRIN 81 MG TAB.CHEW PO (08:29)
[2022-07-27] MEDS: FAMOTIDINE 10 MG TABLET PO (08:30)
[2022-07-27] MEDS: SERTRALINE 100 MG TABLET 125 MG PO (08:30)
[2022-07-27] MEDS: CETIRIZINE HCL 10 MG TABLET PO (08:30)
[2022-07-27] MEDS: TORSEMIDE 20 MG TABLET PO (08:30)
[2022-07-27] MEDS: GABAPENTIN 300 MG CAPSULE PO ×2 (08:30→15:08)
[2022-07-27] MEDS: ISOSORBIDE MONONITRATE ER 30 MG TAB PO (08:30)
[2022-07-27] MEDS: LOSARTAN POTASSIUM 50 MG TABLET PO (08:30)
[2022-07-27] MEDS: SENNOSIDES/DOCUSATE TABLET 1 TAB PO ×2 (08:30→15:08)
[2022-07-27] MEDS: METOPROLOL TARTRATE 25 MG TABLET PO ×2 (08:30→15:07)
[2022-07-27] MEDS: SITAGLIPTIN PHOSPHATE 100 MG TABLET 50 MG PO (08:30)
[2022-07-27] MEDS: INSULIN LISPRO 100 UNIT/ML VIAL 24 UNIT SUBCUT ×3 (08:36→16:43)
[2022-07-27] MEDS: ATORVASTATIN CALCIUM 40 MG TABLET PO (19:50)
[2022-07-27] MEDS: risperiDONE 0.5 MG TABLET 1 MG PO (19:51)
[2022-07-28] MEDS: INSULIN LISPRO 100 UNIT/ML VIAL 24 UNIT SUBCUT ×3 (07:30→17:38)
[2022-07-28] MEDS: SITAGLIPTIN PHOSPHATE 100 MG TABLET 50 MG PO (08:38)
[2022-07-28] MEDS: LOSARTAN POTASSIUM 50 MG TABLET PO (08:38)
[2022-07-28] MEDS: ASPIRIN 81 MG TAB.CHEW PO (08:38)
[2022-07-28] MEDS: ISOSORBIDE MONONITRATE ER 30 MG TAB PO (08:38)
[2022-07-28] MEDS: ACETAMINOPHEN 500 MG TABLET 1000 MG PO ×3 (08:38→19:14)
[2022-07-28] MEDS: TORSEMIDE 20 MG TABLET PO (08:39)
[2022-07-28] MEDS: GABAPENTIN 300 MG CAPSULE PO ×2 (08:39→15:52)
[2022-07-28] MEDS: FAMOTIDINE 10 MG TABLET PO (08:39)
[2022-07-28] MEDS: METOPROLOL TARTRATE 25 MG TABLET PO ×2 (08:39→15:52)
[2022-07-28] MEDS: SENNOSIDES/DOCUSATE TABLET 1 TAB PO ×2 (08:39→15:52)
[2022-07-28] MEDS: SERTRALINE 100 MG TABLET 125 MG PO (08:40)
[2022-07-28] MEDS: CETIRIZINE HCL 10 MG TABLET PO (08:40)
--- NOTE | 2022-07-28 12:43 | PC.NURSE ---
Recert Visit: Resident seen by Dr. Akins. Orders reviewed and renewed for 45 days with changes. Order: Decrease Risperidone to 0.5 mg PO QHS X 1 month, then 0.25 mg QHS X 1 month, then D/C.
[2022-07-28] MEDS: ATORVASTATIN CALCIUM 40 MG TABLET PO (19:14)
[2022-07-28] MEDS: risperiDONE 0.5 MG TABLET PO (19:28)
[2022-07-29] MEDS: ACETAMINOPHEN 500 MG TABLET 1000 MG PO ×3 (07:49→19:37)
[2022-07-29] MEDS: ASPIRIN 81 MG TAB.CHEW PO (07:49)
[2022-07-29] MEDS: ISOSORBIDE MONONITRATE ER 30 MG TAB PO (07:50)
[2022-07-29] MEDS: SITAGLIPTIN PHOSPHATE 100 MG TABLET 50 MG PO (07:50)
[2022-07-29] MEDS: METOPROLOL TARTRATE 25 MG TABLET PO ×2 (07:50→16:13)
[2022-07-29] MEDS: LOSARTAN POTASSIUM 50 MG TABLET PO (07:50)
[2022-07-29] MEDS: FAMOTIDINE 10 MG TABLET PO (07:51)
[2022-07-29] MEDS: SENNOSIDES/DOCUSATE TABLET 1 TAB PO ×2 (07:51→16:14)
[2022-07-29] MEDS: TORSEMIDE 20 MG TABLET PO (07:51)
[2022-07-29] MEDS: GABAPENTIN 300 MG CAPSULE PO ×2 (07:51→16:14)
[2022-07-29] MEDS: SERTRALINE 100 MG TABLET 125 MG PO (07:52)
[2022-07-29] MEDS: CETIRIZINE HCL 10 MG TABLET PO (07:52)
[2022-07-29] MEDS: INSULIN LISPRO 100 UNIT/ML VIAL 24 UNIT SUBCUT ×3 (08:49→17:14)
[2022-07-29] MEDS: ATORVASTATIN CALCIUM 40 MG TABLET PO (19:37)
[2022-07-29] MEDS: risperiDONE 0.5 MG TABLET PO (19:37)
[2022-07-30 07:00] VITALS: BP 110/66; PULSE 76; RESP 17; TEMP 36.5; O2SAT 92; BMI 44.1
[2022-07-30] MEDS: ACETAMINOPHEN 500 MG TABLET 1000 MG PO ×3 (08:14→19:10)
[2022-07-30] MEDS: ASPIRIN 81 MG TAB.CHEW PO (08:14)
[2022-07-30] MEDS: SITAGLIPTIN PHOSPHATE 100 MG TABLET 50 MG PO (08:15)
[2022-07-30] MEDS: ISOSORBIDE MONONITRATE ER 30 MG TAB PO (08:15)
[2022-07-30] MEDS: LOSARTAN POTASSIUM 50 MG TABLET PO (08:17)
[2022-07-30] MEDS: GABAPENTIN 300 MG CAPSULE PO ×2 (08:17→15:38)
[2022-07-30] MEDS: METOPROLOL TARTRATE 25 MG TABLET PO ×2 (08:17→15:38)
[2022-07-30] MEDS: SENNOSIDES/DOCUSATE TABLET 1 TAB PO ×2 (08:18→15:39)
[2022-07-30] MEDS: FAMOTIDINE 10 MG TABLET PO (08:18)
[2022-07-30] MEDS: TORSEMIDE 20 MG TABLET PO (08:18)
[2022-07-30] MEDS: SERTRALINE 100 MG TABLET 125 MG PO (08:19)
[2022-07-30] MEDS: CETIRIZINE HCL 10 MG TABLET PO (08:19)
[2022-07-30] MEDS: INSULIN LISPRO 100 UNIT/ML VIAL 24 UNIT SUBCUT ×3 (08:45→17:18)
[2022-07-30] MEDS: risperiDONE 0.5 MG TABLET PO (19:11)
[2022-07-30] MEDS: ATORVASTATIN CALCIUM 40 MG TABLET PO (19:11)
[2022-07-31 07:46] LABS: Chloride* 102 mmol/L (96-114); Sodium* 144 mmol/L (135-149)
[2022-07-31 07:47] LABS: Potassium* 3.7 mmol/L (3.6-5.1)
[2022-07-31 07:49] LABS: Blood Urea Nitrogen* 26 mg/dL (7-30); Carbon Dioxide* 35 mmol/L (20-32); Creatinine* 1.2 mg/dL (0.5-1.5); Est. Creatinine Clearance* 62.37; Estimated Glomerular Filt Rate 47 ml/min
[2022-07-31 07:50] LABS: Calcium* 8.8 mg/dL (8.4-10.6); Glucose* 146 mg/dL (60-115)
[2022-07-31] MEDS: ACETAMINOPHEN 500 MG TABLET 1000 MG PO ×3 (08:18→20:28)
[2022-07-31] MEDS: METOPROLOL TARTRATE 25 MG TABLET PO ×2 (08:19→16:22)
[2022-07-31] MEDS: TORSEMIDE 20 MG TABLET PO (08:19)
[2022-07-31] MEDS: SERTRALINE 100 MG TABLET 125 MG PO (08:19)
[2022-07-31] MEDS: SITAGLIPTIN PHOSPHATE 100 MG TABLET 50 MG PO (08:19)
[2022-07-31] MEDS: LOSARTAN POTASSIUM 50 MG TABLET PO (08:19)
[2022-07-31] MEDS: FAMOTIDINE 10 MG TABLET PO (08:19)
[2022-07-31] MEDS: ISOSORBIDE MONONITRATE ER 30 MG TAB PO (08:19)
[2022-07-31] MEDS: ASPIRIN 81 MG TAB.CHEW PO (08:19)
[2022-07-31] MEDS: CETIRIZINE HCL 10 MG TABLET PO (08:19)
[2022-07-31] MEDS: SENNOSIDES/DOCUSATE TABLET 1 TAB PO ×2 (08:19→16:22)
[2022-07-31] MEDS: GABAPENTIN 300 MG CAPSULE PO ×2 (08:19→16:22)
[2022-07-31] MEDS: INSULIN LISPRO 100 UNIT/ML VIAL 24 UNIT SUBCUT ×3 (08:44→17:14)
[2022-07-31 13:29] VITALS: BMI 43.8
[2022-07-31] MEDS: ATORVASTATIN CALCIUM 40 MG TABLET PO (20:29)
[2022-07-31] MEDS: risperiDONE 0.5 MG TABLET PO (20:29)
[2022-08-01] MEDS: ISOSORBIDE MONONITRATE ER 30 MG TAB PO (07:57)
[2022-08-01] MEDS: ACETAMINOPHEN 500 MG TABLET 1000 MG PO ×3 (07:57→20:03)
[2022-08-01] MEDS: ASPIRIN 81 MG TAB.CHEW PO (07:57)
[2022-08-01] MEDS: SITAGLIPTIN PHOSPHATE 100 MG TABLET 50 MG PO (07:57)
[2022-08-01] MEDS: SENNOSIDES/DOCUSATE TABLET 1 TAB PO ×2 (07:58→15:01)
[2022-08-01] MEDS: GABAPENTIN 300 MG CAPSULE PO ×2 (07:58→15:00)
[2022-08-01] MEDS: FAMOTIDINE 10 MG TABLET PO (07:58)
[2022-08-01] MEDS: LOSARTAN POTASSIUM 50 MG TABLET PO (07:58)
[2022-08-01] MEDS: TORSEMIDE 20 MG TABLET PO (07:58)
[2022-08-01] MEDS: METOPROLOL TARTRATE 25 MG TABLET PO ×2 (07:58→15:00)
[2022-08-01] MEDS: SERTRALINE 100 MG TABLET 125 MG PO (07:59)
[2022-08-01] MEDS: CETIRIZINE HCL 10 MG TABLET PO (07:59)
[2022-08-01] MEDS: INSULIN LISPRO 100 UNIT/ML VIAL 24 UNIT SUBCUT ×3 (08:43→17:04)
--- NOTE | 2022-08-01 09:45 | PC.PHA1 ---
HEAT WELDER PLASTICS PHARMACIST'S MEDICATION REVIEW: MEDICATION MONITORING: Risperidone GDR in process. Sertraline 125 mg daily continues. IRREGULARITY OR COMMENTS:Per nursing and provider notes both sertraline and risperidone being closely monitored. Patient is doing well with behaviors but I would like to note patient did have geriatric psych admission in 2019 so do appreciate a slow and careful GDR. Polypharmacy continues for hypertension, diabetes and chronic pain, all medications continue to be indicated. SUGGESTED COURSE OF ACTION TAKEN: No recommendations this review.
--- NOTE | 2022-08-01 13:55 | PC.NURSE ---
BMP: Result reviewed by Ernst WHITMAN. No new order.
[2022-08-01] MEDS: ATORVASTATIN CALCIUM 40 MG TABLET PO (20:03)
[2022-08-01] MEDS: risperiDONE 0.5 MG TABLET PO (20:03)
--- NOTE | 2022-08-02 00:38 | PC.NURSE ---
WEEKLY CHARTING WEEK 4: Vital signs reviewed, BP variable. On Metoprolol and Losartan daily. Check BP x3week. update KIDS CLUB ATTENDANT as needed. Comprehensive and temporary care plan reviewed with no changes made. No behavior recorded. Currently on sertraline 125mg daily, recent decrease Risperidone 0.5mg on HS with no adverse effect. Requires shipping and receiving associate as first language is Belizean, understood some Burmese but speak very little. Visual deficit corrected with glasses. No hearing problem. Alert and oriented with forgetfulness. All medications administer by license nurse. Health condition is stable.
[2022-08-02] MEDS: ACETAMINOPHEN 500 MG TABLET 1000 MG PO ×3 (07:52→20:48)
[2022-08-02] MEDS: ASPIRIN 81 MG TAB.CHEW PO (07:52)
[2022-08-02] MEDS: ISOSORBIDE MONONITRATE ER 30 MG TAB PO (07:53)
[2022-08-02] MEDS: SITAGLIPTIN PHOSPHATE 100 MG TABLET 50 MG PO (07:53)
[2022-08-02] MEDS: LOSARTAN POTASSIUM 50 MG TABLET PO (07:53)
[2022-08-02] MEDS: METOPROLOL TARTRATE 25 MG TABLET PO ×2 (07:54→16:25)
[2022-08-02] MEDS: FAMOTIDINE 10 MG TABLET PO (07:54)
[2022-08-02] MEDS: GABAPENTIN 300 MG CAPSULE PO ×2 (07:54→16:26)
[2022-08-02] MEDS: SENNOSIDES/DOCUSATE TABLET 1 TAB PO ×2 (07:54→16:26)
[2022-08-02] MEDS: TORSEMIDE 20 MG TABLET PO (07:55)
[2022-08-02] MEDS: SERTRALINE 100 MG TABLET 125 MG PO (07:55)
[2022-08-02] MEDS: CETIRIZINE HCL 10 MG TABLET PO (08:02)
[2022-08-02] MEDS: INSULIN LISPRO 100 UNIT/ML VIAL 24 UNIT SUBCUT ×3 (08:57→17:15)
--- NOTE | 2022-08-02 10:46 | PC.NURSE ---
Weekly Charting-Week 4: Comprehensive and temporary care plan reviewed. No changes made & nothing added to temporary care plan. No changes noted in communication,hearing, vision, or orientation. Resident is Hebrew speaking. Needs an shearing machine feeder and has a white board & IPAD in room for communication. Can understand Afghan more than she talks. Hearing is fine. Wears glasses to correct vision. Alert, oriented x 3 with some forgetfulness. Cognition intact. Health condition stable. BP's & weights reviewed by by DETAILER SCHOOL PHOTOGRAPHS. Continue? weight monitoring 3x/week d/t increase in Torsemide. Change blood pressure monitoring to weekly. Will have DETAILER SCHOOL PHOTOGRAPHS review weights. All medications administered by Nurse. Mood/Behavior: No issues documented.. Receives Zoloft 125mg daily. 07/24 GDR of Risperidone HS done. Continue to monitor for changes.
--- NOTE | 2022-08-02 13:13 | PC.NURSE ---
COVID TESTING for exposure. Resident gave verbal consent. Resident is currently asymptomatic.? Resident/family will be notified only if resident is positive.
[2022-08-02 13:16] LABS: SARS PCR* Negative SARS-CoV-2 (Negative)
[2022-08-02] MEDS: ATORVASTATIN CALCIUM 40 MG TABLET PO (20:48)
[2022-08-02] MEDS: risperiDONE 0.5 MG TABLET PO (20:49)
[2022-08-02] MEDS: OXYCODONE 5 MG TABLET PO (21:19)
[2022-08-03] MEDS: ACETAMINOPHEN 500 MG TABLET 1000 MG PO ×3 (07:56→20:54)
[2022-08-03] MEDS: LOSARTAN POTASSIUM 50 MG TABLET PO (07:57)
[2022-08-03] MEDS: ISOSORBIDE MONONITRATE ER 30 MG TAB PO (07:57)
[2022-08-03] MEDS: SITAGLIPTIN PHOSPHATE 100 MG TABLET 50 MG PO (07:57)
[2022-08-03] MEDS: ASPIRIN 81 MG TAB.CHEW PO (07:57)
[2022-08-03] MEDS: METOPROLOL TARTRATE 25 MG TABLET PO ×2 (07:57→15:25)
[2022-08-03] MEDS: GABAPENTIN 300 MG CAPSULE PO ×2 (07:57→15:25)
[2022-08-03] MEDS: SERTRALINE 100 MG TABLET 125 MG PO (07:58)
[2022-08-03] MEDS: SENNOSIDES/DOCUSATE TABLET 1 TAB PO ×2 (07:58→15:25)
[2022-08-03] MEDS: CETIRIZINE HCL 10 MG TABLET PO (07:58)
[2022-08-03] MEDS: TORSEMIDE 20 MG TABLET PO (07:58)
[2022-08-03] MEDS: FAMOTIDINE 10 MG TABLET PO (07:58)
[2022-08-03] MEDS: INSULIN LISPRO 100 UNIT/ML VIAL 24 UNIT SUBCUT ×3 (08:34→16:58)
[2022-08-03 10:00] VITALS: BP 100/57; BP 113/58; BP 124/67
--- NOTE | 2022-08-03 11:28 | PC.NURSE ---
Status/Order: JIG FITTER, Ernst here. Weights reviewed, continue 3x/week. Increase Torsemide 20 mg to 30 mg daily. BMP 09/04/22.
[2022-08-03] MEDS: ATORVASTATIN CALCIUM 40 MG TABLET PO (20:55)
[2022-08-03] MEDS: risperiDONE 0.5 MG TABLET PO (20:55)
[2022-08-04] MEDS: ISOSORBIDE MONONITRATE ER 30 MG TAB PO (08:23)
[2022-08-04] MEDS: ASPIRIN 81 MG TAB.CHEW PO (08:23)
[2022-08-04] MEDS: ACETAMINOPHEN 500 MG TABLET 1000 MG PO ×3 (08:23→20:02)
[2022-08-04] MEDS: SITAGLIPTIN PHOSPHATE 100 MG TABLET 50 MG PO (08:24)
[2022-08-04] MEDS: METOPROLOL TARTRATE 25 MG TABLET PO ×2 (08:24→15:08)
[2022-08-04] MEDS: LOSARTAN POTASSIUM 50 MG TABLET PO (08:24)
[2022-08-04] MEDS: FAMOTIDINE 10 MG TABLET PO (08:25)
[2022-08-04] MEDS: GABAPENTIN 300 MG CAPSULE PO ×2 (08:25→15:09)
[2022-08-04] MEDS: SENNOSIDES/DOCUSATE TABLET 1 TAB PO ×2 (08:25→15:09)
[2022-08-04] MEDS: TORSEMIDE 20 MG TABLET 30 MG PO (08:27)
[2022-08-04] MEDS: SERTRALINE 100 MG TABLET 125 MG PO (08:28)
[2022-08-04] MEDS: CETIRIZINE HCL 10 MG TABLET PO (08:28)
[2022-08-04] MEDS: INSULIN LISPRO 100 UNIT/ML VIAL 24 UNIT SUBCUT ×3 (08:30→17:21)
[2022-08-04] MEDS: ATORVASTATIN CALCIUM 40 MG TABLET PO (20:02)
[2022-08-04] MEDS: risperiDONE 0.5 MG TABLET PO (20:03)
[2022-08-05] MEDS: ASPIRIN 81 MG TAB.CHEW PO (07:45)
[2022-08-05] MEDS: ACETAMINOPHEN 500 MG TABLET 1000 MG PO ×3 (07:45→19:43)
[2022-08-05] MEDS: SITAGLIPTIN PHOSPHATE 100 MG TABLET 50 MG PO (07:49)
[2022-08-05] MEDS: ISOSORBIDE MONONITRATE ER 30 MG TAB PO (07:49)
[2022-08-05] MEDS: TORSEMIDE 20 MG TABLET 30 MG PO (07:50)
[2022-08-05] MEDS: GABAPENTIN 300 MG CAPSULE PO ×2 (07:50→16:26)
[2022-08-05] MEDS: SENNOSIDES/DOCUSATE TABLET 1 TAB PO ×2 (07:50→16:26)
[2022-08-05] MEDS: FAMOTIDINE 10 MG TABLET PO (07:50)
[2022-08-05] MEDS: LOSARTAN POTASSIUM 50 MG TABLET PO (07:50)
[2022-08-05] MEDS: METOPROLOL TARTRATE 25 MG TABLET PO ×2 (07:50→16:26)
[2022-08-05] MEDS: SERTRALINE 100 MG TABLET 125 MG PO (07:52)
[2022-08-05] MEDS: CETIRIZINE HCL 10 MG TABLET PO (07:52)
[2022-08-05] MEDS: INSULIN LISPRO 100 UNIT/ML VIAL 24 UNIT SUBCUT ×3 (07:58→17:28)
[2022-08-05] MEDS: ATORVASTATIN CALCIUM 40 MG TABLET PO (19:43)
[2022-08-05] MEDS: risperiDONE 0.5 MG TABLET PO (19:44)
[2022-08-06] MEDS: NYSTATIN CREAM 30 GM 1 APPLIC TOPICAL (07:45)
[2022-08-06] MEDS: ACETAMINOPHEN 500 MG TABLET 1000 MG PO ×3 (07:56→19:39)
[2022-08-06] MEDS: LOSARTAN POTASSIUM 50 MG TABLET PO (07:57)
[2022-08-06] MEDS: ASPIRIN 81 MG TAB.CHEW PO (07:57)
[2022-08-06] MEDS: SITAGLIPTIN PHOSPHATE 100 MG TABLET 50 MG PO (07:57)
[2022-08-06] MEDS: ISOSORBIDE MONONITRATE ER 30 MG TAB PO (07:57)
[2022-08-06] MEDS: SERTRALINE 100 MG TABLET 125 MG PO (07:58)
[2022-08-06] MEDS: METOPROLOL TARTRATE 25 MG TABLET PO ×2 (07:58→15:25)
[2022-08-06] MEDS: TORSEMIDE 20 MG TABLET 30 MG PO (07:58)
[2022-08-06] MEDS: FAMOTIDINE 10 MG TABLET PO (07:58)
[2022-08-06] MEDS: SENNOSIDES/DOCUSATE TABLET 1 TAB PO ×2 (07:58→15:25)
[2022-08-06] MEDS: CETIRIZINE HCL 10 MG TABLET PO (07:58)
[2022-08-06] MEDS: GABAPENTIN 300 MG CAPSULE PO ×2 (07:58→15:25)
[2022-08-06] MEDS: INSULIN LISPRO 100 UNIT/ML VIAL 24 UNIT SUBCUT ×3 (09:02→17:12)
[2022-08-06 12:41] VITALS: BP 111/68; RESP 18; TEMP 36.5; O2SAT 67; BMI 43.2
[2022-08-06] MEDS: risperiDONE 0.5 MG TABLET PO (19:39)
[2022-08-06] MEDS: ATORVASTATIN CALCIUM 40 MG TABLET PO (19:39)
[2022-08-07] MEDS: ISOSORBIDE MONONITRATE ER 30 MG TAB PO (07:32)
[2022-08-07] MEDS: SITAGLIPTIN PHOSPHATE 100 MG TABLET 50 MG PO (07:32)
[2022-08-07] MEDS: ACETAMINOPHEN 500 MG TABLET 1000 MG PO ×3 (07:32→20:44)
[2022-08-07] MEDS: ASPIRIN 81 MG TAB.CHEW PO (07:32)
[2022-08-07] MEDS: METOPROLOL TARTRATE 25 MG TABLET PO ×2 (07:33→15:20)
[2022-08-07] MEDS: FAMOTIDINE 10 MG TABLET PO (07:33)
[2022-08-07] MEDS: LOSARTAN POTASSIUM 50 MG TABLET PO (07:33)
[2022-08-07] MEDS: GABAPENTIN 300 MG CAPSULE PO ×2 (07:33→15:20)
[2022-08-07] MEDS: SENNOSIDES/DOCUSATE TABLET 1 TAB PO ×2 (07:34→15:20)
[2022-08-07] MEDS: TORSEMIDE 20 MG TABLET 30 MG PO (07:34)
[2022-08-07] MEDS: SERTRALINE 100 MG TABLET 125 MG PO (07:34)
[2022-08-07] MEDS: CETIRIZINE HCL 10 MG TABLET PO (07:35)
[2022-08-07] MEDS: INSULIN LISPRO 100 UNIT/ML VIAL 24 UNIT SUBCUT ×3 (08:34→17:10)
[2022-08-07] MEDS: ATORVASTATIN CALCIUM 40 MG TABLET PO (20:44)
[2022-08-07] MEDS: risperiDONE 0.5 MG TABLET PO (20:47)
[2022-08-08] MEDS: ASPIRIN 81 MG TAB.CHEW PO (07:42)
[2022-08-08] MEDS: ACETAMINOPHEN 500 MG TABLET 1000 MG PO ×3 (07:42→19:40)
[2022-08-08] MEDS: GABAPENTIN 300 MG CAPSULE PO ×2 (07:43→16:05)
[2022-08-08] MEDS: ISOSORBIDE MONONITRATE ER 30 MG TAB PO (07:43)
[2022-08-08] MEDS: SITAGLIPTIN PHOSPHATE 100 MG TABLET 50 MG PO (07:43)
[2022-08-08] MEDS: METOPROLOL TARTRATE 25 MG TABLET PO ×2 (07:43→16:05)
[2022-08-08] MEDS: LOSARTAN POTASSIUM 50 MG TABLET PO (07:43)
[2022-08-08] MEDS: TORSEMIDE 20 MG TABLET 30 MG PO (07:44)
[2022-08-08] MEDS: SENNOSIDES/DOCUSATE TABLET 1 TAB PO ×2 (07:44→16:05)
[2022-08-08] MEDS: FAMOTIDINE 10 MG TABLET PO (07:44)
[2022-08-08] MEDS: SERTRALINE 100 MG TABLET 125 MG PO (07:44)
[2022-08-08] MEDS: CETIRIZINE HCL 10 MG TABLET PO (07:44)
[2022-08-08] MEDS: INSULIN LISPRO 100 UNIT/ML VIAL 24 UNIT SUBCUT ×3 (08:29→17:11)
--- NOTE | 2022-08-08 13:15 | PC.NURSE ---
CARE CONFERENCE:?All members of the IDT team present, including in person personnel psychologist. Resident present. Daughters/family were not present. Nursing reviewed current care needs; resident is 1 assist with most ADLs. Resident voices that she has been walking more as previously requested but that she wants to be able to wear her shoes vs. gripper socks due to pain in her feet/legs when touching the cold floow. This nurse was able to find shoes in her closet and will request that she wears these shoes when ambulating per her request. Resident has updated POLST in place since admission, no changes at this time. She requests to a dental exam in the near future, SW reminded resident that she recently had this service done and cannot be scheduled at this time. Resident agrees. Resident reports that her sister may tell us she needs to see an upsetting machine operator for difficulty hearing, but it is not evident that resident has an [place] and she laughs and says my sister is the one who cant hear. She denies wanting this service at this time and she is able to make this decision for herself. Resident is comfortable in her new wheelchair. No concerns. Resident was recently weaned from AM dose of Risperdal, and AM lasix and insulin were increased. Resident does have bilateral lower extremity edema. Resident notes that she has some right arm pain with repetative movements/exercise but notes that she likes a warm blanket and does not like taking pain medication. Nursing has no further concerns at this time and family/resident is very happy with the care she is receiving. Activities reviewed current participation in and out of room--resident enjoys going to exercise (not arm pain in previous part of this note) and doing crosswords in her room. She also really enjoys getting outside for patio time. SW reviewed mood assessment, no concerns. Weight has been stable since admission and resident is eating well, no concerns. She does note that she does not want gravy on her foods--emergency department technician will follow up on this request. Uses no restraints. Daughters are involved in decision making as needed. Is not able to self-administer meds, administered by nurse. No falls since admission. Resident is considered a vulnerable adult due to her need for assistance with ADLs.
[2022-08-08] MEDS: NYSTATIN CREAM 30 GM 1 APPLIC TOPICAL (14:11)
--- NOTE | 2022-08-08 14:25 | PC.SOCIAL ---
Resident's care conference was held today with resident, all members of the team, and the bottoming room inspector. Resident's mood remains stable, no s/s of depression noted. Resident has been coming out to exercise and outside and has been enjoying this. Resident states she has a bad arm and knows to limit herself with exercise class. Resident was offered additional Tylenol if needed but resident did not want it. Resident states her feet hurt when she walks on the cold floor or if her feet are down to much off her w/c pedals. Recommended resident where shoes to walk and shoes were tried on in resident's room during the care conference and resident's tennis shoes not her dress shoes fit to wear. This was passes on to the CATERING TRUCK OPERATOR's when they ambulate resident. Resident asked about seeing dentist but forgot she had just been seen at the dentist in March at [facility] while at the [facility]. Resident's family is supportive and visits and calls frequently.
[2022-08-08] MEDS: ATORVASTATIN CALCIUM 40 MG TABLET PO (19:40)
[2022-08-08] MEDS: risperiDONE 0.5 MG TABLET PO (19:40)
--- NOTE | 2022-08-08 22:14 | PC.NURSE ---
MDS CLARIFICATION: Walk in room and hallway and locomotion on and off unit?staff were interviewed due to suspected inaccurate charting?resident required extensive assist at least three times during the lookback period for all activities. Coded as such. Eating?resident did not require any assistance except set up. Coded independent with set up assist.
[2022-08-09] MEDS: ASPIRIN 81 MG TAB.CHEW PO (07:50)
[2022-08-09] MEDS: ACETAMINOPHEN 500 MG TABLET 1000 MG PO ×3 (07:50→20:26)
[2022-08-09] MEDS: ISOSORBIDE MONONITRATE ER 30 MG TAB PO (07:51)
[2022-08-09] MEDS: LOSARTAN POTASSIUM 50 MG TABLET PO (07:51)
[2022-08-09] MEDS: SITAGLIPTIN PHOSPHATE 100 MG TABLET 50 MG PO (07:51)
[2022-08-09] MEDS: METOPROLOL TARTRATE 25 MG TABLET PO ×2 (07:51→15:39)
[2022-08-09] MEDS: TORSEMIDE 20 MG TABLET 30 MG PO (07:52)
[2022-08-09] MEDS: SENNOSIDES/DOCUSATE TABLET 1 TAB PO ×2 (07:52→15:39)
[2022-08-09] MEDS: CETIRIZINE HCL 10 MG TABLET PO (07:52)
[2022-08-09] MEDS: FAMOTIDINE 10 MG TABLET PO (07:52)
[2022-08-09] MEDS: GABAPENTIN 300 MG CAPSULE PO ×2 (07:52→15:39)
[2022-08-09] MEDS: SERTRALINE 100 MG TABLET 125 MG PO (07:52)
[2022-08-09] MEDS: INSULIN LISPRO 100 UNIT/ML VIAL 24 UNIT SUBCUT ×3 (08:52→17:48)
[2022-08-09] MEDS: ATORVASTATIN CALCIUM 40 MG TABLET PO (20:26)
[2022-08-09] MEDS: risperiDONE 0.5 MG TABLET PO (20:27)
[2022-08-10] MEDS: ASPIRIN 81 MG TAB.CHEW PO (08:29)
[2022-08-10] MEDS: INSULIN LISPRO 100 UNIT/ML VIAL 24 UNIT SUBCUT ×3 (08:29→17:26)
[2022-08-10] MEDS: ACETAMINOPHEN 500 MG TABLET 1000 MG PO ×3 (08:29→19:50)
[2022-08-10] MEDS: ISOSORBIDE MONONITRATE ER 30 MG TAB PO (08:30)
[2022-08-10] MEDS: SITAGLIPTIN PHOSPHATE 100 MG TABLET 50 MG PO (08:31)
[2022-08-10] MEDS: LOSARTAN POTASSIUM 50 MG TABLET PO (08:31)
[2022-08-10] MEDS: GABAPENTIN 300 MG CAPSULE PO ×2 (08:32→15:39)
[2022-08-10] MEDS: METOPROLOL TARTRATE 25 MG TABLET PO ×2 (08:32→15:39)
[2022-08-10] MEDS: FAMOTIDINE 10 MG TABLET PO (08:32)
[2022-08-10] MEDS: SENNOSIDES/DOCUSATE TABLET 1 TAB PO ×2 (08:32→15:39)
[2022-08-10] MEDS: CETIRIZINE HCL 10 MG TABLET PO (08:32)
[2022-08-10] MEDS: TORSEMIDE 20 MG TABLET 30 MG PO (08:32)
[2022-08-10] MEDS: SERTRALINE 100 MG TABLET 125 MG PO (08:32)
[2022-08-10] MEDS: ATORVASTATIN CALCIUM 40 MG TABLET PO (19:50)
[2022-08-10] MEDS: risperiDONE 0.5 MG TABLET PO (19:51)
[2022-08-11] MEDS: ASPIRIN 81 MG TAB.CHEW PO (07:51)
[2022-08-11] MEDS: ACETAMINOPHEN 500 MG TABLET 1000 MG PO ×3 (07:51→19:31)
[2022-08-11] MEDS: GABAPENTIN 300 MG CAPSULE PO ×2 (07:53→15:53)
[2022-08-11] MEDS: METOPROLOL TARTRATE 25 MG TABLET PO ×2 (07:53→15:53)
[2022-08-11] MEDS: SITAGLIPTIN PHOSPHATE 100 MG TABLET 50 MG PO (07:53)
[2022-08-11] MEDS: ISOSORBIDE MONONITRATE ER 30 MG TAB PO (07:53)
[2022-08-11] MEDS: LOSARTAN POTASSIUM 50 MG TABLET PO (07:53)
[2022-08-11] MEDS: CETIRIZINE HCL 10 MG TABLET PO (07:54)
[2022-08-11] MEDS: SERTRALINE 100 MG TABLET 125 MG PO (07:54)
[2022-08-11] MEDS: TORSEMIDE 20 MG TABLET 30 MG PO (07:54)
[2022-08-11] MEDS: FAMOTIDINE 10 MG TABLET PO (07:54)
[2022-08-11] MEDS: SENNOSIDES/DOCUSATE TABLET 1 TAB PO ×2 (07:54→15:53)
[2022-08-11] MEDS: INSULIN LISPRO 100 UNIT/ML VIAL 24 UNIT SUBCUT ×3 (08:26→17:34)
[2022-08-11] MEDS: ATORVASTATIN CALCIUM 40 MG TABLET PO (19:31)
[2022-08-11] MEDS: risperiDONE 0.5 MG TABLET PO (19:32)
[2022-08-12] MEDS: ASPIRIN 81 MG TAB.CHEW PO (07:55)
[2022-08-12] MEDS: ACETAMINOPHEN 500 MG TABLET 1000 MG PO ×3 (07:55→20:59)
[2022-08-12] MEDS: SITAGLIPTIN PHOSPHATE 100 MG TABLET 50 MG PO (07:57)
[2022-08-12] MEDS: ISOSORBIDE MONONITRATE ER 30 MG TAB PO (07:57)
[2022-08-12] MEDS: METOPROLOL TARTRATE 25 MG TABLET PO ×2 (07:58→16:03)
[2022-08-12] MEDS: LOSARTAN POTASSIUM 50 MG TABLET PO (07:58)
[2022-08-12] MEDS: GABAPENTIN 300 MG CAPSULE PO ×2 (07:59→16:03)
[2022-08-12] MEDS: SENNOSIDES/DOCUSATE TABLET 1 TAB PO ×2 (07:59→16:03)
[2022-08-12] MEDS: FAMOTIDINE 10 MG TABLET PO (07:59)
[2022-08-12] MEDS: TORSEMIDE 20 MG TABLET 30 MG PO (08:00)
[2022-08-12] MEDS: SERTRALINE 100 MG TABLET 125 MG PO (08:00)
[2022-08-12] MEDS: CETIRIZINE HCL 10 MG TABLET PO (08:00)
[2022-08-12] MEDS: INSULIN LISPRO 100 UNIT/ML VIAL 24 UNIT SUBCUT ×3 (08:58→17:30)
[2022-08-12] MEDS: ATORVASTATIN CALCIUM 40 MG TABLET PO (21:00)
[2022-08-12] MEDS: risperiDONE 0.5 MG TABLET PO (21:03)
[2022-08-13 07:00] VITALS: BP 125/68; PULSE 70; RESP 16; TEMP 36.5; O2SAT 93; BMI 43.4
[2022-08-13] MEDS: ASPIRIN 81 MG TAB.CHEW PO (07:46)
[2022-08-13] MEDS: ACETAMINOPHEN 500 MG TABLET 1000 MG PO ×3 (07:46→19:36)
[2022-08-13] MEDS: LOSARTAN POTASSIUM 50 MG TABLET PO (07:47)
[2022-08-13] MEDS: SITAGLIPTIN PHOSPHATE 100 MG TABLET 50 MG PO (07:47)
[2022-08-13] MEDS: ISOSORBIDE MONONITRATE ER 30 MG TAB PO (07:47)
[2022-08-13] MEDS: FAMOTIDINE 10 MG TABLET PO (07:48)
[2022-08-13] MEDS: GABAPENTIN 300 MG CAPSULE PO ×2 (07:48→15:39)
[2022-08-13] MEDS: METOPROLOL TARTRATE 25 MG TABLET PO ×2 (07:48→15:39)
[2022-08-13] MEDS: SENNOSIDES/DOCUSATE TABLET 1 TAB PO ×2 (07:48→15:39)
[2022-08-13] MEDS: TORSEMIDE 20 MG TABLET 30 MG PO (07:49)
[2022-08-13] MEDS: CETIRIZINE HCL 10 MG TABLET PO (07:50)
[2022-08-13] MEDS: SERTRALINE 100 MG TABLET 125 MG PO (07:50)
[2022-08-13] MEDS: INSULIN LISPRO 100 UNIT/ML VIAL 24 UNIT SUBCUT ×3 (08:39→17:07)
[2022-08-13] MEDS: ATORVASTATIN CALCIUM 40 MG TABLET PO (19:36)
[2022-08-13] MEDS: risperiDONE 0.5 MG TABLET PO (19:50)
[2022-08-14] MEDS: ASPIRIN 81 MG TAB.CHEW PO (07:29)
[2022-08-14] MEDS: ACETAMINOPHEN 500 MG TABLET 1000 MG PO ×3 (07:29→20:27)
[2022-08-14] MEDS: ISOSORBIDE MONONITRATE ER 30 MG TAB PO (07:30)
[2022-08-14] MEDS: SITAGLIPTIN PHOSPHATE 100 MG TABLET 50 MG PO (07:30)
[2022-08-14] MEDS: LOSARTAN POTASSIUM 50 MG TABLET PO (07:31)
[2022-08-14] MEDS: SENNOSIDES/DOCUSATE TABLET 1 TAB PO ×2 (07:31→15:10)
[2022-08-14] MEDS: TORSEMIDE 20 MG TABLET 30 MG PO (07:31)
[2022-08-14] MEDS: FAMOTIDINE 10 MG TABLET PO (07:31)
[2022-08-14] MEDS: GABAPENTIN 300 MG CAPSULE PO ×2 (07:31→15:10)
[2022-08-14] MEDS: METOPROLOL TARTRATE 25 MG TABLET PO ×2 (07:31→15:10)
[2022-08-14] MEDS: SERTRALINE 100 MG TABLET 125 MG PO (07:32)
[2022-08-14] MEDS: CETIRIZINE HCL 10 MG TABLET PO (07:32)
[2022-08-14] MEDS: INSULIN LISPRO 100 UNIT/ML VIAL 24 UNIT SUBCUT ×3 (08:19→17:13)
[2022-08-14] MEDS: OXYCODONE 5 MG TABLET PO (12:01)
[2022-08-14] MEDS: ATORVASTATIN CALCIUM 40 MG TABLET PO (20:27)
[2022-08-14] MEDS: risperiDONE 0.5 MG TABLET PO (20:27)
[2022-08-15] MEDS: ASPIRIN 81 MG TAB.CHEW PO (08:19)
[2022-08-15] MEDS: ACETAMINOPHEN 500 MG TABLET 1000 MG PO ×3 (08:19→19:07)
[2022-08-15] MEDS: SITAGLIPTIN PHOSPHATE 100 MG TABLET 50 MG PO (08:25)
[2022-08-15] MEDS: ISOSORBIDE MONONITRATE ER 30 MG TAB PO (08:25)
[2022-08-15] MEDS: METOPROLOL TARTRATE 25 MG TABLET PO ×2 (08:26→15:02)
[2022-08-15] MEDS: LOSARTAN POTASSIUM 50 MG TABLET PO (08:26)
[2022-08-15] MEDS: TORSEMIDE 20 MG TABLET 30 MG PO (08:27)
[2022-08-15] MEDS: GABAPENTIN 300 MG CAPSULE PO ×2 (08:27→15:02)
[2022-08-15] MEDS: FAMOTIDINE 10 MG TABLET PO (08:27)
[2022-08-15] MEDS: SENNOSIDES/DOCUSATE TABLET 1 TAB PO ×2 (08:27→15:04)
[2022-08-15] MEDS: SERTRALINE 100 MG TABLET 125 MG PO (08:32)
[2022-08-15] MEDS: CETIRIZINE HCL 10 MG TABLET PO (08:32)
[2022-08-15] MEDS: INSULIN LISPRO 100 UNIT/ML VIAL 24 UNIT SUBCUT ×3 (08:36→16:59)
--- NOTE | 2022-08-15 10:09 | PC.NURSE ---
MED REVIEW: Completed with [employer] [place].
--- NOTE | 2022-08-15 11:30 | PC.NURSE ---
Accu checks: Ernst WHITMAN here. Updated of high blood sugar readings. Continue to monitor.
[2022-08-15] MEDS: OXYCODONE 5 MG TABLET PO (14:04)
[2022-08-15] MEDS: ATORVASTATIN CALCIUM 40 MG TABLET PO (19:08)
[2022-08-15] MEDS: risperiDONE 0.5 MG TABLET PO (19:08)
--- NOTE | 2022-08-16 01:45 | PC.NURSE ---
weekly Charting Week 1: Vital signs reviewed, BP variable results. PAINTER INTERIOR FINISH aware. Continues to monitor weekly, update PAINTER INTERIOR FINISH as needed. Temporary and comprehensive care plan reviewed with no changes made. Has history of chronic bilateral knee pain. Receives acetaminophen 1000mg TID and gabapentin 300mg BID. oxycodone 5mg BID PRN, Diclofenac gel to is applied to bilateral knees BID seems to be effective. 1x used to PRN Oxydone 5mg for Knee pain. Able to report pain verbally. Res is assist of 1 with dressing, grooming, and bathing. Able to complete oral cares independently after set-up. Receives diabetic diet with regular textures and thin liquids. No documented chewing/swallowing problems. Eats independently after set-up. Prefer to eat in the room.
--- NOTE | 2022-08-16 07:10 | PC.NURSE ---
Weekly Charting, Week 1-ADL's: Comprehensive & temporary care plan reviewed. No changes made and nothing added to temporary care plan. Resident needs one assist with dressing, grooming, and bathing. Is able to participate. Does oral cares after set up. Feed self after set up. Is on diabetic diet, thin liquids. No problems with chewing/swallowing reported. Vital signs reviewed. BP's is variable, reviewed by SENIOR TECHNICAL SPECIALIST. Continue weekly monitoring. Weights monitored 3x/week. SENIOR TECHNICAL SPECIALIST to evaluate. Accu checks trending high, SENIOR TECHNICAL SPECIALIST aware. Continue to monitor. Pain: Has chronic bilateral knee pain. Is managed with Tylenol BID, Neurontin 300mg BID, Diclofenac gel to knees QID..? And Oxycodone 5 mg BID PRN ordered. And has used occasionally with relief. Is able to verbalize need for pain.
[2022-08-16] MEDS: OXYCODONE 5 MG TABLET PO (07:54)
[2022-08-16] MEDS: ACETAMINOPHEN 500 MG TABLET 1000 MG PO ×3 (08:32→21:15)
[2022-08-16] MEDS: ASPIRIN 81 MG TAB.CHEW PO (08:32)
[2022-08-16] MEDS: SITAGLIPTIN PHOSPHATE 100 MG TABLET 50 MG PO (08:33)
[2022-08-16] MEDS: ISOSORBIDE MONONITRATE ER 30 MG TAB PO (08:33)
[2022-08-16] MEDS: GABAPENTIN 300 MG CAPSULE PO ×2 (08:34→15:10)
[2022-08-16] MEDS: LOSARTAN POTASSIUM 50 MG TABLET PO (08:34)
[2022-08-16] MEDS: SENNOSIDES/DOCUSATE TABLET 1 TAB PO ×2 (08:34→15:10)
[2022-08-16] MEDS: METOPROLOL TARTRATE 25 MG TABLET PO ×2 (08:34→15:10)
[2022-08-16] MEDS: FAMOTIDINE 10 MG TABLET PO (08:34)
[2022-08-16] MEDS: TORSEMIDE 20 MG TABLET 30 MG PO (08:35)
[2022-08-16] MEDS: CETIRIZINE HCL 10 MG TABLET PO (08:36)
[2022-08-16] MEDS: SERTRALINE 100 MG TABLET 125 MG PO (08:36)
[2022-08-16] MEDS: INSULIN LISPRO 100 UNIT/ML VIAL 24 UNIT SUBCUT ×3 (08:46→17:34)
--- NOTE | 2022-08-16 11:28 | PC.NURSE ---
Status: Resident has hard time standing d/t to knee pain. 0754 Oxycodone PRN given and during that time she was somewhat shaking from the pain. T-97.9 BP-162/84 P-75 R-20 02 sat 96% RA.
[2022-08-16] MEDS: ATORVASTATIN CALCIUM 40 MG TABLET PO (21:15)
[2022-08-16] MEDS: risperiDONE 0.5 MG TABLET PO (21:18)
--- NOTE | 2022-08-17 01:34 | PC.NURSE ---
HEALTH Nurse went to check on resident ; Resident was in bed with emesis over her night gown and on the right side of the bed. Vitals were taken after care was done : 97.4 16 81 122/67 92% @ 2L BS 305 She denied pain and said she was fine . Will keep monitoring.
--- NOTE | 2022-08-17 05:04 | PC.NURSE ---
Follow up health issue Resident did not have any episode of emesis the rest of the night.
[2022-08-17] MEDS: INSULIN LISPRO 100 UNIT/ML VIAL 24 UNIT SUBCUT ×3 (08:56→17:32)
[2022-08-17] MEDS: ACETAMINOPHEN 500 MG TABLET 1000 MG PO ×3 (08:58→21:23)
[2022-08-17] MEDS: ISOSORBIDE MONONITRATE ER 30 MG TAB PO (08:58)
[2022-08-17] MEDS: ASPIRIN 81 MG TAB.CHEW PO (08:58)
[2022-08-17] MEDS: GABAPENTIN 300 MG CAPSULE PO ×2 (08:59→16:09)
[2022-08-17] MEDS: FAMOTIDINE 10 MG TABLET PO (08:59)
[2022-08-17] MEDS: LOSARTAN POTASSIUM 50 MG TABLET PO (08:59)
[2022-08-17] MEDS: SITAGLIPTIN PHOSPHATE 100 MG TABLET 50 MG PO (08:59)
[2022-08-17] MEDS: METOPROLOL TARTRATE 25 MG TABLET PO ×2 (08:59→16:09)
[2022-08-17] MEDS: SENNOSIDES/DOCUSATE TABLET 1 TAB PO ×2 (09:00→16:09)
[2022-08-17] MEDS: TORSEMIDE 20 MG TABLET 30 MG PO (09:00)
[2022-08-17] MEDS: CETIRIZINE HCL 10 MG TABLET PO (09:01)
[2022-08-17] MEDS: SERTRALINE 100 MG TABLET 125 MG PO (09:01)
--- NOTE | 2022-08-17 09:29 | PC.NURSE ---
assistant finance director reported resident is weak, shaky and has cloudy urine. PSYCH ARNP updated and will assess. BS's remain elevated.
[2022-08-17 11:30] LABS: Appearance Urine Turbid (Clear); Bilirubin Urine Negative (Negative); Blood Urine Trace-intact (Negative); Color Urine Yellow (Yellow); Glucose Urine 1+ (Negative); Ketones Urine Negative (Negative); Leukocyte Esterase Urine 1+ (Negative); Nitrite Urine Positive (Negative); Protein Urine 2+ (Negative); Specific Gravity Urine 1.015 (1.000-1.030); Urobilinogen Urine 0.2 (0.2-1.0); pH Urine 5.5 (5.0-8.5)
[2022-08-17 11:33] LABS: Bacteria Urine Many; Squamous Epithelial Cell Urine Few (None-Few); WBC Urine 50-100 (0-5)
--- NOTE | 2022-08-17 11:38 | PC.NURSE ---
Status/Order: PROJECT DEVELOPMENT COORDINATOR, Ernst here. Updated of increase weakness and blood sugar readings continues to be high. Reviewed accu checks, UA ordered and sent to lab.
[2022-08-17 12:46] VITALS: TEMP 36.8
--- NOTE | 2022-08-17 12:47 | PC.NURSE ---
Order: Nitrofurantoin 100 mg BID X 7 days for UTI.
--- NOTE | 2022-08-17 12:59 | PC.NURSE ---
Family Update: Niece, Pallavi updated resident has UTI & ABO ordered.
--- NOTE | 2022-08-17 14:19 | PC.NURSE ---
Health Status Note: Resident refused to get out of bed for breakfast and lunch due to not feeling well. Vital signs as follows, BP91/46, T 98.2, R 18, P 61, O2 sat 100% on 2 L. BS 293 at 0800, administered Insulin as ordered. Resident has no emesis episode this shift. resident ate 75% of her breakfast and refused lunch. UA/UC sent to lab and result came positive. Will continues to monitor.
[2022-08-17] MEDS: risperiDONE 0.5 MG TABLET PO (20:59)
[2022-08-17] MEDS: ATORVASTATIN CALCIUM 40 MG TABLET PO (20:59)
[2022-08-17] MEDS: NITROFURANTOIN MONOHYD MACRO 100 MG CAPSULE PO (21:23)
[2022-08-18] MEDS: ASPIRIN 81 MG TAB.CHEW PO (07:42)
[2022-08-18] MEDS: ACETAMINOPHEN 500 MG TABLET 1000 MG PO ×3 (07:42→20:12)
[2022-08-18] MEDS: SITAGLIPTIN PHOSPHATE 100 MG TABLET 50 MG PO (07:43)
[2022-08-18] MEDS: ISOSORBIDE MONONITRATE ER 30 MG TAB PO (07:43)
[2022-08-18] MEDS: NITROFURANTOIN MONOHYD MACRO 100 MG CAPSULE PO ×2 (07:45→15:04)
[2022-08-18] MEDS: METOPROLOL TARTRATE 25 MG TABLET PO ×2 (07:45→15:03)
[2022-08-18] MEDS: LOSARTAN POTASSIUM 50 MG TABLET PO (07:45)
[2022-08-18] MEDS: GABAPENTIN 300 MG CAPSULE PO ×2 (07:45→15:04)
[2022-08-18] MEDS: TORSEMIDE 20 MG TABLET 30 MG PO (07:48)
[2022-08-18] MEDS: FAMOTIDINE 10 MG TABLET PO (07:48)
[2022-08-18] MEDS: SENNOSIDES/DOCUSATE TABLET 1 TAB PO ×2 (07:48→15:04)
[2022-08-18] MEDS: SERTRALINE 100 MG TABLET 125 MG PO (07:52)
[2022-08-18] MEDS: CETIRIZINE HCL 10 MG TABLET PO (07:52)
[2022-08-18] MEDS: INSULIN LISPRO 100 UNIT/ML VIAL 24 UNIT SUBCUT ×3 (09:46→18:04)
[2022-08-18 13:53] VITALS: TEMP 36.8
[2022-08-18] MEDS: ATORVASTATIN CALCIUM 40 MG TABLET PO (20:13)
[2022-08-18] MEDS: risperiDONE 0.5 MG TABLET PO (20:13)
[2022-08-19 04:13] VITALS: TEMP 36.3
[2022-08-19] MEDS: ACETAMINOPHEN 500 MG TABLET 1000 MG PO ×3 (07:43→19:35)
[2022-08-19] MEDS: ASPIRIN 81 MG TAB.CHEW PO (07:43)
[2022-08-19] MEDS: ISOSORBIDE MONONITRATE ER 30 MG TAB PO (07:44)
[2022-08-19] MEDS: SITAGLIPTIN PHOSPHATE 100 MG TABLET 50 MG PO (07:44)
[2022-08-19] MEDS: METOPROLOL TARTRATE 25 MG TABLET PO ×2 (07:45→15:19)
[2022-08-19] MEDS: GABAPENTIN 300 MG CAPSULE PO ×2 (07:45→15:19)
[2022-08-19] MEDS: NITROFURANTOIN MONOHYD MACRO 100 MG CAPSULE PO ×2 (07:45→15:19)
[2022-08-19] MEDS: LOSARTAN POTASSIUM 50 MG TABLET PO (07:45)
[2022-08-19] MEDS: FAMOTIDINE 10 MG TABLET PO (07:46)
[2022-08-19] MEDS: TORSEMIDE 20 MG TABLET 30 MG PO (07:47)
[2022-08-19] MEDS: SERTRALINE 100 MG TABLET 125 MG PO (07:47)
[2022-08-19] MEDS: CETIRIZINE HCL 10 MG TABLET PO (07:47)
[2022-08-19] MEDS: SENNOSIDES/DOCUSATE TABLET 1 TAB PO ×2 (07:47→15:19)
[2022-08-19] MEDS: INSULIN LISPRO 100 UNIT/ML VIAL 24 UNIT SUBCUT ×3 (07:53→16:47)
[2022-08-19 10:47] VITALS: TEMP 36.6
[2022-08-19 15:00] VITALS: TEMP 36.7
[2022-08-19] MEDS: ATORVASTATIN CALCIUM 40 MG TABLET PO (19:35)
[2022-08-19] MEDS: risperiDONE 0.5 MG TABLET PO (19:35)
--- NOTE | 2022-08-19 21:11 | PC.NURSE ---
Lab result: E.Coli >100,000. 18:00 - Triage notified. J CARLOS Ho ordered: No New Orders.
[2022-08-19 23:00] VITALS: TEMP 36.3
[2022-08-20] MEDS: ACETAMINOPHEN 500 MG TABLET 1000 MG PO ×3 (07:55→19:50)
[2022-08-20] MEDS: ASPIRIN 81 MG TAB.CHEW PO (07:55)
[2022-08-20] MEDS: SITAGLIPTIN PHOSPHATE 100 MG TABLET 50 MG PO (07:56)
[2022-08-20] MEDS: ISOSORBIDE MONONITRATE ER 30 MG TAB PO (07:56)
[2022-08-20] MEDS: LOSARTAN POTASSIUM 50 MG TABLET PO (07:56)
[2022-08-20] MEDS: METOPROLOL TARTRATE 25 MG TABLET PO ×2 (07:57→15:16)
[2022-08-20] MEDS: NITROFURANTOIN MONOHYD MACRO 100 MG CAPSULE PO (07:57)
[2022-08-20] MEDS: GABAPENTIN 300 MG CAPSULE PO ×2 (07:57→15:16)
[2022-08-20] MEDS: FAMOTIDINE 10 MG TABLET PO (07:57)
[2022-08-20] MEDS: TORSEMIDE 20 MG TABLET 30 MG PO (08:02)
[2022-08-20] MEDS: SERTRALINE 100 MG TABLET 125 MG PO (08:02)
[2022-08-20] MEDS: SENNOSIDES/DOCUSATE TABLET 1 TAB PO ×2 (08:02→15:16)
[2022-08-20] MEDS: CETIRIZINE HCL 10 MG TABLET PO (08:03)
[2022-08-20] MEDS: INSULIN LISPRO 100 UNIT/ML VIAL 24 UNIT SUBCUT ×3 (08:36→16:32)
--- NOTE | 2022-08-20 10:20 | PC.NURSE ---
Call [facility] to inform the urine culture results. Received call from CARMEN Bynum to inform that the order from Tyra Dukes is to stop Tab Nitrofurantoin and start on Tab Levofloxacin 750mg daily X 5 days. Morning dose taken from [facility] and fax to pharmacy the phone order. Swimming Pool Installer call pharmacy to verity the order which will be send this evening
[2022-08-20] MEDS: levoFLOXacin 750 MG TABLET PO (11:18)
--- NOTE | 2022-08-20 11:41 | PC.NURSE ---
New Antibiotics : Tab Levofloxacin 750mg daily X 5, 1st dose taken from the [facility] and was given at 1030.
[2022-08-20 12:43] VITALS: BP 120/70; PULSE 71; RESP 18; TEMP 36.4; O2SAT 93; BMI 42.7
[2022-08-20 15:00] VITALS: TEMP 36.3
[2022-08-20] MEDS: ATORVASTATIN CALCIUM 40 MG TABLET PO (19:50)
[2022-08-20] MEDS: risperiDONE 0.5 MG TABLET PO (19:51)
[2022-08-20 23:00] VITALS: TEMP 36.4
[2022-08-21 07:00] VITALS: TEMP 36.8
[2022-08-21] MEDS: ASPIRIN 81 MG TAB.CHEW PO (08:10)
[2022-08-21] MEDS: ACETAMINOPHEN 500 MG TABLET 1000 MG PO ×3 (08:10→19:34)
[2022-08-21] MEDS: ISOSORBIDE MONONITRATE ER 30 MG TAB PO (08:10)
[2022-08-21] MEDS: SITAGLIPTIN PHOSPHATE 100 MG TABLET 50 MG PO (08:11)
[2022-08-21] MEDS: LOSARTAN POTASSIUM 50 MG TABLET PO (08:12)
[2022-08-21] MEDS: METOPROLOL TARTRATE 25 MG TABLET PO ×2 (08:12→15:53)
[2022-08-21] MEDS: levoFLOXacin 750 MG TABLET PO (08:12)
[2022-08-21] MEDS: GABAPENTIN 300 MG CAPSULE PO ×2 (08:13→15:54)
[2022-08-21] MEDS: FAMOTIDINE 10 MG TABLET PO (08:13)
[2022-08-21] MEDS: SENNOSIDES/DOCUSATE TABLET 1 TAB PO ×2 (08:14→16:14)
[2022-08-21] MEDS: CETIRIZINE HCL 10 MG TABLET PO (08:15)
[2022-08-21] MEDS: TORSEMIDE 20 MG TABLET 30 MG PO (08:15)
[2022-08-21] MEDS: SERTRALINE 100 MG TABLET 125 MG PO (08:15)
[2022-08-21] MEDS: INSULIN LISPRO 100 UNIT/ML VIAL 24 UNIT SUBCUT ×3 (08:26→17:32)
--- NOTE | 2022-08-21 10:21 | PC.NURSE ---
Family update: Glove Pairer attempted to call krysten Olivo to provide update of antibiotic order change from 08/20/22 though niece did not answer. Glove Pairer left voicemail requesting niece return phone call when able. Cart nurse updated.
[2022-08-21 15:00] VITALS: TEMP 37.1
[2022-08-21] MEDS: ATORVASTATIN CALCIUM 40 MG TABLET PO (19:34)
[2022-08-21] MEDS: risperiDONE 0.5 MG TABLET PO (19:34)
[2022-08-22] MEDS: ISOSORBIDE MONONITRATE ER 30 MG TAB PO (07:53)
[2022-08-22] MEDS: ASPIRIN 81 MG TAB.CHEW PO (07:53)
[2022-08-22] MEDS: ACETAMINOPHEN 500 MG TABLET 1000 MG PO ×3 (07:53→20:55)
[2022-08-22] MEDS: levoFLOXacin 750 MG TABLET PO (07:54)
[2022-08-22] MEDS: LOSARTAN POTASSIUM 50 MG TABLET PO (07:54)
[2022-08-22] MEDS: SITAGLIPTIN PHOSPHATE 100 MG TABLET 50 MG PO (07:54)
[2022-08-22] MEDS: METOPROLOL TARTRATE 25 MG TABLET PO ×2 (07:54→15:14)
[2022-08-22] MEDS: SENNOSIDES/DOCUSATE TABLET 1 TAB PO ×2 (07:55→15:14)
[2022-08-22] MEDS: GABAPENTIN 300 MG CAPSULE PO ×2 (07:55→15:15)
[2022-08-22] MEDS: FAMOTIDINE 10 MG TABLET PO (07:55)
[2022-08-22] MEDS: TORSEMIDE 20 MG TABLET 30 MG PO (07:56)
[2022-08-22] MEDS: CETIRIZINE HCL 10 MG TABLET PO (07:56)
[2022-08-22] MEDS: SERTRALINE 100 MG TABLET 125 MG PO (07:56)
[2022-08-22] MEDS: INSULIN LISPRO 100 UNIT/ML VIAL 24 UNIT SUBCUT ×3 (08:29→17:32)
[2022-08-22] MEDS: risperiDONE 0.5 MG TABLET PO (20:55)
[2022-08-22] MEDS: ATORVASTATIN CALCIUM 40 MG TABLET PO (20:56)
--- NOTE | 2022-08-23 01:26 | PC.NURSE ---
WEEKLY CHARTING WEEK 2 : MOBILITY Vitals sign : no concerns Comprehensive and temporary care plan reviewed, no changes made, and nothing added to temporary care plan. Resident needs one assist, gait belt and 4ww with transfers and ambulation. Extensive assist of one with wheelchair propulsion, 1-2 assist with bed mobility. (L) 1/4 side rail up to aid with bed positioning, no alarms. V No falls since admission but resident is a high fall risk according to assessment done on 05/08. Fall interventions: call light within reach, bed in low position with brakes locked, gripper socks, falling star magnet, keep area free of clutters.
[2022-08-23] MEDS: ACETAMINOPHEN 500 MG TABLET 1000 MG PO ×3 (07:35→19:46)
[2022-08-23] MEDS: ASPIRIN 81 MG TAB.CHEW PO (07:36)
[2022-08-23] MEDS: SITAGLIPTIN PHOSPHATE 100 MG TABLET 50 MG PO (07:36)
[2022-08-23] MEDS: ISOSORBIDE MONONITRATE ER 30 MG TAB PO (07:36)
[2022-08-23] MEDS: levoFLOXacin 750 MG TABLET PO (07:36)
[2022-08-23] MEDS: METOPROLOL TARTRATE 25 MG TABLET PO ×2 (07:37→16:06)
[2022-08-23] MEDS: LOSARTAN POTASSIUM 50 MG TABLET PO (07:37)
[2022-08-23] MEDS: SENNOSIDES/DOCUSATE TABLET 1 TAB PO ×2 (07:38→16:06)
[2022-08-23] MEDS: TORSEMIDE 20 MG TABLET 30 MG PO (07:38)
[2022-08-23] MEDS: GABAPENTIN 300 MG CAPSULE PO ×2 (07:38→16:06)
[2022-08-23] MEDS: CETIRIZINE HCL 10 MG TABLET PO (07:38)
[2022-08-23] MEDS: SERTRALINE 100 MG TABLET 125 MG PO (07:38)
[2022-08-23] MEDS: FAMOTIDINE 10 MG TABLET PO (07:38)
[2022-08-23] MEDS: INSULIN LISPRO 100 UNIT/ML VIAL 24 UNIT SUBCUT ×3 (08:28→17:25)
--- NOTE | 2022-08-23 10:58 | PC.NURSE ---
Weekly Charting, Week 2: Mobility: Comprehensive and temporary care plan reviewed. No changes made, and nothing added to temporary care plan. Resident needs one assist, gait belt and 4ww with transfers and ambulation. Extensive assist of one with wheelchair propulsion. 1-2 assist with bed mobility. (L) 1/4 side rail up to aid with bed positioning. No alarms. Vitals signs reviewed. Continue 3x/week weight monitoring d/t Torsemide increase. Fall: No falls since admission. Is a high fall risk according to assessment done on 08/01. Fall interventions: call light within reach, bed in low position with brakes locked, gripper socks, falling star magnet, keep area free of clutters.
[2022-08-23] MEDS: ATORVASTATIN CALCIUM 40 MG TABLET PO (19:46)
[2022-08-23] MEDS: risperiDONE 0.5 MG TABLET PO (19:46)
[2022-08-24] MEDS: ASPIRIN 81 MG TAB.CHEW PO (08:02)
[2022-08-24] MEDS: ACETAMINOPHEN 500 MG TABLET 1000 MG PO ×3 (08:02→20:27)
[2022-08-24] MEDS: LOSARTAN POTASSIUM 50 MG TABLET PO (08:03)
[2022-08-24] MEDS: SITAGLIPTIN PHOSPHATE 100 MG TABLET 50 MG PO (08:03)
[2022-08-24] MEDS: ISOSORBIDE MONONITRATE ER 30 MG TAB PO (08:03)
[2022-08-24] MEDS: FAMOTIDINE 10 MG TABLET PO (08:05)
[2022-08-24] MEDS: METOPROLOL TARTRATE 25 MG TABLET PO ×2 (08:05→15:17)
[2022-08-24] MEDS: GABAPENTIN 300 MG CAPSULE PO ×2 (08:05→15:18)
[2022-08-24] MEDS: TORSEMIDE 20 MG TABLET 30 MG PO (08:06)
[2022-08-24] MEDS: SENNOSIDES/DOCUSATE TABLET 1 TAB PO ×2 (08:06→15:18)
[2022-08-24] MEDS: SERTRALINE 100 MG TABLET 125 MG PO (08:06)
[2022-08-24] MEDS: CETIRIZINE HCL 10 MG TABLET PO (08:06)
[2022-08-24] MEDS: INSULIN LISPRO 100 UNIT/ML VIAL 24 UNIT SUBCUT ×3 (08:44→17:02)
--- NOTE | 2022-08-24 13:45 | PC.NURSE ---
Refused TEDS : Resident refused to wear TEDS , as she feels very hot and uncomfortable.Resident also c/o feeling very weak, shaky legs and unable to walk short distance.
[2022-08-24] MEDS: ATORVASTATIN CALCIUM 40 MG TABLET PO (20:28)
[2022-08-24] MEDS: risperiDONE 0.5 MG TABLET PO (20:28)
[2022-08-25] MEDS: ACETAMINOPHEN 500 MG TABLET 1000 MG PO ×3 (08:53→19:51)
[2022-08-25] MEDS: INSULIN LISPRO 100 UNIT/ML VIAL 24 UNIT SUBCUT ×2 (08:54→12:15)
[2022-08-25] MEDS: ASPIRIN 81 MG TAB.CHEW PO (08:54)
[2022-08-25] MEDS: SITAGLIPTIN PHOSPHATE 100 MG TABLET 50 MG PO (08:54)
[2022-08-25] MEDS: ISOSORBIDE MONONITRATE ER 30 MG TAB PO (08:54)
[2022-08-25] MEDS: GABAPENTIN 300 MG CAPSULE PO ×2 (08:56→16:10)
[2022-08-25] MEDS: METOPROLOL TARTRATE 25 MG TABLET PO ×2 (08:56→16:10)
[2022-08-25] MEDS: LOSARTAN POTASSIUM 50 MG TABLET PO (08:56)
[2022-08-25] MEDS: SENNOSIDES/DOCUSATE TABLET 1 TAB PO ×2 (08:56→16:10)
[2022-08-25] MEDS: FAMOTIDINE 10 MG TABLET PO (08:56)
[2022-08-25] MEDS: TORSEMIDE 20 MG TABLET 30 MG PO (08:56)
[2022-08-25] MEDS: CETIRIZINE HCL 10 MG TABLET PO (08:58)
[2022-08-25] MEDS: SERTRALINE 100 MG TABLET 125 MG PO (08:58)
[2022-08-25] MEDS: ATORVASTATIN CALCIUM 40 MG TABLET PO (19:51)
[2022-08-25] MEDS: risperiDONE 0.5 MG TABLET PO (20:13)
[2022-08-26] MEDS: ASPIRIN 81 MG TAB.CHEW PO (07:55)
[2022-08-26] MEDS: ACETAMINOPHEN 500 MG TABLET 1000 MG PO ×3 (07:55→19:28)
[2022-08-26] MEDS: ISOSORBIDE MONONITRATE ER 30 MG TAB PO (07:55)
[2022-08-26] MEDS: SITAGLIPTIN PHOSPHATE 100 MG TABLET 50 MG PO (07:56)
[2022-08-26] MEDS: LOSARTAN POTASSIUM 50 MG TABLET PO (07:56)
[2022-08-26] MEDS: METOPROLOL TARTRATE 25 MG TABLET PO ×2 (07:56→15:27)
[2022-08-26] MEDS: GABAPENTIN 300 MG CAPSULE PO ×2 (07:57→15:27)
[2022-08-26] MEDS: SENNOSIDES/DOCUSATE TABLET 1 TAB PO ×2 (07:59→15:28)
[2022-08-26] MEDS: FAMOTIDINE 10 MG TABLET PO (07:59)
[2022-08-26] MEDS: TORSEMIDE 20 MG TABLET 30 MG PO (07:59)
[2022-08-26] MEDS: SERTRALINE 100 MG TABLET 125 MG PO (07:59)
[2022-08-26] MEDS: CETIRIZINE HCL 10 MG TABLET PO (07:59)
[2022-08-26] MEDS: INSULIN LISPRO 100 UNIT/ML VIAL 24 UNIT SUBCUT ×3 (08:54→17:37)
[2022-08-26] MEDS: NYSTATIN CREAM 30 GM 1 APPLIC TOPICAL (11:09)
[2022-08-26] MEDS: risperiDONE 0.5 MG TABLET PO (19:28)
[2022-08-26] MEDS: ATORVASTATIN CALCIUM 40 MG TABLET PO (19:28)
[2022-08-27] MEDS: NYSTATIN CREAM 30 GM 1 APPLIC TOPICAL (07:51)
[2022-08-27 07:58] VITALS: BMI 44.1
[2022-08-27] MEDS: ACETAMINOPHEN 500 MG TABLET 1000 MG PO ×3 (08:11→19:26)
[2022-08-27] MEDS: ASPIRIN 81 MG TAB.CHEW PO (08:11)
[2022-08-27] MEDS: ISOSORBIDE MONONITRATE ER 30 MG TAB PO (08:12)
[2022-08-27] MEDS: SITAGLIPTIN PHOSPHATE 100 MG TABLET 50 MG PO (08:12)
[2022-08-27] MEDS: LOSARTAN POTASSIUM 50 MG TABLET PO (08:12)
[2022-08-27] MEDS: METOPROLOL TARTRATE 25 MG TABLET PO ×2 (08:12→16:00)
[2022-08-27] MEDS: TORSEMIDE 20 MG TABLET 30 MG PO (08:13)
[2022-08-27] MEDS: GABAPENTIN 300 MG CAPSULE PO ×2 (08:13→16:00)
[2022-08-27] MEDS: FAMOTIDINE 10 MG TABLET PO (08:13)
[2022-08-27] MEDS: SENNOSIDES/DOCUSATE TABLET 1 TAB PO ×2 (08:13→16:00)
[2022-08-27] MEDS: SERTRALINE 100 MG TABLET 125 MG PO (08:14)
[2022-08-27] MEDS: CETIRIZINE HCL 10 MG TABLET PO (08:14)
[2022-08-27] MEDS: INSULIN LISPRO 100 UNIT/ML VIAL 24 UNIT SUBCUT ×3 (08:31→17:24)
[2022-08-27 10:05] VITALS: BP 111/70; PULSE 67; RESP 16; TEMP 36.5; O2SAT 93
--- NOTE | 2022-08-27 11:53 | PC.NURSE ---
Addendum entered by Gillian Santiago RN 08/27/22 14:34: To add to original note: Resident remains on M-W-F daily weights per order though today's weight was compared to last bath weight obtained on Sunday (08/20/22). Original Note: Weight note: Weight gain of 7 pounds noted today when compared to last weight obtained on 08/20/22. VS: B/P 111/70, P 67, R 16, T 97.7, O2 sat 93% on RA. Lung sounds are noted to be clear to all lobes bilaterally and 1+ edema noted to bilateral lower extremities. No c/o dyspnea. Nursing to obtain reweigh on 08/28/22 AM and continue to observe.
[2022-08-27] MEDS: ATORVASTATIN CALCIUM 40 MG TABLET PO (19:26)
[2022-08-27] MEDS: risperiDONE 1 MG TABLET 0.25 MG PO (19:27)
[2022-08-28] MEDS: ASPIRIN 81 MG TAB.CHEW PO (07:52)
[2022-08-28] MEDS: ACETAMINOPHEN 500 MG TABLET 1000 MG PO ×3 (07:52→19:18)
[2022-08-28] MEDS: ISOSORBIDE MONONITRATE ER 30 MG TAB PO (07:52)
[2022-08-28] MEDS: LOSARTAN POTASSIUM 50 MG TABLET PO (07:53)
[2022-08-28] MEDS: SITAGLIPTIN PHOSPHATE 100 MG TABLET 50 MG PO (07:53)
[2022-08-28] MEDS: METOPROLOL TARTRATE 25 MG TABLET PO ×2 (07:53→16:31)
[2022-08-28] MEDS: GABAPENTIN 300 MG CAPSULE PO ×2 (07:53→16:32)
[2022-08-28] MEDS: FAMOTIDINE 10 MG TABLET PO (07:54)
[2022-08-28] MEDS: SENNOSIDES/DOCUSATE TABLET 1 TAB PO ×2 (07:54→16:32)
[2022-08-28] MEDS: SERTRALINE 100 MG TABLET 125 MG PO (07:54)
[2022-08-28] MEDS: TORSEMIDE 20 MG TABLET 30 MG PO (07:54)
[2022-08-28] MEDS: CETIRIZINE HCL 10 MG TABLET PO (07:55)
[2022-08-28] MEDS: INSULIN LISPRO 100 UNIT/ML VIAL 24 UNIT SUBCUT ×3 (08:36→17:40)
[2022-08-28] MEDS: OXYCODONE 5 MG TABLET PO (13:25)
[2022-08-28] MEDS: risperiDONE 1 MG TABLET 0.25 MG PO (19:18)
[2022-08-28] MEDS: ATORVASTATIN CALCIUM 40 MG TABLET PO (19:18)
[2022-08-29] MEDS: ACETAMINOPHEN 500 MG TABLET 1000 MG PO ×3 (08:09→19:43)
[2022-08-29] MEDS: ASPIRIN 81 MG TAB.CHEW PO (08:09)
[2022-08-29] MEDS: ISOSORBIDE MONONITRATE ER 30 MG TAB PO (08:10)
[2022-08-29] MEDS: SITAGLIPTIN PHOSPHATE 100 MG TABLET 50 MG PO (08:10)
[2022-08-29] MEDS: METOPROLOL TARTRATE 25 MG TABLET PO ×2 (08:11→15:27)
[2022-08-29] MEDS: FAMOTIDINE 10 MG TABLET PO (08:11)
[2022-08-29] MEDS: LOSARTAN POTASSIUM 50 MG TABLET PO (08:11)
[2022-08-29] MEDS: GABAPENTIN 300 MG CAPSULE PO ×2 (08:11→15:27)
[2022-08-29] MEDS: TORSEMIDE 20 MG TABLET 30 MG PO (08:12)
[2022-08-29] MEDS: SENNOSIDES/DOCUSATE TABLET 1 TAB PO ×2 (08:12→15:27)
[2022-08-29] MEDS: CETIRIZINE HCL 10 MG TABLET PO (08:13)
[2022-08-29] MEDS: SERTRALINE 100 MG TABLET 125 MG PO (08:13)
[2022-08-29] MEDS: INSULIN LISPRO 100 UNIT/ML VIAL 24 UNIT SUBCUT ×3 (08:45→16:58)
--- NOTE | 2022-08-29 11:00 | PC.NURSE ---
Okay to discontinue TEDS d/t resident refusal by Ernst WHTIMAN.
[2022-08-29] MEDS: ATORVASTATIN CALCIUM 40 MG TABLET PO (19:43)
[2022-08-29] MEDS: risperiDONE 1 MG TABLET 0.25 MG PO (19:44)
--- NOTE | 2022-08-29 21:51 | PC.NURSE ---
20:00 Resident reported to staff she Lost her Left Hearing Aide in bed last night. Staff looked through bed/bedding, floor, room, without finding hearing aide.
--- NOTE | 2022-08-30 01:26 | PC.NURSE ---
Weekly Charting Week 3. Toileting and Skin. Vitals signs reviewed with no concerns. Comprehensive and temporary care plan reviewed with no changes made. ?Resident is mostly incontinent of bladder and has occasional bowel incontinence. Check and changes at 1st, 2nd and lat last round by staff. Wears briefs. Pads, bailey cares, clothing managed by staff. Skin is clear and intact. Skin check done on bath days and during cares.
--- NOTE | 2022-08-30 06:52 | PC.NURSE ---
Weekly Charting, Week 3 - Toileting: Comprehensive and temporary care plan reviewed. No changes made. Temporary care plan updated: 08/27 Treated with ABO for UTI. Resident is mostly incontinent of bladder with some control, has occasional bowel incontinence. Needs one assist with toileting. Transfers/ambulates to the toilet with one assist, gait belt and 4ww. Wears briefs. Pads, bailey cares, clothing managed by staff. Vital signs reviewed, no concerns. Weights checked 3x/week, is stable. VISION REHABILITATION THERAPIST to evaluate. Skin: Has bilateral LE's edema. Has an order for TEDS, was discontinued d/t refusal. Encourage to elevate extremities as much as possible. Skin is checked routinely and on bath day.
[2022-08-30] MEDS: ACETAMINOPHEN 500 MG TABLET 1000 MG PO ×3 (07:40→20:00)
[2022-08-30] MEDS: ASPIRIN 81 MG TAB.CHEW PO (07:40)
[2022-08-30] MEDS: LOSARTAN POTASSIUM 50 MG TABLET PO (07:43)
[2022-08-30] MEDS: SENNOSIDES/DOCUSATE TABLET 1 TAB PO ×2 (07:43→16:12)
[2022-08-30] MEDS: METOPROLOL TARTRATE 25 MG TABLET PO ×2 (07:43→16:12)
[2022-08-30] MEDS: CETIRIZINE HCL 10 MG TABLET PO (07:43)
[2022-08-30] MEDS: SERTRALINE 100 MG TABLET 125 MG PO (07:43)
[2022-08-30] MEDS: FAMOTIDINE 10 MG TABLET PO (07:43)
[2022-08-30] MEDS: SITAGLIPTIN PHOSPHATE 100 MG TABLET 50 MG PO (07:43)
[2022-08-30] MEDS: GABAPENTIN 300 MG CAPSULE PO ×2 (07:43→16:15)
[2022-08-30] MEDS: TORSEMIDE 20 MG TABLET 30 MG PO (07:43)
[2022-08-30] MEDS: ISOSORBIDE MONONITRATE ER 30 MG TAB PO (07:43)
[2022-08-30] MEDS: INSULIN LISPRO 100 UNIT/ML VIAL 24 UNIT SUBCUT ×3 (08:19→18:35)
[2022-08-30] MEDS: ATORVASTATIN CALCIUM 40 MG TABLET PO (20:00)
[2022-08-30] MEDS: risperiDONE 1 MG TABLET 0.25 MG PO (20:01)
[2022-08-31] MEDS: SITAGLIPTIN PHOSPHATE 100 MG TABLET 50 MG PO (08:28)
[2022-08-31] MEDS: ASPIRIN 81 MG TAB.CHEW PO (08:28)
[2022-08-31] MEDS: LOSARTAN POTASSIUM 50 MG TABLET PO (08:28)
[2022-08-31] MEDS: ISOSORBIDE MONONITRATE ER 30 MG TAB PO (08:28)
[2022-08-31] MEDS: ACETAMINOPHEN 500 MG TABLET 1000 MG PO ×3 (08:28→19:53)
[2022-08-31] MEDS: CETIRIZINE HCL 10 MG TABLET PO (08:29)
[2022-08-31] MEDS: METOPROLOL TARTRATE 25 MG TABLET PO ×2 (08:29→16:40)
[2022-08-31] MEDS: SENNOSIDES/DOCUSATE TABLET 1 TAB PO ×2 (08:29→16:41)
[2022-08-31] MEDS: SERTRALINE 100 MG TABLET 125 MG PO (08:29)
[2022-08-31] MEDS: TORSEMIDE 20 MG TABLET 30 MG PO (08:29)
[2022-08-31] MEDS: FAMOTIDINE 10 MG TABLET PO (08:29)
[2022-08-31] MEDS: GABAPENTIN 300 MG CAPSULE PO ×2 (08:29→16:41)
[2022-08-31] MEDS: INSULIN LISPRO 100 UNIT/ML VIAL 24 UNIT SUBCUT ×3 (08:46→19:53)
--- NOTE | 2022-08-31 11:39 | PC.NURSE ---
Status/Order: SHOVEL LOGGER reported resident c/o not feeling well - weakness, confused, legs shaking. NUT FORMER, Ernst here & updated. CBC added for 09/04, continue to monitor.
[2022-08-31] MEDS: ATORVASTATIN CALCIUM 40 MG TABLET PO (19:53)
[2022-08-31] MEDS: risperiDONE 1 MG TABLET 0.25 MG PO (19:55)
[2022-09-01] MEDS: ASPIRIN 81 MG TAB.CHEW PO (08:13)
[2022-09-01] MEDS: ACETAMINOPHEN 500 MG TABLET 1000 MG PO ×3 (08:13→20:08)
[2022-09-01] MEDS: ISOSORBIDE MONONITRATE ER 30 MG TAB PO (08:14)
[2022-09-01] MEDS: LOSARTAN POTASSIUM 50 MG TABLET PO (08:14)
[2022-09-01] MEDS: METOPROLOL TARTRATE 25 MG TABLET PO ×2 (08:14→16:48)
[2022-09-01] MEDS: SITAGLIPTIN PHOSPHATE 100 MG TABLET 50 MG PO (08:14)
[2022-09-01] MEDS: TORSEMIDE 20 MG TABLET 30 MG PO (08:15)
[2022-09-01] MEDS: GABAPENTIN 300 MG CAPSULE PO ×2 (08:15→16:48)
[2022-09-01] MEDS: SENNOSIDES/DOCUSATE TABLET 1 TAB PO ×2 (08:15→16:48)
[2022-09-01] MEDS: FAMOTIDINE 10 MG TABLET PO (08:15)
[2022-09-01] MEDS: SERTRALINE 100 MG TABLET 125 MG PO (08:18)
[2022-09-01] MEDS: CETIRIZINE HCL 10 MG TABLET PO (08:18)
[2022-09-01] MEDS: INSULIN LISPRO 100 UNIT/ML VIAL 24 UNIT SUBCUT ×3 (08:24→17:35)
[2022-09-01] MEDS: risperiDONE 1 MG TABLET 0.25 MG PO (20:08)
[2022-09-01] MEDS: ATORVASTATIN CALCIUM 40 MG TABLET PO (20:08)
[2022-09-02] MEDS: ASPIRIN 81 MG TAB.CHEW PO (07:52)
[2022-09-02] MEDS: ACETAMINOPHEN 500 MG TABLET 1000 MG PO ×3 (07:52→19:44)
[2022-09-02] MEDS: SITAGLIPTIN PHOSPHATE 100 MG TABLET 50 MG PO (07:53)
[2022-09-02] MEDS: ISOSORBIDE MONONITRATE ER 30 MG TAB PO (07:53)
[2022-09-02] MEDS: LOSARTAN POTASSIUM 50 MG TABLET PO (07:53)
[2022-09-02] MEDS: GABAPENTIN 300 MG CAPSULE PO ×2 (07:54→15:10)
[2022-09-02] MEDS: SENNOSIDES/DOCUSATE TABLET 1 TAB PO ×2 (07:54→15:10)
[2022-09-02] MEDS: METOPROLOL TARTRATE 25 MG TABLET PO ×2 (07:54→15:10)
[2022-09-02] MEDS: FAMOTIDINE 10 MG TABLET PO (07:54)
[2022-09-02] MEDS: TORSEMIDE 20 MG TABLET 30 MG PO (07:54)
[2022-09-02] MEDS: CETIRIZINE HCL 10 MG TABLET PO (07:55)
[2022-09-02] MEDS: SERTRALINE 100 MG TABLET 125 MG PO (07:55)
[2022-09-02] MEDS: INSULIN LISPRO 100 UNIT/ML VIAL 24 UNIT SUBCUT ×3 (09:25→17:00)
[2022-09-02 12:58] VITALS: BP 109/68; BP 120/65
[2022-09-02] MEDS: ATORVASTATIN CALCIUM 40 MG TABLET PO (19:44)
[2022-09-02] MEDS: risperiDONE 1 MG TABLET 0.25 MG PO (19:44)
[2022-09-03] MEDS: ASPIRIN 81 MG TAB.CHEW PO (08:04)
[2022-09-03] MEDS: ACETAMINOPHEN 500 MG TABLET 1000 MG PO ×3 (08:04→19:25)
[2022-09-03] MEDS: LOSARTAN POTASSIUM 50 MG TABLET PO (08:05)
[2022-09-03] MEDS: ISOSORBIDE MONONITRATE ER 30 MG TAB PO (08:05)
[2022-09-03] MEDS: SITAGLIPTIN PHOSPHATE 100 MG TABLET 50 MG PO (08:05)
[2022-09-03] MEDS: GABAPENTIN 300 MG CAPSULE PO ×2 (08:06→15:01)
[2022-09-03] MEDS: TORSEMIDE 20 MG TABLET 30 MG PO (08:06)
[2022-09-03] MEDS: METOPROLOL TARTRATE 25 MG TABLET PO ×2 (08:06→15:01)
[2022-09-03] MEDS: FAMOTIDINE 10 MG TABLET PO (08:06)
[2022-09-03] MEDS: SENNOSIDES/DOCUSATE TABLET 1 TAB PO ×2 (08:06→15:01)
[2022-09-03] MEDS: SERTRALINE 100 MG TABLET 125 MG PO (08:08)
[2022-09-03] MEDS: CETIRIZINE HCL 10 MG TABLET PO (08:08)
[2022-09-03] MEDS: INSULIN LISPRO 100 UNIT/ML VIAL 24 UNIT SUBCUT ×3 (08:39→16:37)
[2022-09-03 10:25] VITALS: BMI 43.0
[2022-09-03 13:07] VITALS: BP 100/60; PULSE 64; RESP 18; TEMP 36.6; O2SAT 90
--- NOTE | 2022-09-03 13:10 | PC.NURSE ---
Dizziness: Resident c/o dizziness after bath. Vital sign assessment was taken T 97.8, P 64, BP 98/60, R18 and O2 90. [place] much better after lunch and recheck BP was 100/60
[2022-09-03] MEDS: ATORVASTATIN CALCIUM 40 MG TABLET PO (19:25)
[2022-09-03] MEDS: risperiDONE 1 MG TABLET 0.25 MG PO (19:26)
[2022-09-04 07:39] LABS: Basophils Absolute Auto 0.04 K/uL (0.00-0.30); Basophils Percent Auto 0.5 % (0.0-3.0); Eosinophils Absolute Auto 0.38 K/uL (0.00-0.50); Eosinophils Percent Auto 4.6 % (0.0-7.0); Hematocrit 42.5 % (33.0-51.0); Hemoglobin* 13.4 gm/dL (12.0-16.0); Immature Granulocytes Abs Auto 0.02 K/uL (0.00-0.30); Immature Granulocytes Pct Auto 0.2 %; Lymphocytes Absolute Auto 2.57 K/uL (0.90-2.90); Mean Corpuscular HGB Conc 32 gm/dL (32-36); Mean Corpuscular Hemoglobin 32 pg (26-34); Mean Corpuscular Volume 100 fL (80-100); Monocytes Percent Auto 4.6 % (0.0-11.0); Neutrophils Percent Auto 59.1 % (42.0-72.0); Platelet Count* 214 K/uL (140-440); RDW Coefficient of Variation % 13.8 % (11.5-15.5); Red Blood Count 4.25 m/uL (4.00-5.20); Slide Review Reflex No; White Blood Count* 8.29 K/uL (4.50-11.00)
[2022-09-04 07:47] LABS: Chloride* 99 mmol/L (96-114); Potassium* 4.1 mmol/L (3.6-5.1); Sodium* 142 mmol/L (135-149)
[2022-09-04 07:50] LABS: Blood Urea Nitrogen* 35 mg/dL (7-30); Carbon Dioxide* 33 mmol/L (20-32); Creatinine* 1.2 mg/dL (0.5-1.5); Est. Creatinine Clearance* 60.77; Estimated Glomerular Filt Rate 47 ml/min
[2022-09-04 07:51] LABS: Glucose* 194 mg/dL (60-115)
[2022-09-04 08:07] LABS: Hemoglobin A1C* 8.77 % (0-5.6)
[2022-09-04] MEDS: GABAPENTIN 300 MG CAPSULE PO ×2 (08:14→15:54)
[2022-09-04] MEDS: ASPIRIN 81 MG TAB.CHEW PO (08:14)
[2022-09-04] MEDS: FAMOTIDINE 10 MG TABLET PO (08:14)
[2022-09-04] MEDS: METOPROLOL TARTRATE 25 MG TABLET PO ×2 (08:14→15:54)
[2022-09-04] MEDS: SITAGLIPTIN PHOSPHATE 100 MG TABLET 50 MG PO (08:14)
[2022-09-04] MEDS: LOSARTAN POTASSIUM 50 MG TABLET PO (08:14)
[2022-09-04] MEDS: SENNOSIDES/DOCUSATE TABLET 1 TAB PO ×2 (08:14→15:54)
[2022-09-04] MEDS: ISOSORBIDE MONONITRATE ER 30 MG TAB PO (08:14)
[2022-09-04] MEDS: ACETAMINOPHEN 500 MG TABLET 1000 MG PO ×3 (08:14→19:50)
[2022-09-04] MEDS: TORSEMIDE 20 MG TABLET 30 MG PO (08:15)
[2022-09-04] MEDS: CETIRIZINE HCL 10 MG TABLET PO (08:15)
[2022-09-04] MEDS: SERTRALINE 100 MG TABLET 125 MG PO (08:15)
[2022-09-04] MEDS: INSULIN LISPRO 100 UNIT/ML VIAL 24 UNIT SUBCUT ×3 (08:33→17:58)
--- NOTE | 2022-09-04 09:49 | PC.NURSE ---
Lab note: CBC and BMP results received from today. Abnormal values include HbA1C elevated at 8.77, glucose elevated at 194, carbon dioxide elevated at 33 and BUN elevated at 35. Note left in DIAMOND WHEEL MOLDER binder for provider to review on 09/05/22.
[2022-09-04] MEDS: ATORVASTATIN CALCIUM 40 MG TABLET PO (19:50)
[2022-09-04] MEDS: risperiDONE 1 MG TABLET 0.25 MG PO (19:51)
[2022-09-05] MEDS: ASPIRIN 81 MG TAB.CHEW PO (08:33)
[2022-09-05] MEDS: ACETAMINOPHEN 500 MG TABLET 1000 MG PO ×3 (08:33→19:36)
[2022-09-05] MEDS: LOSARTAN POTASSIUM 50 MG TABLET PO (08:34)
[2022-09-05] MEDS: METOPROLOL TARTRATE 25 MG TABLET PO ×2 (08:34→15:51)
[2022-09-05] MEDS: ISOSORBIDE MONONITRATE ER 30 MG TAB PO (08:34)
[2022-09-05] MEDS: SITAGLIPTIN PHOSPHATE 100 MG TABLET 50 MG PO (08:34)
[2022-09-05] MEDS: TORSEMIDE 20 MG TABLET 30 MG PO (08:35)
[2022-09-05] MEDS: FAMOTIDINE 10 MG TABLET PO (08:35)
[2022-09-05] MEDS: SENNOSIDES/DOCUSATE TABLET 1 TAB PO ×2 (08:35→15:51)
[2022-09-05] MEDS: GABAPENTIN 300 MG CAPSULE PO ×2 (08:35→15:51)
[2022-09-05] MEDS: SERTRALINE 100 MG TABLET 125 MG PO (08:36)
[2022-09-05] MEDS: CETIRIZINE HCL 10 MG TABLET PO (08:36)
[2022-09-05] MEDS: INSULIN LISPRO 100 UNIT/ML VIAL 24 UNIT SUBCUT (08:45)
--- NOTE | 2022-09-05 11:35 | PC.NURSE ---
Labs/Order: Ernst WHITMAN here. BMP, A1C results reviewed. Increase Humalog Insulin 24 units to 30 units, recheck AIC on 12/06.
[2022-09-05] MEDS: INSULIN LISPRO 100 UNIT/ML VIAL 30 UNIT SUBCUT ×2 (12:24→17:28)
[2022-09-05] MEDS: risperiDONE 1 MG TABLET 0.25 MG PO (19:36)
[2022-09-05] MEDS: ATORVASTATIN CALCIUM 40 MG TABLET PO (19:36)
--- NOTE | 2022-09-06 04:13 | PC.NURSE ---
Weekly charting week 4 : communication hearing/vision, cognition/behaviors Regarding Vitals, were reviewed by ENTERTAINMENT MANAGER, will continue? weight monitoring 3x/week due to increase in Torsemide. Change blood pressure monitoring to weekly. Will have ENTERTAINMENT MANAGER review weights. Comprehensive and temporary care plan reviewed, HS Risperidone tapered, stop 08/17. No changes noted in communication,hearing, vision, or orientation. Resident is Citizen Of [place] speaking, needs an general internist and physician leader and has a white board and Ipad? in room for communication. Can understand Russian more than she talks. Hearing is fine. Wears glasses to correct vision. Alert, oriented x 3 with some forgetfulness. Cognition intact. Health condition stable. All medications administered by Nurse. Mood/Behavior: No issues documented. Receives Zoloft 125mg daily.
[2022-09-06] MEDS: ASPIRIN 81 MG TAB.CHEW PO (08:31)
[2022-09-06] MEDS: ACETAMINOPHEN 500 MG TABLET 1000 MG PO ×3 (08:31→19:13)
[2022-09-06] MEDS: ISOSORBIDE MONONITRATE ER 30 MG TAB PO (08:32)
[2022-09-06] MEDS: SITAGLIPTIN PHOSPHATE 100 MG TABLET 50 MG PO (08:36)
[2022-09-06] MEDS: FAMOTIDINE 10 MG TABLET PO (08:37)
[2022-09-06] MEDS: LOSARTAN POTASSIUM 50 MG TABLET PO (08:37)
[2022-09-06] MEDS: SERTRALINE 100 MG TABLET 125 MG PO (08:37)
[2022-09-06] MEDS: GABAPENTIN 300 MG CAPSULE PO ×2 (08:37→15:12)
[2022-09-06] MEDS: METOPROLOL TARTRATE 25 MG TABLET PO ×2 (08:37→15:12)
[2022-09-06] MEDS: CETIRIZINE HCL 10 MG TABLET PO (08:37)
[2022-09-06] MEDS: TORSEMIDE 20 MG TABLET 30 MG PO (08:37)
[2022-09-06] MEDS: SENNOSIDES/DOCUSATE TABLET 1 TAB PO ×2 (08:37→15:12)
[2022-09-06] MEDS: INSULIN LISPRO 100 UNIT/ML VIAL 30 UNIT SUBCUT ×3 (08:47→17:28)
--- NOTE | 2022-09-06 12:35 | PC.PHA1 ---
CUPOLA TAPPER PHARMACIST'S MEDICATION REVIEW: MEDICATION MONITORING:Risperidone 0.25 mg po hs, GDR in process with goal of September 2022 discontinuation Sertraline 125 mg po daily IRREGULARITY OR COMMENTS:Patient had UTI this past month and was treated with Macrobid 100 mg bid. Blood sugar increases also noted around time of UTI. Sertraline GDR not recommended at this time due to current GDR of risperidone. SUGGESTED COURSE OF ACTION TAKEN:No medication recommendations this review.
[2022-09-06] MEDS: ATORVASTATIN CALCIUM 40 MG TABLET PO (19:13)
[2022-09-06] MEDS: risperiDONE 1 MG TABLET 0.25 MG PO (19:13)
--- NOTE | 2022-09-06 21:49 | PC.NURSE ---
WEEKLY CHARTING - WEEK 4: Vital signs reviewed - no concerns. Temporary and comprehensive care plans reviewed - no change made at this time. Wears prescription glasses for visual deficit. Able to communicate needs appropriately, but staff also anticipates needs and provides the necessary care. Although resident has occasional forgetfulness, is alert and oriented to self, family, and situation. Mother tongue is Hong [place]er - uses iPad or in person parts interpreter for all communication - also comprehends little French. No medication changes at this time. All medication administered by staff nurses. No change from baseline with hearing ability. Behavior/Mood: Mood stable at this time. Resident is on psychotropics such as Zoloft 125 mg daily, and Risperidone 0.25 mg at bed time due to history of visual hallucinations. Being monitored every shift for psychotropic adverse side effects, but none noted, reported, or documented so far.
[2022-09-07] MEDS: ASPIRIN 81 MG TAB.CHEW PO (07:59)
[2022-09-07] MEDS: ACETAMINOPHEN 500 MG TABLET 1000 MG PO ×3 (07:59→20:04)
[2022-09-07] MEDS: METOPROLOL TARTRATE 25 MG TABLET PO ×2 (08:00→15:48)
[2022-09-07] MEDS: LOSARTAN POTASSIUM 50 MG TABLET PO (08:00)
[2022-09-07] MEDS: SITAGLIPTIN PHOSPHATE 100 MG TABLET 50 MG PO (08:00)
[2022-09-07] MEDS: ISOSORBIDE MONONITRATE ER 30 MG TAB PO (08:00)
[2022-09-07] MEDS: GABAPENTIN 300 MG CAPSULE PO ×2 (08:01→15:48)
[2022-09-07] MEDS: FAMOTIDINE 10 MG TABLET PO (08:01)
[2022-09-07] MEDS: TORSEMIDE 20 MG TABLET 30 MG PO (08:07)
[2022-09-07] MEDS: SENNOSIDES/DOCUSATE TABLET 1 TAB PO ×2 (08:07→15:48)
[2022-09-07] MEDS: SERTRALINE 100 MG TABLET 125 MG PO (08:07)
[2022-09-07] MEDS: CETIRIZINE HCL 10 MG TABLET PO (08:07)
[2022-09-07] MEDS: INSULIN LISPRO 100 UNIT/ML VIAL 30 UNIT SUBCUT ×3 (08:23→16:57)
[2022-09-07] MEDS: ATORVASTATIN CALCIUM 40 MG TABLET PO (20:04)
[2022-09-07] MEDS: risperiDONE 1 MG TABLET 0.25 MG PO (20:05)
[2022-09-08] MEDS: SITAGLIPTIN PHOSPHATE 100 MG TABLET 50 MG PO (07:26)
[2022-09-08] MEDS: ASPIRIN 81 MG TAB.CHEW PO (07:26)
[2022-09-08] MEDS: ACETAMINOPHEN 500 MG TABLET 1000 MG PO ×3 (07:26→19:33)
[2022-09-08] MEDS: ISOSORBIDE MONONITRATE ER 30 MG TAB PO (07:26)
[2022-09-08] MEDS: FAMOTIDINE 10 MG TABLET PO (07:27)
[2022-09-08] MEDS: METOPROLOL TARTRATE 25 MG TABLET PO ×2 (07:27→16:40)
[2022-09-08] MEDS: GABAPENTIN 300 MG CAPSULE PO ×2 (07:27→16:40)
[2022-09-08] MEDS: SENNOSIDES/DOCUSATE TABLET 1 TAB PO ×2 (07:27→16:40)
[2022-09-08] MEDS: LOSARTAN POTASSIUM 50 MG TABLET PO (07:27)
[2022-09-08] MEDS: CETIRIZINE HCL 10 MG TABLET PO (07:29)
[2022-09-08] MEDS: TORSEMIDE 20 MG TABLET 30 MG PO (07:29)
[2022-09-08] MEDS: SERTRALINE 100 MG TABLET 125 MG PO (07:30)
[2022-09-08] MEDS: INSULIN LISPRO 100 UNIT/ML VIAL 30 UNIT SUBCUT ×3 (08:56→17:27)
[2022-09-08] MEDS: risperiDONE 1 MG TABLET 0.25 MG PO (19:33)
[2022-09-08] MEDS: ATORVASTATIN CALCIUM 40 MG TABLET PO (19:34)
[2022-09-09] MEDS: ISOSORBIDE MONONITRATE ER 30 MG TAB PO (08:47)
[2022-09-09] MEDS: ASPIRIN 81 MG TAB.CHEW PO (08:47)
[2022-09-09] MEDS: GABAPENTIN 300 MG CAPSULE PO ×2 (08:47→15:57)
[2022-09-09] MEDS: LOSARTAN POTASSIUM 50 MG TABLET PO (08:47)
[2022-09-09] MEDS: FAMOTIDINE 10 MG TABLET PO (08:47)
[2022-09-09] MEDS: ACETAMINOPHEN 500 MG TABLET 1000 MG PO ×3 (08:47→19:50)
[2022-09-09] MEDS: METOPROLOL TARTRATE 25 MG TABLET PO ×2 (08:47→15:56)
[2022-09-09] MEDS: SITAGLIPTIN PHOSPHATE 100 MG TABLET 50 MG PO (08:47)
[2022-09-09] MEDS: CETIRIZINE HCL 10 MG TABLET PO (08:48)
[2022-09-09] MEDS: TORSEMIDE 20 MG TABLET 30 MG PO (08:48)
[2022-09-09] MEDS: SERTRALINE 100 MG TABLET 125 MG PO (08:48)
[2022-09-09] MEDS: SENNOSIDES/DOCUSATE TABLET 1 TAB PO ×2 (08:48→15:56)
[2022-09-09] MEDS: INSULIN LISPRO 100 UNIT/ML VIAL 30 UNIT SUBCUT ×3 (08:56→17:29)
[2022-09-09] MEDS: ATORVASTATIN CALCIUM 40 MG TABLET PO (19:50)
[2022-09-09] MEDS: risperiDONE 1 MG TABLET 0.25 MG PO (20:02)
[2022-09-10 07:00] VITALS: BP 116/69; PULSE 74; RESP 18; TEMP 36.8; O2SAT 94; BMI 42.0
[2022-09-10] MEDS: ISOSORBIDE MONONITRATE ER 30 MG TAB PO (08:31)
[2022-09-10] MEDS: ASPIRIN 81 MG TAB.CHEW PO (08:31)
[2022-09-10] MEDS: GABAPENTIN 300 MG CAPSULE PO ×2 (08:31→15:43)
[2022-09-10] MEDS: ACETAMINOPHEN 500 MG TABLET 1000 MG PO ×3 (08:31→19:51)
[2022-09-10] MEDS: LOSARTAN POTASSIUM 50 MG TABLET PO (08:31)
[2022-09-10] MEDS: METOPROLOL TARTRATE 25 MG TABLET PO ×2 (08:31→15:43)
[2022-09-10] MEDS: SITAGLIPTIN PHOSPHATE 100 MG TABLET 50 MG PO (08:31)
[2022-09-10] MEDS: CETIRIZINE HCL 10 MG TABLET PO (08:32)
[2022-09-10] MEDS: SERTRALINE 100 MG TABLET 125 MG PO (08:32)
[2022-09-10] MEDS: TORSEMIDE 20 MG TABLET 30 MG PO (08:32)
[2022-09-10] MEDS: FAMOTIDINE 10 MG TABLET PO (08:32)
[2022-09-10] MEDS: SENNOSIDES/DOCUSATE TABLET 1 TAB PO ×2 (08:32→15:43)
[2022-09-10] MEDS: INSULIN LISPRO 100 UNIT/ML VIAL 30 UNIT SUBCUT ×3 (08:56→17:13)
[2022-09-10] MEDS: risperiDONE 1 MG TABLET 0.25 MG PO (19:51)
[2022-09-10] MEDS: ATORVASTATIN CALCIUM 40 MG TABLET PO (19:51)
[2022-09-11] MEDS: ACETAMINOPHEN 500 MG TABLET 1000 MG PO ×3 (07:36→20:40)
[2022-09-11] MEDS: FAMOTIDINE 10 MG TABLET PO (07:38)
[2022-09-11] MEDS: CETIRIZINE HCL 10 MG TABLET PO (07:38)
[2022-09-11] MEDS: METOPROLOL TARTRATE 25 MG TABLET PO ×2 (07:38→16:19)
[2022-09-11] MEDS: LOSARTAN POTASSIUM 50 MG TABLET PO (07:38)
[2022-09-11] MEDS: ISOSORBIDE MONONITRATE ER 30 MG TAB PO (07:38)
[2022-09-11] MEDS: GABAPENTIN 300 MG CAPSULE PO ×2 (07:38→16:19)
[2022-09-11] MEDS: SERTRALINE 100 MG TABLET 125 MG PO (07:38)
[2022-09-11] MEDS: TORSEMIDE 20 MG TABLET 30 MG PO (07:38)
[2022-09-11] MEDS: SITAGLIPTIN PHOSPHATE 100 MG TABLET 50 MG PO (07:38)
[2022-09-11] MEDS: SENNOSIDES/DOCUSATE TABLET 1 TAB PO ×2 (07:38→16:19)
[2022-09-11] MEDS: ASPIRIN 81 MG TAB.CHEW PO (07:39)
[2022-09-11] MEDS: INSULIN LISPRO 100 UNIT/ML VIAL 30 UNIT SUBCUT ×3 (08:39→19:02)
[2022-09-11] MEDS: ATORVASTATIN CALCIUM 40 MG TABLET PO (20:40)
[2022-09-11] MEDS: risperiDONE 1 MG TABLET 0.25 MG PO (20:40)
[2022-09-12] MEDS: SITAGLIPTIN PHOSPHATE 100 MG TABLET 50 MG PO (07:59)
[2022-09-12] MEDS: ACETAMINOPHEN 500 MG TABLET 1000 MG PO ×3 (07:59→19:32)
[2022-09-12] MEDS: METOPROLOL TARTRATE 25 MG TABLET PO ×2 (07:59→15:06)
[2022-09-12] MEDS: TORSEMIDE 20 MG TABLET 30 MG PO (07:59)
[2022-09-12] MEDS: FAMOTIDINE 10 MG TABLET PO (07:59)
[2022-09-12] MEDS: SENNOSIDES/DOCUSATE TABLET 1 TAB PO ×2 (07:59→15:06)
[2022-09-12] MEDS: ISOSORBIDE MONONITRATE ER 30 MG TAB PO (07:59)
[2022-09-12] MEDS: ASPIRIN 81 MG TAB.CHEW PO (07:59)
[2022-09-12] MEDS: LOSARTAN POTASSIUM 50 MG TABLET PO (07:59)
[2022-09-12] MEDS: GABAPENTIN 300 MG CAPSULE PO ×2 (07:59→15:06)
[2022-09-12] MEDS: CETIRIZINE HCL 10 MG TABLET PO (08:00)
[2022-09-12] MEDS: SERTRALINE 100 MG TABLET 125 MG PO (08:00)
[2022-09-12] MEDS: INSULIN LISPRO 100 UNIT/ML VIAL 30 UNIT SUBCUT ×3 (08:39→16:47)
[2022-09-12] MEDS: ATORVASTATIN CALCIUM 40 MG TABLET PO (19:32)
[2022-09-12] MEDS: risperiDONE 1 MG TABLET 0.25 MG PO (19:32)
--- NOTE | 2022-09-13 02:16 | PC.NURSE ---
Weekly Charting Week 1: Vital signs reviewed with no concerns. Temporary and comprehensive care plan reviewed with no changes made. Has? history of chronic bilateral knee pain. Receives acetaminophen 1000mg TID and gabapentin 300mg BID.? oxycodone 5mg BID PRN, Diclofenac gel to is applied to bilateral knees BID seems to be effective. Able to report pain verbally.? Res is? assist of 1 with dressing, grooming, and bathing. Able to complete oral cares independently after set-up. On diabetic diet with regular textures and thin liquids. No chewing/swallowing problem noted. Eats independently after set up.
--- NOTE | 2022-09-13 06:26 | PC.NURSE ---
Weekly Charting, Week 1-ADL's: Comprehensive & temporary care plan reviewed. No changes made and nothing added to temporary care plan. Resident needs one assist with dressing, grooming, and bathing. Is able to participate. Does oral cares after set up. Feed self after set up. Is on diabetic diet, thin liquids. No problems with chewing/swallowing reported. Vital reviewed, continue weekly monitoring & weights 3x/week. Weights stable ,ROLL WRAPPER reviewed with no change.? Accu checks occasional highs. Insulin adjustment done last week. Continue with accu checks BID. Pain: Has chronic bilateral knee pain. Is managed with Tylenol BID, Neurontin 300mg BID, Diclofenac gel to knees QID..? And Oxycodone 5 mg BID PRN ordered. And has used occasionally? with relief. Is able to verbalize need for pain.
[2022-09-13] MEDS: ASPIRIN 81 MG TAB.CHEW PO (08:15)
[2022-09-13] MEDS: ACETAMINOPHEN 500 MG TABLET 1000 MG PO ×3 (08:15→19:38)
[2022-09-13] MEDS: LOSARTAN POTASSIUM 50 MG TABLET PO (08:15)
[2022-09-13] MEDS: ISOSORBIDE MONONITRATE ER 30 MG TAB PO (08:15)
[2022-09-13] MEDS: SITAGLIPTIN PHOSPHATE 100 MG TABLET 50 MG PO (08:15)
[2022-09-13] MEDS: CETIRIZINE HCL 10 MG TABLET PO (08:16)
[2022-09-13] MEDS: METOPROLOL TARTRATE 25 MG TABLET PO ×2 (08:16→16:05)
[2022-09-13] MEDS: SENNOSIDES/DOCUSATE TABLET 1 TAB PO ×2 (08:16→16:05)
[2022-09-13] MEDS: FAMOTIDINE 10 MG TABLET PO (08:16)
[2022-09-13] MEDS: GABAPENTIN 300 MG CAPSULE PO ×2 (08:16→16:15)
[2022-09-13] MEDS: SERTRALINE 100 MG TABLET 125 MG PO (08:16)
[2022-09-13] MEDS: TORSEMIDE 20 MG TABLET 30 MG PO (08:16)
[2022-09-13] MEDS: INSULIN LISPRO 100 UNIT/ML VIAL 30 UNIT SUBCUT ×3 (08:37→17:25)
[2022-09-13] MEDS: ATORVASTATIN CALCIUM 40 MG TABLET PO (19:38)
[2022-09-13] MEDS: risperiDONE 1 MG TABLET 0.25 MG PO (19:38)
[2022-09-14] MEDS: ASPIRIN 81 MG TAB.CHEW PO (07:44)
[2022-09-14] MEDS: ACETAMINOPHEN 500 MG TABLET 1000 MG PO ×3 (07:44→19:24)
[2022-09-14] MEDS: LOSARTAN POTASSIUM 50 MG TABLET PO (07:45)
[2022-09-14] MEDS: ISOSORBIDE MONONITRATE ER 30 MG TAB PO (07:45)
[2022-09-14] MEDS: SITAGLIPTIN PHOSPHATE 100 MG TABLET 50 MG PO (07:45)
[2022-09-14] MEDS: TORSEMIDE 20 MG TABLET 30 MG PO (07:46)
[2022-09-14] MEDS: GABAPENTIN 300 MG CAPSULE PO ×2 (07:46→16:33)
[2022-09-14] MEDS: SENNOSIDES/DOCUSATE TABLET 1 TAB PO ×2 (07:46→16:33)
[2022-09-14] MEDS: FAMOTIDINE 10 MG TABLET PO (07:46)
[2022-09-14] MEDS: METOPROLOL TARTRATE 25 MG TABLET PO ×2 (07:46→16:33)
[2022-09-14] MEDS: CETIRIZINE HCL 10 MG TABLET PO (07:58)
[2022-09-14] MEDS: SERTRALINE 100 MG TABLET 125 MG PO (07:58)
[2022-09-14] MEDS: INSULIN LISPRO 100 UNIT/ML VIAL 30 UNIT SUBCUT ×3 (08:31→17:42)
[2022-09-14] MEDS: risperiDONE 1 MG TABLET 0.25 MG PO (19:25)
[2022-09-14] MEDS: ATORVASTATIN CALCIUM 40 MG TABLET PO (19:25)
[2022-09-15] MEDS: ACETAMINOPHEN 500 MG TABLET 1000 MG PO ×3 (08:12→20:04)
[2022-09-15] MEDS: SENNOSIDES/DOCUSATE TABLET 1 TAB PO ×2 (08:13→15:04)
[2022-09-15] MEDS: GABAPENTIN 300 MG CAPSULE PO ×2 (08:13→15:04)
[2022-09-15] MEDS: LOSARTAN POTASSIUM 50 MG TABLET PO (08:13)
[2022-09-15] MEDS: SITAGLIPTIN PHOSPHATE 100 MG TABLET 50 MG PO (08:13)
[2022-09-15] MEDS: FAMOTIDINE 10 MG TABLET PO (08:13)
[2022-09-15] MEDS: ASPIRIN 81 MG TAB.CHEW PO (08:13)
[2022-09-15] MEDS: TORSEMIDE 20 MG TABLET 30 MG PO (08:13)
[2022-09-15] MEDS: ISOSORBIDE MONONITRATE ER 30 MG TAB PO (08:13)
[2022-09-15] MEDS: METOPROLOL TARTRATE 25 MG TABLET PO ×2 (08:13→15:03)
[2022-09-15] MEDS: SERTRALINE 100 MG TABLET 125 MG PO (08:14)
[2022-09-15] MEDS: CETIRIZINE HCL 10 MG TABLET PO (08:14)
[2022-09-15] MEDS: INSULIN LISPRO 100 UNIT/ML VIAL 30 UNIT SUBCUT ×3 (08:41→16:53)
[2022-09-15] MEDS: risperiDONE 1 MG TABLET 0.25 MG PO (20:04)
[2022-09-15] MEDS: ATORVASTATIN CALCIUM 40 MG TABLET PO (20:04)
[2022-09-16] MEDS: ACETAMINOPHEN 500 MG TABLET 1000 MG PO ×3 (08:18→19:43)
[2022-09-16] MEDS: ASPIRIN 81 MG TAB.CHEW PO (08:18)
[2022-09-16] MEDS: ISOSORBIDE MONONITRATE ER 30 MG TAB PO (08:19)
[2022-09-16] MEDS: LOSARTAN POTASSIUM 50 MG TABLET PO (08:19)
[2022-09-16] MEDS: SITAGLIPTIN PHOSPHATE 100 MG TABLET 50 MG PO (08:19)
[2022-09-16] MEDS: SENNOSIDES/DOCUSATE TABLET 1 TAB PO ×2 (08:20→15:07)
[2022-09-16] MEDS: GABAPENTIN 300 MG CAPSULE PO ×2 (08:20→15:06)
[2022-09-16] MEDS: METOPROLOL TARTRATE 25 MG TABLET PO ×2 (08:20→15:06)
[2022-09-16] MEDS: FAMOTIDINE 10 MG TABLET PO (08:20)
[2022-09-16] MEDS: TORSEMIDE 20 MG TABLET 30 MG PO (08:21)
[2022-09-16] MEDS: CETIRIZINE HCL 10 MG TABLET PO (08:22)
[2022-09-16] MEDS: SERTRALINE 100 MG TABLET 125 MG PO (08:22)
[2022-09-16] MEDS: INSULIN LISPRO 100 UNIT/ML VIAL 30 UNIT SUBCUT ×3 (08:38→16:53)
[2022-09-16] MEDS: risperiDONE 1 MG TABLET 0.25 MG PO (19:43)
[2022-09-16] MEDS: ATORVASTATIN CALCIUM 40 MG TABLET PO (19:43)
[2022-09-17] MEDS: ACETAMINOPHEN 500 MG TABLET 1000 MG PO ×3 (07:44→19:33)
[2022-09-17] MEDS: ASPIRIN 81 MG TAB.CHEW PO (07:44)
[2022-09-17] MEDS: SITAGLIPTIN PHOSPHATE 100 MG TABLET 50 MG PO (07:45)
[2022-09-17] MEDS: ISOSORBIDE MONONITRATE ER 30 MG TAB PO (07:45)
[2022-09-17] MEDS: FAMOTIDINE 10 MG TABLET PO (07:46)
[2022-09-17] MEDS: METOPROLOL TARTRATE 25 MG TABLET PO ×2 (07:46→15:02)
[2022-09-17] MEDS: LOSARTAN POTASSIUM 50 MG TABLET PO (07:46)
[2022-09-17] MEDS: GABAPENTIN 300 MG CAPSULE PO ×2 (07:46→15:02)
[2022-09-17] MEDS: SERTRALINE 100 MG TABLET 125 MG PO (07:49)
[2022-09-17] MEDS: CETIRIZINE HCL 10 MG TABLET PO (07:49)
[2022-09-17] MEDS: TORSEMIDE 20 MG TABLET 30 MG PO (07:49)
[2022-09-17] MEDS: SENNOSIDES/DOCUSATE TABLET 1 TAB PO ×2 (07:49→15:03)
[2022-09-17] MEDS: INSULIN LISPRO 100 UNIT/ML VIAL 30 UNIT SUBCUT ×3 (08:27→17:00)
[2022-09-17 11:05] VITALS: BP 110/69; PULSE 63; RESP 18; TEMP 36.3; O2SAT 95; BMI 48.4
[2022-09-17] MEDS: ATORVASTATIN CALCIUM 40 MG TABLET PO (19:33)
[2022-09-17] MEDS: risperiDONE 1 MG TABLET 0.25 MG PO (19:33)
[2022-09-18] MEDS: ACETAMINOPHEN 500 MG TABLET 1000 MG PO ×3 (07:47→20:25)
[2022-09-18] MEDS: ASPIRIN 81 MG TAB.CHEW PO (07:47)
[2022-09-18] MEDS: ISOSORBIDE MONONITRATE ER 30 MG TAB PO (07:48)
[2022-09-18] MEDS: METOPROLOL TARTRATE 25 MG TABLET PO ×2 (07:48→16:11)
[2022-09-18] MEDS: SENNOSIDES/DOCUSATE TABLET 1 TAB PO ×2 (07:48→16:11)
[2022-09-18] MEDS: GABAPENTIN 300 MG CAPSULE PO ×2 (07:48→16:11)
[2022-09-18] MEDS: LOSARTAN POTASSIUM 50 MG TABLET PO (07:48)
[2022-09-18] MEDS: FAMOTIDINE 10 MG TABLET PO (07:48)
[2022-09-18] MEDS: TORSEMIDE 20 MG TABLET 30 MG PO (07:48)
[2022-09-18] MEDS: SITAGLIPTIN PHOSPHATE 100 MG TABLET 50 MG PO (07:48)
[2022-09-18] MEDS: SERTRALINE 100 MG TABLET 125 MG PO (07:48)
[2022-09-18] MEDS: CETIRIZINE HCL 10 MG TABLET PO (07:48)
[2022-09-18] MEDS: INSULIN LISPRO 100 UNIT/ML VIAL 30 UNIT SUBCUT ×3 (08:35→17:36)
[2022-09-18] MEDS: ATORVASTATIN CALCIUM 40 MG TABLET PO (20:25)
[2022-09-18] MEDS: risperiDONE 1 MG TABLET 0.25 MG PO (20:26)
[2022-09-19] MEDS: ACETAMINOPHEN 500 MG TABLET 1000 MG PO ×3 (07:49→21:30)
[2022-09-19] MEDS: ASPIRIN 81 MG TAB.CHEW PO (07:50)
[2022-09-19] MEDS: SITAGLIPTIN PHOSPHATE 100 MG TABLET 50 MG PO (07:51)
[2022-09-19] MEDS: ISOSORBIDE MONONITRATE ER 30 MG TAB PO (07:51)
[2022-09-19] MEDS: LOSARTAN POTASSIUM 50 MG TABLET PO (07:51)
[2022-09-19] MEDS: FAMOTIDINE 10 MG TABLET PO (07:52)
[2022-09-19] MEDS: METOPROLOL TARTRATE 25 MG TABLET PO ×2 (07:52→15:49)
[2022-09-19] MEDS: GABAPENTIN 300 MG CAPSULE PO ×2 (07:52→15:49)
[2022-09-19] MEDS: SENNOSIDES/DOCUSATE TABLET 1 TAB PO ×2 (07:52→15:49)
[2022-09-19] MEDS: CETIRIZINE HCL 10 MG TABLET PO (07:53)
[2022-09-19] MEDS: TORSEMIDE 20 MG TABLET 30 MG PO (07:53)
[2022-09-19] MEDS: SERTRALINE 100 MG TABLET 125 MG PO (07:53)
[2022-09-19] MEDS: INSULIN LISPRO 100 UNIT/ML VIAL 30 UNIT SUBCUT ×3 (08:08→18:42)
[2022-09-19] MEDS: ATORVASTATIN CALCIUM 40 MG TABLET PO (21:30)
[2022-09-19] MEDS: risperiDONE 1 MG TABLET 0.25 MG PO (21:31)
--- NOTE | 2022-09-20 00:12 | PC.NURSE ---
Weekly Charting Week 2: Mobility. Vital signs reviewed with no concerns. Comprehensive and temporary care plan reviewed with no changes made. Resident requires one staff assist with transfer ambulate with gait belt and 4ww. Extensive assist of one with wheelchair propulsion. 1-2 assist with bed mobility.Has (L) 1/4 side rail up to aid with bed positioning. Use EZ pacs specialist for vertical movement when in bed. No alarms. No falls since admission. Res is a high fall risk. Fall interventions: call light within reach, bed in low position with brakes locked, gripper socks, falling star magnet, keep area free of clutters.
--- NOTE | 2022-09-20 07:53 | PC.NURSE ---
Weekly Charting-Week 2: Mobility Vital signs reviewed with no concerns noted over the last week. Temporary and comprehensive care plans have been reviewed with no changes made. Resident requires extensive assist of 1-2 with bed mobility. Extensive assist of 1 with transferring and limited assist of 1 with ambulation with walker and gait belt used. Total assist of 1 with wheelchair locomotion to and from all destinations. Staff assist resident with repositioning Q3H. 1/4 left side rail utilized to assist with positioning in bed. Resident also has EZ battery plate remover in place for vertical movement when in bed. No alarms used. Resident noted to be high risk for potential fall per latest fall risk assessment completed though no fall noted. Interventions in place to prevent falls include: gripper socks worn, call light within reach, staff anticipating needs, keeping environment free from clutter and bed in lowest position with brakes on. Ambulation Program in place for resident to ambulate 100' BID with SBA and 4WW. Resident has had four refusals of ambulation program documented over the last week.
[2022-09-20] MEDS: ACETAMINOPHEN 500 MG TABLET 1000 MG PO ×3 (08:11→19:20)
[2022-09-20] MEDS: ASPIRIN 81 MG TAB.CHEW PO (08:12)
[2022-09-20] MEDS: ISOSORBIDE MONONITRATE ER 30 MG TAB PO (08:14)
[2022-09-20] MEDS: SITAGLIPTIN PHOSPHATE 100 MG TABLET 50 MG PO (08:14)
[2022-09-20] MEDS: LOSARTAN POTASSIUM 50 MG TABLET PO (08:15)
[2022-09-20] MEDS: FAMOTIDINE 10 MG TABLET PO (08:15)
[2022-09-20] MEDS: TORSEMIDE 20 MG TABLET 30 MG PO (08:15)
[2022-09-20] MEDS: GABAPENTIN 300 MG CAPSULE PO ×2 (08:15→15:42)
[2022-09-20] MEDS: METOPROLOL TARTRATE 25 MG TABLET PO ×2 (08:15→15:42)
[2022-09-20] MEDS: SENNOSIDES/DOCUSATE TABLET 1 TAB PO ×2 (08:15→15:42)
[2022-09-20] MEDS: CETIRIZINE HCL 10 MG TABLET PO (08:16)
[2022-09-20] MEDS: SERTRALINE 100 MG TABLET 125 MG PO (08:16)
[2022-09-20] MEDS: INSULIN LISPRO 100 UNIT/ML VIAL 30 UNIT SUBCUT ×3 (08:17→19:18)
[2022-09-20] MEDS: ATORVASTATIN CALCIUM 40 MG TABLET PO (19:20)
[2022-09-20] MEDS: risperiDONE 1 MG TABLET 0.25 MG PO (19:21)
[2022-09-21] MEDS: ACETAMINOPHEN 500 MG TABLET 1000 MG PO ×3 (08:10→19:48)
[2022-09-21] MEDS: ASPIRIN 81 MG TAB.CHEW PO (08:10)
[2022-09-21] MEDS: ISOSORBIDE MONONITRATE ER 30 MG TAB PO (08:11)
[2022-09-21] MEDS: GABAPENTIN 300 MG CAPSULE PO ×2 (08:11→15:10)
[2022-09-21] MEDS: LOSARTAN POTASSIUM 50 MG TABLET PO (08:11)
[2022-09-21] MEDS: FAMOTIDINE 10 MG TABLET PO (08:11)
[2022-09-21] MEDS: METOPROLOL TARTRATE 25 MG TABLET PO ×2 (08:11→15:10)
[2022-09-21] MEDS: SITAGLIPTIN PHOSPHATE 100 MG TABLET 50 MG PO (08:11)
[2022-09-21] MEDS: TORSEMIDE 20 MG TABLET 30 MG PO (08:12)
[2022-09-21] MEDS: SENNOSIDES/DOCUSATE TABLET 1 TAB PO ×2 (08:12→15:10)
[2022-09-21] MEDS: SERTRALINE 100 MG TABLET 125 MG PO (08:12)
[2022-09-21] MEDS: CETIRIZINE HCL 10 MG TABLET PO (08:12)
[2022-09-21] MEDS: INSULIN LISPRO 100 UNIT/ML VIAL 30 UNIT SUBCUT ×3 (08:25→17:11)
[2022-09-21] MEDS: ATORVASTATIN CALCIUM 40 MG TABLET PO (19:48)
[2022-09-21] MEDS: risperiDONE 1 MG TABLET 0.25 MG PO (19:49)
[2022-09-22] MEDS: ACETAMINOPHEN 500 MG TABLET 1000 MG PO ×3 (07:21→19:27)
[2022-09-22] MEDS: ASPIRIN 81 MG TAB.CHEW PO (07:21)
[2022-09-22] MEDS: SITAGLIPTIN PHOSPHATE 100 MG TABLET 50 MG PO (07:22)
[2022-09-22] MEDS: ISOSORBIDE MONONITRATE ER 30 MG TAB PO (07:22)
[2022-09-22] MEDS: LOSARTAN POTASSIUM 50 MG TABLET PO (07:23)
[2022-09-22] MEDS: METOPROLOL TARTRATE 25 MG TABLET PO ×2 (07:24→15:40)
[2022-09-22] MEDS: GABAPENTIN 300 MG CAPSULE PO ×2 (07:24→15:40)
[2022-09-22] MEDS: FAMOTIDINE 10 MG TABLET PO (07:25)
[2022-09-22] MEDS: SENNOSIDES/DOCUSATE TABLET 1 TAB PO ×2 (07:25→15:40)
[2022-09-22] MEDS: TORSEMIDE 20 MG TABLET 30 MG PO (07:26)
[2022-09-22] MEDS: CETIRIZINE HCL 10 MG TABLET PO (07:27)
[2022-09-22] MEDS: SERTRALINE 100 MG TABLET 125 MG PO (07:27)
[2022-09-22] MEDS: INSULIN LISPRO 100 UNIT/ML VIAL 30 UNIT SUBCUT ×3 (08:40→17:43)
[2022-09-22] MEDS: ATORVASTATIN CALCIUM 40 MG TABLET PO (19:28)
[2022-09-22] MEDS: risperiDONE 1 MG TABLET 0.25 MG PO (19:33)
[2022-09-23] MEDS: ACETAMINOPHEN 500 MG TABLET 1000 MG PO ×3 (07:24→19:51)
[2022-09-23] MEDS: ASPIRIN 81 MG TAB.CHEW PO (07:24)
[2022-09-23] MEDS: ISOSORBIDE MONONITRATE ER 30 MG TAB PO (07:24)
[2022-09-23] MEDS: SENNOSIDES/DOCUSATE TABLET 1 TAB PO ×2 (07:25→15:07)
[2022-09-23] MEDS: LOSARTAN POTASSIUM 50 MG TABLET PO (07:25)
[2022-09-23] MEDS: FAMOTIDINE 10 MG TABLET PO (07:25)
[2022-09-23] MEDS: SERTRALINE 100 MG TABLET 125 MG PO (07:25)
[2022-09-23] MEDS: SITAGLIPTIN PHOSPHATE 100 MG TABLET 50 MG PO (07:25)
[2022-09-23] MEDS: GABAPENTIN 300 MG CAPSULE PO ×2 (07:25→15:07)
[2022-09-23] MEDS: CETIRIZINE HCL 10 MG TABLET PO (07:25)
[2022-09-23] MEDS: TORSEMIDE 20 MG TABLET 30 MG PO (07:25)
[2022-09-23] MEDS: METOPROLOL TARTRATE 25 MG TABLET PO ×2 (07:25→15:07)
[2022-09-23] MEDS: INSULIN LISPRO 100 UNIT/ML VIAL 30 UNIT SUBCUT ×3 (08:26→17:33)
[2022-09-23] MEDS: ATORVASTATIN CALCIUM 40 MG TABLET PO (19:51)
[2022-09-23] MEDS: risperiDONE 1 MG TABLET 0.25 MG PO (19:53)
[2022-09-24 07:00] VITALS: BP 110/67; PULSE 65; RESP 18; TEMP 36.4; O2SAT 95
[2022-09-24] MEDS: ACETAMINOPHEN 500 MG TABLET 1000 MG PO ×3 (08:33→19:43)
[2022-09-24] MEDS: ISOSORBIDE MONONITRATE ER 30 MG TAB PO (08:33)
[2022-09-24] MEDS: INSULIN LISPRO 100 UNIT/ML VIAL 30 UNIT SUBCUT ×3 (08:33→17:34)
[2022-09-24] MEDS: ASPIRIN 81 MG TAB.CHEW PO (08:33)
[2022-09-24] MEDS: SITAGLIPTIN PHOSPHATE 100 MG TABLET 50 MG PO (08:34)
[2022-09-24] MEDS: SERTRALINE 100 MG TABLET 125 MG PO (08:34)
[2022-09-24] MEDS: GABAPENTIN 300 MG CAPSULE PO ×2 (08:34→15:53)
[2022-09-24] MEDS: METOPROLOL TARTRATE 25 MG TABLET PO ×2 (08:34→15:52)
[2022-09-24] MEDS: CETIRIZINE HCL 10 MG TABLET PO (08:34)
[2022-09-24] MEDS: SENNOSIDES/DOCUSATE TABLET 1 TAB PO ×2 (08:34→15:53)
[2022-09-24] MEDS: FAMOTIDINE 10 MG TABLET PO (08:34)
[2022-09-24] MEDS: LOSARTAN POTASSIUM 50 MG TABLET PO (08:34)
[2022-09-24] MEDS: TORSEMIDE 20 MG TABLET 30 MG PO (08:34)
[2022-09-24 10:33] VITALS: BMI 42.8
[2022-09-24] MEDS: risperiDONE 1 MG TABLET 0.25 MG PO (19:44)
[2022-09-24] MEDS: ATORVASTATIN CALCIUM 40 MG TABLET PO (19:44)
[2022-09-25] MEDS: ACETAMINOPHEN 500 MG TABLET 1000 MG PO ×3 (07:49→19:24)
[2022-09-25] MEDS: ASPIRIN 81 MG TAB.CHEW PO (07:50)
[2022-09-25] MEDS: LOSARTAN POTASSIUM 50 MG TABLET PO (07:50)
[2022-09-25] MEDS: SITAGLIPTIN PHOSPHATE 100 MG TABLET 50 MG PO (07:50)
[2022-09-25] MEDS: ISOSORBIDE MONONITRATE ER 30 MG TAB PO (07:50)
[2022-09-25] MEDS: GABAPENTIN 300 MG CAPSULE PO ×2 (07:51→15:36)
[2022-09-25] MEDS: FAMOTIDINE 10 MG TABLET PO (07:51)
[2022-09-25] MEDS: METOPROLOL TARTRATE 25 MG TABLET PO ×2 (07:51→15:36)
[2022-09-25] MEDS: SERTRALINE 100 MG TABLET 125 MG PO (07:52)
[2022-09-25] MEDS: CETIRIZINE HCL 10 MG TABLET PO (07:52)
[2022-09-25] MEDS: SENNOSIDES/DOCUSATE TABLET 1 TAB PO ×2 (07:52→15:36)
[2022-09-25] MEDS: TORSEMIDE 20 MG TABLET 30 MG PO (07:52)
[2022-09-25] MEDS: INSULIN LISPRO 100 UNIT/ML VIAL 30 UNIT SUBCUT ×3 (08:59→17:27)
--- NOTE | 2022-09-25 18:21 | PC.NURSE ---
Patient Education: Upon implying and assuming that, the manner at which AccuCheck is performed and Insulin injection is administer in the way she is not familiar with, resident C/0 are the cause of recent increase in her blood sugar levels. As a display of anxiety/worry about high blood sugar values became more apparent, this copywriter implemented two days of nurse/patient education on resident's diet and scheduled diabetic medications with the help of an interoperator. The importance of receiving appropriate diabetic snacks/meals, reassuring how finger prick is done does not determine blood sugar value, and among others were part of the education. Resident comprehended education well. Will follow-up.
[2022-09-25] MEDS: ATORVASTATIN CALCIUM 40 MG TABLET PO (19:25)
[2022-09-25] MEDS: risperiDONE 1 MG TABLET 0.25 MG PO (19:40)
[2022-09-26] MEDS: ACETAMINOPHEN 500 MG TABLET 1000 MG PO ×3 (07:55→20:15)
[2022-09-26] MEDS: ASPIRIN 81 MG TAB.CHEW PO (07:55)
[2022-09-26] MEDS: SITAGLIPTIN PHOSPHATE 100 MG TABLET 50 MG PO (07:56)
[2022-09-26] MEDS: ISOSORBIDE MONONITRATE ER 30 MG TAB PO (07:56)
[2022-09-26] MEDS: GABAPENTIN 300 MG CAPSULE PO ×2 (07:57→15:06)
[2022-09-26] MEDS: FAMOTIDINE 10 MG TABLET PO (07:57)
[2022-09-26] MEDS: LOSARTAN POTASSIUM 50 MG TABLET PO (07:57)
[2022-09-26] MEDS: SENNOSIDES/DOCUSATE TABLET 1 TAB PO ×2 (07:57→15:06)
[2022-09-26] MEDS: METOPROLOL TARTRATE 25 MG TABLET PO ×2 (07:57→15:06)
[2022-09-26] MEDS: CETIRIZINE HCL 10 MG TABLET PO (07:58)
[2022-09-26] MEDS: TORSEMIDE 20 MG TABLET 30 MG PO (07:58)
[2022-09-26] MEDS: SERTRALINE 100 MG TABLET 125 MG PO (07:58)
[2022-09-26] MEDS: INSULIN LISPRO 100 UNIT/ML VIAL 30 UNIT SUBCUT ×2 (08:34→11:51)
--- NOTE | 2022-09-26 13:07 | PC.NURSE ---
Recert Visit: Resident seen by J CARLOS Dukes. [place] reviewed and renewed of 75 days with changes : Discontinue Insulin lispro 30 units TID and start on Insulin Lispro 35 units TID ( 08,12 & 17 hours)
[2022-09-26] MEDS: INSULIN LISPRO 100 UNIT/ML VIAL 35 UNIT SUBCUT (17:03)
[2022-09-26] MEDS: ATORVASTATIN CALCIUM 40 MG TABLET PO (20:15)
[2022-09-27] MEDS: ASPIRIN 81 MG TAB.CHEW PO (08:14)
[2022-09-27] MEDS: ACETAMINOPHEN 500 MG TABLET 1000 MG PO ×3 (08:14→19:27)
[2022-09-27] MEDS: ISOSORBIDE MONONITRATE ER 30 MG TAB PO (08:15)
[2022-09-27] MEDS: METOPROLOL TARTRATE 25 MG TABLET PO ×2 (08:15→15:22)
[2022-09-27] MEDS: SITAGLIPTIN PHOSPHATE 100 MG TABLET 50 MG PO (08:15)
[2022-09-27] MEDS: LOSARTAN POTASSIUM 50 MG TABLET PO (08:15)
[2022-09-27] MEDS: SENNOSIDES/DOCUSATE TABLET 1 TAB PO ×2 (08:16→15:22)
[2022-09-27] MEDS: FAMOTIDINE 10 MG TABLET PO (08:16)
[2022-09-27] MEDS: TORSEMIDE 20 MG TABLET 30 MG PO (08:16)
[2022-09-27] MEDS: GABAPENTIN 300 MG CAPSULE PO ×2 (08:16→15:22)
[2022-09-27] MEDS: CETIRIZINE HCL 10 MG TABLET PO (08:17)
[2022-09-27] MEDS: SERTRALINE 100 MG TABLET 125 MG PO (08:17)
[2022-09-27] MEDS: INSULIN LISPRO 100 UNIT/ML VIAL 35 UNIT SUBCUT ×3 (08:29→17:53)
[2022-09-27] MEDS: ATORVASTATIN CALCIUM 40 MG TABLET PO (19:27)
[2022-09-28] MEDS: ACETAMINOPHEN 500 MG TABLET 1000 MG PO ×3 (08:11→20:23)
[2022-09-28] MEDS: ASPIRIN 81 MG TAB.CHEW PO (08:12)
[2022-09-28] MEDS: ISOSORBIDE MONONITRATE ER 30 MG TAB PO (08:12)
[2022-09-28] MEDS: SITAGLIPTIN PHOSPHATE 100 MG TABLET 50 MG PO (08:12)
[2022-09-28] MEDS: TORSEMIDE 20 MG TABLET 30 MG PO (08:13)
[2022-09-28] MEDS: SENNOSIDES/DOCUSATE TABLET 1 TAB PO ×2 (08:13→15:37)
[2022-09-28] MEDS: FAMOTIDINE 10 MG TABLET PO (08:13)
[2022-09-28] MEDS: GABAPENTIN 300 MG CAPSULE PO ×2 (08:13→15:37)
[2022-09-28] MEDS: LOSARTAN POTASSIUM 50 MG TABLET PO (08:13)
[2022-09-28] MEDS: METOPROLOL TARTRATE 25 MG TABLET PO ×2 (08:13→15:37)
[2022-09-28] MEDS: CETIRIZINE HCL 10 MG TABLET PO (08:14)
[2022-09-28] MEDS: SERTRALINE 100 MG TABLET 125 MG PO (08:14)
[2022-09-28] MEDS: INSULIN LISPRO 100 UNIT/ML VIAL 35 UNIT SUBCUT ×3 (08:58→17:28)
[2022-09-28] MEDS: ATORVASTATIN CALCIUM 40 MG TABLET PO (20:23)
[2022-09-29] MEDS: ACETAMINOPHEN 500 MG TABLET 1000 MG PO ×3 (07:50→19:34)
[2022-09-29] MEDS: ASPIRIN 81 MG TAB.CHEW PO (07:50)
[2022-09-29] MEDS: ISOSORBIDE MONONITRATE ER 30 MG TAB PO (07:51)
[2022-09-29] MEDS: SITAGLIPTIN PHOSPHATE 100 MG TABLET 50 MG PO (07:52)
[2022-09-29] MEDS: LOSARTAN POTASSIUM 50 MG TABLET PO (07:52)
[2022-09-29] MEDS: METOPROLOL TARTRATE 25 MG TABLET PO ×2 (07:52→15:14)
[2022-09-29] MEDS: GABAPENTIN 300 MG CAPSULE PO ×2 (07:53→15:14)
[2022-09-29] MEDS: SENNOSIDES/DOCUSATE TABLET 1 TAB PO ×2 (07:53→15:14)
[2022-09-29] MEDS: FAMOTIDINE 10 MG TABLET PO (07:53)
[2022-09-29] MEDS: TORSEMIDE 20 MG TABLET 30 MG PO (07:53)
[2022-09-29] MEDS: SERTRALINE 100 MG TABLET 125 MG PO (07:54)
[2022-09-29] MEDS: CETIRIZINE HCL 10 MG TABLET PO (07:54)
[2022-09-29] MEDS: INSULIN LISPRO 100 UNIT/ML VIAL 35 UNIT SUBCUT ×3 (08:10→17:02)
--- NOTE | 2022-09-29 09:59 | PC.NURSE ---
Performed glucose monitor testing on 09/28. Glucose monitor and strips confirmed to be accurate. Documented as completed in interventions.
[2022-09-29] MEDS: ATORVASTATIN CALCIUM 40 MG TABLET PO (19:34)
[2022-09-30] MEDS: ACETAMINOPHEN 500 MG TABLET 1000 MG PO ×3 (08:03→20:18)
[2022-09-30] MEDS: ASPIRIN 81 MG TAB.CHEW PO (08:03)
[2022-09-30] MEDS: ISOSORBIDE MONONITRATE ER 30 MG TAB PO (08:04)
[2022-09-30] MEDS: SITAGLIPTIN PHOSPHATE 100 MG TABLET 50 MG PO (08:04)
[2022-09-30] MEDS: METOPROLOL TARTRATE 25 MG TABLET PO ×2 (08:06→14:59)
[2022-09-30] MEDS: LOSARTAN POTASSIUM 50 MG TABLET PO (08:06)
[2022-09-30] MEDS: FAMOTIDINE 10 MG TABLET PO (08:06)
[2022-09-30] MEDS: GABAPENTIN 300 MG CAPSULE PO ×2 (08:06→14:59)
[2022-09-30] MEDS: SENNOSIDES/DOCUSATE TABLET 1 TAB PO ×2 (08:08→14:59)
[2022-09-30] MEDS: SERTRALINE 100 MG TABLET 125 MG PO (08:08)
[2022-09-30] MEDS: CETIRIZINE HCL 10 MG TABLET PO (08:08)
[2022-09-30] MEDS: TORSEMIDE 20 MG TABLET 30 MG PO (08:08)
[2022-09-30] MEDS: INSULIN LISPRO 100 UNIT/ML VIAL 35 UNIT SUBCUT ×3 (08:24→17:00)
[2022-09-30] MEDS: ATORVASTATIN CALCIUM 40 MG TABLET PO (20:18)
[2022-10-01] MEDS: ACETAMINOPHEN 500 MG TABLET 1000 MG PO ×3 (08:11→20:03)
[2022-10-01] MEDS: ASPIRIN 81 MG TAB.CHEW PO (08:11)
[2022-10-01] MEDS: ISOSORBIDE MONONITRATE ER 30 MG TAB PO (08:12)
[2022-10-01] MEDS: LOSARTAN POTASSIUM 50 MG TABLET PO (08:12)
[2022-10-01] MEDS: SITAGLIPTIN PHOSPHATE 100 MG TABLET 50 MG PO (08:12)
[2022-10-01] MEDS: METOPROLOL TARTRATE 25 MG TABLET PO ×2 (08:17→15:06)
[2022-10-01] MEDS: SENNOSIDES/DOCUSATE TABLET 1 TAB PO ×2 (08:17→15:06)
[2022-10-01] MEDS: GABAPENTIN 300 MG CAPSULE PO ×2 (08:17→15:06)
[2022-10-01] MEDS: TORSEMIDE 20 MG TABLET 30 MG PO (08:17)
[2022-10-01] MEDS: FAMOTIDINE 10 MG TABLET PO (08:17)
[2022-10-01] MEDS: CETIRIZINE HCL 10 MG TABLET PO (08:17)
[2022-10-01] MEDS: SERTRALINE 100 MG TABLET 125 MG PO (08:17)
[2022-10-01] MEDS: INSULIN LISPRO 100 UNIT/ML VIAL 35 UNIT SUBCUT ×3 (08:27→17:04)
[2022-10-01 08:37] VITALS: BMI 42.7
[2022-10-01 11:04] VITALS: BP 129/72; PULSE 60; RESP 18; TEMP 36.5; O2SAT 97
[2022-10-01] MEDS: ATORVASTATIN CALCIUM 40 MG TABLET PO (20:03)
[2022-10-02] MEDS: ASPIRIN 81 MG TAB.CHEW PO (07:23)
[2022-10-02] MEDS: ACETAMINOPHEN 500 MG TABLET 1000 MG PO ×3 (07:23→20:25)
[2022-10-02] MEDS: METOPROLOL TARTRATE 25 MG TABLET PO ×2 (07:24→16:18)
[2022-10-02] MEDS: TORSEMIDE 20 MG TABLET 30 MG PO (07:24)
[2022-10-02] MEDS: SERTRALINE 100 MG TABLET 125 MG PO (07:24)
[2022-10-02] MEDS: SENNOSIDES/DOCUSATE TABLET 1 TAB PO ×2 (07:24→16:18)
[2022-10-02] MEDS: SITAGLIPTIN PHOSPHATE 100 MG TABLET 50 MG PO (07:24)
[2022-10-02] MEDS: LOSARTAN POTASSIUM 50 MG TABLET PO (07:24)
[2022-10-02] MEDS: FAMOTIDINE 10 MG TABLET PO (07:24)
[2022-10-02] MEDS: GABAPENTIN 300 MG CAPSULE PO ×2 (07:24→16:18)
[2022-10-02] MEDS: CETIRIZINE HCL 10 MG TABLET PO (07:24)
[2022-10-02] MEDS: ISOSORBIDE MONONITRATE ER 30 MG TAB PO (07:24)
[2022-10-02] MEDS: INSULIN LISPRO 100 UNIT/ML VIAL 35 UNIT SUBCUT ×3 (08:22→19:49)
[2022-10-02 10:50] VITALS: BP 102/63; BP 104/64; BP 108/54
[2022-10-02] MEDS: ATORVASTATIN CALCIUM 40 MG TABLET PO (20:25)
[2022-10-03] MEDS: ACETAMINOPHEN 500 MG TABLET 1000 MG PO ×3 (08:02→19:25)
[2022-10-03] MEDS: ISOSORBIDE MONONITRATE ER 30 MG TAB PO (08:03)
[2022-10-03] MEDS: LOSARTAN POTASSIUM 50 MG TABLET PO (08:03)
[2022-10-03] MEDS: METOPROLOL TARTRATE 25 MG TABLET PO ×2 (08:03→15:48)
[2022-10-03] MEDS: SITAGLIPTIN PHOSPHATE 100 MG TABLET 50 MG PO (08:03)
[2022-10-03] MEDS: GABAPENTIN 300 MG CAPSULE PO ×2 (08:03→15:48)
[2022-10-03] MEDS: ASPIRIN 81 MG TAB.CHEW PO (08:03)
[2022-10-03] MEDS: SENNOSIDES/DOCUSATE TABLET 1 TAB PO ×2 (08:04→15:48)
[2022-10-03] MEDS: SERTRALINE 100 MG TABLET 125 MG PO (08:04)
[2022-10-03] MEDS: TORSEMIDE 20 MG TABLET 30 MG PO (08:04)
[2022-10-03] MEDS: CETIRIZINE HCL 10 MG TABLET PO (08:04)
[2022-10-03] MEDS: FAMOTIDINE 10 MG TABLET PO (08:04)
[2022-10-03] MEDS: INSULIN LISPRO 100 UNIT/ML VIAL 35 UNIT SUBCUT ×3 (08:16→17:25)
[2022-10-03] MEDS: ATORVASTATIN CALCIUM 40 MG TABLET PO (19:25)
--- NOTE | 2022-10-04 01:17 | PC.NURSE ---
Weekly charting week 4 : communication hearing/vision, cognition/behaviors Resident continues weight monitoring 3x/week due to increase in Torsemide. Change blood pressure monitoring to weekly. Will have BINGO CALLER review weights. Comprehensive and temporary care plan reviewed, nothing new since 08/17/22. No changes noted in communication,hearing, vision, or orientation. Resident is Ch[place] speaking, needs an skoog machine operator and has a white board and Ipad? in room for communication. Can understand Japanese more than she talks. Hearing is fine. Wears glasses to correct vision. Alert, oriented x 3 with some forgetfulness. Cognition intact. Health condition stable. All medications administered by Nurse. Mood/Behavior: No issues documented. Receives Zoloft 125mg daily.
--- NOTE | 2022-10-04 07:14 | PC.NURSE ---
Weekly Charting-Week 4: Vital signs have been reviewed with no concerns noted. Comprehensive and temporary care plans have been reviewed with no changes made. No documented behaviors noted within the last month. Resident continues to take Zoloft 125 mg daily with no adverse side effects noted. No changes noted to cognition as resident is alert & oriented to correct person, place, time and situation though does have forgetfulness at times with staff reorientation provided. Resident wears prescription glasses for vision correction. No hearing aids utilized. Resident able to use call light and make needs known though staff also anticipate needs. Resident's fluent language is Syriac and she uses iPad or in person vibrating screed operator for language translation. Resident is able to comprehend some [place]i language and is able to comprehend more [place]i language than she is able to speak [place]i language. GROUP CIO increased Insulin Lispro to 35 units TID on 09/26/22 due to resident's blood sugars continuing to trend higher. All medications are administered by licensed nurse with no adverse effects noted. Resident remains on weights 3x per week and weights remain stable. No changes in chronic health conditions noted.
[2022-10-04] MEDS: ASPIRIN 81 MG TAB.CHEW PO (08:38)
[2022-10-04] MEDS: ACETAMINOPHEN 500 MG TABLET 1000 MG PO ×3 (08:38→20:15)
[2022-10-04] MEDS: SITAGLIPTIN PHOSPHATE 100 MG TABLET 50 MG PO (08:38)
[2022-10-04] MEDS: INSULIN LISPRO 100 UNIT/ML VIAL 35 UNIT SUBCUT ×3 (08:38→17:42)
[2022-10-04] MEDS: ISOSORBIDE MONONITRATE ER 30 MG TAB PO (08:38)
[2022-10-04] MEDS: METOPROLOL TARTRATE 25 MG TABLET PO ×2 (08:39→15:03)
[2022-10-04] MEDS: TORSEMIDE 20 MG TABLET 30 MG PO (08:39)
[2022-10-04] MEDS: GABAPENTIN 300 MG CAPSULE PO ×2 (08:39→15:03)
[2022-10-04] MEDS: LOSARTAN POTASSIUM 50 MG TABLET PO (08:39)
[2022-10-04] MEDS: FAMOTIDINE 10 MG TABLET PO (08:39)
[2022-10-04] MEDS: CETIRIZINE HCL 10 MG TABLET PO (08:39)
[2022-10-04] MEDS: SERTRALINE 100 MG TABLET 125 MG PO (08:39)
[2022-10-04] MEDS: SENNOSIDES/DOCUSATE TABLET 1 TAB PO ×2 (08:39→15:03)
[2022-10-04] MEDS: ATORVASTATIN CALCIUM 40 MG TABLET PO (19:19)
[2022-10-05] MEDS: ACETAMINOPHEN 500 MG TABLET 1000 MG PO ×3 (07:56→19:38)
[2022-10-05] MEDS: ASPIRIN 81 MG TAB.CHEW PO (07:56)
[2022-10-05] MEDS: ISOSORBIDE MONONITRATE ER 30 MG TAB PO (07:57)
[2022-10-05] MEDS: SITAGLIPTIN PHOSPHATE 100 MG TABLET 50 MG PO (07:57)
[2022-10-05] MEDS: METOPROLOL TARTRATE 25 MG TABLET PO ×2 (07:58→15:02)
[2022-10-05] MEDS: TORSEMIDE 20 MG TABLET 30 MG PO (07:58)
[2022-10-05] MEDS: SENNOSIDES/DOCUSATE TABLET 1 TAB PO ×2 (07:58→15:02)
[2022-10-05] MEDS: FAMOTIDINE 10 MG TABLET PO (07:58)
[2022-10-05] MEDS: LOSARTAN POTASSIUM 50 MG TABLET PO (07:58)
[2022-10-05] MEDS: GABAPENTIN 300 MG CAPSULE PO ×2 (07:58→15:02)
[2022-10-05] MEDS: CETIRIZINE HCL 10 MG TABLET PO (07:59)
[2022-10-05] MEDS: SERTRALINE 100 MG TABLET 125 MG PO (07:59)
[2022-10-05] MEDS: INSULIN LISPRO 100 UNIT/ML VIAL 35 UNIT SUBCUT ×3 (08:16→17:11)
[2022-10-05] MEDS: ATORVASTATIN CALCIUM 40 MG TABLET PO (19:39)
[2022-10-06] MEDS: ACETAMINOPHEN 500 MG TABLET 1000 MG PO ×3 (07:54→19:25)
[2022-10-06] MEDS: LOSARTAN POTASSIUM 50 MG TABLET PO (07:55)
[2022-10-06] MEDS: ISOSORBIDE MONONITRATE ER 30 MG TAB PO (07:55)
[2022-10-06] MEDS: SITAGLIPTIN PHOSPHATE 100 MG TABLET 50 MG PO (07:55)
[2022-10-06] MEDS: ASPIRIN 81 MG TAB.CHEW PO (07:55)
[2022-10-06] MEDS: TORSEMIDE 20 MG TABLET 30 MG PO (07:56)
[2022-10-06] MEDS: FAMOTIDINE 10 MG TABLET PO (07:56)
[2022-10-06] MEDS: SENNOSIDES/DOCUSATE TABLET 1 TAB PO ×2 (07:56→15:59)
[2022-10-06] MEDS: GABAPENTIN 300 MG CAPSULE PO ×2 (07:56→15:59)
[2022-10-06] MEDS: METOPROLOL TARTRATE 25 MG TABLET PO ×2 (07:56→15:59)
[2022-10-06] MEDS: CETIRIZINE HCL 10 MG TABLET PO (07:57)
[2022-10-06] MEDS: SERTRALINE 100 MG TABLET 125 MG PO (07:57)
[2022-10-06] MEDS: INSULIN LISPRO 100 UNIT/ML VIAL 35 UNIT SUBCUT ×3 (08:27→17:32)
[2022-10-06] MEDS: ATORVASTATIN CALCIUM 40 MG TABLET PO (19:25)
[2022-10-07] MEDS: TORSEMIDE 20 MG TABLET 30 MG PO (07:38)
[2022-10-07] MEDS: METOPROLOL TARTRATE 25 MG TABLET PO ×2 (07:38→16:25)
[2022-10-07] MEDS: SENNOSIDES/DOCUSATE TABLET 1 TAB PO ×2 (07:38→16:26)
[2022-10-07] MEDS: ACETAMINOPHEN 500 MG TABLET 1000 MG PO ×3 (07:38→20:21)
[2022-10-07] MEDS: FAMOTIDINE 10 MG TABLET PO (07:38)
[2022-10-07] MEDS: GABAPENTIN 300 MG CAPSULE PO ×2 (07:38→16:26)
[2022-10-07] MEDS: ISOSORBIDE MONONITRATE ER 30 MG TAB PO (07:38)
[2022-10-07] MEDS: LOSARTAN POTASSIUM 50 MG TABLET PO (07:38)
[2022-10-07] MEDS: ASPIRIN 81 MG TAB.CHEW PO (07:38)
[2022-10-07] MEDS: SITAGLIPTIN PHOSPHATE 100 MG TABLET 50 MG PO (07:38)
[2022-10-07] MEDS: CETIRIZINE HCL 10 MG TABLET PO (07:39)
[2022-10-07] MEDS: SERTRALINE 100 MG TABLET 125 MG PO (07:39)
[2022-10-07] MEDS: INSULIN LISPRO 100 UNIT/ML VIAL 35 UNIT SUBCUT ×3 (08:25→17:35)
[2022-10-07] MEDS: ATORVASTATIN CALCIUM 40 MG TABLET PO (20:21)
[2022-10-08] MEDS: NYSTATIN CREAM 30 GM 1 APPLIC TOPICAL (07:14)
[2022-10-08] MEDS: ASPIRIN 81 MG TAB.CHEW PO (07:37)
[2022-10-08] MEDS: ACETAMINOPHEN 500 MG TABLET 1000 MG PO ×3 (07:37→19:35)
[2022-10-08] MEDS: METOPROLOL TARTRATE 25 MG TABLET PO ×2 (07:38→15:29)
[2022-10-08] MEDS: SITAGLIPTIN PHOSPHATE 100 MG TABLET 50 MG PO (07:38)
[2022-10-08] MEDS: LOSARTAN POTASSIUM 50 MG TABLET PO (07:38)
[2022-10-08] MEDS: ISOSORBIDE MONONITRATE ER 30 MG TAB PO (07:38)
[2022-10-08] MEDS: FAMOTIDINE 10 MG TABLET PO (07:39)
[2022-10-08] MEDS: SERTRALINE 100 MG TABLET 125 MG PO (07:39)
[2022-10-08] MEDS: TORSEMIDE 20 MG TABLET 30 MG PO (07:39)
[2022-10-08] MEDS: SENNOSIDES/DOCUSATE TABLET 1 TAB PO ×2 (07:39→15:29)
[2022-10-08] MEDS: GABAPENTIN 300 MG CAPSULE PO ×2 (07:39→15:29)
[2022-10-08] MEDS: CETIRIZINE HCL 10 MG TABLET PO (07:40)
[2022-10-08 07:47] VITALS: BMI 42.7
[2022-10-08 08:31] VITALS: BP 133/68; PULSE 66; RESP 18; TEMP 36.3; O2SAT 96
[2022-10-08] MEDS: INSULIN LISPRO 100 UNIT/ML VIAL 35 UNIT SUBCUT ×3 (08:31→17:32)
[2022-10-08] MEDS: ATORVASTATIN CALCIUM 40 MG TABLET PO (19:35)
[2022-10-09] MEDS: ASPIRIN 81 MG TAB.CHEW PO (08:05)
[2022-10-09] MEDS: ACETAMINOPHEN 500 MG TABLET 1000 MG PO ×3 (08:05→20:16)
[2022-10-09] MEDS: ISOSORBIDE MONONITRATE ER 30 MG TAB PO (08:06)
[2022-10-09] MEDS: LOSARTAN POTASSIUM 50 MG TABLET PO (08:07)
[2022-10-09] MEDS: GABAPENTIN 300 MG CAPSULE PO ×2 (08:07→15:21)
[2022-10-09] MEDS: SITAGLIPTIN PHOSPHATE 100 MG TABLET 50 MG PO (08:07)
[2022-10-09] MEDS: METOPROLOL TARTRATE 25 MG TABLET PO ×2 (08:07→15:21)
[2022-10-09] MEDS: CETIRIZINE HCL 10 MG TABLET PO (08:08)
[2022-10-09] MEDS: SENNOSIDES/DOCUSATE TABLET 1 TAB PO ×2 (08:08→15:21)
[2022-10-09] MEDS: TORSEMIDE 20 MG TABLET 30 MG PO (08:08)
[2022-10-09] MEDS: FAMOTIDINE 10 MG TABLET PO (08:08)
[2022-10-09] MEDS: SERTRALINE 100 MG TABLET 125 MG PO (08:08)
[2022-10-09] MEDS: INSULIN LISPRO 100 UNIT/ML VIAL 35 UNIT SUBCUT ×3 (08:26→17:14)
--- NOTE | 2022-10-09 10:52 | PC.PHA1 ---
REGIONAL ENGAGEMENT CONSULTANT PHARMACIST'S MEDICATION REVIEW: MEDICATION MONITORING:Sertraline 125 mg daily, antipsychotic GDR complete no current order for Risperidone. IRREGULARITY OR COMMENTS:Patient doing well on current medication regimen, appreciate diligent nursing approach to patient's blood sugar management. Oxycodone prn order last needed 08/28/22. SUGGESTED COURSE OF ACTION TAKEN:No medication recommendations this review.
[2022-10-09] MEDS: ATORVASTATIN CALCIUM 40 MG TABLET PO (20:16)
[2022-10-10] MEDS: ACETAMINOPHEN 500 MG TABLET 1000 MG PO ×3 (07:54→19:33)
[2022-10-10] MEDS: ASPIRIN 81 MG TAB.CHEW PO (07:55)
[2022-10-10] MEDS: ISOSORBIDE MONONITRATE ER 30 MG TAB PO (07:56)
[2022-10-10] MEDS: GABAPENTIN 300 MG CAPSULE PO ×2 (07:56→15:02)
[2022-10-10] MEDS: SITAGLIPTIN PHOSPHATE 100 MG TABLET 50 MG PO (07:56)
[2022-10-10] MEDS: METOPROLOL TARTRATE 25 MG TABLET PO ×2 (07:56→15:02)
[2022-10-10] MEDS: LOSARTAN POTASSIUM 50 MG TABLET PO (07:56)
[2022-10-10] MEDS: FAMOTIDINE 10 MG TABLET PO (07:57)
[2022-10-10] MEDS: CETIRIZINE HCL 10 MG TABLET PO (07:57)
[2022-10-10] MEDS: SENNOSIDES/DOCUSATE TABLET 1 TAB PO ×2 (07:57→15:02)
[2022-10-10] MEDS: SERTRALINE 100 MG TABLET 125 MG PO (07:57)
[2022-10-10] MEDS: TORSEMIDE 20 MG TABLET 30 MG PO (07:57)
[2022-10-10] MEDS: INSULIN LISPRO 100 UNIT/ML VIAL 35 UNIT SUBCUT ×3 (08:38→16:49)
[2022-10-10] MEDS: ATORVASTATIN CALCIUM 40 MG TABLET PO (19:33)
[2022-10-11] MEDS: ISOSORBIDE MONONITRATE ER 30 MG TAB PO (07:56)
[2022-10-11] MEDS: ASPIRIN 81 MG TAB.CHEW PO (07:56)
[2022-10-11] MEDS: SITAGLIPTIN PHOSPHATE 100 MG TABLET 50 MG PO (07:56)
[2022-10-11] MEDS: LOSARTAN POTASSIUM 50 MG TABLET PO (07:56)
[2022-10-11] MEDS: ACETAMINOPHEN 500 MG TABLET 1000 MG PO ×3 (07:56→21:14)
[2022-10-11] MEDS: FAMOTIDINE 10 MG TABLET PO (07:57)
[2022-10-11] MEDS: METOPROLOL TARTRATE 25 MG TABLET PO ×2 (07:57→16:27)
[2022-10-11] MEDS: SENNOSIDES/DOCUSATE TABLET 1 TAB PO ×2 (07:57→16:27)
[2022-10-11] MEDS: CETIRIZINE HCL 10 MG TABLET PO (07:57)
[2022-10-11] MEDS: TORSEMIDE 20 MG TABLET 30 MG PO (07:57)
[2022-10-11] MEDS: SERTRALINE 100 MG TABLET 125 MG PO (07:57)
[2022-10-11] MEDS: GABAPENTIN 300 MG CAPSULE PO ×2 (07:57→16:27)
[2022-10-11] MEDS: INSULIN LISPRO 100 UNIT/ML VIAL 35 UNIT SUBCUT ×3 (08:18→17:02)
--- NOTE | 2022-10-11 15:22 | PC.NURSE ---
Received notice that resident is recommended to receive In-House Podiatry services due to her diabetes. This designer writer spoke with resident using Luxem[place]ish video banquet lead regarding consent for her to be treated by Admissions Advisor. Resident is in agreement that she could benefit from treatment. Consent form signed, scanned and E-mailed to In-House Podiatry team to be seen tomorrow, 11/08/2022.
[2022-10-11] MEDS: ATORVASTATIN CALCIUM 40 MG TABLET PO (21:15)
[2022-10-12] MEDS: SITAGLIPTIN PHOSPHATE 100 MG TABLET 50 MG PO (08:04)
[2022-10-12] MEDS: ISOSORBIDE MONONITRATE ER 30 MG TAB PO (08:04)
[2022-10-12] MEDS: ASPIRIN 81 MG TAB.CHEW PO (08:04)
[2022-10-12] MEDS: LOSARTAN POTASSIUM 50 MG TABLET PO (08:04)
[2022-10-12] MEDS: ACETAMINOPHEN 500 MG TABLET 1000 MG PO ×3 (08:04→20:55)
[2022-10-12] MEDS: TORSEMIDE 20 MG TABLET 30 MG PO (08:05)
[2022-10-12] MEDS: CETIRIZINE HCL 10 MG TABLET PO (08:05)
[2022-10-12] MEDS: GABAPENTIN 300 MG CAPSULE PO ×2 (08:05→15:44)
[2022-10-12] MEDS: SENNOSIDES/DOCUSATE TABLET 1 TAB PO ×2 (08:05→15:44)
[2022-10-12] MEDS: FAMOTIDINE 10 MG TABLET PO (08:05)
[2022-10-12] MEDS: METOPROLOL TARTRATE 25 MG TABLET PO ×2 (08:05→15:32)
[2022-10-12] MEDS: SERTRALINE 100 MG TABLET 125 MG PO (08:05)
[2022-10-12] MEDS: INSULIN LISPRO 100 UNIT/ML VIAL 35 UNIT SUBCUT ×3 (08:22→17:18)
[2022-10-12] MEDS: ATORVASTATIN CALCIUM 40 MG TABLET PO (20:55)
[2022-10-13] MEDS: ACETAMINOPHEN 500 MG TABLET 1000 MG PO ×3 (07:26→19:58)
[2022-10-13] MEDS: ASPIRIN 81 MG TAB.CHEW PO (07:27)
[2022-10-13] MEDS: ISOSORBIDE MONONITRATE ER 30 MG TAB PO (07:27)
[2022-10-13] MEDS: LOSARTAN POTASSIUM 50 MG TABLET PO (07:28)
[2022-10-13] MEDS: METOPROLOL TARTRATE 25 MG TABLET PO ×2 (07:28→15:19)
[2022-10-13] MEDS: GABAPENTIN 300 MG CAPSULE PO ×2 (07:28→15:19)
[2022-10-13] MEDS: SITAGLIPTIN PHOSPHATE 100 MG TABLET 50 MG PO (07:28)
[2022-10-13] MEDS: SERTRALINE 100 MG TABLET 125 MG PO (07:29)
[2022-10-13] MEDS: SENNOSIDES/DOCUSATE TABLET 1 TAB PO ×2 (07:29→15:19)
[2022-10-13] MEDS: TORSEMIDE 20 MG TABLET 30 MG PO (07:29)
[2022-10-13] MEDS: CETIRIZINE HCL 10 MG TABLET PO (07:29)
[2022-10-13] MEDS: FAMOTIDINE 10 MG TABLET PO (07:29)
[2022-10-13] MEDS: INSULIN LISPRO 100 UNIT/ML VIAL 35 UNIT SUBCUT ×3 (08:24→17:48)
[2022-10-13] MEDS: ATORVASTATIN CALCIUM 40 MG TABLET PO (19:58)
[2022-10-14] MEDS: ACETAMINOPHEN 500 MG TABLET 1000 MG PO ×3 (07:53→19:06)
[2022-10-14] MEDS: ASPIRIN 81 MG TAB.CHEW PO (07:54)
[2022-10-14] MEDS: LOSARTAN POTASSIUM 50 MG TABLET PO (07:59)
[2022-10-14] MEDS: SITAGLIPTIN PHOSPHATE 100 MG TABLET 50 MG PO (07:59)
[2022-10-14] MEDS: ISOSORBIDE MONONITRATE ER 30 MG TAB PO (07:59)
[2022-10-14] MEDS: GABAPENTIN 300 MG CAPSULE PO ×2 (08:00→15:15)
[2022-10-14] MEDS: METOPROLOL TARTRATE 25 MG TABLET PO ×2 (08:00→15:15)
[2022-10-14] MEDS: SENNOSIDES/DOCUSATE TABLET 1 TAB PO ×2 (08:00→15:15)
[2022-10-14] MEDS: FAMOTIDINE 10 MG TABLET PO (08:00)
[2022-10-14] MEDS: SERTRALINE 100 MG TABLET 125 MG PO (08:01)
[2022-10-14] MEDS: CETIRIZINE HCL 10 MG TABLET PO (08:01)
[2022-10-14] MEDS: TORSEMIDE 20 MG TABLET 30 MG PO (08:01)
[2022-10-14] MEDS: INSULIN LISPRO 100 UNIT/ML VIAL 35 UNIT SUBCUT ×3 (08:27→17:26)
[2022-10-14] MEDS: ATORVASTATIN CALCIUM 40 MG TABLET PO (19:06)
[2022-10-15] MEDS: NYSTATIN CREAM 30 GM 1 APPLIC TOPICAL (08:09)
[2022-10-15] MEDS: ACETAMINOPHEN 500 MG TABLET 1000 MG PO ×3 (08:09→19:30)
[2022-10-15] MEDS: TORSEMIDE 20 MG TABLET 30 MG PO (08:10)
[2022-10-15] MEDS: LOSARTAN POTASSIUM 50 MG TABLET PO (08:10)
[2022-10-15] MEDS: ASPIRIN 81 MG TAB.CHEW PO (08:10)
[2022-10-15] MEDS: SERTRALINE 100 MG TABLET 125 MG PO (08:10)
[2022-10-15] MEDS: SENNOSIDES/DOCUSATE TABLET 1 TAB PO ×2 (08:10→15:18)
[2022-10-15] MEDS: SITAGLIPTIN PHOSPHATE 100 MG TABLET 50 MG PO (08:10)
[2022-10-15] MEDS: GABAPENTIN 300 MG CAPSULE PO ×2 (08:10→15:18)
[2022-10-15] MEDS: CETIRIZINE HCL 10 MG TABLET PO (08:10)
[2022-10-15] MEDS: ISOSORBIDE MONONITRATE ER 30 MG TAB PO (08:10)
[2022-10-15] MEDS: FAMOTIDINE 10 MG TABLET PO (08:10)
[2022-10-15] MEDS: METOPROLOL TARTRATE 25 MG TABLET PO ×2 (08:10→15:18)
[2022-10-15] MEDS: INSULIN LISPRO 100 UNIT/ML VIAL 35 UNIT SUBCUT ×3 (08:38→17:00)
[2022-10-15 10:25] VITALS: BP 139/73; PULSE 72; RESP 18; TEMP 36.3; O2SAT 96; BMI 43.0
[2022-10-15] MEDS: ATORVASTATIN CALCIUM 40 MG TABLET PO (19:30)
[2022-10-16] MEDS: ACETAMINOPHEN 500 MG TABLET 1000 MG PO ×3 (07:49→19:38)
[2022-10-16] MEDS: ISOSORBIDE MONONITRATE ER 30 MG TAB PO (07:49)
[2022-10-16] MEDS: ASPIRIN 81 MG TAB.CHEW PO (07:49)
[2022-10-16] MEDS: SITAGLIPTIN PHOSPHATE 100 MG TABLET 50 MG PO (07:50)
[2022-10-16] MEDS: SERTRALINE 100 MG TABLET 125 MG PO (07:50)
[2022-10-16] MEDS: FAMOTIDINE 10 MG TABLET PO (07:50)
[2022-10-16] MEDS: CETIRIZINE HCL 10 MG TABLET PO (07:50)
[2022-10-16] MEDS: GABAPENTIN 300 MG CAPSULE PO ×2 (07:50→16:47)
[2022-10-16] MEDS: LOSARTAN POTASSIUM 50 MG TABLET PO (07:50)
[2022-10-16] MEDS: TORSEMIDE 20 MG TABLET 30 MG PO (07:50)
[2022-10-16] MEDS: METOPROLOL TARTRATE 25 MG TABLET PO ×2 (07:50→16:47)
[2022-10-16] MEDS: SENNOSIDES/DOCUSATE TABLET 1 TAB PO ×2 (07:50→16:47)
[2022-10-16] MEDS: INSULIN LISPRO 100 UNIT/ML VIAL 35 UNIT SUBCUT ×3 (08:22→17:25)
--- NOTE | 2022-10-16 15:01 | PC.SPIRITC ---
I provided visit for support and connection.
[2022-10-16] MEDS: ATORVASTATIN CALCIUM 40 MG TABLET PO (19:38)
[2022-10-17] MEDS: ACETAMINOPHEN 500 MG TABLET 1000 MG PO ×3 (07:45→19:15)
[2022-10-17] MEDS: ASPIRIN 81 MG TAB.CHEW PO (07:45)
[2022-10-17] MEDS: ISOSORBIDE MONONITRATE ER 30 MG TAB PO (07:46)
[2022-10-17] MEDS: LOSARTAN POTASSIUM 50 MG TABLET PO (07:46)
[2022-10-17] MEDS: FAMOTIDINE 10 MG TABLET PO (07:46)
[2022-10-17] MEDS: SITAGLIPTIN PHOSPHATE 100 MG TABLET 50 MG PO (07:46)
[2022-10-17] MEDS: METOPROLOL TARTRATE 25 MG TABLET PO ×2 (07:46→15:57)
[2022-10-17] MEDS: GABAPENTIN 300 MG CAPSULE PO ×2 (07:46→15:57)
[2022-10-17] MEDS: TORSEMIDE 20 MG TABLET 30 MG PO (07:47)
[2022-10-17] MEDS: SERTRALINE 100 MG TABLET 125 MG PO (07:47)
[2022-10-17] MEDS: CETIRIZINE HCL 10 MG TABLET PO (07:47)
[2022-10-17] MEDS: SENNOSIDES/DOCUSATE TABLET 1 TAB PO ×2 (07:47→15:57)
[2022-10-17] MEDS: INSULIN LISPRO 100 UNIT/ML VIAL 35 UNIT SUBCUT ×3 (08:24→17:19)
[2022-10-17] MEDS: ATORVASTATIN CALCIUM 40 MG TABLET PO (19:15)
--- NOTE | 2022-10-18 01:22 | PC.NURSE ---
WEEKLY CHARTING WEEK 1: PAIN AND ADL`S Vitals reviewed, no concerns, continue with three times a week weight checked and blood sugar checks BID. Comprehensive and temporary care plan reviewed, no changes made and nothing added to temporary care plan lately. Resident needs one assist with dressing, grooming, and bathing, she participates. She does oral cares after set up , feeds self after set up. Resident is on diabetic diet, thin liquids. No problems with chewing or swallowing. Pain: Has chronic bilateral knee pain, managed with Tylenol BID, Neurontin 300mg BID, Diclofenac gel to knees QID,Oxycodone 5 mg BID PRN. Resident is able to verbalize pain.
--- NOTE | 2022-10-18 07:46 | PC.NURSE ---
Weekly Charting, Week 1-ADL's: Comprehensive & temporary care plan reviewed. No changes made and nothing added to temporary care plan. Resident needs one assist with dressing, grooming, and bathing. Is able to participate. Does oral cares after set up. Feed self after set up. Is on diabetic diet, thin liquids. No problems with chewing/swallowing reported. Vital reviewed. Continue with weekly monitoring & accu checks BID. Pain: Has chronic bilateral knee pain. Is managed with Tylenol TID, Neurontin 300mg BID, Diclofenac gel to knees QID..? And Oxycodone 5 mg BID PRN ordered,and has used occasionally? with relief. Is able to verbalize need for pain.
[2022-10-18] MEDS: ACETAMINOPHEN 500 MG TABLET 1000 MG PO ×3 (08:00→19:10)
[2022-10-18] MEDS: ASPIRIN 81 MG TAB.CHEW PO (08:02)
[2022-10-18] MEDS: ISOSORBIDE MONONITRATE ER 30 MG TAB PO (08:02)
[2022-10-18] MEDS: LOSARTAN POTASSIUM 50 MG TABLET PO (08:03)
[2022-10-18] MEDS: FAMOTIDINE 10 MG TABLET PO (08:03)
[2022-10-18] MEDS: SITAGLIPTIN PHOSPHATE 100 MG TABLET 50 MG PO (08:03)
[2022-10-18] MEDS: GABAPENTIN 300 MG CAPSULE PO ×2 (08:03→15:09)
[2022-10-18] MEDS: METOPROLOL TARTRATE 25 MG TABLET PO ×2 (08:03→15:09)
[2022-10-18] MEDS: TORSEMIDE 20 MG TABLET 30 MG PO (08:04)
[2022-10-18] MEDS: SERTRALINE 100 MG TABLET 125 MG PO (08:04)
[2022-10-18] MEDS: SENNOSIDES/DOCUSATE TABLET 1 TAB PO ×2 (08:04→15:09)
[2022-10-18] MEDS: CETIRIZINE HCL 10 MG TABLET PO (08:04)
[2022-10-18] MEDS: INSULIN LISPRO 100 UNIT/ML VIAL 35 UNIT SUBCUT ×3 (08:40→17:42)
[2022-10-18] MEDS: ATORVASTATIN CALCIUM 40 MG TABLET PO (19:10)
[2022-10-19] MEDS: ACETAMINOPHEN 500 MG TABLET 1000 MG PO ×3 (07:51→19:31)
[2022-10-19] MEDS: ASPIRIN 81 MG TAB.CHEW PO (07:52)
[2022-10-19] MEDS: ISOSORBIDE MONONITRATE ER 30 MG TAB PO (07:54)
[2022-10-19] MEDS: METOPROLOL TARTRATE 25 MG TABLET PO ×2 (07:54→15:03)
[2022-10-19] MEDS: LOSARTAN POTASSIUM 50 MG TABLET PO (07:54)
[2022-10-19] MEDS: SITAGLIPTIN PHOSPHATE 100 MG TABLET 50 MG PO (07:54)
[2022-10-19] MEDS: SERTRALINE 100 MG TABLET 125 MG PO (07:57)
[2022-10-19] MEDS: FAMOTIDINE 10 MG TABLET PO (07:57)
[2022-10-19] MEDS: TORSEMIDE 20 MG TABLET 30 MG PO (07:57)
[2022-10-19] MEDS: CETIRIZINE HCL 10 MG TABLET PO (07:57)
[2022-10-19] MEDS: GABAPENTIN 300 MG CAPSULE PO ×2 (07:57→15:03)
[2022-10-19] MEDS: SENNOSIDES/DOCUSATE TABLET 1 TAB PO ×2 (07:57→15:04)
[2022-10-19] MEDS: INSULIN LISPRO 100 UNIT/ML VIAL 35 UNIT SUBCUT ×3 (08:37→17:04)
[2022-10-19] MEDS: ATORVASTATIN CALCIUM 40 MG TABLET PO (19:31)
[2022-10-20] MEDS: INSULIN LISPRO 100 UNIT/ML VIAL 35 UNIT SUBCUT ×3 (08:12→17:23)
[2022-10-20] MEDS: ASPIRIN 81 MG TAB.CHEW PO (08:12)
[2022-10-20] MEDS: ACETAMINOPHEN 500 MG TABLET 1000 MG PO ×3 (08:12→19:21)
[2022-10-20] MEDS: METOPROLOL TARTRATE 25 MG TABLET PO ×2 (08:13→15:44)
[2022-10-20] MEDS: ISOSORBIDE MONONITRATE ER 30 MG TAB PO (08:13)
[2022-10-20] MEDS: CETIRIZINE HCL 10 MG TABLET PO (08:13)
[2022-10-20] MEDS: TORSEMIDE 20 MG TABLET 30 MG PO (08:13)
[2022-10-20] MEDS: SENNOSIDES/DOCUSATE TABLET 1 TAB PO ×3 (08:13→16:25)
[2022-10-20] MEDS: GABAPENTIN 300 MG CAPSULE PO ×3 (08:13→16:25)
[2022-10-20] MEDS: SITAGLIPTIN PHOSPHATE 100 MG TABLET 50 MG PO (08:13)
[2022-10-20] MEDS: SERTRALINE 100 MG TABLET 125 MG PO (08:13)
[2022-10-20] MEDS: FAMOTIDINE 10 MG TABLET PO (08:13)
[2022-10-20] MEDS: LOSARTAN POTASSIUM 50 MG TABLET PO (08:14)
[2022-10-20] MEDS: ATORVASTATIN CALCIUM 40 MG TABLET PO (19:21)
[2022-10-21] MEDS: ACETAMINOPHEN 500 MG TABLET 1000 MG PO ×3 (07:57→19:53)
[2022-10-21] MEDS: ASPIRIN 81 MG TAB.CHEW PO (07:58)
[2022-10-21] MEDS: SITAGLIPTIN PHOSPHATE 100 MG TABLET 50 MG PO (07:58)
[2022-10-21] MEDS: ISOSORBIDE MONONITRATE ER 30 MG TAB PO (07:58)
[2022-10-21] MEDS: LOSARTAN POTASSIUM 50 MG TABLET PO (07:58)
[2022-10-21] MEDS: SENNOSIDES/DOCUSATE TABLET 1 TAB PO ×2 (07:59→16:04)
[2022-10-21] MEDS: METOPROLOL TARTRATE 25 MG TABLET PO ×2 (07:59→16:04)
[2022-10-21] MEDS: FAMOTIDINE 10 MG TABLET PO (07:59)
[2022-10-21] MEDS: TORSEMIDE 20 MG TABLET 30 MG PO (07:59)
[2022-10-21] MEDS: GABAPENTIN 300 MG CAPSULE PO ×2 (07:59→16:04)
[2022-10-21] MEDS: SERTRALINE 100 MG TABLET 125 MG PO (08:00)
[2022-10-21] MEDS: CETIRIZINE HCL 10 MG TABLET PO (08:00)
[2022-10-21] MEDS: INSULIN LISPRO 100 UNIT/ML VIAL 35 UNIT SUBCUT ×3 (08:32→17:04)
[2022-10-21] MEDS: ATORVASTATIN CALCIUM 40 MG TABLET PO (19:53)
[2022-10-22 07:41] VITALS: BMI 42.5
[2022-10-22] MEDS: ASPIRIN 81 MG TAB.CHEW PO (07:46)
[2022-10-22] MEDS: ACETAMINOPHEN 500 MG TABLET 1000 MG PO ×3 (07:46→19:28)
[2022-10-22] MEDS: LOSARTAN POTASSIUM 50 MG TABLET PO (07:47)
[2022-10-22] MEDS: METOPROLOL TARTRATE 25 MG TABLET PO ×2 (07:47→15:27)
[2022-10-22] MEDS: GABAPENTIN 300 MG CAPSULE PO ×2 (07:47→15:27)
[2022-10-22] MEDS: ISOSORBIDE MONONITRATE ER 30 MG TAB PO (07:47)
[2022-10-22] MEDS: SITAGLIPTIN PHOSPHATE 100 MG TABLET 50 MG PO (07:47)
[2022-10-22] MEDS: TORSEMIDE 20 MG TABLET 30 MG PO (07:48)
[2022-10-22] MEDS: CETIRIZINE HCL 10 MG TABLET PO (07:48)
[2022-10-22] MEDS: SENNOSIDES/DOCUSATE TABLET 1 TAB PO ×2 (07:48→15:27)
[2022-10-22] MEDS: FAMOTIDINE 10 MG TABLET PO (07:48)
[2022-10-22] MEDS: SERTRALINE 100 MG TABLET 125 MG PO (07:48)
[2022-10-22 08:05] VITALS: BP 154/80; PULSE 71; RESP 16; TEMP 35.9; O2SAT 95
[2022-10-22] MEDS: INSULIN LISPRO 100 UNIT/ML VIAL 35 UNIT SUBCUT ×3 (08:37→17:32)
[2022-10-22] MEDS: ATORVASTATIN CALCIUM 40 MG TABLET PO (19:29)
[2022-10-23] MEDS: ASPIRIN 81 MG TAB.CHEW PO (07:54)
[2022-10-23] MEDS: ACETAMINOPHEN 500 MG TABLET 1000 MG PO ×3 (07:54→20:26)
[2022-10-23] MEDS: SITAGLIPTIN PHOSPHATE 100 MG TABLET 50 MG PO (07:55)
[2022-10-23] MEDS: FAMOTIDINE 10 MG TABLET PO (07:55)
[2022-10-23] MEDS: ISOSORBIDE MONONITRATE ER 30 MG TAB PO (07:55)
[2022-10-23] MEDS: LOSARTAN POTASSIUM 50 MG TABLET PO (07:55)
[2022-10-23] MEDS: GABAPENTIN 300 MG CAPSULE PO ×2 (07:55→15:50)
[2022-10-23] MEDS: METOPROLOL TARTRATE 25 MG TABLET PO ×2 (07:55→15:50)
[2022-10-23] MEDS: TORSEMIDE 20 MG TABLET 30 MG PO (07:56)
[2022-10-23] MEDS: SERTRALINE 100 MG TABLET 125 MG PO (07:56)
[2022-10-23] MEDS: SENNOSIDES/DOCUSATE TABLET 1 TAB PO ×2 (07:56→15:50)
[2022-10-23] MEDS: CETIRIZINE HCL 10 MG TABLET PO (07:56)
[2022-10-23] MEDS: INSULIN LISPRO 100 UNIT/ML VIAL 35 UNIT SUBCUT ×3 (08:05→17:12)
[2022-10-23] MEDS: ATORVASTATIN CALCIUM 40 MG TABLET PO (20:26)
[2022-10-24] MEDS: ACETAMINOPHEN 500 MG TABLET 1000 MG PO ×3 (07:37→19:50)
[2022-10-24] MEDS: ISOSORBIDE MONONITRATE ER 30 MG TAB PO (07:38)
[2022-10-24] MEDS: SITAGLIPTIN PHOSPHATE 100 MG TABLET 50 MG PO (07:38)
[2022-10-24] MEDS: LOSARTAN POTASSIUM 50 MG TABLET PO (07:38)
[2022-10-24] MEDS: SENNOSIDES/DOCUSATE TABLET 1 TAB PO ×2 (07:39→15:05)
[2022-10-24] MEDS: METOPROLOL TARTRATE 25 MG TABLET PO ×2 (07:39→15:05)
[2022-10-24] MEDS: TORSEMIDE 20 MG TABLET 30 MG PO (07:39)
[2022-10-24] MEDS: GABAPENTIN 300 MG CAPSULE PO ×2 (07:39→15:05)
[2022-10-24] MEDS: SERTRALINE 100 MG TABLET 125 MG PO (07:39)
[2022-10-24] MEDS: FAMOTIDINE 10 MG TABLET PO (07:39)
[2022-10-24] MEDS: ASPIRIN 81 MG TAB.CHEW PO (07:40)
[2022-10-24] MEDS: CETIRIZINE HCL 10 MG TABLET PO (07:40)
[2022-10-24] MEDS: INSULIN LISPRO 100 UNIT/ML VIAL 35 UNIT SUBCUT ×3 (08:26→17:08)
[2022-10-24] MEDS: ATORVASTATIN CALCIUM 40 MG TABLET PO (19:50)
--- NOTE | 2022-10-25 00:12 | PC.NURSE ---
Weekly Charting week 2: Mobility Vital signs reviewed, BP continue to have high reading Accu's check is uncontrolled. WIRE STOCKKEEPER is aware. Staff to check weekly update provider as needed. Comprehensive and temporary care plan reviewed with no changes made. Resident needs extensive 1-2 assist with bed mobility. Has (L) 1/4 side rail up to aid with bed positioning. Use EZ probation and parole officer for vertical movement when in bed. No alarms.Resident needs one staff limited to extensive assist with walker and gait belt with transfer and ambulation. Resident should ambulate in room and in the hallway at least once per shift as tolerated. Resident assist of one with wheelchair propulsion. No falls since admission. Res remain high fall risk per assessment done on 08/01/22. Fall interventions: call light within reach, bed in low position with brakes locked, gripper socks, falling star magnet, keep area free of clutters.
[2022-10-25] MEDS: ASPIRIN 81 MG TAB.CHEW PO (07:25)
[2022-10-25] MEDS: ACETAMINOPHEN 500 MG TABLET 1000 MG PO ×3 (07:25→20:59)
[2022-10-25] MEDS: SITAGLIPTIN PHOSPHATE 100 MG TABLET 50 MG PO (07:26)
[2022-10-25] MEDS: ISOSORBIDE MONONITRATE ER 30 MG TAB PO (07:26)
[2022-10-25] MEDS: LOSARTAN POTASSIUM 50 MG TABLET PO (07:27)
[2022-10-25] MEDS: METOPROLOL TARTRATE 25 MG TABLET PO ×2 (07:27→16:03)
[2022-10-25] MEDS: FAMOTIDINE 10 MG TABLET PO (07:28)
[2022-10-25] MEDS: GABAPENTIN 300 MG CAPSULE PO ×2 (07:28→16:03)
[2022-10-25] MEDS: TORSEMIDE 20 MG TABLET 30 MG PO (07:28)
[2022-10-25] MEDS: SENNOSIDES/DOCUSATE TABLET 1 TAB PO ×2 (07:28→16:03)
[2022-10-25] MEDS: CETIRIZINE HCL 10 MG TABLET PO (07:29)
[2022-10-25] MEDS: SERTRALINE 100 MG TABLET 125 MG PO (07:29)
[2022-10-25] MEDS: INSULIN LISPRO 100 UNIT/ML VIAL 35 UNIT SUBCUT ×3 (08:24→17:11)
--- NOTE | 2022-10-25 13:26 | PC.NURSE ---
Weekly Charting, Week 2: Mobility: Comprehensive and temporary care plan reviewed. No changes made, and nothing added to temporary care plan. Resident needs one assist, gait belt and 4ww with transfers and ambulation. Extensive assist of one with wheelchair propulsion. 1-2 assist with bed mobility. (L) 1/4 side rail up to aid with bed positioning. No alarms. Vitals signs reviewed. Continue weekly monitoring and refer to provider as needed. Fall: No falls the past month. Is a high fall risk according to assessment done on 08/01. Fall interventions: call light within reach, bed in low position with brakes locked, gripper socks, falling star magnet, keep area free of clutters.
[2022-10-25] MEDS: ATORVASTATIN CALCIUM 40 MG TABLET PO (20:59)
[2022-10-26] MEDS: METOPROLOL TARTRATE 25 MG TABLET PO ×2 (07:58→16:10)
[2022-10-26] MEDS: ACETAMINOPHEN 500 MG TABLET 1000 MG PO ×3 (07:58→19:17)
[2022-10-26] MEDS: LOSARTAN POTASSIUM 50 MG TABLET PO (07:58)
[2022-10-26] MEDS: ASPIRIN 81 MG TAB.CHEW PO (07:58)
[2022-10-26] MEDS: ISOSORBIDE MONONITRATE ER 30 MG TAB PO (07:58)
[2022-10-26] MEDS: SITAGLIPTIN PHOSPHATE 100 MG TABLET 50 MG PO (07:58)
[2022-10-26] MEDS: CETIRIZINE HCL 10 MG TABLET PO (07:59)
[2022-10-26] MEDS: TORSEMIDE 20 MG TABLET 30 MG PO (07:59)
[2022-10-26] MEDS: SERTRALINE 100 MG TABLET 125 MG PO (07:59)
[2022-10-26] MEDS: SENNOSIDES/DOCUSATE TABLET 1 TAB PO ×2 (07:59→16:10)
[2022-10-26] MEDS: FAMOTIDINE 10 MG TABLET PO (07:59)
[2022-10-26] MEDS: GABAPENTIN 300 MG CAPSULE PO ×2 (07:59→16:10)
[2022-10-26] MEDS: INSULIN LISPRO 100 UNIT/ML VIAL 35 UNIT SUBCUT ×3 (08:53→17:29)
[2022-10-26] MEDS: ATORVASTATIN CALCIUM 40 MG TABLET PO (19:17)
[2022-10-27] MEDS: ACETAMINOPHEN 500 MG TABLET 1000 MG PO ×3 (07:37→19:49)
[2022-10-27] MEDS: ASPIRIN 81 MG TAB.CHEW PO (07:37)
[2022-10-27] MEDS: SITAGLIPTIN PHOSPHATE 100 MG TABLET 50 MG PO (07:38)
[2022-10-27] MEDS: ISOSORBIDE MONONITRATE ER 30 MG TAB PO (07:38)
[2022-10-27] MEDS: GABAPENTIN 300 MG CAPSULE PO ×2 (07:39→15:14)
[2022-10-27] MEDS: FAMOTIDINE 10 MG TABLET PO (07:39)
[2022-10-27] MEDS: SENNOSIDES/DOCUSATE TABLET 1 TAB PO ×2 (07:39→15:14)
[2022-10-27] MEDS: METOPROLOL TARTRATE 25 MG TABLET PO ×2 (07:39→15:14)
[2022-10-27] MEDS: LOSARTAN POTASSIUM 50 MG TABLET PO (07:39)
[2022-10-27] MEDS: TORSEMIDE 20 MG TABLET 30 MG PO (07:40)
[2022-10-27] MEDS: CETIRIZINE HCL 10 MG TABLET PO (07:41)
[2022-10-27] MEDS: SERTRALINE 100 MG TABLET 125 MG PO (07:41)
[2022-10-27] MEDS: INSULIN LISPRO 100 UNIT/ML VIAL 35 UNIT SUBCUT ×3 (07:44→17:13)
[2022-10-27] MEDS: ATORVASTATIN CALCIUM 40 MG TABLET PO (19:49)
[2022-10-28] MEDS: SITAGLIPTIN PHOSPHATE 100 MG TABLET 50 MG PO (07:39)
[2022-10-28] MEDS: METOPROLOL TARTRATE 25 MG TABLET PO ×2 (07:39→15:50)
[2022-10-28] MEDS: ASPIRIN 81 MG TAB.CHEW PO (07:39)
[2022-10-28] MEDS: LOSARTAN POTASSIUM 50 MG TABLET PO (07:39)
[2022-10-28] MEDS: ACETAMINOPHEN 500 MG TABLET 1000 MG PO ×3 (07:39→19:39)
[2022-10-28] MEDS: SENNOSIDES/DOCUSATE TABLET 1 TAB PO ×2 (07:39→15:51)
[2022-10-28] MEDS: GABAPENTIN 300 MG CAPSULE PO ×2 (07:39→15:51)
[2022-10-28] MEDS: FAMOTIDINE 10 MG TABLET PO (07:39)
[2022-10-28] MEDS: ISOSORBIDE MONONITRATE ER 30 MG TAB PO (07:39)
[2022-10-28] MEDS: TORSEMIDE 20 MG TABLET 30 MG PO (07:40)
[2022-10-28] MEDS: CETIRIZINE HCL 10 MG TABLET PO (07:40)
[2022-10-28] MEDS: SERTRALINE 100 MG TABLET 125 MG PO (07:40)
[2022-10-28] MEDS: INSULIN LISPRO 100 UNIT/ML VIAL 35 UNIT SUBCUT ×3 (08:18→17:19)
[2022-10-28] MEDS: ATORVASTATIN CALCIUM 40 MG TABLET PO (19:40)
[2022-10-29] MEDS: INSULIN LISPRO 100 UNIT/ML VIAL 35 UNIT SUBCUT ×3 (07:32→17:04)
[2022-10-29] MEDS: ASPIRIN 81 MG TAB.CHEW PO (07:32)
[2022-10-29] MEDS: ACETAMINOPHEN 500 MG TABLET 1000 MG PO ×3 (07:32→20:07)
[2022-10-29] MEDS: ISOSORBIDE MONONITRATE ER 30 MG TAB PO (07:39)
[2022-10-29] MEDS: SITAGLIPTIN PHOSPHATE 100 MG TABLET 50 MG PO (07:39)
[2022-10-29] MEDS: SERTRALINE 100 MG TABLET 125 MG PO (07:40)
[2022-10-29] MEDS: FAMOTIDINE 10 MG TABLET PO (07:40)
[2022-10-29] MEDS: TORSEMIDE 20 MG TABLET 30 MG PO (07:40)
[2022-10-29] MEDS: METOPROLOL TARTRATE 25 MG TABLET PO ×2 (07:40→15:36)
[2022-10-29] MEDS: SENNOSIDES/DOCUSATE TABLET 1 TAB PO ×2 (07:40→15:37)
[2022-10-29] MEDS: GABAPENTIN 300 MG CAPSULE PO ×2 (07:40→15:37)
[2022-10-29] MEDS: LOSARTAN POTASSIUM 50 MG TABLET PO (07:40)
[2022-10-29] MEDS: CETIRIZINE HCL 10 MG TABLET PO (07:41)
[2022-10-29 07:45] VITALS: BMI 42.7
[2022-10-29] MEDS: ATORVASTATIN CALCIUM 40 MG TABLET PO (20:07)
[2022-10-30] MEDS: ASPIRIN 81 MG TAB.CHEW PO (07:45)
[2022-10-30] MEDS: ACETAMINOPHEN 500 MG TABLET 1000 MG PO ×3 (07:45→19:19)
[2022-10-30] MEDS: ISOSORBIDE MONONITRATE ER 30 MG TAB PO (07:45)
[2022-10-30] MEDS: SERTRALINE 100 MG TABLET 125 MG PO (07:46)
[2022-10-30] MEDS: TORSEMIDE 20 MG TABLET 30 MG PO (07:46)
[2022-10-30] MEDS: FAMOTIDINE 10 MG TABLET PO (07:46)
[2022-10-30] MEDS: LOSARTAN POTASSIUM 50 MG TABLET PO (07:46)
[2022-10-30] MEDS: CETIRIZINE HCL 10 MG TABLET PO (07:46)
[2022-10-30] MEDS: SENNOSIDES/DOCUSATE TABLET 1 TAB PO ×2 (07:46→15:24)
[2022-10-30] MEDS: GABAPENTIN 300 MG CAPSULE PO ×2 (07:46→15:29)
[2022-10-30] MEDS: METOPROLOL TARTRATE 25 MG TABLET PO ×2 (07:46→15:24)
[2022-10-30] MEDS: SITAGLIPTIN PHOSPHATE 100 MG TABLET 50 MG PO (07:46)
[2022-10-30] MEDS: INSULIN LISPRO 100 UNIT/ML VIAL 35 UNIT SUBCUT ×3 (08:32→17:14)
[2022-10-30] MEDS: ATORVASTATIN CALCIUM 40 MG TABLET PO (19:19)
[2022-10-31] MEDS: ISOSORBIDE MONONITRATE ER 30 MG TAB PO (07:50)
[2022-10-31] MEDS: ACETAMINOPHEN 500 MG TABLET 1000 MG PO ×3 (07:50→19:45)
[2022-10-31] MEDS: ASPIRIN 81 MG TAB.CHEW PO (07:50)
[2022-10-31] MEDS: TORSEMIDE 20 MG TABLET 30 MG PO (07:51)
[2022-10-31] MEDS: CETIRIZINE HCL 10 MG TABLET PO (07:51)
[2022-10-31] MEDS: METOPROLOL TARTRATE 25 MG TABLET PO ×2 (07:51→15:56)
[2022-10-31] MEDS: SITAGLIPTIN PHOSPHATE 100 MG TABLET 50 MG PO (07:51)
[2022-10-31] MEDS: GABAPENTIN 300 MG CAPSULE PO ×2 (07:51→15:56)
[2022-10-31] MEDS: SERTRALINE 100 MG TABLET 125 MG PO (07:51)
[2022-10-31] MEDS: LOSARTAN POTASSIUM 50 MG TABLET PO (07:51)
[2022-10-31] MEDS: SENNOSIDES/DOCUSATE TABLET 1 TAB PO ×2 (07:51→15:56)
[2022-10-31] MEDS: FAMOTIDINE 10 MG TABLET PO (07:51)
[2022-10-31] MEDS: INSULIN LISPRO 100 UNIT/ML VIAL 35 UNIT SUBCUT ×3 (08:36→17:31)
[2022-10-31 15:18] VITALS: BMI 42.7
[2022-10-31] MEDS: ATORVASTATIN CALCIUM 40 MG TABLET PO (19:45)
--- NOTE | 2022-11-01 02:16 | PC.NURSE ---
WEEKLY CHARTING WEEK 3 TOILETING AND SKIN Vital signs reviewed, resident BP elevated, INDOOR SPORTS CENTRE MANAGER aware, continue to check BP daily. Temporary care plan and comprehensive care plan reviewed, no changes made, nothing added to temporary care plan Toileting: Resident is incontinent of bowel and bladder overnight ; she is checked and changed during 1st round and 3rd round. Evi cares, incontinent pad, clothing is managed by staff. Skin: Has intermittent redness on abdominal fold, Nystatin cream applied PRN. Skin checks done at bath days and during cares.
--- NOTE | 2022-11-01 07:03 | PC.NURSE ---
Weekly Charting, Week 3 - Toileting: Comprehensive and temporary care plan reviewed. No changes made. Resident is mostly incontinent of bladder with some control, has occasional bowel incontinence. Needs one assist with toileting. Transfers/ambulates to the toilet with one assist, gait belt and 4ww. Wears briefs. Pads, bailey cares, clothing managed by staff. Vital signs reviewed. Weights checked 3x/week, is stable. COMPOSING MACHINE OPERATOR to evaluate. Skin: Has bilateral LE's edema. Encourage to elevate extremities as much as possible. Skin is checked routinely during cares and on bath day.
[2022-11-01] MEDS: NYSTATIN CREAM 30 GM 1 APPLIC TOPICAL (07:18)
--- NOTE | 2022-11-01 07:21 | PC.NURSE ---
Skin note: Small area of redness noted under mid abdominal fold. PRN Nystatin Cream applied after cleansing and patting dry. Tx set up for this to be performed BID until resolved.
[2022-11-01] MEDS: ACETAMINOPHEN 500 MG TABLET 1000 MG PO ×3 (07:37→19:19)
[2022-11-01] MEDS: ASPIRIN 81 MG TAB.CHEW PO (07:37)
[2022-11-01] MEDS: SITAGLIPTIN PHOSPHATE 100 MG TABLET 50 MG PO (07:37)
[2022-11-01] MEDS: ISOSORBIDE MONONITRATE ER 30 MG TAB PO (07:37)
[2022-11-01] MEDS: TORSEMIDE 20 MG TABLET 30 MG PO (07:38)
[2022-11-01] MEDS: FAMOTIDINE 10 MG TABLET PO (07:38)
[2022-11-01] MEDS: GABAPENTIN 300 MG CAPSULE PO ×2 (07:38→15:24)
[2022-11-01] MEDS: SENNOSIDES/DOCUSATE TABLET 1 TAB PO ×2 (07:38→15:24)
[2022-11-01] MEDS: METOPROLOL TARTRATE 25 MG TABLET PO ×2 (07:38→15:23)
[2022-11-01] MEDS: LOSARTAN POTASSIUM 50 MG TABLET PO (07:38)
[2022-11-01] MEDS: CETIRIZINE HCL 10 MG TABLET PO (07:39)
[2022-11-01] MEDS: SERTRALINE 100 MG TABLET 125 MG PO (07:39)
[2022-11-01] MEDS: INSULIN LISPRO 100 UNIT/ML VIAL 35 UNIT SUBCUT ×3 (08:25→17:22)
--- NOTE | 2022-11-01 08:54 | PC.PHA1 ---
FELTMAKER AND WEIGHER PHARMACIST'S MEDICATION REVIEW: MEDICATION MONITORING:Sertraline 125 mg daily IRREGULARITY OR COMMENTS:No changes to patient's medication regimen since last review. Meal time insulin adjustment mid-September, blood glucose checks continue trending high. SUGGESTED COURSE OF ACTION TAKEN:Could increase basal insulin dose regimen by 2-5 units per dose.
[2022-11-01] MEDS: ATORVASTATIN CALCIUM 40 MG TABLET PO (19:19)
[2022-11-02] MEDS: ASPIRIN 81 MG TAB.CHEW PO (07:38)
[2022-11-02] MEDS: ACETAMINOPHEN 500 MG TABLET 1000 MG PO ×3 (07:38→19:46)
[2022-11-02] MEDS: METOPROLOL TARTRATE 25 MG TABLET PO ×2 (07:39→15:36)
[2022-11-02] MEDS: FAMOTIDINE 10 MG TABLET PO (07:39)
[2022-11-02] MEDS: SITAGLIPTIN PHOSPHATE 100 MG TABLET 50 MG PO (07:39)
[2022-11-02] MEDS: LOSARTAN POTASSIUM 50 MG TABLET PO (07:39)
[2022-11-02] MEDS: GABAPENTIN 300 MG CAPSULE PO ×2 (07:39→15:36)
[2022-11-02] MEDS: SERTRALINE 100 MG TABLET 125 MG PO (07:39)
[2022-11-02] MEDS: SENNOSIDES/DOCUSATE TABLET 1 TAB PO ×2 (07:39→15:36)
[2022-11-02] MEDS: TORSEMIDE 20 MG TABLET 30 MG PO (07:39)
[2022-11-02] MEDS: ISOSORBIDE MONONITRATE ER 30 MG TAB PO (07:39)
[2022-11-02] MEDS: CETIRIZINE HCL 10 MG TABLET PO (07:39)
[2022-11-02] MEDS: INSULIN LISPRO 100 UNIT/ML VIAL 35 UNIT SUBCUT ×3 (08:34→18:50)
[2022-11-02] MEDS: ATORVASTATIN CALCIUM 40 MG TABLET PO (19:46)
[2022-11-03] MEDS: LOSARTAN POTASSIUM 50 MG TABLET PO (07:57)
[2022-11-03] MEDS: ACETAMINOPHEN 500 MG TABLET 1000 MG PO ×3 (07:57→19:14)
[2022-11-03] MEDS: SITAGLIPTIN PHOSPHATE 100 MG TABLET 50 MG PO (07:57)
[2022-11-03] MEDS: ISOSORBIDE MONONITRATE ER 30 MG TAB PO (07:57)
[2022-11-03] MEDS: ASPIRIN 81 MG TAB.CHEW PO (07:57)
[2022-11-03] MEDS: FAMOTIDINE 10 MG TABLET PO (07:58)
[2022-11-03] MEDS: METOPROLOL TARTRATE 25 MG TABLET PO ×2 (07:58→15:38)
[2022-11-03] MEDS: TORSEMIDE 20 MG TABLET 30 MG PO (07:58)
[2022-11-03] MEDS: GABAPENTIN 300 MG CAPSULE PO ×2 (07:58→15:38)
[2022-11-03] MEDS: CETIRIZINE HCL 10 MG TABLET PO (07:58)
[2022-11-03] MEDS: SENNOSIDES/DOCUSATE TABLET 1 TAB PO ×2 (07:58→15:38)
[2022-11-03] MEDS: SERTRALINE 100 MG TABLET 125 MG PO (07:58)
[2022-11-03] MEDS: INSULIN LISPRO 100 UNIT/ML VIAL 35 UNIT SUBCUT ×3 (08:52→17:26)
--- NOTE | 2022-11-03 09:32 | PC.NURSE ---
Spoke with MARGO/Chanel regarding resident's most recent mood assessment. Per SW, resident expressed having increased anxiety and decreased sleep. It is unclear if this is situational - related to other family member's declining health and move from LT - or if it could be related to discontinuing/reducing dose in her antipscyhotic medication. Karyn also mentioned that she was feeling worried that she may be developing shingles as she had loss of sleep last time she had an outbreak (there have been no documented symptoms of shingles). This underwriter left message for COOPERATIVE EDUCATION COORDINATOR/Tyra in book to assess patient/situation and make any adjustments if necessary.
[2022-11-03] MEDS: ATORVASTATIN CALCIUM 40 MG TABLET PO (19:14)
[2022-11-04] MEDS: GABAPENTIN 300 MG CAPSULE PO ×2 (08:04→15:36)
[2022-11-04] MEDS: METOPROLOL TARTRATE 25 MG TABLET PO ×2 (08:04→15:36)
[2022-11-04] MEDS: ASPIRIN 81 MG TAB.CHEW PO (08:04)
[2022-11-04] MEDS: SENNOSIDES/DOCUSATE TABLET 1 TAB PO ×2 (08:04→15:36)
[2022-11-04] MEDS: ACETAMINOPHEN 500 MG TABLET 1000 MG PO ×3 (08:04→19:16)
[2022-11-04] MEDS: FAMOTIDINE 10 MG TABLET PO (08:04)
[2022-11-04] MEDS: SITAGLIPTIN PHOSPHATE 100 MG TABLET 50 MG PO (08:04)
[2022-11-04] MEDS: LOSARTAN POTASSIUM 50 MG TABLET PO (08:04)
[2022-11-04] MEDS: ISOSORBIDE MONONITRATE ER 30 MG TAB PO (08:04)
[2022-11-04] MEDS: CETIRIZINE HCL 10 MG TABLET PO (08:05)
[2022-11-04] MEDS: TORSEMIDE 20 MG TABLET 30 MG PO (08:05)
[2022-11-04] MEDS: SERTRALINE 100 MG TABLET 125 MG PO (08:05)
[2022-11-04] MEDS: INSULIN LISPRO 100 UNIT/ML VIAL 35 UNIT SUBCUT ×3 (08:34→17:21)
[2022-11-04] MEDS: ATORVASTATIN CALCIUM 40 MG TABLET PO (19:16)
[2022-11-05 07:00] VITALS: BP 110/43; PULSE 70; TEMP 36.5; O2SAT 93; BMI 42.8
[2022-11-05] MEDS: ACETAMINOPHEN 500 MG TABLET 1000 MG PO ×3 (08:23→20:40)
[2022-11-05] MEDS: SENNOSIDES/DOCUSATE TABLET 1 TAB PO ×2 (08:24→15:17)
[2022-11-05] MEDS: FAMOTIDINE 10 MG TABLET PO (08:24)
[2022-11-05] MEDS: METOPROLOL TARTRATE 25 MG TABLET PO ×2 (08:24→15:17)
[2022-11-05] MEDS: ASPIRIN 81 MG TAB.CHEW PO (08:24)
[2022-11-05] MEDS: LOSARTAN POTASSIUM 50 MG TABLET PO (08:24)
[2022-11-05] MEDS: TORSEMIDE 20 MG TABLET 30 MG PO (08:24)
[2022-11-05] MEDS: SITAGLIPTIN PHOSPHATE 100 MG TABLET 50 MG PO (08:24)
[2022-11-05] MEDS: ISOSORBIDE MONONITRATE ER 30 MG TAB PO (08:24)
[2022-11-05] MEDS: GABAPENTIN 300 MG CAPSULE PO ×2 (08:24→15:17)
[2022-11-05] MEDS: CETIRIZINE HCL 10 MG TABLET PO (08:25)
[2022-11-05] MEDS: SERTRALINE 100 MG TABLET 125 MG PO (08:25)
[2022-11-05] MEDS: INSULIN LISPRO 100 UNIT/ML VIAL 35 UNIT SUBCUT ×3 (08:32→17:16)
[2022-11-05] MEDS: ATORVASTATIN CALCIUM 40 MG TABLET PO (20:40)
[2022-11-06] MEDS: ACETAMINOPHEN 500 MG TABLET 1000 MG PO ×3 (07:23→20:18)
[2022-11-06] MEDS: ISOSORBIDE MONONITRATE ER 30 MG TAB PO (07:30)
[2022-11-06] MEDS: ASPIRIN 81 MG TAB.CHEW PO (07:30)
[2022-11-06] MEDS: SITAGLIPTIN PHOSPHATE 100 MG TABLET 50 MG PO (07:31)
[2022-11-06] MEDS: LOSARTAN POTASSIUM 50 MG TABLET PO (07:31)
[2022-11-06] MEDS: TORSEMIDE 20 MG TABLET 30 MG PO (07:31)
[2022-11-06] MEDS: FAMOTIDINE 10 MG TABLET PO (07:31)
[2022-11-06] MEDS: GABAPENTIN 300 MG CAPSULE PO ×2 (07:31→15:16)
[2022-11-06] MEDS: METOPROLOL TARTRATE 25 MG TABLET PO ×2 (07:31→15:16)
[2022-11-06] MEDS: SENNOSIDES/DOCUSATE TABLET 1 TAB PO ×2 (07:31→15:16)
[2022-11-06] MEDS: SERTRALINE 100 MG TABLET 125 MG PO (07:32)
[2022-11-06] MEDS: CETIRIZINE HCL 10 MG TABLET PO (07:32)
[2022-11-06] MEDS: INSULIN LISPRO 100 UNIT/ML VIAL 35 UNIT SUBCUT ×3 (08:22→17:16)
[2022-11-06] MEDS: ATORVASTATIN CALCIUM 40 MG TABLET PO (20:19)
[2022-11-07] MEDS: ISOSORBIDE MONONITRATE ER 30 MG TAB PO (07:55)
[2022-11-07] MEDS: ACETAMINOPHEN 500 MG TABLET 1000 MG PO ×3 (07:55→20:21)
[2022-11-07] MEDS: ASPIRIN 81 MG TAB.CHEW PO (07:55)
[2022-11-07] MEDS: SENNOSIDES/DOCUSATE TABLET 1 TAB PO ×2 (07:56→15:40)
[2022-11-07] MEDS: GABAPENTIN 300 MG CAPSULE PO ×2 (07:56→15:33)
[2022-11-07] MEDS: TORSEMIDE 20 MG TABLET 30 MG PO (07:56)
[2022-11-07] MEDS: CETIRIZINE HCL 10 MG TABLET PO (07:56)
[2022-11-07] MEDS: SERTRALINE 100 MG TABLET 125 MG PO (07:56)
[2022-11-07] MEDS: SITAGLIPTIN PHOSPHATE 100 MG TABLET 50 MG PO (07:56)
[2022-11-07] MEDS: FAMOTIDINE 10 MG TABLET PO (07:56)
[2022-11-07] MEDS: METOPROLOL TARTRATE 25 MG TABLET PO ×2 (07:56→15:33)
[2022-11-07] MEDS: LOSARTAN POTASSIUM 50 MG TABLET PO (07:56)
[2022-11-07] MEDS: INSULIN LISPRO 100 UNIT/ML VIAL 35 UNIT SUBCUT ×2 (08:06→11:47)
--- NOTE | 2022-11-07 11:59 | PC.NURSE ---
Order: SHAREPOINT ADMINISTRATORErnst here. Accu checks readings reviewed. Increase Humalog Insulin 35 units TID to 38 units.
[2022-11-07] MEDS: INSULIN LISPRO 100 UNIT/ML VIAL 38 UNIT SUBCUT ×2 (12:58→17:23)
--- NOTE | 2022-11-07 14:12 | NUTR.NU ---
RDN was notified by resident during care conference that she no longer wants decaf coffee offered for snack BID. Resident would like tea to be offered with her snack BID. RDN made changes to snack/supplement order per resident request. Care plan updated. RDN will continue to follow.
--- NOTE | 2022-11-07 15:25 | PC.NURSE ---
CARE CONFERENCE:?All members of the IDT team present, including in person shrinker. Resident present. Resident's niece, Pallavi, was on iPad for conference. Nursing reviewed current care needs; resident is 1 assist with most ADLs. Confirmed resident's POLST is Full Code. Reviewed recent changes in medication - discontinuation in Risperidone and increase in insulin (just today). Resident states she is tolerating changes, however, also expresses feelings of depression (anhedonia, increased need for sleep). She is open to speaking with provider regarding anti-depressant medication. Resident continues to have bilateral lower extremity edema and could benefit from eventual lymphedema therapy. Resident notes that she is concerned she has an outbreak of shingles starting as she is feeling so tired like last time [she] had shingles. She notes she is also having some shooting pain in her arms. She does occasionally feel cold, but has not had a temperature. No active lesions or notable signs of outbreak. Message written in VP [employer]ETING book for her to review next week. Resident advised to update staff if these symptoms increase or she notices sores on her skin. Nursing has no further concerns at this time and family/resident is very happy with the care she is receiving. Activities reviewed current participation in and out of room--resident enjoys going to exercise (not arm pain in previous part of this note) and doing crosswords in her room. She also really enjoys getting outside for patio time. Weight has been stable since admission and resident is eating well, no concerns. She receives two extra snacks a day. Resident states she would like to stop drinking coffee and have camomile tea instead. Uses no restraints. Daughters are involved in decision making as needed. Is not able to self-administer meds, administered by nurse. No falls since admission. Resident is considered a vulnerable adult due to her need for assistance with ADLs. She is planning to discharge from [facility] to [facility] in [place] since the care center is closing.
[2022-11-07] MEDS: ATORVASTATIN CALCIUM 40 MG TABLET PO (20:21)
--- NOTE | 2022-11-07 23:43 | PC.NURSE ---
Weekly charting Week 4: Vital signs reviewed, no concerns. On x3 days in week weight. Staff to continue weekly vitals, update CELL TUBER HAND as needed. Comprehensive and temporary care plan reviewed with no changes made. No behavior recorded in the past month. Currently on sertraline 125mg daily and Risperidone 0.5mg on HS with no adverse effect. Requires belly dancer as first language is Zambian, understood some Maori but speak very little. Visual deficit corrected with glasses. No hearing problem. Alert and oriented with forgetfulness. All medications administer by license nurse. Health condition is stable.
[2022-11-08] MEDS: ACETAMINOPHEN 500 MG TABLET 1000 MG PO ×3 (07:50→21:15)
[2022-11-08] MEDS: ASPIRIN 81 MG TAB.CHEW PO (07:50)
[2022-11-08] MEDS: METOPROLOL TARTRATE 25 MG TABLET PO ×2 (07:51→16:48)
[2022-11-08] MEDS: LOSARTAN POTASSIUM 50 MG TABLET PO (07:51)
[2022-11-08] MEDS: SITAGLIPTIN PHOSPHATE 100 MG TABLET 50 MG PO (07:51)
[2022-11-08] MEDS: GABAPENTIN 300 MG CAPSULE PO ×2 (07:51→16:48)
[2022-11-08] MEDS: ISOSORBIDE MONONITRATE ER 30 MG TAB PO (07:51)
[2022-11-08] MEDS: FAMOTIDINE 10 MG TABLET PO (07:51)
[2022-11-08] MEDS: TORSEMIDE 20 MG TABLET 30 MG PO (07:52)
[2022-11-08] MEDS: SENNOSIDES/DOCUSATE TABLET 1 TAB PO ×2 (07:52→16:48)
[2022-11-08] MEDS: CETIRIZINE HCL 10 MG TABLET PO (07:52)
[2022-11-08] MEDS: SERTRALINE 100 MG TABLET 125 MG PO (07:52)
[2022-11-08] MEDS: INSULIN LISPRO 100 UNIT/ML VIAL 38 UNIT SUBCUT ×3 (08:35→19:14)
[2022-11-08] MEDS: ATORVASTATIN CALCIUM 40 MG TABLET PO (21:15)
[2022-11-09] MEDS: ISOSORBIDE MONONITRATE ER 30 MG TAB PO (08:12)
[2022-11-09] MEDS: ACETAMINOPHEN 500 MG TABLET 1000 MG PO ×3 (08:12→19:07)
[2022-11-09] MEDS: ASPIRIN 81 MG TAB.CHEW PO (08:12)
[2022-11-09] MEDS: SERTRALINE 100 MG TABLET 125 MG PO (08:13)
[2022-11-09] MEDS: SENNOSIDES/DOCUSATE TABLET 1 TAB PO ×2 (08:13→15:54)
[2022-11-09] MEDS: METOPROLOL TARTRATE 25 MG TABLET PO ×2 (08:13→15:54)
[2022-11-09] MEDS: CETIRIZINE HCL 10 MG TABLET PO (08:13)
[2022-11-09] MEDS: LOSARTAN POTASSIUM 50 MG TABLET PO (08:13)
[2022-11-09] MEDS: GABAPENTIN 300 MG CAPSULE PO ×2 (08:13→15:54)
[2022-11-09] MEDS: SITAGLIPTIN PHOSPHATE 100 MG TABLET 50 MG PO (08:13)
[2022-11-09] MEDS: FAMOTIDINE 10 MG TABLET PO (08:13)
[2022-11-09] MEDS: TORSEMIDE 20 MG TABLET 30 MG PO (08:13)
[2022-11-09] MEDS: INSULIN LISPRO 100 UNIT/ML VIAL 38 UNIT SUBCUT ×3 (08:49→17:29)
[2022-11-09] MEDS: ATORVASTATIN CALCIUM 40 MG TABLET PO (19:07)
--- NOTE | 2022-11-10 06:41 | PC.NURSE ---
Weekly Charting-Week 4: Comprehensive and temporary care plan reviewed. No changes made & nothing added to temporary care plan. No changes noted in communication,hearing, vision, or orientation. Resident is Lithuanian speaking. Needs an county records management officer and has a white board & IPAD in room for communication. Can understand Korean more than she talks. Hearing is fine. Wears glasses to correct vision. Alert, oriented x 3 with some forgetfulness. Cognition intact. Health condition stable. Vital signs reviewed. Blood sugar readings trending high, reviewed by CELERY WRAPPER. Humalog Insulin increased on 11/07/22. Continue accu checks as ordered & VS weekly. All medications administered by Nurse. Mood/Behavior: No issues documented.. Receives Zoloft 125mg daily. Risperidone discontinued last month. Continue to monitor for changes.
[2022-11-10] MEDS: INSULIN LISPRO 100 UNIT/ML VIAL 38 UNIT SUBCUT ×3 (07:48→17:11)
[2022-11-10] MEDS: ASPIRIN 81 MG TAB.CHEW PO (07:48)
[2022-11-10] MEDS: ACETAMINOPHEN 500 MG TABLET 1000 MG PO ×3 (07:48→20:06)
[2022-11-10] MEDS: ISOSORBIDE MONONITRATE ER 30 MG TAB PO (07:49)
[2022-11-10] MEDS: SITAGLIPTIN PHOSPHATE 100 MG TABLET 50 MG PO (07:49)
[2022-11-10] MEDS: TORSEMIDE 20 MG TABLET 30 MG PO (07:51)
[2022-11-10] MEDS: METOPROLOL TARTRATE 25 MG TABLET PO ×2 (07:51→16:12)
[2022-11-10] MEDS: FAMOTIDINE 10 MG TABLET PO (07:51)
[2022-11-10] MEDS: SENNOSIDES/DOCUSATE TABLET 1 TAB PO ×2 (07:51→16:15)
[2022-11-10] MEDS: CETIRIZINE HCL 10 MG TABLET PO (07:51)
[2022-11-10] MEDS: SERTRALINE 100 MG TABLET 125 MG PO (07:51)
[2022-11-10] MEDS: LOSARTAN POTASSIUM 50 MG TABLET PO (07:51)
[2022-11-10] MEDS: GABAPENTIN 300 MG CAPSULE PO ×2 (07:51→16:12)
--- NOTE | 2022-11-10 11:04 | PC.NURSE ---
Order: Resident seen by Dr. Akins. Discharge orders done. Oral Nystatin Suspension 100,000units/ml (5 ml) - swish & swallow (or spit) QID X 14 days.
[2022-11-10] MEDS: NON-FORMULARY MEDICATION 5 EACH PO ×2 (20:06→20:09)
[2022-11-10] MEDS: ATORVASTATIN CALCIUM 40 MG TABLET PO (20:07)
[2022-11-11] MEDS: NON-FORMULARY MEDICATION 5 EACH PO ×4 (07:20→19:44)
[2022-11-11] MEDS: SITAGLIPTIN PHOSPHATE 100 MG TABLET 50 MG PO (07:40)
[2022-11-11] MEDS: ASPIRIN 81 MG TAB.CHEW PO (07:40)
[2022-11-11] MEDS: ISOSORBIDE MONONITRATE ER 30 MG TAB PO (07:40)
[2022-11-11] MEDS: ACETAMINOPHEN 500 MG TABLET 1000 MG PO ×3 (07:40→19:22)
[2022-11-11] MEDS: INSULIN LISPRO 100 UNIT/ML VIAL 38 UNIT SUBCUT ×3 (07:40→17:09)
[2022-11-11] MEDS: SERTRALINE 100 MG TABLET 125 MG PO (08:01)
[2022-11-11] MEDS: FAMOTIDINE 10 MG TABLET PO (08:01)
[2022-11-11] MEDS: LOSARTAN POTASSIUM 50 MG TABLET PO (08:01)
[2022-11-11] MEDS: TORSEMIDE 20 MG TABLET 30 MG PO (08:01)
[2022-11-11] MEDS: GABAPENTIN 300 MG CAPSULE PO ×2 (08:01→16:12)
[2022-11-11] MEDS: METOPROLOL TARTRATE 25 MG TABLET PO ×2 (08:01→16:12)
[2022-11-11] MEDS: SENNOSIDES/DOCUSATE TABLET 1 TAB PO ×2 (08:01→16:14)
[2022-11-11] MEDS: CETIRIZINE HCL 10 MG TABLET PO (08:01)
[2022-11-11] MEDS: ATORVASTATIN CALCIUM 40 MG TABLET PO (19:22)
[2022-11-12] MEDS: ACETAMINOPHEN 500 MG TABLET 1000 MG PO ×3 (06:59→20:05)
[2022-11-12] MEDS: ASPIRIN 81 MG TAB.CHEW PO (06:59)
[2022-11-12] MEDS: ISOSORBIDE MONONITRATE ER 30 MG TAB PO (07:01)
[2022-11-12] MEDS: LOSARTAN POTASSIUM 50 MG TABLET PO (07:02)
[2022-11-12] MEDS: METOPROLOL TARTRATE 25 MG TABLET PO ×2 (07:03→16:01)
[2022-11-12] MEDS: GABAPENTIN 300 MG CAPSULE PO ×2 (07:03→16:01)
[2022-11-12] MEDS: FAMOTIDINE 10 MG TABLET PO (07:04)
[2022-11-12] MEDS: SENNOSIDES/DOCUSATE TABLET 1 TAB PO ×2 (07:04→16:01)
[2022-11-12] MEDS: NON-FORMULARY MEDICATION 5 EACH PO ×4 (07:04→20:09)
[2022-11-12] MEDS: TORSEMIDE 20 MG TABLET 30 MG PO (07:04)
[2022-11-12] MEDS: CETIRIZINE HCL 10 MG TABLET PO (07:05)
[2022-11-12] MEDS: SERTRALINE 100 MG TABLET 125 MG PO (07:05)
[2022-11-12] MEDS: SITAGLIPTIN PHOSPHATE 100 MG TABLET 50 MG PO (07:05)
[2022-11-12] MEDS: INSULIN LISPRO 100 UNIT/ML VIAL 38 UNIT SUBCUT ×3 (08:30→16:52)
[2022-11-12 09:41] VITALS: BP 146/61; PULSE 72; RESP 18; TEMP 36.5; O2SAT 96
[2022-11-12 09:44] VITALS: BMI 42.6
[2022-11-12] MEDS: ATORVASTATIN CALCIUM 40 MG TABLET PO (20:05)
[2022-11-13] MEDS: ISOSORBIDE MONONITRATE ER 30 MG TAB PO (07:51)
[2022-11-13] MEDS: ACETAMINOPHEN 500 MG TABLET 1000 MG PO ×3 (07:51→19:24)
[2022-11-13] MEDS: ASPIRIN 81 MG TAB.CHEW PO (07:51)
[2022-11-13] MEDS: GABAPENTIN 300 MG CAPSULE PO ×2 (07:52→16:01)
[2022-11-13] MEDS: METOPROLOL TARTRATE 25 MG TABLET PO ×2 (07:52→16:01)
[2022-11-13] MEDS: SITAGLIPTIN PHOSPHATE 100 MG TABLET 50 MG PO (07:52)
[2022-11-13] MEDS: LOSARTAN POTASSIUM 50 MG TABLET PO (07:52)
[2022-11-13] MEDS: SERTRALINE 100 MG TABLET 125 MG PO (07:53)
[2022-11-13] MEDS: FAMOTIDINE 10 MG TABLET PO (07:53)
[2022-11-13] MEDS: TORSEMIDE 20 MG TABLET 30 MG PO (07:53)
[2022-11-13] MEDS: SENNOSIDES/DOCUSATE TABLET 1 TAB PO ×2 (07:53→16:01)
[2022-11-13] MEDS: NON-FORMULARY MEDICATION 5 EACH PO ×4 (07:53→19:24)
[2022-11-13] MEDS: CETIRIZINE HCL 10 MG TABLET PO (07:54)
[2022-11-13] MEDS: INSULIN LISPRO 100 UNIT/ML VIAL 38 UNIT SUBCUT ×3 (08:28→19:23)
--- NOTE | 2022-11-13 11:17 | PC.NURSE ---
Pain note: Resident c/o moderate R shoulder and R arm pain during morning exercise session today, pointing to R shoulder and area around R elbow likely exacerbated by exercises. Talent Director then provided scheduled analgesic cream applied to areas to help reduce pain. Resident states medication has helped to reduce pain when asked at this time. Vital signs: B/P 100/56 with fluids encouraged, P 71, R 16, T 98.4, O2 sat 94% on RA. Resident reports this pain to her R arm is not new and she had previously reported it to MD. Resident noted to have hx of osteoarthritis. Nursing to continue to observe and treat pain PRN.
[2022-11-13] MEDS: ATORVASTATIN CALCIUM 40 MG TABLET PO (19:24)
[2022-11-14] MEDS: ASPIRIN 81 MG TAB.CHEW PO (08:18)
[2022-11-14] MEDS: SITAGLIPTIN PHOSPHATE 100 MG TABLET 50 MG PO (08:18)
[2022-11-14] MEDS: LOSARTAN POTASSIUM 50 MG TABLET PO (08:18)
[2022-11-14] MEDS: METOPROLOL TARTRATE 25 MG TABLET PO (08:18)
[2022-11-14] MEDS: NON-FORMULARY MEDICATION 5 EACH PO (08:18)
[2022-11-14] MEDS: ACETAMINOPHEN 500 MG TABLET 1000 MG PO (08:18)
[2022-11-14] MEDS: ISOSORBIDE MONONITRATE ER 30 MG TAB PO (08:18)
[2022-11-14] MEDS: GABAPENTIN 300 MG CAPSULE PO (08:18)
[2022-11-14] MEDS: CETIRIZINE HCL 10 MG TABLET PO (08:19)
[2022-11-14] MEDS: FAMOTIDINE 10 MG TABLET PO (08:19)
[2022-11-14] MEDS: TORSEMIDE 20 MG TABLET 30 MG PO (08:19)
[2022-11-14] MEDS: SERTRALINE 100 MG TABLET 125 MG PO (08:19)
[2022-11-14] MEDS: SENNOSIDES/DOCUSATE TABLET 1 TAB PO (08:19)
[2022-11-14] MEDS: INSULIN LISPRO 100 UNIT/ML VIAL 38 UNIT SUBCUT (08:23)
--- NOTE | 2022-11-14 09:49 | PC.SOCIAL ---
Discharge planning: Called [facility] and spoke with Berta who confirmed they have everything they need for resident to be admitted there today. Confirmed [facility] will pay for one week of IPad interpreting with [employer] which is already loaded on the computer resident will take with them to the facility. Staff member accompanying her will show staff at [facility] how to use the guilherme for chairlift operator use. After one week, the new facility will have their own arrangements for chairlift operator access on the IPad and will work with her county shoe caser regarding whether the waiver can pay for these services.
--- NOTE | 2022-11-14 10:16 | PC.NURSE ---
MDS: Quarterly MDS was inactivated partially completed because resident discharged before completion due date.
--- NOTE | 2022-11-14 11:00 | PC.NURSE ---
Discharge: Resident discharge to [facility] d/t facility closure via hospital van. All appropriate medications, discharge packets , tank of O2 with tubings, belongings sent.
--- NOTE | 2022-11-14 12:13 | PC.NURSE ---
RECAPITULATION NOTE: Resident was admitted to [facility] on 05/01/2022. They have an extensive medical history including: Type 2 diabetes mellitus, Presumed coronary artery disease, essential hypertension, chronic kidney disease, osteoarthritis, peripheral neuropathy, chronic pain syndrome, [id number], class 3 obesity, KEEGAN, GERD, macular degeneration, hyperlipidemia, and history of acute heart failure. They discharged today to [facility] for ongoing care needs since [facility] is closing. Resident was sent with discharge orders, remaining supply of medications, POLST/Advance directives, signed active med list, active care plan and MDS. They did not require any opiates or anxiolytic medications. Oxygen prescription, pertinent notes, and oxygen saturation readings faxed to Respiratory at: [phone]. Spoke with rep from [facility] (PH: [phone]), who states resident has been approved for oxygen at night and they will deliver to [facility] today. Extra oxygen tank sent with resident. Belongings were inventoried and signed. Discharge summary completed by provider. Resident remains Full Code status. Discharge orders and pertinent notes E-mailed Berta at [email or web address]. Resident was accompanied by RN/Sheryl to the care center. All questions answered.?
== END 2022-11-14 11:03 | DRG 531 ==
PROVIDERS: Family Medicine; Absent Provider Nurse Practitioner Gerontology; Admitting Provider Family Medicine; PCP Nurse Practitioner Gerontology; Visit Provider Family Medicine
DX: B37.49 Other urogenital candidiasis (principal); E11.9 Type 2 diabetes mellitus without complications; F32.A Depression, unspecified; K12.1 Other forms of stomatitis; L29.9 Pruritus, unspecified; I10 Essential (primary) hypertension; H04.123 Dry eye syndrome of bilateral lacrimal glands; I63.9 Cerebral infarction, unspecified; K59.00 Constipation, unspecified; I50.9 Heart failure, unspecified; E66.9 Obesity, unspecified; M19.90 Unspecified osteoarthritis, unspecified site; K21.9 Gastro-esophageal reflux disease without esophagitis; R19.7 Diarrhea, unspecified; G62.9 Polyneuropathy, unspecified; R07.9 Chest pain, unspecified; J39.2 Other diseases of pharynx; G47.33 Obstructive sleep apnea (adult) (pediatric)
CPT/HCPCS: 36415; 80048; 81001; 82607; 82747; 83036; 85018; 85025; 87086; 87186; 87631; 87635; 87804; 97165